=== PATIENT | female | born 1955 | race Caucasian/White ===

== ENCOUNTER → 2017-09-18 11:08 | Outpatient (CLI) | payer OTHER, SELFPAY ==
[2017-09-20 11:41] LABS: HPV Reflexed? NOT INDICATED
== END ==
PROVIDERS: Visit Provider Obstetrics & Gynecology
DX: Z12.4 Encounter for screening for malignant neoplasm of cervix (principal)
CPT/HCPCS: 88175; G0145

== ENCOUNTER → 2017-11-29 10:29 | Outpatient (CLI) | payer OTHER, SELFPAY ==
--- NOTE | 2017-11-29 10:32 | BI_ITS ---
MAMMOGRAPHY - BILATERAL SCREENING REASON FOR EXAM: Female, 62 years old. Routine annual screening examination. PERTINENT HISTORY: Mother with breast cancer. TECHNIQUE: Digital bilateral breast caleb (3D mammographic acquisition) in the CC and MLO projections. 2-D mediolateral oblique (MLO) and craniocaudad (CC) views of both breasts were obtained. CAD: Full Field Digital Mammography with Computer Added Detection was performed. COMPARISON: Comparison is made with prior study dated November 07, 2016 and November 06, 2015. FINDINGS: Breast Composition: There are scattered areas of fibroglandular density. There are no dominant masses or suspicious calcifications. No other significant abnormalities are identified. There has been no significant change since the prior study. BI/SCREENING MAMM (CAD), BILAT IMPRESSION: Stable bilateral screening mammogram. Yearly follow-up mammogram recommended. (A) ASSESSMENT CATEGORY: BIRADS Category 1: Negative. A letter regarding these results will be sent to the patient by the facility within 30 days. Approximately 10% of breast cancers are not detected by mammography. A normal mammogram should not delay biopsy of a clinically suspicious abnormality. [id number] Electronically Signed: Korey Wong MD at 14:19 EDT Tel [phone], Service support ,
== END ==
PROVIDERS: Family Provider Family Medicine; PCP Family Medicine; Visit Provider Obstetrics & Gynecology
DX: Z12.31 Encounter for screening mammogram for malignant neoplasm of breast (principal)
CPT/HCPCS: 77063; 77067

== ENCOUNTER 2017-12-19 23:17 | Emergency (ER) | payer OTHER, SELFPAY ==
[2017-12-19 23:18] VITALS: BP 147/74; PULSE 67; RESP 15; TEMP 36.4; O2SAT 98; BMI 28.9
[2017-12-19 23:23] VITALS: BP 147/74; PULSE 68; RESP 14; O2SAT 98
--- NOTE | 2017-12-20 00:02 | ED.VISSUMM ---
- ER Visit Summary Date of Service: 12/20/17 Chief Complaint: Needlestick History of Present Illness: The patient is a 62 F presenting for evaluation secondary to a needlestick. 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 She states that the patient denies hepatitis or HIV or any history of IV drug use or needle sharing. Patient did report a history of chlamydia in the past. Tetanus status is greater than 5 years. Physical Examination: Examination of the hand shows no tenderness to palpation and no obvious injury. Remainder the physical unremarkable. Test Results: Exposure panel was ordered and is pending Emergency Department Course and Treatment: Patient presented secondary to a needlestick. I believe this to be low risk for blood-borne pathogen. I do not believe that empiric treatment is necessary. Exposure panel was ordered, tetanus was updated, patient was discharged. Disposition: Discharge Impression: 1. Needlestick This note was generated with [employer] dictation software. It may contain incorrect words, spelling, and punctuation that were not noted in review of the chart prior to signing ED Disposition - Plan for ED Patient: Disposition: Home or Assisted Living Chief Complaint: Occup Expose Diagnosis: Needlestick injury accident Instructions: ED Body Fluid Exp HC Worker Referrals: [facility] [GROUP OF PHYSICIANS] - As Needed
[2017-12-20] MEDS: Diphth,Pertuss(Acell),Tet Vac 0.5 ML Vial IM (00:26)
[2017-12-20 00:53] VITALS: BP 140/74; PULSE 62; RESP 16
[2017-12-20 01:50] LABS: HIV - WCH Non-Reactive (Nonreactive)
[2017-12-21 12:51] LABS: HEPATITIS B SURFACE AG Negative (Negative); Hep B Surface Antibodies EMP Reactive (.); Hep C Antibodies <0.1 s/co ratio (0.0-0.9)
== END 2017-12-20 00:54 | disposition home or self-care (01) ==
PROVIDERS: Emergency Provider Emergency Medicine; Family Provider Family Medicine; PCP Family Medicine
DX: S61.032A Puncture wound without foreign body of left thumb without damage to nail, initial encounter (principal); Z23 Encounter for immunization; G47.30 Sleep apnea, unspecified; W46.1XXA Contact with contaminated hypodermic needle, initial encounter; Y93.89 Activity, other specified; Y92.129 Unspecified place in nursing home as the place of occurrence of the external cause; Y99.0 Civilian activity done for income or pay
CPT/HCPCS: 86703; 86803; 87340; 90715; 99282

== ENCOUNTER → 2018-02-23 12:02 | Outpatient (CLI) | payer OTHER, SELFPAY ==
[2018-02-23 14:32] LABS: Cholesterol 211 mg/dL (200); High Density Lipoprotein 63 mg/dL; Triglycerides 145 mg/dL; Very Low Density Lipoprotein 29 mg/dL (5-40)
== END ==
PROVIDERS: Family Provider Family Medicine; PCP Family Medicine; Visit Provider Family Medicine
DX: I10 Essential (primary) hypertension (principal)
CPT/HCPCS: 36415; 80061

== ENCOUNTER → 2018-09-05 09:17 | Outpatient (CLI) | payer OTHER, SELFPAY ==
--- NOTE | 2018-09-05 09:22 | BD_ITS ---
STUDY: DUAL ENERGY X-RAY ABSORPTIOMETRY / DXA REASON FOR EXAM: Female, 63 years old. The patient is postmenopausal. Loss of height. TECHNIQUE: Bone Mineral Density (BMD) measurements of lumbar spine and bilateral hips were obtained. COMPARISON: Comparison is made with prior study dated July 07, 2015. FINDINGS: Lumbar Spine (L1-L4): g/cm2 (1.255) / T-score (0.6) / Z-score (2.1) Findings are suggestive of normal bone density with a low fracture risk. Left Femur Total: g/cm2 (0.893) / T-score (-0.9) / Z-score (0.2) Left Femoral Neck: g/cm2 (0.874) / T-score (-1.2) / Z-score (0.2) Right Femur Total: g/cm2 (0.943) / T-score (-0.5) / Z-score (0.6) Right Femoral Neck: g/cm2 (0.904) / T-score (-1.0) / Z-score (0.4) The T-Scores on the most recent prior examination were: Lumbar Spine (L1-L4): There has been worsening of bone density since the previous examination. Left Femur Total: which represents a worsening of 6.1%. Right Femur Total: which represents a worsening of 3.8%. BD/Dexa Bone Density Study IMPRESSION: The patient is considered osteopenic as outlined below according to World Wolf Organization (WHO) criteria with a low fracture risk. There has been worsening of bone density since the previous examination. Reference Information: The T-score is the number of standard deviations above or below the standard which is normal for young adults at their peak bone mineral density. The World Health Organization (WHO) interprets the T-scores as follows: Above -1 Normal bone density Between -1 and -2.5 Osteopenia Equal to / or below -2.5 Osteoporosis As a practical clinical guideline, osteopenia may be graded as follows: Mild -1 through -1.5 Moderate -1.6 through -2.0 Severe -2.1 through -2.4 The Z-score is the number of standard deviations above or below age-matched controls. A Z-score of less than -1.5 would be considered abnormal. References: 1. NIH Osteoporosis and Related Bone Diseases http://www.osteo.org 2. International Society for Clinical Densitometry http://www.iscd.org 3. National Osteoporosis Foundation http://www.nof.org Electronically Signed: Korey Wong, at 13:28 EST , Service support ,
== END ==
PROVIDERS: Family Provider Family Medicine; PCP Family Medicine; Visit Provider Family Medicine
DX: Z00.00 Encounter for general adult medical examination without abnormal findings (principal)
CPT/HCPCS: 77080

== ENCOUNTER → 2018-09-21 15:08 | Outpatient (CLI) | payer OTHER, SELFPAY ==
--- NOTE | 2018-09-21 15:23 | RAD_ITS ---
STUDY: X-RAY - LUMBAR SPINE REASON FOR EXAM: Female, 63 years old. Pain radiating down legs for months. TECHNIQUE: 5 view(s) of the lumbar spine were obtained. COMPARISON: None FINDINGS: Normal lumbar lordosis. There is no substantial scoliosis. There is a normal alignment of the vertebrae. Normal vertebral bodies and endplates. Normal disc space heights. The soft tissue structures are unremarkable. RAD/L/S Spine Min 4 Views IMPRESSION: Normal x-ray examination of the lumbar spine. Electronically Signed: Eladio Broderick MD at 13:44 EDT , Service support ,
== END ==
PROVIDERS: Family Provider Family Medicine; PCP Family Medicine
DX: M54.5 Low back pain (principal)
CPT/HCPCS: 72110

== ENCOUNTER → 2018-12-14 | Outpatient (CLI) | payer OTHER, SELFPAY ==
--- NOTE | 2018-12-14 10:43 | BI_ITS ---
MAMMOGRAPHY - BILATERAL SCREENING REASON FOR EXAM: Female, 63 years old. Routine annual screening examination. PERTINENT HISTORY: Mother with breast cancer. TECHNIQUE: Digital bilateral breast cayla (3D mammographic acquisition) in the CC and MLO projections. 2-D mediolateral oblique (MLO) and craniocaudad (CC) views of both breasts were obtained. CAD: Full Field Digital Mammography with Computer Added Detection was performed. COMPARISON: Comparison is made with prior study dated November 29, 2017 and November 07, 2016. FINDINGS: Breast Composition: There are scattered areas of fibroglandular density. There are no dominant masses or suspicious calcifications. No other significant abnormalities are identified. There has been no significant change since the prior study. BI/SCREEN MAMM (CAD) W/CAYLA BILAT IMPRESSION: Stable bilateral screening mammogram. Yearly follow-up mammogram recommended. (A) ASSESSMENT CATEGORY: BIRADS Category 1: Negative. A letter regarding these results will be sent to the patient by the facility within 30 days. Approximately 10% of breast cancers are not detected by mammography. A normal mammogram should not delay biopsy of a clinically suspicious abnormality. [id number] Electronically Signed: Korey Wong, at 12:29 EDT , Service support ,
== END | disposition home or self-care (01) ==
LOC: OPBI 10:41
PROVIDERS: Family Provider Family Medicine; PCP Family Medicine; Referring Provider Obstetrics & Gynecology; Visit Provider Obstetrics & Gynecology
DX: Z12.31 Encounter for screening mammogram for malignant neoplasm of breast (principal)
CPT/HCPCS: 77063; 77067

== ENCOUNTER 2019-01-30 12:30 | Outpatient (RCR) | payer OTHER, SELFPAY ==
--- NOTE | 2018-12-10 15:28 | HP.PTEVAL ---
Patient's Visit Information SITA MITTAL is a 63 year old F referred to Physical Therapy by PAMELA HEBERT with a diagnosis of LOW BACK, RIGHT HIP AND MILTON KNEE PAIN. Date of Evaluation: 12/10/18 Physical Therapist: Urvashi Herman PT, Cert MDT - Visit Plan Frequency: 2-3x /Week Duration: 4-6 Weeks Plan: AQUATIC THERAPY FOR PAIN RELIEF, POSTURE CORRECTION/STRENGTHENING, INSTRUCTION IN APPROPRIATE BODY MECHANICS AND ACTIVITY MODIFICATIONS. DLS STARTING WITH A NEUTRAL SPINE PROGRESSING ROM TOLERATED. MILTON LE ROM, STRETCHING AND STRENGTHENING. HEP INSTRUCTION. 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 NO ROUTINE HEAVY LIFTING, PUSHING OR PULLING. Disability: NO. Present symptoms: MILTON LOW BACK PAIN, MILTON HIP PAIN, MILTON THIGH AND KNEE PAIN. MILTON FOOT NUMBNESS. OTHERWISE NO LE NUMBNESS OR TINGLING. Present since: MORE THAN 5 YEARS AGO. HIP PAIN STARTED JUN 2018 USING ELIPTICAL. Pain Scale: WORST 5/10, LEAST 0/10. Currently: 07/12 - STAYING THE SAME OR MAYBE GETTING A LITTLE BETTER. Commenced as a result of: NO APPARENT REASON. Symptoms at onset: MILTON KNEE PAIN. Worse: STANDING, SITTING, TRYING TO DO THE ELIPICAL [facility] JUL 2018 - HIP AND THIGH PAIN [place], A LOT OF WALKING, RIDING IN THE CAR. Better: QUITING LEG EX'S AT THE GYM, FOAM ROLLER, PIRIFORMIS STRETCH, LTR, STANDING FLEXION. TAKES LYRICA AND TYLONOL AND MALOXACAM FOR OTHER CONDITIONS THAT MAY BE HELPING - ON ALL THESE MEDS BEFORE THIS PAIN. Disturbed sleep: YES. Previous history/Previous treatment: CHIROPRACTOR EVERY MONTH FOR MAINTANCE FOR YEARS. TRIES TO GO THE DAY AFTER MASSAGE WHICH SHE ALSO HAS EVERY MONTH. NO BACK, HIP OR KNEE SURGERY. 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 UNDER THE CARE OF PAIN CLINIC. RECEIVED A RIGHT HIP INJECTION JUN 2018 WHICH HELPED FOR ABOUT 5 WEEKS. NO BACK INJECTIONS. NO KNEE INJECTIONS. Coughing/sneezing/straining: NEGATIVE. Gait: PATIENT REPORTS SHE HAS MILD ATAXIA THAT SHE RELATES TO LYRICA. DISTANCE LIMITED. QUICK PACE. NO LIMPING. Difficulty initiating urinatin: NO. Accidents: NO. Unexplained weight loss: NO. Imaging: RECENT LUMBAR X-RAY - NORMAL. NO RECENT HIP OR KNEE X-RAYS. 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 Recent major surgery: NO. PLOF (Prior Level of Function): UNLIMITED EXCEPT THINGS LIKE DANCING PRIOR TO JUN 2018 FLARE UP WITH HIPS IN GYM ON ELIPTICAL. - Objective Sitting/Standing Posture: POOR. Lordosis: REDUCED. Lateral shift: NO. Relevant shift: N/A. Active Correction of posture: NE. Other Observations: INDEP GAIT INTO PT WITH NO GROSS DEVIATIONS NOTED. INDEP SIT TO STAND WITHOUT UE ASSIST. Motor deficit: 5/5 MILTON LE'S EXCEPT HIPS 4/5 AND SYMMETRICAL. Sensory deficit: NO. ROM deficit: TIGHT MILTON LE HS'S AND GASTROC SOLEUS COMPLEX'S. Reflexes: 2/2 RIGHT LE AND 1/2 LLE. Dural Signs: NEGATIVE MILTON LE'S. Lumbar mvmt loss: flex - NIL. ext - MALLORY IN STANDING, MOD IN LYING. R SG - MOD. L SG - MOD. PATIENT DENIES INCREASED SX'S IN BACK OR LEGS WITH LUMBAR ROM TESTING. Core strength: POOR. Palpation: NO ACUTE THORACIC, LUMBAR OR HIP TENDERNESS. - Goals Goal 1:: DECREASE C/O LOW BACK AND MILTON LE SX'S. Goal Time Frame: 4-6 Weeks Goal 2:: IMRPOVE WALKING, SITTING, STANDING, SLEEP, SOCIAL LIFE, TRAVEL AND HOMEMAKING FUNCTION Goal Time Frame: 4-6 Weeks Goal 3:: INSTRUCT IN PROPHYLAXIS Goal Time Frame: 4-6 Weeks - Rehabilitation Potential Rehabilitation Potential: Fair - Anticipated Interventions Patient/Client Instruction: Educate patient on: Condition, Plan of Care, Risk Factors, Benefits of Fitness Program For the Purpose of:: To improve self management Therapeutic Exercise to Include: Strength training, Body mechanics, Postural training, Flexibilty training, In an aquatic setting, Dynamic Lumbar Stabilization For the Purpose of:: To decrease pain, To improve muscle performance and motor function, To increase tolerance to activity/condition/position, To improve ability of physical actions for home/community/work/leisure TENS: Yes IF ES: Yes Cryotherapy (ice pack, ice massage): Yes Thermo therapy (hot pack): Yes Ultrasound (thermal/non thermal): Yes For the Purpose of:: To decrease pain, To decrease swelling/inflammation, To improve nutrient delivery to tissue Thank you for the opportunity to evaluate your patient. For Medicare and Medicare HMO plans, please review the plan of care and approve it. It will need to be FAXED BACK to us at [phone] for Medicare purposes. For Medicare only, by signing this I certify the plan of care. Please let me know if there are questions or concerns regarding this plan of care. Physician Signature: Date:
--- NOTE | 2019-01-11 10:53 | HP.PTREVAL ---
PAMELA HEBERT, It has been my pleasure to treat SITA MITTAL over the last 10 visits for LOW BACK, RIGHT HIP AND MILTON KNEE PAIN. Please see the progress note below for an update on the physical therapy plan of care! Subjective: PATIENT REPORTS HER RIGHT HIP PAIN ISN'T FREQUENT OR SEVERE SINCE STARTING PT. FOLLOW UP SCHEDULED WITH HER DOCTOR APPROX JANUARY 30. PATIENT REPORTS SHE FEELS LIKE IF SHE CONTINUES TO DO WHAT WE TAUGHT HER SHE WILL CONTINUE TO GET BETTER. SHE REPORTS SHE IS STILL IN TOO MUCH PAIN TO DO GYM EX'S. PATIENT REPORTS SHE LIKES BEING IN THE POOL BUT NOT THE LOGISTICS OF OF GETTING IN AND OUT OF THE POOL. Objective/Function: THIS PATIENT IS A GOOD CANDIDATE TO TRY TO TRANSITION TO LAND HEP AND POSSIBLY GYM EQUIPMENT. SHE IS MAKING GOOD PROGRESS TOWARD ALL GOALS. UPON EXAM TODAY SHE DEMONSTRATES IMPROVED MILTON HIP STRENGTH WITH ONLY MILD WEAKNESS 4/5 IN RIGHT GLUT MED. LUMBAR ROM HAS ALSO IMPROVED FOLLOWS: Lumbar mvmt loss: flex - NIL. ext - MOD. R SG - MOD. L SG - MOD. PATIENT DENIES INCREASED PAIN WITH LUMBAR ROM TESTING. Plan Plan: CONT PER POC X 2 MORE VISITS ON LAND THEN RE-CHECK WITH PHYSICIAN. PATIENT AGREEABLE. Goals Goal 1:: DECREASE C/O LOW BACK AND MILTON LE SX'S. Goal Time Frame: 4-6 Weeks Goal 2:: IMRPOVE WALKING, SITTING, STANDING, SLEEP, SOCIAL LIFE, TRAVEL AND HOMEMAKING FUNCTION Goal Time Frame: 4-6 Weeks Goal 3:: INSTRUCT IN PROPHYLAXIS Goal Time Frame: 4-6 Weeks Anticipated Interventions Patient/Client Instruction: Educate patient on: Condition, Plan of Care, Risk Factors, Benefits of Fitness Program For the Purpose of:: To improve self management Therapeutic Exercise to Include: Strength training, Body mechanics, Postural training, Flexibilty training, In an aquatic setting, Dynamic Lumbar Stabilization For the Purpose of:: To decrease pain, To improve muscle performance and motor function, To increase tolerance to activity/condition/position, To improve ability of physical actions for home/community/work/leisure TENS: Yes IF ES: Yes Cryotherapy (ice pack, ice massage): Yes Thermo therapy (hot pack): Yes Ultrasound (thermal/non thermal): Yes For the Purpose of:: To decrease pain, To decrease swelling/inflammation, To improve nutrient delivery to tissue Please do not hesitate to contact me at [phone] by phone or if you have questions or concerns regarding this new plan of care! Sincerely, Urvashi Herman, PT, Cert MDT
--- NOTE | 2019-01-30 13:24 | HP.PTDCSUM ---
HP - PT D/C Summary It has been my pleasure to treat SITA MITTAL under orders from PAMELA HEBERT, for the diagnosis of LOW BACK, RIGHT HIP AND MILTON KNEE PAIN for a total of 12 visit(s). Discharge Date: 01/30/19 Please see the following information for a summary of their discharge status. - Subjective Subjective: PATIENT REPORTS SHE IS DOING GOOD WITH THE HOME EX'S NOW AND IS ALSO GLAD SHE CAN DO THE NUSTEP. GOING FORWARD AT [facility] IN POOL WELL. - Pain BACK Pain Intensity (Out of 10): 0 both knees Pain Intensity (Out of 10): 2 RLE Pain Intensity (Out of 10): 2 - Overall Improvement % Improvement: 60 - Objective Objective/Function: ALL GOALS MET. THERE ARE NO SIGNIFICANT CHANGES WITH TESTING TODAY COMPARED TO JANUARY 11 2019 BUT PATIENT IS NOW INDEP IN BOTH WATER AND HOME EX PROGRAMS. PATIENT COMMUNICATED A GOOD UNDERSTANDING OF ALL INSTRUCTIONS AFTER GIVEN TODAY. - Goals Goal 1:: DECREASE C/O LOW BACK AND MILTON LE SX'S. Goal Progress: Goal Met Goal 2:: IMRPOVE WALKING, SITTING, STANDING, SLEEP, SOCIAL LIFE, TRAVEL AND HOMEMAKING FUNCTION Goal Progress: Goal Met Goal 3:: INSTRUCT IN PROPHYLAXIS Goal Progress: Goal Met - Plan Plan: D/C TO INDEP POOL AND HEP PROGRAMS. PATIENT IS AGREEABLE. - D/C Information If there are questions or concerns regarding this patient's physical therapy, please feel free to call me at [phone]. Thank you for the referral of this patient. Sincerely, Urvashi Herman, PT, Cert MDT
== END 2019-01-30 19:00 | disposition home or self-care (01) ==
LOC: PT 12:30
PROVIDERS: Family Provider Family Medicine; PCP Family Medicine
DX: M25.551 Pain in right hip (principal); M25.561 Pain in right knee; M25.562 Pain in left knee; M54.5 Low back pain
CPT/HCPCS: 97110; 97113; 97162; 97530

== ENCOUNTER → 2019-08-22 | Outpatient (CLI) | payer OTHER, SELFPAY ==
[2019-08-22 12:41] LABS: Anion Gap 4 (5-15); BUN 24 mg/dL (7-18); BUN/Creat Ratio 21.8 RATIO (10-20); Calcium,Total 9.3 mg/dL (8.5-10.1); Chloride 109 mmol/L (98-107); Cholesterol 171 mg/dL (200); EST Glomerular Filtration Rate 53 mL/min (>60); Est Glom Filt Rate - Afr Amer 64 mL/min (>60); Glucose 75 mg/dL (74-106); High Density Lipoprotein 62 mg/dL; Potassium 4.3 mmol/L (3.5-5.1); Sodium Level 142 mmol/L (136-145); Triglycerides 118 mg/dL; Very Low Density Lipoprotein 24 mg/dL (5-40)
== END | disposition home or self-care (01) ==
LOC: MTLAB 09:48
PROVIDERS: PCP Family Medicine; Referring Provider Family Medicine; Visit Provider Family Medicine
DX: I10 Essential (primary) hypertension (principal); E78.5 Hyperlipidemia, unspecified
CPT/HCPCS: 36415; 80048; 80061

== ENCOUNTER → 2019-12-19 | Outpatient (CLI) | payer OTHER, SELFPAY ==
--- NOTE | 2019-12-19 09:41 | BI_ITS ---
MAMMOGRAPHY - BILATERAL SCREENING REASON FOR EXAM: Female, 64 years old. Routine annual screening examination. PERTINENT HISTORY: Mother with breast cancer. TECHNIQUE: Digital bilateral breast cayla (3D mammographic acquisition) in the CC and MLO projections. 2-D mediolateral oblique (MLO) and craniocaudad (CC) views of both breasts were obtained. CAD: Full Field Digital Mammography with Computer Added Detection was performed. COMPARISON: Comparison is made with prior study dated December 14, 2018. FINDINGS: Breast Composition: There are scattered areas of fibroglandular density. There are no dominant masses or suspicious calcifications. Stable small benign appearing bilateral axillary lymph nodes. No other significant abnormalities are identified. There has been no significant change since the prior study. BI/SCREEN MAMM (CAD) W/CAYLA BILAT IMPRESSION: Stable bilateral screening mammogram. Yearly follow-up mammogram recommended. (A) ASSESSMENT CATEGORY: BIRADS Category 2: Benign. A letter regarding these results will be sent to the patient by the facility within 30 days. Approximately 10% of breast cancers are not detected by mammography. A normal mammogram should not delay biopsy of a clinically suspicious abnormality. [id number] Electronically Signed: Korey Wong, at 11:18 EDT , Service support ,
== END | disposition home or self-care (01) ==
LOC: OPBD 09:39
PROVIDERS: PCP Family Medicine; Referring Provider Obstetrics & Gynecology; Visit Provider Obstetrics & Gynecology
DX: Z12.31 Encounter for screening mammogram for malignant neoplasm of breast (principal)
CPT/HCPCS: 77063; 77067

== ENCOUNTER → 2020-10-19 13:54 | Outpatient (CLI) | payer MEDICARE, SELFPAY ==
[2020-10-19 15:41] LABS: Absolute Lymphocyte Count 1.54 X10^3/uL (0.83-4.51); Absolute Neutrophil Count 1.8 X10^3/uL (2.0-7.7); Basophil# 0.02 X10^3/uL; Basophil% 0.5 % (0-1); Eosinophil# 0.04 X10^3/uL; Eosinophils% 1.1 % (0-5); Hematocrit 39.9 % (37-47); Hemoglobin 12.8 g/dL (12.0-15.0); Lymphocyte # 1.54 X10^3/ul (0.83-4.51); Lymphocyte % 40.8 % (19-41); Mean Corp Hgb Conc 32.1 g/dL (32-36); Mean Corpuscular Hgb 31.2 pg (27.0-32.0); Mean Corpuscular Volume 97.3 fL (81-99); Mean Platelet Vol. 11.3 fl (6.2-12.0); Monocyte# 0.33 X10^3/uL; Monocyte% 8.8 % (0-10); NRBC Flagged by Analyzer 0 % (0-5); Neutrophil # 1.83 X10^3/uL (2.7-7.7); Neutrophil % 48.5 % (47-70); Platelet Count 215 K/mm3 (150-450); RBC Distribution Width CV 12.9 % (11.6-14.6); RBC Distribution Width SD 45.9 fl (35.1-43.9); White Blood Count 3.8 K/mm3 (4.4-11.0)
== END ==
PROVIDERS: PCP Family Medicine; Referring Provider Internal Medicine Rheumatology; Visit Provider Internal Medicine Rheumatology
DX: D72.819 Decreased white blood cell count, unspecified (principal)
CPT/HCPCS: 36415; 85025

== ENCOUNTER → 2021-02-12 10:33 | Outpatient (CLI) | payer MEDICARE, SELFPAY ==
--- NOTE | 2021-02-12 10:56 | BI_ITS ---
MAMMOGRAPHY - BILATERAL SCREENING REASON FOR EXAM: Female, 65 years old. Routine annual screening examination. PERTINENT HISTORY: Mother with breast cancer. TECHNIQUE: Digital bilateral breast cayla (3D mammographic acquisition) in the CC and MLO projections. 2-D mediolateral oblique (MLO) and craniocaudad (CC) views of both breasts were obtained. CAD: Full Field Digital Mammography with Computer Added Detection was performed. COMPARISON: Comparison is made with prior study dated 12/19/2019 and 12/14/2018. FINDINGS: Breast Composition: There are scattered areas of fibroglandular density. There are no dominant masses or suspicious calcifications. No other significant abnormalities are identified. There has been no significant change since the prior study. BI/SCRN MAMM (CAD)W/CAYLA BILAT IMPRESSION: Stable bilateral screening mammogram. Yearly follow-up mammogram recommended. (A) ASSESSMENT CATEGORY: BIRADS Category 1: Negative. A letter regarding these results will be sent to the patient by the facility within 30 days. Approximately 10% of breast cancers are not detected by mammography. A normal mammogram should not delay biopsy of a clinically suspicious abnormality. [id number] Electronically Signed: Korey Wong MD at 11:54 EDT , Service support ,
== END ==
PROVIDERS: PCP Family Medicine; Referring Provider Obstetrics & Gynecology; Visit Provider Obstetrics & Gynecology
DX: Z12.31 Encounter for screening mammogram for malignant neoplasm of breast (principal)
CPT/HCPCS: 77063; 77067

== ENCOUNTER → 2021-05-17 | Outpatient (CLI) | payer MEDICARE, SELFPAY | END | disposition home or self-care (01) | LOC: MTLAB 14:10 → LABSPEC 14:12 | PROVIDERS: PCP Family Medicine; Referring Provider Family Medicine; Visit Provider Family Medicine | DX: R19.7 Diarrhea, unspecified (principal) | CPT/HCPCS: 87493; 87506 ==

== ENCOUNTER 2021-06-02 15:30 | Outpatient (RCR) | payer MEDICARE, SELFPAY ==
--- NOTE | 2021-05-20 15:37 | HP.PTEVAL_ITS ---
Patient's Visit Information SITA MITTAL is a 65 year old F referred to Physical Therapy by Dr. Nathen Pacheco MD with a diagnosis of L shoulder adhesive capsulitis. Date of Evaluation: 05/20/21 Physical Therapist: Darron Campos, SURESHT, OCS, CSCS - Visit Plan Frequency: 1-2x /Week Duration: 4-6 Weeks Plan: 1-2x/week for 4-6 weeks as needed for STM, ROM,mobs and PROM, strength scap and RC and progression to HEP. TENS wtih ice/Mh as needed. Start with one visit next week and measure ROM, weekly if better, 2x/week if no better. - Subjective L shoulder hurts. Saw Dr. Pacheco at [facility] due to L shoulder pain. Hurts anteriorly and posteriorly at L shoulder. Hard to move to undue bra. It has hurt for about 5-6 months. Slightly worse lately over the last weeks. Not sure what started it, possibly a trip on step and land on her arms. Sometimes it hurts at rest. 0/10 at rest today. Gets up to 5/10 with lying in bed on L side. Hard to maneuver in bed . Hurts to reach up and out. Out to the side with arc is worse. More weight in hands is worse. Hard to get dressed due to pain but can do it. Alters the way she dresses. ADLS are effected but take longer and hard to wash back. Not employed. Hobbies include playing [place] horn and can stilld o it. - Pain L shoulder Pain Intensity (Out of 10): 0 Pain Intensity Range: 0, 5 - Objective L Shouder is held slightly protected, Fw scap on that side. Posture is forward head and protracted scap B. Tender supraspinatus.L side moderately. cervical, elbow and wrist AROM full and painfree. AROM L shoulder 145 flexion and 150 abd and 55 ext rotation and L5 IR all with pain end range. PROM similar to AROM numbers. Mostly painful endfeel. strength thumb ext, wrist ext, elbow flex/ext all painfree and 4/5. Shoulder flexion L painful and 4-, abd same, ext 4 and no pain. IR 4 no pain, ext rot 4 and no pain. - sulcus. - apprehension. - drop arm and ext rotation lag test. slight positive HK and neer impingement tests. reflexes 2/3 bi and tri B. Sensation WNL to gross light touch in UE. - Balance/Special Test Scores Quick DASH Score: 31.8175 - Goals Goal 1:: 155 flexion and abd and 80 ext rotation AROM without pain. Goal Time Frame: 4-6 Weeks Goal 2:: Fasten/unfasten bra without pain Goal Time Frame: 4-6 Weeks Goal 3:: I appropiate ex to manage condition. Goal Time Frame: 4-6 Weeks Goal 4:: Pain 1/10 at worst and 90% better. Goal Time Frame: 4-6 Weeks - Rehabilitation Potential Physical Therapy Diagnosis: L shoulder capsulitis. Rehabilitation Potential: Good - Anticipated Interventions Patient/Client Instruction: Educate patient on: Condition, Plan of Care For the Purpose of:: To decrease pain, To increase ROM, To improve muscle performance and motor function, To increase tolerance to activity/condition/position, To improve ability of physical actions for home/community/work/leisure Therapeutic Exercise to Include: Strength training, Postural training, Passive ROM, Active ROM, Scapular Strength/Stabilization For the Purpose of:: To decrease pain, To increase ROM, To improve muscle performance and motor function, To increase tolerance to activity/condition/position Manual Therapy Techniques to Include: Mobilization, Passive ROM, Soft tissue mobilization For the Purpose of:: To decrease pain, To increase ROM TENS: Yes Thermo therapy (hot pack): Yes Thank you for the opportunity to evaluate your patient. For Medicare and Medicare HMO plans, please review the plan of care and approve it. It will need to be FAXED BACK to us at [phone] for Medicare purposes. For Medicare only, by signing this I certify the plan of care. Please let me know if there are questions or concerns regarding this plan of care. Physician Signature: Date:
--- NOTE | 2021-06-14 06:51 | HP.PTDCNRP_ITS ---
SITA MITTAL was seen in my office for initial evaluation on 05/20/21. The following Plan of Care was established for this patient: Initial Frequency: 1-2x /Week Initial Duration: 4-6 Weeks Patient/Client Instruction: Educate patient on: Condition, Plan of Care For the Purpose of:: To decrease pain, To increase ROM, To improve muscle performance and motor function, To increase tolerance to activity/condition/position, To improve ability of physical actions for home/community/work/leisure Therapeutic Exercise to Include: Strength training, Postural training, Passive ROM, Active ROM, Scapular Strength/Stabilization For the Purpose of:: To decrease pain, To increase ROM, To improve muscle performance and motor function, To increase tolerance to activity/condition/position Manual Therapy Techniques to Include: Mobilization, Passive ROM, Soft tissue mobilization For the Purpose of:: To decrease pain, To increase ROM TENS: Yes Thermo therapy (hot pack): Yes This patient was last seen in our office 06/02/21. Pertinent comments regarding their Physical therapy will appear below: Pt seen 3 visits POC and was much improved. She was to f/u for progression of exercises but has emailed me to state...I saw Dr. Pacheco for follow up on 06-10-21, and he was pleased with progress made on my left shoulder adhesive c apsulitis. However, he was adamant about continuing with only stretching exercises for the next 2 to 3 months. As I?m continuing the various stretches you?ve given me at home, it seems unnecessary to meet at this time. Therefore, I will discontinue her at this time at her request. At this point I will be discontinuing this patient from physical therapy. I would be happy to see this patient again in the future if found appropriate by the physician. Thank you! Darron Campos, DPT, OCS, CSCS Balance/Gait/Functional tests - Balance/Special Test Scores Quick DASH Score: [phone]
== END 2021-06-02 19:00 | disposition home or self-care (01) ==
LOC: PT 15:30
PROVIDERS: PCP Family Medicine; Referring Provider Orthopaedic Surgery; Visit Provider Orthopaedic Surgery
DX: M65.4 Radial styloid tenosynovitis [de Quervain] (principal); M75.02 Adhesive capsulitis of left shoulder
CPT/HCPCS: 97110; 97161

== ENCOUNTER → 2021-12-06 | Outpatient (CLI) | payer MEDICARE, SELFPAY ==
[2021-12-06 12:48] LABS: Vitamin D,25 Hydroxy 34.7 ng/mL
[2021-12-06 12:52] LABS: Anion Gap 6 (5-15); BUN 22 mg/dL (7-18); Chloride 108 mmol/L (98-107); Cholesterol 174 mg/dL (200); EST Glomerular Filtration Rate 59 mL/min (>60); Est Glom Filt Rate - Afr Amer 71 mL/min (>60); Glucose 85 mg/dL (74-106); High Density Lipoprotein 55 mg/dL; Potassium 4.6 mmol/L (3.5-5.1); Sodium Level 141 mmol/L (136-145); Triglycerides 179 mg/dL; Very Low Density Lipoprotein 36 mg/dL (5-40)
== END | disposition home or self-care (01) ==
LOC: MFPLAB 10:17
PROVIDERS: PCP Family Medicine; Visit Provider Family Medicine
DX: I10 Essential (primary) hypertension (principal); E55.9 Vitamin D deficiency, unspecified
CPT/HCPCS: 36415; 80048; 80061; 82306

== ENCOUNTER 2022-01-21 22:54 | Emergency (ER) | payer MEDICARE, SELFPAY ==
[2022-01-21 22:56] VITALS: BP 106/77; PULSE 86; RESP 16; TEMP 36.5; O2SAT 99; BMI 29.3
[2022-01-22] MEDS: 0.9% Normal Saline 1,000 ML 150 ML IV (00:42)
[2022-01-22] MEDS: Ondansetron 4 MG/2 ML Vial IV ×2 (00:43→06:06)
[2022-01-22] MEDS: Morphine 4 MG/ML Syringe IV (00:44)
[2022-01-22 00:45] LABS: Absolute Lymphocyte Count 1.11 X10^3/uL (0.83-4.51); Absolute Neutrophil Count 5.1 X10^3/uL (2.0-7.7); Basophil# 0.01 X10^3/uL; Basophil% 0.1 % (0-1); Hematocrit 36.4 % (37-47); Hemoglobin 11.9 g/dL (12.0-15.0); Lymphocyte # 1.11 X10^3/ul (0.83-4.51); Lymphocyte % 16.1 % (19-41); Mean Corp Hgb Conc 32.7 g/dL (32-36); Mean Corpuscular Hgb 31.4 pg (27.0-32.0); Mean Platelet Vol. 10.9 fl (6.2-12.0); Monocyte# 0.66 X10^3/uL; Monocyte% 9.6 % (0-10); NRBC Flagged by Analyzer 0 % (0-5); Neutrophil # 5.09 X10^3/uL (2.7-7.7); Neutrophil % 73.9 % (47-70); Platelet Count 181 K/mm3 (150-450); RBC Distribution Width CV 13.2 % (11.6-14.6); RBC Distribution Width SD 46.3 fl (35.1-43.9); Red Blood Count 3.79 M/mm3 (4.2-5.4); White Blood Count 6.9 K/mm3 (4.4-11.0)
[2022-01-22 01:02] LABS: Anion Gap 7 (5-15); BUN 18 mg/dL (7-18); BUN/Creat Ratio 17.1 RATIO (10-20); Calcium,Total 9.3 mg/dL (8.5-10.1); Chloride 107 mmol/L (98-107); Creatinine, Serum 1.05 mg/dL (0.55-1.02); EST Glomerular Filtration Rate 56 mL/min (>60); Est Glom Filt Rate - Afr Amer 67 mL/min (>60); Estimated Creatinine Clearance 49.34 ml/min; Glucose 165 mg/dL (74-106); Potassium 3.7 mmol/L (3.5-5.1); Sodium Level 139 mmol/L (136-145)
--- NOTE | 2022-01-22 01:10 | RAD_ITS ---
STUDY: X-RAY - RIGHT HAND REASON FOR EXAM: Female, 66 years old. injury TECHNIQUE: 3 view(s) of the right hand. COMPARISON: None. FINDINGS: Normal radiocarpal articulation. Normal distal radioulnar joint. Normal visualized carpal bones. Normal carpal articulations Normal carpometacarpal articulation of the thumb. Normal second through fifth carpometacarpal joints. Normal metacarpi. Normal metacarpophalangeal joint of the thumb. Normal interphalangeal joint of the thumb. Normal proximal and distal phalanges of the thumb. Normal metacarpophalangeal joints of the second through fifth fingers. Normal proximal and distal interphalangeal joints of the second through fifth fingers. Normal phalanges of the second through fifth fingers. Localized soft tissue swelling noted adjacent to the index DIP joint. No opaque foreign body. RAD/Hand Min 3 Views IMPRESSION: Soft tissue swelling adjacent to the index DIP joint. No acute fracture or dislocation. Electronically Signed: Wayne Tariq MD at 1:27 EDT ,
[2022-01-22 01:12] LABS: Lactic Acid 1.7 mmol/L (0.4-1.9)
[2022-01-22 01:18] VITALS: BP 160/78; PULSE 75; RESP 18; TEMP 36.8; O2SAT 99
[2022-01-22 02:00] VITALS: RESP 17
--- NOTE | 2022-01-22 02:13 | HP.PCM.HOS_ITS ---
HPI - General General Date of Admission: 01/22/22 Date of Service: 01/22/22 Chief Complaint: Cat bite HPI Narrative SITA MITTAL, is a 66 F with a significant history of undifferentiated connective tissue disease; osteoarthritis; hyperlipidemia; and hypertension who presents to the emergency department with a cat bite of the distal phalanx of her right second finger. Of note patient took her cat to the [employer]nut fry[employer] for euthanasia. While petting the cat the cat bit her. Patient then called his son who is an ED physician who prescribed for her Augmentin. Patient took Augmentin about an hour after the bite. At the time of presentation to the ED patient is taking 3 doses of the Augmentin. His symptoms has progressed. She reports pain and swelling in the right finger moving to her forearm and and with lymphadenopathy under her armpits. She did not check her temperature at home. She reports chills. She denies anorexia. [facility] Medical History (Updated 01/22/22 @ 02:[address] Rikki Hewitt, ) Cat bite HTN (hypertension) Hyperlipidemia Osteoarthritis Undifferentiated connective tissue disease Home Medications Bifidobacterium infantis 4 mg capsule (Align) 4 mg PO DAILY 01/22/22 [History Last Taken Unknown] acetaminophen 500 mg capsule 1,000 mg PO BID 01/22/22 [History Last Taken Unknown] amoxicillin 875 mg-potassium clavulanate 125 mg tablet 1 tab PO BID 01/22/22 [History Last Taken Unknown] aspirin 81 mg capsule 81 mg PO DAILY 01/22/22 [History Last Taken Unknown] bupropion HCl 300 mg 24 hr tablet, extended release 1 tab PO DAILY 01/22/22 [History Last Taken Unknown] carisoprodol 350 mg tablet 175 mg PO QHS PRN MUSCLE RELAXER 01/22/22 [History Last Taken Unknown] hydroxychloroquine 200 mg tablet (Plaquenil) 200 mg PO DAILY 01/22/22 [History Last Taken Unknown] levocetirizine 5 mg tablet (Xyzal) 5 mg PO QPM 01/22/22 [History Last Taken Unknown] naproxen sodium 220 mg capsule (Aleve) 220 mg PO QHS PRN Pain 01/22/22 [History Last Taken Unknown] pravastatin 80 mg tablet 80 mg PO QHS 01/22/22 [History Last Taken Unknown] pregabalin 100 mg capsule 100 mg PO DAILY 01/22/22 [History Last Taken Unknown] pregabalin 200 mg capsule 200 mg PO QHS 01/22/22 [History Last Taken Unknown] zolpidem 5 mg tablet 5 mg PO QHS PRN Insomnia 01/22/22 [History Last Taken Unknown] Allergy/AdvReac Type Severity Reaction Status Date / Time No Known Allergies Allergy Verified 01/21/22 22:58 Family History (Updated 01/22/22 @ 02:[address] Jack Rubi MD) Other Alzheimer's dementia CVA (cerebral vascular accident) Surgical History (Updated 01/22/22 @ 02:[address] Jack Rubi MD) Hx of cholecystectomy Social History Smoking Status: Never smoker ROS ROS Narrative Pertinent positives and pertinent negatives as noted in HPI. All other systems were reviewed and are negative. Vital Signs Vital Signs Vital Signs: 01/21/22 22:56 01/22/22 01:18 01/22/22 02:00 Temperature 97.7 F L 98.3 F Temperature Source Temporal Temporal Pulse Rate 86 75 Respiratory Rate 16 18 17 Blood Pressure 106/77 160/78 H Blood Pressure Mean 86 105 Pulse Ox 99 99 Oxygen Delivery Method Room Air Room Air Room Air Weight Weight: 82.554 kg Body Mass Index (BMI) 29.3 Physical Exam Narrative Physical exam: General: Well-nourished, well-developed. Head: Normocephalic, atraumatic, no tenderness Eyes: Vision is grossly intact. EOMI ENT, no trauma, moist mucous membranes, no rhinorrhea Neck: Nontender, full range of motion, no spinal tenderness, deformities, step- off CVS: Regular rate and rhythm. S1-S2 present. No murmur, gallop or rub. Respiratory : clear to auscultation bilaterally, chest wall nontender, no wheezing Abdomen: Soft, nontender, nondistended, normal bowel sounds, no masses : Deferred Back: Nontender, no CVA tenderness, no midline spinal tenderness, deformities, step-offs Extremities: Bullae at distal interphalangeal joints of right index finger. Erythema; swelling and tenderness of right index finger with lymphangitic streaking going up to right forearm and right arm. Inability to flex distal phalanx of right index finger. Skin: Normal color, no trauma, abrasions Neuro: Alert, oriented, cranial nerves II through XII grossly intact. Psychiatry: Normal mood. Normal affect. Not depressed. Not anxious. Results Medical Records Data Attestation: I reviewed the patient's medical records Lab / Micro Data Attestation: I reviewed the patient's lab results. Result Diagrams: 01/22/22 00:40 01/22/22 00:40 Labs: Laboratory Results - last 24 hr 01/22/22 00:40: WBC 6.9, RBC 3.79 L, Hgb 11.9 L, Hct 36.4 L, MCV 96.0, MCH 31.4, MCHC 32.7, RDW Std Deviation 46.3 H, RDW Coeff of Dae 13.2, Plt Count 181, MPV 10.9, Immature Gran % (Auto) 0.300, Neut % (Auto) 73.9 H, Lymph % (Auto) 16.1 L, Hawkins % (Auto) 9.6, Eos % (Auto) 0.0, Baso % (Auto) 0.1, Absolute Neuts (auto) 5.1, Absolute Lymphs (auto) 1.11, Nucleated RBC % 0 01/22/22 00:40: Sodium 139, Potassium 3.7, Chloride 107, Carbon Dioxide 25.0, Anion Gap 7, BUN 18, Creatinine 1.05 H, Estim Creat Clear Calc 49.34, Est GFR (MDRD) Af Amer 67, Est GFR (MDRD) Non-Af 56 L, BUN/Creatinine Ratio 17.1, Glucose 165 H, Calcium 9.3, C-React Prot Ext Range 128.00 H 01/22/22 00:40: Lactic Acid 1.7 Radiology Impression Hand X-Ray 01/22/22 01:10 IMPRESSION: Soft tissue swelling adjacent to the index DIP joint. No acute fracture or dislocation. Electronically Signed: Wayne Tariq MD at 1:27 EDT , Assessment & Plan Assessment/Plan (1) Infected cat bite: PLAN: Plan Cat bite Hand X-ray was visualized and independently interpreted. I agree with interpretation of Soft tissue swelling adjacent to the index DIP joint.? No acute fracture or dislocation. Started on Zosyn at emergency department. CBC showed white count of 6.9. Trend CBC Pain control with as needed IV morphine. Plan was to admit patient and continue Zosyn. However emergency department doctor after lancing site saw the patient may be developing phlegmon. Discussed emergency part of that to discuss the case with orthopedic surgeon. After emergency department doctor discussed the case with orthopedic surgeon Emergency department doctor reported that orthopedic surgeon will be unable to follow patient. Patient to be transferred by Emergency department doctor. Hypertension On home amlodipine. Likely pain contributing. Pain control. Trend blood pressures. Charges/Coding Visit Charges Inpatient E&M: 86561 Init Hosp L3 Multi Select Codes Visit Charges Office Visit/Consults: 11664 ED Visit; High/Urgent Severity
--- NOTE | 2022-01-22 02:38 | EDS_ITS ---
HPI History of Present Illness Chief Complaint: Bite Narrative Narrative: Patient is a 66-year-old female with past medical history of autoimmune connective tissue disorder currently on Plaquenil. She states that she was taking her cat to be euthanized on when it bit her in the right index finger. She states she knew there was risk for infection so she contacted her doctor and was started on Augmentin. She states has been taking it as directed but that over the last 24 hours has noticed increased redness swelling and pain to her finger as well as redness into her right arm. She denies any fevers or chills but with the increasing pain and changes concerning for infection she presents for evaluation [facility] Medical History (Updated 01/22/22 @ 02:[address] Rikki Hewitt, DO) Cat bite HTN (hypertension) Hyperlipidemia Osteoarthritis Undifferentiated connective tissue disease Home Medications Bifidobacterium infantis 4 mg capsule (Align) 4 mg PO DAILY 01/22/22 [History Last Taken Unknown] acetaminophen 500 mg capsule 1,000 mg PO BID 01/22/22 [History Last Taken Unknown] amoxicillin 875 mg-potassium clavulanate 125 mg tablet 1 tab PO BID 01/22/22 [History Last Taken Unknown] aspirin 81 mg capsule 81 mg PO DAILY 01/22/22 [History Last Taken Unknown] bupropion HCl 300 mg 24 hr tablet, extended release 1 tab PO DAILY 01/22/22 [His tory Last Taken Unknown] carisoprodol 350 mg tablet 175 mg PO QHS PRN MUSCLE RELAXER 01/22/22 [History Last Taken Unknown] hydroxychloroquine 200 mg tablet (Plaquenil) 200 mg PO DAILY 01/22/22 [History Last Taken Unknown] levocetirizine 5 mg tablet (Xyzal) 5 mg PO QPM 01/22/22 [History Last Taken Unknown] naproxen sodium 220 mg capsule (Aleve) 220 mg PO QHS PRN Pain 01/22/22 [History Last Taken Unknown] pravastatin 80 mg tablet 80 mg PO QHS 01/22/22 [History Last Taken Unknown] pregabalin 100 mg capsule 100 mg PO DAILY 01/22/22 [History Last Taken Unknown] pregabalin 200 mg capsule 200 mg PO QHS 01/22/22 [History Last Taken Unknown] zolpidem 5 mg tablet 5 mg PO QHS PRN Insomnia 01/22/22 [History Last Taken Unknown] Allergy/AdvReac Type Severity Reaction Status Date / Time No Known Allergies Allergy Verified 01/21/22 22:58 Family History (Updated 01/22/22 @ 02:[address] Jack Rubi MD) Other Alzheimer's dementia CVA (cerebral vascular accident) Surgical History (Updated 01/22/22 @ 02:[address] Jack Rubi MD) Hx of cholecystectomy Social History Smoking Status: Never smoker ROS ROS ED Constitutional Constitutional ED: Reports chills and subjective; Denies fever(s) ENT ENT ED: Denies sore throat Cardiovascular Cardiovascular: Denies chest pain Respiratory/Chest Respiratory/Chest: Denies cough or dyspnea Gastrointestinal Gastrointestinal: Denies abdominal pain, diarrhea, nausea or vomiting Genitourinary Genitourinary ED: Denies dysuria Musculoskeletal Musculoskeletal: Reports other Details: Positive right hand pain ; Denies myalgias Integumentary Reports other Details: Positive redness and warmth to right hand/arm ; Denies rash Neurologic Neurologic: Denies headache(s), paresthesias or weakness Hematologic/Lymphatic Hematologic/Lymphatic: Denies easy bleeding or easy bruising EXAM Physical Exam Const Vital Signs: 01/21/22 22:56 01/22/22 01:18 01/22/22 02:00 Temperature 97.7 F L 98.3 F Temperature Source Temporal Temporal Pulse Rate 86 75 Respiratory Rate 16 18 17 Blood Pressure 106/77 160/78 H Blood Pressure Mean 86 105 Pulse Ox 99 99 Oxygen Delivery Method Room Air Room Air Room Air 01/22/22 02:39 01/22/22 04:00 01/22/22 04:48 Temperature 98.3 F 98 F 98.0 F Temperature Source Temporal Temporal Pulse Rate 72 76 79 Respiratory Rate 17 18 18 Blood Pressure 152/67 H 146/73 H 144/67 H Blood Pressure Mean 95 97 92 Pulse Ox 98 96 99 Oxygen Delivery Method Room Air Room Air 01/22/22 06:00 Temperature 98.6 F Temperature Source Oral Pulse Rate 76 Respiratory Rate 18 Blood Pressure 130/60 H Blood Pressure Mean 83 Pulse Ox 96 Oxygen Delivery Method Room Air Positive well nourished and well developed General Appearance ED: well developed Eyes PERRL and EOMs intact bilaterally Neck supple Resp normal respiratory effort and clear to auscultation bilaterally Cardio regular rate and regular rhythm GI non-tender and non-distended Auscultation: normoactive bowel sounds Palpation: soft Extremity Extremity Narrative: Right upper extremity is neurovascular intact. Patient has puncture wounds to the dorsal and volar aspect of the distal phalanx of the right index finger. There is erythema and warmth starting at this site and that it tracks back down the entire finger. From this there is lymphangitic streaking along the dorsal and volar aspect from the hand extending all the way to the right axilla. There is firmness to the finger pad of the right index finger concerning for development of felon. The finger is held in flexion but there is no true sausage shaped diffuse swelling and no pain on passive extension going against infectious tenosynovitis. Neuro oriented x3 and CN's II-XII intact bilaterally Sensorium / Orientation: alert Psych mental status grossly normal Skin Skin Narrative: Soft tissue changes to the right hand as documented above MDM MDM MDM Narrative Medical decision making narrative: Patient presented to the ER afebrile but she has report of cat bite and obvious signs of infection to the right hand. With the lymphangitic streaking there is concern for systemic infection and secondary to this basic blood work with blood cultures were obtained. Lab work revealed no clinically significant findings besides an elevation of the CRP. But the white count and lactic acid value were normal and there was no left shift or neutropenia. X-ray revealed no retained foreign body. The patient was started on Zosyn secondary to the infection and her tetanus status was updated. We discussed admitting the patient to our facility secondary to her immunosuppression and infection. The case was discussed with medicine and orthopedics. Both feel however as there is a chance she may need a surgical washout or incision and drainage of her felon that this should be taken care of by hand surgery which we do not have at our facility. Secondary to this patient was transferred to [facility]. They were notified and do agree to accept the patient at this time. She has remained in hemodynamically stable condition for her entire ER stay Lab Data Attestation: I reviewed the patient's lab results. Labs: Laboratory Results - last 24 hr 01/22/22 01/22/22 01/22/22 00:40 00:40 00:40 WBC 6.9 RBC 3.79 L Hgb 11.9 L Hct 36.4 L MCV 96.0 MCH 31.4 MCHC 32.7 RDW Std Deviation 46.3 H RDW Coeff of Dae 13.2 Plt Count 181 MPV 10.9 Immature Gran % (Auto) 0.300 Neut % (Auto) 73.9 H Lymph % (Auto) 16.1 L Baker % (Auto) 9.6 Eos % (Auto) 0.0 Baso % (Auto) 0.1 Absolute Neuts (auto) 5.1 Absolute Lymphs (auto) 1.11 Nucleated RBC % 0 Sodium 139 Potassium 3.7 Chloride 107 Carbon Dioxide 25.0 Anion Gap 7 BUN 18 Creatinine 1.05 H Estim Creat Clear Calc 49.34 Est GFR (MDRD) Af Amer 67 Est GFR (MDRD) Non-Af 56 L BUN/Creatinine Ratio 17.1 Glucose 165 H Lactic Acid 1.7 Calcium 9.3 C-React Prot Ext Range 128.00 H Radiography Diagnostic Testing: Clinical Impression(s) from Imaging Studies Hand X-Ray 01/22/22 01:10 IMPRESSION: Soft tissue swelling adjacent to the index DIP joint. No acute fracture or dislocation. Electronically Signed: Wayne Tariq MD at 1:27 EDT , X-ray of the right hand as interpreted by the emergency medicine physician reveals soft tissue swelling without acute fracture dislocation or foreign body Discharge Plan Triage Chief Complaint: Bite ED Provider: Rikki Hewitt Dx/Rx/DC Orders Clinical Impression: Infected cat bite, History of immunosuppression Prescriptions: No Action carisoprodol 350 mg Tablet 175 mg PO QHS PRN (Reason: MUSCLE RELAXER) pravastatin 80 mg Tablet 80 mg PO QHS zolpidem 5 mg Tablet 5 mg PO QHS PRN (Reason: Insomnia) hydroxychloroquine [Plaquenil] 200 mg Tablet 200 mg PO DAILY amoxicillin-pot clavulanate 875-125 mg tablet 1 tab PO BID Label Comments: TAKE 1 TABLET BY MOUTH TWICE DAILY bupropion HCl 300 mg tablet extended release 24 hr 1 tab PO DAILY Label Comments: TAKE 1 TABLET BY MOUTH EVERY DAY pregabalin 100 mg Capsule 100 mg PO DAILY pregabalin 200 mg Capsule 200 mg PO QHS naproxen sodium [Aleve] 220 mg Capsule 220 mg PO QHS PRN (Reason: Pain) aspirin 81 mg Capsule 81 mg PO DAILY acetaminophen [Tylenol Extra Strength] 500 mg Capsule 1,000 mg PO BID levocetirizine [Xyzal] 5 mg Tablet 5 mg PO QPM Align 4 mg Capsule 4 mg PO DAILY Primary Care Provider: Michael Calderón Referrals: Michael Calderón MD [Primary Care Provider] - Disposition Disposition: Acute Care Hospital Discharge Location: [facility]
[2022-01-22 02:39] VITALS: BP 152/67; PULSE 72; RESP 17; TEMP 36.8; O2SAT 98
[2022-01-22] MEDS: Diphth,Pertuss(Acell),Tet Vac 0.5 ML Vial IM (03:10)
[2022-01-22 04:00] VITALS: BP 146/73; PULSE 76; RESP 18; TEMP 36.6; O2SAT 96
[2022-01-22 04:48] VITALS: BP 144/67; PULSE 79; RESP 18; TEMP 36.7; O2SAT 99
[2022-01-22 06:00] VITALS: BP 130/60; PULSE 76; RESP 18; TEMP 37; O2SAT 96
[2022-01-22] MEDS: HYDROmorphone 0.5 MG/0.5 ML SYRINGE IV (06:06)
== END 2022-01-22 08:30 | disposition short-term general hospital (02) ==
LOC: ED 01-22 02:39 → MS3 01-22 02:50 → ED 01-22 04:32
PROVIDERS: Emergency Provider Emergency Medicine; PCP Family Medicine; Visit Provider Emergency Medicine
DX: S61.250A Open bite of right index finger without damage to nail, initial encounter (principal); M35.9 Systemic involvement of connective tissue, unspecified; I10 Essential (primary) hypertension; E78.5 Hyperlipidemia, unspecified; Z79.82 Long term (current) use of aspirin; M19.90 Unspecified osteoarthritis, unspecified site; Z79.899 Other long term (current) drug therapy; W55.01XA Bitten by cat, initial encounter
CPT/HCPCS: 73130; 80048; 83605; 85025; 86140; 87040; 87428; 90715; 96361; 96365; 96375; 96376; 99285; J7030; A4216; J2405

== ENCOUNTER → 2022-02-15 | Outpatient (CLI) | payer MEDICARE, SELFPAY ==
--- NOTE | 2022-02-15 10:26 | BI_ITS ---
MAMMOGRAPHY - BILATERAL SCREENING 3-D TOMOSYNTHESIS REASON FOR EXAM: Female, 66 years old. SCREENING PERTINENT HISTORY: No significant family history. TECHNIQUE: 2-D mammograms and 3-D Tomosynthesis of the breast (s) were performed. CAD was performed. COMPARISON: 02/12/2021 FINDINGS: The breast composition is composed of scattered fibroglandular density. Scattered benign calcifications are seen. No dense spiculated masses or suspicious microcalcifications are identified. No architectural distortion is identified. There is no skin thickening or retraction. There has been no significant change since the prior study. BI/SCRN MAMM (CAD)W/CAYLA BILAT IMPRESSION: No mammographic signs of malignancy. Routine yearly mammograms recommended. ASSESSMENT CATEGORY: BIRADS Category 1: Negative. A letter regarding these results will be sent to the patient by the facility within 30 days. FOLLOW UP RECOMMENDATION: Yearly follow up mammogram recommended. (A) Approximately 10% of breast cancers are not detected by mammography. A normal mammogram should not delay biopsy of a clinically suspicious abnormality. Electronically Signed: Fuentes Sood MD at 16:44 EDT ,
--- NOTE | 2022-02-15 10:30 | BD_ITS ---
STUDY: DUAL ENERGY X-RAY ABSORPTIOMETRY / DXA REASON FOR EXAM: Female, 66 years old. M810. Patient is postmenopausal. TECHNIQUE: Bone Mineral Density (BMD) measurements of lumbar spine and bilateral hips were obtained. COMPARISON: Comparison is made with prior study dated 09/05/2018. FINDINGS: Lumbar Spine (L1-L4): g/cm2 (1.057) / T-score (0.1) / Z-score (2.0) Findings are suggestive of normal bone density with a low fracture risk. Left Femur Total: g/cm2 (0.885) / T-score (-0.5) / Z-score (0.8) Left Femoral Neck: g/cm2 (0.750) / T-score (-0.9) / Z-score (0.7) Right Femur Total: g/cm2 (0.875) / T-score (-0.6) / Z-score (0.8) Right Femoral Neck: g/cm2 (0.755) / T-score (-0.8) / Z-score (0.8) The T-Scores on the most recent prior examination were: Lumbar Spine (L1-L4): There has been worsening of bone density since the previous examination. Left Femur Total: which represents an improvement of 6.6%. Right Femur Total: which represents a worsening of 0.5. BD/Dexa Bone Density Study IMPRESSION: The patient is considered normal as outlined below according to World Wolf Organization (WHO) criteria with a low fracture risk. There has been improvement of bone density since the previous examination. Reference Information: The T-score is the number of standard deviations above or below the standard which is normal for young adults at their peak bone mineral density. The World Health Organization (WHO) interprets the T-scores as follows: Above -1 Normal bone density Between -1 and -2.5 Osteopenia Equal to / or below -2.5 Osteoporosis As a practical clinical guideline, osteopenia may be graded as follows: Mild -1 through -1.5 Moderate -1.6 through -2.0 Severe -2.1 through -2.4 The Z-score is the number of standard deviations above or below age-matched controls. A Z-score of less than -1.5 would be considered abnormal. References: 1. NIH Osteoporosis and Related Bone Diseases www osteo.org 2. International Society for Clinical Densitometry www iscd.org 3. National Osteoporosis Foundation www nof.org Electronically Signed: Korey Wong MD at 11:12 EDT ,
== END | disposition home or self-care (01) ==
LOC: OPBI 10:25
PROVIDERS: PCP Family Medicine; Referring Provider Nurse Practitioner Family; Visit Provider Nurse Practitioner Family
DX: Z12.31 Encounter for screening mammogram for malignant neoplasm of breast (principal); M85.80 Other specified disorders of bone density and structure, unspecified site; Z78.0 Asymptomatic menopausal state; M81.0 Age-related osteoporosis without current pathological fracture
CPT/HCPCS: 77063; 77067; 77080

== ENCOUNTER → 2022-08-15 | Outpatient (CLI) | payer MEDICARE, SELFPAY ==
[2022-08-15 16:20] LABS: Bacteria 0 SEEN /hpf (None Seen); Mucous, Urine 0 SEEN /hpf (<or=2+); Red Blood Cells-Urine 0 SEEN /hpf (0-5); Squamous Epithelial Cells - UA 0 SEEN /hpf (5-10); White Blood Cells 0 SEEN /hpf (0-5)
[2022-08-15 18:03] LABS: Color, Urine Yellow (Yellow); Glucose, Dipstick Normal (Normal); Ketone-Dipstick Negative (Negative); Leukocyte Esterase-Dipstick Negative /ul (Negative); Nitrite-Dipstick Negative (Negative); Occult Blood-Urine Negative /ul (Negative); Protein-Dipstick 15 mg/dl (Negative); Specific Gravity, Urine 1.025 (1.002-1.030); Urine Bilirubin Dipstick Negative (Negative); Urine Clarity Clear (Clear); Urine Urobilinogen Normal (Normal)
== END | disposition home or self-care (01) ==
LOC: MTLAB 16:16
PROVIDERS: PCP Family Medicine; Referring Provider Internal Medicine Rheumatology; Visit Provider Internal Medicine Rheumatology
DX: R82.90 Unspecified abnormal findings in urine (principal)
CPT/HCPCS: 81001

== ENCOUNTER → 2023-02-23 | Outpatient (CLI) | payer MEDICARE, SELFPAY ==
--- NOTE | 2023-02-23 10:10 | BI_ITS ---
MAMMOGRAPHY - BILATERAL SCREENING REASON FOR EXAM: Female, 67 years old. Routine annual screening examination. PERTINENT HISTORY: Mother with breast cancer. TECHNIQUE: Digital bilateral breast cayla (3D mammographic acquisition) in the CC and MLO projections. 2-D mediolateral oblique (MLO) and craniocaudad (CC) views of both breasts were obtained. CAD: Full Field Digital Mammography with Computer Added Detection was performed. COMPARISON: Screening mammogram from 02/15/2022, 02/12/2021. FINDINGS: Breast Composition: There are scattered areas of fibroglandular density. There are no dominant masses or suspicious calcifications. No other significant abnormalities are identified. There has been no significant change since the prior study. BI/SCRN MAMM (CAD)W/CAYLA BILAT IMPRESSION: Stable bilateral screening mammogram. Yearly follow-up mammogram recommended. (A) ASSESSMENT CATEGORY: BIRADS Category 1: Negative. A letter regarding these results will be sent to the patient by the facility within 30 days. Approximately 10% of breast cancers are not detected by mammography. A normal mammogram should not delay biopsy of a clinically suspicious abnormality. Electronically Signed: Kameron Sandoval DO at 14:18 EDT ,
[2023-02-23 10:49] LABS: Anion Gap 3 (5-15); BUN 22 mg/dL (7-18); BUN/Creat Ratio 19.5 RATIO (10-20); Calcium,Total 9.3 mg/dL (8.5-10.1); Chloride 108 mmol/L (98-107); Cholesterol 200 mg/dL (200); Creatinine, Serum 1.13 mg/dL (0.55-1.02); EST Glomerular Filtration Rate 51 mL/min (>60); Est Glom Filt Rate - Afr Amer 62 mL/min (>60); Glucose 90 mg/dL (74-106); High Density Lipoprotein 48 mg/dL; Potassium 4.8 mmol/L (3.5-5.1); Sodium Level 140 mmol/L (136-145); Triglycerides 304 mg/dL; Very Low Density Lipoprotein 61 mg/dL (5-40)
== END | disposition home or self-care (01) ==
LOC: OPBI 09:14
PROVIDERS: PCP Family Medicine; Referring Provider Family Medicine; Visit Provider Family Medicine
DX: Z12.31 Encounter for screening mammogram for malignant neoplasm of breast (principal); I10 Essential (primary) hypertension; E78.5 Hyperlipidemia, unspecified; Z80.3 Family history of malignant neoplasm of breast
CPT/HCPCS: 36415; 77063; 77067; 80048; 80061

== ENCOUNTER → 2023-05-24 | Outpatient (CLI) | payer MEDICARE, SELFPAY ==
--- NOTE | 2023-05-24 13:59 | RAD_ITS ---
STUDY: X-RAY - RIGHT KNEE REASON FOR EXAM: Female, 67 years old. Injury. Pain. TECHNIQUE: view(s) of the knee. COMPARISON: None. FINDINGS: Normal visualized distal femur. Normal visualized proximal tibia and fibula. Normal proximal tibiofibular articulation. Normal medial femorotibial compartment. Normal lateral femorotibial compartment. Normal patellofemoral articulation. Normal soft tissues. RAD/Knee 4 or More Views IMPRESSION: Normal x-ray examination of the knee. Electronically Signed: Chip Greenberg MD at 14:25 EST ,
== END | disposition home or self-care (01) ==
LOC: MTLAB 13:58 → MTRAD 13:59
PROVIDERS: PCP Family Medicine; Referring Provider Family Medicine; Visit Provider Family Medicine
DX: S89.90XA Unspecified injury of unspecified lower leg, initial encounter (principal); X58.XXXA Exposure to other specified factors, initial encounter
CPT/HCPCS: 73564

== ENCOUNTER → 2023-06-28 | Outpatient (CLI) | payer MEDICARE, SELFPAY ==
[2023-06-28 10:35] LABS: Cholesterol 201 mg/dL (200); High Density Lipoprotein 63 mg/dL; Triglycerides 160 mg/dL; Very Low Density Lipoprotein 32 mg/dL (5-40)
== END | disposition home or self-care (01) ==
LOC: MTLAB 08:01
PROVIDERS: PCP Family Medicine; Referring Provider Family Medicine; Visit Provider Family Medicine
DX: E78.5 Hyperlipidemia, unspecified (principal)
CPT/HCPCS: 36415; 80061

== ENCOUNTER → 2023-11-10 | Outpatient (CLI) | payer MEDICARE, SELFPAY ==
--- NOTE | 2023-11-10 09:32 | US_ITS ---
INDICATION: RT MASS IN ARMPIT EXAMINATION: Left upper extremity/axillary nonvascular ultrasound. HISTORY: RIGHT axillary mass TECHNIQUE: Routine grayscale and color imaging obtained. FINDINGS: Normal sonographic appearance of the area of clinical concern in the LEFT axilla. No masses identified. No abnormal fluid collections. No abnormal blood flow. US/Ext Non Vasc Limited/Soft Tiss IMPRESSION: 1. No sonographic evidence of abnormal fluid collections masses or abnormal blood flow in the LEFT axilla. Electronically Signed: Fuentes Estevez MD at 20:12 EDT ,
== END | disposition home or self-care (01) ==
LOC: US 09:30
PROVIDERS: PCP Family Medicine; Referring Provider Family Medicine; Visit Provider Family Medicine
DX: R22.30 Localized swelling, mass and lump, unspecified upper limb (principal)
CPT/HCPCS: 76882

== ENCOUNTER → 2024-02-26 | Outpatient (CLI) | payer MEDICARE, SELFPAY ==
--- NOTE | 2024-02-26 09:54 | BI_ITS ---
MAMMOGRAPHY - BILATERAL SCREENING REASON FOR EXAM: Female, 68 years old. Routine annual screening examination. PERTINENT HISTORY: Mother with breast cancer. TECHNIQUE: Digital bilateral breast cayla (3D mammographic acquisition) in the CC and MLO projections. 2-D mediolateral oblique (MLO) and craniocaudad (CC) views of both breasts were obtained. CAD: Full Field Digital Mammography with Computer Added Detection was performed. COMPARISON: Comparison is made with prior study dated February 23, 2023 and February 15, 2022. FINDINGS: Breast Composition: There are scattered areas of fibroglandular density. There are no dominant masses or suspicious calcifications. Stable small right axillary lymph nodes. No other significant abnormalities are identified. There has been no significant change since the prior study. BI/SCRN MAMM (CAD)W/CAYLA BILAT IMPRESSION: Stable bilateral screening mammogram. Yearly follow-up mammogram recommended. (A) ASSESSMENT CATEGORY: BIRADS Category 2: Benign. A letter regarding these results will be sent to the patient by the facility within 30 days. Approximately 10% of breast cancers are not detected by mammography. A normal mammogram should not delay biopsy of a clinically suspicious abnormality. [id number] Electronically Signed: Korey Wong MD at 10:27 EDT ,
== END | disposition home or self-care (01) ==
LOC: OPBI 09:53
PROVIDERS: PCP Family Medicine; Referring Provider Family Medicine; Visit Provider Family Medicine
DX: Z12.31 Encounter for screening mammogram for malignant neoplasm of breast (principal); Z80.3 Family history of malignant neoplasm of breast
CPT/HCPCS: 77063; 77067

== ENCOUNTER → 2024-08-07 | Outpatient (CLI) | payer MEDICARE, SELFPAY ==
[2024-08-07 13:22] LABS: ALB/GLOB Ratio 1.1 RATIO (0.9-2.4); AST(SGOT) 16 U/L (15-37); Alanine Aminotransfer ALT/SGPT 30 U/L (13-56); Albumin, Serum 4.1 g/dL (3.2-5.0); Alkaline Phosphatase 60 U/L (45-117); Anion Gap 6 (5-15); BUN 22 mg/dL (7-18); BUN/Creat Ratio 18.8 RATIO (10-20); Calcium,Total 9.4 mg/dL (8.5-10.1); Chloride 106 mmol/L (98-107); Cholesterol 195 mg/dL (200); Creatinine, Serum 1.17 mg/dL (0.55-1.02); EST Glomerular Filtration Rate 49 mL/min (>60); Est Glom Filt Rate - Afr Amer 59 mL/min (>60); Globulin 3.6 g/dL (2.2-4.2); Glucose 89 mg/dL (74-106); High Density Lipoprotein 64 mg/dL; Potassium 4.5 mmol/L (3.5-5.1); Protein, Total 7.7 g/dL (6.4-8.2); Sodium Level 139 mmol/L (136-145); Triglycerides 172 mg/dL; Very Low Density Lipoprotein 34 mg/dL (5-40)
== END | disposition home or self-care (01) ==
LOC: MTLAB 10:31
PROVIDERS: PCP Family Medicine; Referring Provider Family Medicine; Visit Provider Family Medicine
DX: E78.1 Pure hyperglyceridemia (principal)
CPT/HCPCS: 36415; 80053; 80061

== ENCOUNTER → 2024-09-04 | Outpatient (CLI) | payer MEDICARE, SELFPAY ==
--- NOTE | 2024-09-04 14:02 | BD_ITS ---
PROCEDURE: DEXA BONE DENSITY STUDY REASON FOR EXAM: F, age 69 y/o . Postmenopausal. TECHNIQUE: DEXA scan of the lumbar spine and both hips. COMPARISON: Comparison is made with prior study dated February 15, 2022. FINDINGS: Lumbar Spine (L1-L4): g/cm2 (1.048)/T-score (0.0)/Z-score (2.1) findings are suggestive of normal with a low fracture risk. Left Femur Total: g/cm2 (0.870)/T-score (-0.6)/Z-score (0.9) Left Femoral Neck: g/cm2 (0.682)/T-score (-1.5)/Z-score (0.2) Right Femur Total: g/cm2 (0.883)/T-score (-0.5)/Z-score (1.0) Right Femoral Neck: g/cm2 (0.719)/T-score (-1.2)/Z-score (0.6) The T-Scores on the most recent prior examination were: Lumbar Spine (L1-L4): There has been worsening of bone density since the previous examination. Left Femur Total: Loss of 1.6%. Right Femur Total: Gain of 1%. BD/Dexa Bone Density Study IMPRESSION: The patient is considered osteopenic as outlined below according to World Wolf Organization (WHO) criteria with a low fracture risk. There has been worsening of bone density since the previous examination. Reading Location: [facility]
== END | disposition home or self-care (01) ==
LOC: OPBD 13:56
PROVIDERS: PCP Family Medicine; Referring Provider Family Medicine; Visit Provider Family Medicine
DX: Z00.00 Encounter for general adult medical examination without abnormal findings (principal); Z78.0 Asymptomatic menopausal state
CPT/HCPCS: 77080

== ENCOUNTER → 2025-01-15 | Outpatient (CLI) | payer MEDICARE, SELFPAY ==
[2025-01-15 12:38] LABS: AST(SGOT) 25 U/L (<=31); Alanine Aminotransfer ALT/SGPT 22 U/L (<=34); Albumin, Serum 4.6 g/dL (3.4-4.8); Alkaline Phosphatase 52 U/L (35-104); Anion Gap 11 (5-15); BUN 20 mg/dL (4-19); BUN/Creat Ratio 17.3 RATIO (10-20); Calcium,Total 9.8 mg/dL (7.6-11.0); Carbon Dioxide 26.6 mmol/L (21.0-32.0); Chloride 102 mmol/L (98-108); Cholesterol 201 mg/dL (<=200); Globulin 2.7 g/dL (2.2-4.2); Glucose 93 mg/dL (70-99); Low Density Lipoprotein Calc. 104 mg/dL; Potassium 5.0 mmol/L (3.3-5.1); Triglycerides 174 mg/dL; Very Low Density Lipoprotein 35 mg/dL (5-40); cholesterol:hdl ratio screen 3.22
[2025-01-15 12:41] LABS: Creatinine, Urine (random) 34.40 mg/dL (28.00-217.00); Microalbumin,Random Urine < 12.0 mg/L (<20 mg/L)
--- OUTSIDE RECORDS SUMMARY | 2025-01-15 21:27 | XMS RPT_ITS | CCD ---
Author Organization [facility] Care Team Providers Care Mechatronics Technician Name Role Phone Edgar Vásquez Unavailable Unavailable *SELF, REFERRED Unavailable Unavailable Naheed Main Unavailable Unavailable Naheed Main Unavailable Lauren Clarke Unavailable Manny Funes Unavailable JOVI Britton Unavailable Unavailable Unavailable Unavailable Michael Calderón MD Primary Care Provider Michael Calderón MD Primary Care Provider Dr. Michael Calderón Primary Care Provider Dr. Rikki Hewitt Referring Provider Dr. Rikki Hewitt Emergency Provider Dr. Jack Rubi Admit Provider Dr. Jack Rubi Attending Provider Dr. Jack Rubi Other Provider Michael Calderón MD Primary Care Provider RIKKI HEWITT Referring Unavailable YO MONTOYA Admitting Unavailable YO MONTOYA Attending Unavailable MICHAEL CALDERÓN Primary Care Unavailable DERIC CORTEZ Consulting Unavailable DERIC CORTEZ Referring Unavailable MICHAEL CALDERÓN Primary Care Unavailable BOUCHRA MENJIVAR Referring Unavailable MICHAEL CALDERÓN Primary Care Unavailable DERIC CORTEZ Attending Unavailable MICHAEL CALDERÓN Primary Care Unavailable DERIC CORTEZ Attending Unavailable MICHAEL CALDERÓN Primary Care Unavailable DERIC CORTEZ Attending Unavailable MICHAEL CALDERÓN Primary Care Unavailable Michael Calderón Referring Unavailable Michael Calderón Primary Care Unavailable Michael Calderón Attending Unavailable Michael Calderón Referring Unavailable Michael Calderón Primary Care Unavailable Michael Calderón Attending Unavailable Michael Calderón Referring Unavailable Michael Calderón Primary Care Unavailable Michael Calderón Attending Unavailable Michael Calderón Referring Unavailable Kaitlynn, Michael Primary Care Unavailable Kaitlynn, Michael Attending Unavailable Dr. Michael Calderón MD Primary Care Provider Kaitlynn HANNON, Dr. Rodriguez Attending Provider [phone] Kaitlynn HANNON, Dr. Rodriguez Referring Provider [phone] Allergies Allergy Classification Reported Allergen(s) Allergy Type Date of Onset Reaction(s) Facility (7 sources) Pollen; Translations: [POLLEN] Allergy to substance 1 Other: See Comments [facility] Work Phone: Medications Current Medications Medication Drug Class(es) Dates Sig (Normalized) Sig (Original) acetaminophen 500 mg oral capsule (6 sources) Start: 01-22-2022 take 2 capsules by mouth twice daily Acetaminophen (Tylenol Extra Strength) 500 mg Capsule Active 1000 mg PO TWICE A DAY January 22, 2022 12:00am Start: 10-23-2012 End: 05-07-2015 take 2 tablets by mouth twice daily TYLENOL EXTRA STRENGTH, 500MG (Oral Tablet) 2 (two) Tablet bid for 0 days Quantity: 60 {Tablet} Refills: 0 Ordered: 07-May-2015 JOVI Britton LPN Start : 23-Oct-2012 End : 07-May-2015 Inactive amoxicillin 875 mg / clavulanate 125 mg oral tablet (9 sources) Penicillin-class Antibacterial Start: 01-25-2022 End: 02-01-2022 take 1 tablet by mouth every twelve hours amoxicillin-clavulanic acid (AUGMENTIN) 875-125 mg per tablet Take 1 tablet by mouth every 12 hours for 7 days. 14 tablet 0 01/25/2022 02/01/2022 Active Start: 01-22-2022 Amoxicillin-Po t Clavulanate 875-125 mg tablet Active 1 {tbl} PO TWICE A DAY January 22, 2022 12:00am Start: 01-22-2022 take 1 tablet by renate th twice daily Amoxicillin-Pot Clavulanate Active 1 TABLET PO TWICE A DAY January 21, 2022 11:00pm Start: 05-07-2015 End: 05-21-2015 take 1 tablet by mouth twice daily AUGMENTIN, 875-125MG (Oral Tablet) 1 Tablet BID for 14 days Quantity: 28 {Tablet} Refills: 0 Ordered: 07-May-2015 Naheed Main MD, MD, Dana M Start : 07-May-2015 End : 21-May-2015 Inactive Comment on above: Take 1 tablet by renate th every 12 hours for 7 days. aspirin 81 mg oral tablet (13 sources) Platelet Aggregation Inhibitor, Nonsteroidal Anti-inflammatory Drug Start: 01-22-2022 take 1 capsule by mouth once daily Aspirin 81 mg Capsule Active 81 mg PO DAILY January 22, 2022 12:00am Start: 02-26-2009 aspirin(ASPIR- LOW 81 MG TAB) Take one(1) tablet daily. 0 02/26/2009 Active End: 08-20-2007 take 1 tablet by mouth every other day ASPIRIN LOW DOSE, 81MG (Oral Tablet) 1 qod for 0 days Refills: 0 Ordered: 20-Aug-2007 JOVI Britton LPN End : 20-Aug-2007 Discontinued Comment on above: per Dr. Marin myers Take one(1) tablet d aily. bifidobacterium infantis 4 mg oral capsule (6 sources) Start: 01-23-20 take 1 capsule by mouth once daily Bifidobacterium Infantis (Align) 4 mg Capsule Active 4 mg PO DAILY January 22, 2022 12:00am take 1 capsule by mouth once iman ly ALIGN (Oral Capsule) 1 Daily Inactive 24 hr buPROPion hydrochloride 300 mg extended release oral tablet (6 sources) Aminoketone Start: 01-22-2022 take 1 tablet by mouth once daily Bupropion Hcl 300 mg tablet extended release 24 hr Active 1 {tbl} PO DAILY January 22, 2022 12:00am Start: 06-01-2015 take 1 tablet by renate th every twenty-four hours, then take 1 tablet by mouth once daily WELLBUTRIN XL, 150MG (Oral Tablet Extended Release 24 Hour) 1 (one) Tablet ER 24HR Tablet ER 24HR daily for 0 days Quantity: 30 {Tablet} Refills: 5 Ordered: 01-Jun-2015 Naheed Main MD, MD, Dana M Start : 01-Jun-2015 Active carisoprodol 350 mg oral tablet (5 sources) Muscle Relaxant Start: 01-22-2022 Carisoprodol 3 50 mg Tablet Active 175 mg PO AT BEDTIME as needed for MUSCLE RELAXER January 22, 2022 12:00am Start: 01-22-2022 take 175 mg by mouth at bedtim e Carisoprodol Active 175 MG PO AT BEDTIME January 21, 2022 11:00pm doxycycline hyclate 100 mg oral capsule (3 sources) Tetracycline-class Drug Start: 01-25-2022 End: 01-30-2022 take 1 capsule by mouth twice daily doxycycline hyclate (VIBRAMYCIN) 100 mg capsule Take 1 capsule by mouth twice daily for 5 days. 10 capsule 0 01/25/2022 01/30/2022 Active Comment on above: Take 1 capsule by [facility] twice daily for 5 days. hydroxychloroquine sulfate 200 mg oral tablet (12 sources) Antimalarial, Antirheumatic Agent Start: 01-22-2022 take 1 tablet by mouth once daily Hydroxychloroquine (Plaquenil) 200 mg Tablet Active 200 mg PO DAILY January 22, 2022 12:00am Start: 07-05-2006 PLAQUENIL 200 MG TAB Take one(1) tablet twice daily. 0 07/05/2006 Active Comment on above: Take one(1) tablet t wice daily. levocetirizine dihydrochloride 5 mg oral tablet (12 sources) Histamine-1 Receptor Antagonist Start: take 1 tablet by mouth once daily in the evening Levocetirizine (Xyzal) 5 mg Tablet Active 5 mg PO EVERY EVENING January 22, 2022 12:00am Comment on above: [facility] naproxen sodium 220 mg oral capsule (5 sources) Nonsteroidal Anti-inflammatory Drug Start: take 1 capsule by mouth at bedtime as needed for pain Naproxen Sodium (Aleve) 220 mg Capsule Active 220 mg PO AT BEDTIME as needed for Pain January 22, 2022 12:00am pravastatin sodium 80 mg oral tablet (12 sources) HMG-CoA Reductase Inhibitor Start: take 1 tablet by mouth at bedtime Pravastatin 80 mg Tablet Active 80 mg PO AT BEDTIME January 22, 2022 12:00am Comment on above: Mail order. Take one(1) tablet d sesar. pregabalin 100 mg oral capsule (20 sources) Start: take 1 capsule by mouth once daily Pregabalin 100 mg Capsule Active 100 mg PO DAILY January 22, 2022 12:00am Start: 01-22-2022 take 1 capsule by mo [facility] at bedtime Pregabalin 200 mg Capsule Active 200 mg PO AT BEDTIME January 22, 2022 12:00am Start: 05-08-2014 take 1 capsule by mo uth three times daily LYRICA, 100MG (Oral Capsule) 1 (one) Capsule tid for 0 days Quantity: 180 {Capsule} Refills: 3 Ordered: 08-May-2014 Naheed Main MD, MD, Dana M Start : 08-May-2014 Active Start: 06-19-2006 End: 11-17-2006 take 1 capsule by mouth twice daily LYRICA, 100MG (Oral Capsule) 1 (one) Capsule BID for 0 days Quantity: 30 {Capsule} Refills: 3 Ordered: 19-Jun-2006 JOVI Britton LPN Start : 19-Jun-2006 End : 17-Nov-2006 Inactive take 2 capsules by m out once daily at bedtime pregabalin (LYRICA) 100 mg capsule Take 200 mg by mouth daily at bedtime. 0 Active Comment on above: Take 100 mg by mouth every morning. Take 200 mg by mouth daily at bedtime. zolpidem tartrate 5 mg oral tablet (6 sources) gamma-Aminobutyric Acid-ergic Agonist Start: 01-22-2022 take 1 tablet by mouth at bedtime as needed Zolpidem 5 mg Tablet Active 5 mg PO AT BEDTIME as needed for Insomnia January 22, 2022 12:00am Start: 07-21-2015 take 1 tablet by renate once daily at bedtime AMBIEN, 5MG (Oral Tablet) 1 (one) Tablet QHS / HS for 0 days Quantity: 90 {Tablet} Refills: 1 Ordered: 21-Jul-2015 Naheed Main MD, MD, Dana M Start : 21-Jul-2015 Active Comments: ninety Comment on above: ninety Completed/Discontinued Medications Medication Drug Class(es) Dates Sig (Normalized) Sig (Original) 200 actuat albuterol 0.09 mg/actuat metered dose inhaler (1 source) beta2-Adrenergic Agonist Start: 08-18-2010 End: 12-28-2010 VENTOLIN HFA, 108 (90 Base)MCG/ACT (Inhalation Aerosol Solution) 2 (two) Aerosol Soln q6 hr prn for 0 days Quantity: 1 {Aerosol_Soln} Refills: 0 Ordered: 28-Dec-2010 Annita Kovacs RN Start : 18-Aug-2010 End : 28-Dec-2010 Inactive amLODIPine 2.5 mg oral tablet (1 source) Dihydropyridine Calcium Channel Kathy Start: 03-31-2015 take 1 tablet by mouth once daily NORVASC, 2.5MG (Oral Tablet) 1 Tablet daily for 0 days Quantity: 90 {Tablet} Refills: 3 Ordered: 31-Mar-2015 Etelvina HANNON, Naheed Main MD, Naheed Gray Start : 31-Mar-2015 Active Comments: Mail order. Comment on above: Mail order. amLODIPine 2.5 mg / atorvastatin 10 mg oral tablet (6 sources) Dihydropyridine Calcium Channel Kathy, HMG-CoA Reductase Inhibitor take 1 tablet by mouth once daily at bedtime amLODIPine-Atorva statin 2.5-10 mg per tablet Take 1 tablet by mouth daily at bedtime. 0 Active Comment on above: Take 1 tablet by renate th daily at bedtime. ascorbic acid 60 mg / beta carotene 5000 unt / copper sulfate 40 mg / dl-alpha tocopheryl acetate 30 unt / sodium selenite 0.04 mg / zinc oxide 40 mg oral tablet (2 sources) Vitamin C End: 10-23-2012 take 1 tablet by mouth once daily CENTRUM (Oral Tablet) 1 qd Active azithromycin 250 mg oral tablet (1 source) Macrolide Antimicrobial Start: 08-20-2007 End: 10-18-2007 ZITHROMAX Z-OSITO, 250MG (Oral Tablet) 1 for 0 days Refills: 0 Ordered: 20-Aug-2007 JOVI Britton LPN Start : 20-Aug-2007 End : 18-Oct-2007 Discontinued B COMPLEX-B12 (Oral Tablet) (1 source) End: 08-20-2007 take 1 tablet by mouth once daily B COMPLEX-B12 (Oral Tablet) 1000mcg - time released QD for 0 days Refills: 0 Ordered: 20-Aug-2007 JOVI Britton LPN End : 20-Aug-2007 Discontinued black cohosh extract 40 mg oral tablet (1 source) End: 08-20-2007 take 1 tablet by mouth twice daily BLACK COHOSH, 40MG (Oral Tablet) 1 BID for 0 days Refills: 0 Ordered: 20-Aug-2007 JOVI Britton LPN End : 20-Aug-2007 Discontinued butabarbital 15 mg / hyoscyamine hydrobromide 0.3 mg / phenazopyridine hydrochloride 150 mg oral tablet (1 source) End: 03-20-2008 PYRIDIUM PLUS, 150-15-0.3MG (Oral Tablet) WC 182 PRN for 0 days Refills: 0 Ordered: 20-Mar-2008 Annita Kovacs RN End : 20-Mar-2008 Inactive calcium, elemental, ORAL Tab (6 sources) Start: 07-07-2010 take 1 tablet by mouth once daily calcium, elemental, ORAL Tab Indications: Neutropenia (HCC) , Unspecified diffuse connective tissue disease (HCC) Take one(1) tablet daily. 0 07/07/2010 Active Comment on above: Take one(1) tablet d aily. cetirizine hydrochloride 10 mg oral tablet (1 source) Histamine-1 Receptor Antagonist Start: 03-20-2008 End: 04-07-2009 take 1 tablet by mouth once daily ZYRTEC, 10MG (Oral Tablet) 1 (one) Tablet Daily for 0 days Refills: 0 Ordered: 20-Mar-2008 JOVI Britton LPN Start : 20-Mar-2008 End : 07-Apr-2009 Inactive 12 hr cetirizine hydrochloride 5 mg / pseudoephedrine hydrochloride 120 mg extended release oral tablet (1 source) alpha-Adrenergic Agonist, Histamine-1 Receptor Antagonist Start: 05-22-2007 End: 04-07-2009 take 5-120 mg by mouth every twelve hours as needed ZYRTEC-D, 5-120MG (Oral Tablet Extended Release 12 Hour) 1 Tablet ER 12HR PRN for 0 days Quantity: 30 {Tablet_ER_12HR} Refills: 3 Ordered: 22-May-2007 JOVI Britton LPN Start : 22-May-2007 End : 07-Apr-2009 Inactive cholecalciferol 1000 unt oral capsule (1 source) Vitamin D Start: 09-11-2012 End: 10-23-2012 take 1 capsule by mouth once daily VITAMIN D, 1000UNIT (Oral Capsule) 1 Capsule daily for 0 days Quantity: 30 {Capsule} Refills: 0 Ordered: 23-Oct-2012 Mary Contreras RN Start : 11-Sep-2012 End : 23-Oct-2012 Inactive chondroitin sulfates 400 mg oral capsule (1 source) End: 10-23-2012 take 3 capsules by mouth once daily CHONDROITIN SULFATE, 400MG (Oral Capsule) 3 QD for 0 days Refills: 0 Ordered: 23-Oct-2012 Mary Contreras RN End : 23-Oct-2012 Discontinued Comments: This order discontinued per [facility]. Comment on above: This order discontin ued per [facility]. chondroitin sulfates 400 mg / glucosamine hydrochloride 500 mg oral capsule (6 sources) Start: 07-05-2006 GLUCOSAMINE CHONDROITIN MAXSTR 500 MG-400 MG CAP Take one(1) capsules three(3) times daily.. 0 07/05/2006 Active Comment on above: Take one(1) capsules three(3) times daily.. ciprofloxacin 500 mg oral tablet (1 source) Quinolone Antimicrobial Start: 07-22-2011 End: 08-23-2011 take 1 tablet by mouth twice daily CIPRO, 500MG (Oral Tablet) 1 Tablet BID for 0 days Quantity: 20 {Tablet} Refills: 0 Ordered: 22-Jul-2011 Mast Pepper SEYMOUR Start : 22-Jul-2011 End : 23-Aug-2011 Discontinued clarithromycin 500 mg oral tablet (1 source) Macrolide Antimicrobial Start: 08-20-2007 End: 10-18-2007 take 1 tablet by mouth twice daily at mealtime BIAXIN, 500MG (Oral Tablet) 1 Tablet BID with food for 0 days Quantity: 20 {Tablet} Refills: 0 Ordered: 20-Aug-2007 JOVI Britton LPN Start : 20-Aug-2007 End : 18-Oct-2007 Discontinued Comments: will call if need Comment on above: will call if need clotrimazole 10 mg oral lozenge (1 source) Azole Antifungal Start: 06-28-2011 End: 07-08-2011 MYCELEX, 10MG (Mouth/Throat Yannick) 1 Yannick 5 x daily for 10 days Quantity: 50 {Yannick} Refills: 0 Ordered: 28-Jun-2011 Lisa Dunn CNP Start : 28-Jun-2011 End : 08-Jul-2011 Inactive codeine phosphate 2 mg/ml / guaiFENesin 20 mg/ml oral solution (1 source) Opioid Agonist Start: 06-05-2006 End: 04-05-2007 GUAIATUSSIN AC, 100-10MG/5ML (Oral Syrup) 1 for 0 days Refills: 0 Ordered: 05-Jun-2006 JOVI Britton LPN Start : 05-Jun-2006 End : 05-Apr-2007 Discontinued COMPOUNDED PRESCRIPTION (6 sources) Start: 02-26-2009 COMPOUNDED PRESCRIPTION B 12 0 02/26/2009 Active Comment on above: B 12 cyclobenzaprine hydrochloride 10 mg oral tablet (1 source) Muscle Relaxant Start: 10-20-2011 take 1 tablet by mouth three times daily as needed FLEXERIL, 10MG (Oral Tablet) 1 Tablet tid prn for 0 days Quantity: 30 {Tablet} Refills: 0 Ordered: 20-Oct-2011 JOVI Britton LPN Start : 20-Oct-2011 Active Comments: thirty Comment on above: thirty estradiol 0.025 mg vaginal insert (8 sources) Estrogen Start: 07-05-2006 End: 08-18-2010 VAGIFEM 25 MCG VAGINAL TAB as necessary 0 07/05/2006 Active End: 10-18-2007 VAGIFEM, 25MCG (Vaginal Tabl et) Q 3rd day for 0 days Refills: 0 Ordered: 18-Oct-2007 JOVI Britton LPN End : 18-Oct-2007 Discontinued Comment on above: as necessary fexofenadine hydrochloride 180 mg oral tablet (8 sources) Histamine-1 Receptor Antagonist Start: 07-07-2010 fexofenadine (JASSI) 180 mg tablet Indications: Neutropenia (HCC) , Unspecified diffuse connective tissue disease (HCC) Take one(1) tablet daily in the morning 0 07/07/2010 Active Start: 11-17-2006 End: 04-05-2007 take 1 tablet by mouth twice daily JASIS, 60MG (Oral Tablet) Tablet BID for 0 days Quantity: 180 {Tablet} Refills: 3 Ordered: 17-Nov-2006 JOVI Britton LPN Start : 17-Nov-2006 End : 05-Apr-2007 Discontinued Comments: generic take 0.5 tablet by m outh once daily JASSI, 180MG (Oral Tablet) 1/2 qd for 0 days Refills: 0 Ordered: 02-Jun-2009 JOVI Britton LPN Active Comment on above: generic Take one(1) tablet d aily in the morning Fibrocare Supplement (1 source) Fibrocare Supple ment 1 qd Active Comments: contains: vitamin C, B1, B6, Mg, Manganese and Malic acid Comment on above: contains: vitamin C, B1, B6, Mg, Manganese and Malic acid FLUoxetine 20 mg oral capsule (1 source) Serotonin Reuptake Inhibitor Start: 05-22-20 07 End: 10-18-19 08 take 1 capsule by mouth once daily PROZAC, 20MG (Oral Capsule) 1 Capsule qd for 0 days Quantity: 30 {Capsule} Refills: 3 Ordered: 22-May-2007 JOVI Britton LPN Start : 22-May-2007 End : 18-Oct-2007 Discontinued fluticasone propionate 0.05 mg/actuat metered dose nasal spray (7 sources) Corticosteroid Start: 05-08-20 14 take 2 spray(s) nasal route once daily FLONASE, 50MCG/ACT (Nasal Suspension) 2 sprays each nostril Suspension qd for 0 days Quantity: 3 {Canister} Refills: 3 Ordered: 08-May-2014 Naheed Main MD, MD, Dana M Start : 08-May-2014 Active Start: 07-07-2010 take 1 puff(s) nasal route onc e fluticasone (FLONASE) 50 mcg/actuation nasal spray Indications: Neutropenia (HCC) , Unspecified diffuse connective tissue disease (HCC) One puff per nostril daily 0 07/07/2010 Active Comment on above: One puff per nostril daily gabapentin 300 mg oral capsule (3 sources) Anti-epileptic Agent Start: 05-28-2013 End: 05-29-2013 take 1 capsule by mouth three times daily GABAPENTIN, 300MG (Oral Capsule) 1 Capsule tid for 0 days Quantity: 90 {Capsule} Refills: 0 Ordered: 29-May-2013 Amna Saucedo LPN Start : 28-May-2013 End : 29-May-2013 Inactive Start: 05-24-2006 End: 11-17-2006 take 1 capsule by mouth twice daily as needed NEURONTIN, 100MG (Oral Capsule) 1 (one) Capsule BID/prn for 0 days Quantity: 60 {Capsule} Refills: 3 Ordered: 24-May-2006 Naheed Main MD, MD, Dana M Start : 24-May-2006 End : 17-Nov-2006 Discontinued Comment on above: Mail order. glucosamine 1000 mg oral tablet (1 source) End: 10-24-19 13 take 1 tablet by mouth once daily GLUCOSAMINE HCL, 1000MG (Oral Tablet) 1 1/2 QD for 0 days Refills: 0 Ordered: 23-Oct-2012 Mary Contreras RN End : 23-Oct-2012 Inactive LACTOBACILLUS RHAMNOSUS (GG), 10B CELL (Oral Capsule) (1 source) End: 08-20-19 08 take 1 capsule by mouth once daily LACTOBACILLUS RHAMNOSUS (GG), 10B CELL (Oral Capsule) 1 QD for 0 days Refills: 0 Ordered: 20-Aug-2007 JOVI Britton LPN End : 20-Aug-2007 Discontinued levoFLOXacin 500 mg oral tablet (1 source) Quinolone Antimicrobial Start: 03-20-20 08 End: 06-23-20 08 take 1 tablet by mouth once daily LEVAQUIN, 500MG (Oral Tablet) 1 Tablet Daily for 0 days Quantity: 10 {Tablet} Refills: 0 Ordered: 20-Mar-2008 JOVI Britton LPN Start : 20-Mar-2008 End : 23-Jun-2008 Inactive meloxicam 15 mg oral tablet (1 source) Nonsteroidal Anti-inflammatory Drug take 1 tablet by mouth once daily MOBIC, 15MG (Oral Tablet) 1 qd (15 MG) Active metroNIDAZOLE 7.5 mg/ml topical cream (1 source) Nitroimidazole Antimicrobial Start: 10-18-19 08 End: 08-18-19 11 METROCREAM, 0.75% (External Cream) Cream BID for 0 days Quantity: 1 {Cream} Refills: 3 Ordered: 18-Aug-2010 Annita Kovacs RN Start : 18-Oct-2007 End : 18-Aug-2010 Inactive mometasone furoate 0.05 mg/actuat metered dose nasal spray (1 source) Corticosteroid Start: 01-09-20 08 End: 12-02-19 09 NASONEX, 50MCG/ACT (Nasal Suspension) 2 (two) Suspension qd for 0 days Quantity: 1 {Suspension} Refills: 1 Ordered: 01-Dec-2008 JOVI Britton LPN Start : 09-Jan-2008 End : 01-Dec-2008 Inactive montelukast 10 mg oral tablet (1 source) Leukotriene Receptor Antagonist Start: 12-02-19 09 take 1 tablet by mouth once daily SINGULAIR, 10MG (Oral Tablet) Tablet QD for 0 days Quantity: 90 {Tablet} Refills: 3 Ordered: 03-Dec-2009 JOVI Britton LPN Start : 01-Dec-2008 Inactive Multivitamin preparation (1 source) End: 08-20-19 08 MULTIVITAMIN (Oral Liquid) for 0 days Refills: 0 Ordered: 20-Aug-2007 JOVI Britton LPN End : 20-Aug-2007 Discontinued nabumetone 500 mg oral tablet (1 source) Nonsteroidal Anti-inflammatory Drug End: 07-23-19 11 take 1 tablet by mouth twice daily RELAFEN, 500MG (Oral Tablet) 1 bid for 0 days Refills: 0 Ordered: 23-Jul-2010 Priya Reynaga DO End : 23-Jul-2010 Discontinued Comments: This order discontinued per [facility]. Comment on above: This order discontin ued per [facility]. Maskell 3 (1 source) Maskell 3 EPH/DHA 160mg/100mg qd Active Sknld-0-RAW-EPA-Fish Oil (OMEGA-3 FISH OIL) 1,000 (120-180) mg ORAL Cap (4 sources) Start: 07-07-19 11 Bsrix-9-OOY-EPA-Fish Oil (OMEGA-3 FISH OIL) 1,000 (120-180) mg ORAL Cap Indications: Neutropenia (HCC) , Unspecified diffuse connective tissue disease (HCC) Take one(1) tablet daily. 0 07/07/2010 Active Comment on above: Take one(1) tablet d aily. Wnjal-6-IFI-EPA-Fish Oil 1,000 mg (120 mg-180 mg) cap (2 sources) Start: 07-07-19 11 Gqwlg-7-MWM-EPA-Fish Oil 1,000 mg (120 mg-180 mg) cap Indications: Neutropenia (HCC) , Unspecified diffuse connective tissue disease (HCC) Take one(1) tablet daily. 0 07/07/2010 Active Comment on above: Take one(1) tablet d aily. omeprazole 20 mg delayed release oral tablet (1 source) Proton Pump Inhibitor Start: 12-04-19 10 End: 12-04-19 10 PRILOSEC OTC, 20MG (Oral Tablet Delayed Release) [address] bid for 0 days Quantity: 180 {Tablet_DR} Refills: 3 Ordered: 03-Dec-2009 Naheed Main MD, MD, Naheed Gray Start : 03-Dec-2009 End : 03-Dec-2009 Discontinued 24 hr oxybutynin chloride 5 mg extended release oral tablet (2 sources) Cholinergic Muscarinic Antagonist Start: 09-07-19 13 End: 04-22-20 13 take 1 tablet by mouth once daily DITROPAN XL, 5MG (Oral Tablet Extended Release 24 Hour) 1 Tablet ER 24HR qd for 0 days Quantity: 90 {Tablet_ER_24HR} Refills: 3 Ordered: 22-Apr-2013 JOVI Britton LPN Start : 06-Sep-2012 End : 22-Apr-2013 Inactive Comments: Mail order. Comment on above: Mail order. pantoprazole 40 mg delayed release oral tablet (7 sources) Proton Pump Inhibitor Start: 07-07-[address] (PROTONIX) 40 mg tablet Indications: Neutropenia (HCC) , Unspecified diffuse connective tissue disease (HCC) Take one(1) tablet daily. 0 07/07/2010 Active Comment on above: Mail order. Take one(1) tablet d aily. promethazine hydrochloride 25 mg oral tablet (1 source) Phenothiazine Start: 10-21-19 15 End: 12-19-19 15 take 1 tablet by mouth every eight hours as needed PROMETHAZINE HCL, 25MG (Oral Tablet) 1 (one) Tablet Tablet q8 hrs prn for 0 days Quantity: 30 {QS} Refills: 0 Ordered: 18-Dec-2014 JOVI Britton LPN Start : 20-Oct-2014 End : 18-Dec-2014 Inactive selenium sulfide 10 mg/ml medicated shampoo (7 sources) Start: 06-02-20 09 End: 08-18-19 11 SELENIUM SULFIDE, 1% (External Lotion) 2 Lotion Weekly - Shampoo for 0 days Refills: 3 Ordered: 18-Aug-2010 Annita Kovacs RN Start : 02-Jun-2009 End : 18-Aug-2010 Inactive Start: 07-05-2006 SELENIUM SULFI DE 2.5 % SHAMPOO qod face, ears, scalp as second lather: lather, wait 5-10 minutes, rinse off 4 oz 2 07/05/2006 Active Comment on above: qod face, ears, scal p as second lather: lather, wait 5-10 minutes, rinse off sulfacetamide sodium 0.1 mg/mg ophthalmic ointment (1 source) Sulfonamide Antibacterial End: 12-02-19 09 SODIUM SULFACETAMIDE, 10% (Ophthalmic Ointment) 3 weekly - forehead & neck for 0 days Refills: 0 Ordered: 01-Dec-2008 JOVI Britton LPN End : 01-Dec-2008 Inactive telithromycin 400 mg oral tablet (1 source) Ketolide Antibacterial Start: 06-05-20 06 End: 11-18-19 07 take 2 tablets by mouth once daily KETEK OSITO, 400MG (Oral Tablet) 2 (two) Tablet QD for 0 days Quantity: 10 {Tablet} Refills: 0 Ordered: 05-Jun-2006 JOVI Britton LPN Start : 05-Jun-2006 End : 17-Nov-2006 Inactive THERAPEUTIC MULTIVITAMIN TAB (6 sources) Start: 07-05-19 THERAPEUTIC MULTIVITAMIN TAB Take one(1) tablet daily. 0 07/05/2006 Active Comment on above: Take one(1) tablet d aily. 24 hr tolterodine tartrate 4 mg extended release oral capsule (1 source) Cholinergic Muscarinic Antagonist Start: 10-18-19 08 End: 06-02-20 09 take 1 capsule by mouth once daily DETROL LA, 4MG (Oral Capsule Extended Release 24 Hour) 1 Capsule ER 24HR QD for 0 days Refills: 0 Ordered: 02-Jun-2009 Etelvina HANNON, Naheed Main MD, Naheed Gray Start : 18-Oct-2007 End : 02-Jun-2009 Discontinued Triamcinolone (1 source) Corticosteroid Start: 08-30-19 07 End: 01-09-20 08 NASACORT AQ, 55MCG/ACT (Nasal Aerosol Solution) 2 (two) Aerosol Soln Each Nare Daily for 0 days Refills: 0 Ordered: 30-Aug-2006 Bernice Rabago Start : 30-Aug-2006 End : 09-Jan-2008 Discontinued valACYclovir 1000 mg oral tablet (1 source) Herpesvirus Nucleoside Analog DNA Polymerase Inhibitor, Herpes Simplex Virus Nucleoside Analog DNA Polymerase Inhibitor, Herpes Zoster Virus Nucleoside Analog DNA Polymerase Inhibitor Start: 05-15-20 06 End: 05-22-20 06 take 1 tablet by mouth three times daily VALTREX, 1GM (Oral Tablet) 1 (one) Tablet Three times a day for 7 days Quantity: 21 {Tablet} Refills: 0 Ordered: 15-May-2006 JOVI Britton LPN Start : 15-May-2006 End : 22-May-2006 Inactive vitamin b 12 2.5 mg oral lozenge (2 sources) Vitamin B12 Start: 10-24-19 13 End: 11-23-19 13 CYANOCOBALAMIN, 2500MCG (Sublingual Tablet Sublingual) 1000 mcg bid for 30 days Refills: 0 Ordered: 08-Feb-2013 Naheed Main MD, MD, Naheed Gray Start : 23-Oct-2012 End : 22-Nov-2012 Inactive take 1 tablet by mouth once faraz y VITAMIN B-12, 1000MCG (Oral Tablet) 1 qd (1000 MCG) Active dl-alpha tocopheryl acetate 200 unt oral capsule (1 source) End: 10-18-2007 take 2 capsules by mouth once daily VITAMIN E, 200UNIT (Oral Capsule) 2 QD for 0 days Refills: 0 Ordered: 18-Oct-2007 JOVI Britton LPN End : 18-Oct-2007 Discontinued Problems Active Problems Problem Classification Problem Date Documented Date Episodic/Chronic Acute and chronic tonsillitis (2 sources) Acute tonsillitis; Translations: [Acute tonsillitis] Resolved: 3 08-13-2015 Episodic Biliary tract disease (7 sources) Gallstone; Translations: [Disorder of gallbladder] Onset: 2 Resolved: 2 03-12-2012 Episodic Comment on above: signs and symptoms cholecystectomy Chronic obstructive pulmonary disease and bronchiectasis (3 sources) Chronic obstructive pulmonary disease and bronchiectasis Conduction disorders (1 source) Right bundle branch block; Translations: [Bundle branch block, right] 05-07-2015 Chronic Deficiency and other anemia (1 source) Anemia, unspecified; Translations: [Anemia, unspecified anemia type] 05-07-2015 Episodic Comment on above: not sure why little low from before will get colonscopy because due this year anyways. rheum will recheck cbc and she has order Deficiency and other anemia (2 sources) Deficiency and other anemia Diseases of white blood cells (15 sources) Leukopenia; Translations: [Leukopenia] Resolved: 4 06-12-2015 Chronic Comment on above: antoine, 07-[address] rogel. found in same level. recommend no other treatment. not alot of infections. Dr sousa is followin corry every three months Disorders of lipid metabolism (2 sources) Hypertriglyceridemia; Translations: [Pure hyperglyceridemia] Onset: 5 05-07-2015 Chronic Comment on above: reveiwed with patien t recent tests and great wtih weight loss. E Codes: Natural/environment (1 source) Bitten by cat, initial encounter; Translations: [Cat bite of finger, initial encounter] Onset: 2 Episodic Esophageal disorders (19 sources) Gastroesophageal reflux disease; Translations: [GERD (gastroesophageal reflux disease)] 05-07-2015 Chronic Comment on above: stable was worse on relafen Essential hypertension (13 sources) Benign essential hypertension; Translations: [Essential hypertension] 05-07-2015 Chronic Comment on above: chol good 4-15. need to loose weight Fluid and electrolyte disorders (3 sources) Dehydration; Translations: [Dehydration] Resolved: 5 01-15-2015 Episodic Genitourinary symptoms and ill-defined conditions (12 sources) Incontinence; Translations: [Urinary incontinence] Resolved: 3 05-26-2015 Chronic Genitourinary symptoms and ill-defined conditions (2 sources) Dysuria; Translations: [Dysuria] Resolved: 3 07-24-2012 Episodic Headache; including migraine (7 sources) Headache; Translations: [Headache] Resolved: 0 04-07-2015 Episodic Immunizations and screening for infectious disease (10 sources) Need for prophylactic vaccination and inoculation against influenza Episodic Influenza (2 sources) Influenza Mood disorders (20 sources) Depressive disorder; Translations: [Depressive disorder] 05-07-2015 Chronic Comment on above: on wellbutrin doign well. more otivated better since doign weight watchers and in more control. will take until next spring. Nausea and vomiting (5 sources) Nausea and vomiting; Translations: [Nausea] Onset: 2 Resolved: 5 01-15-2015 Episodic Noninfectious gastroenteritis (2 sources) Gastroenteritis; Translations: [Gastroenteritis] Resolved: 4 11-01-2013 Episodic Comment on above: viral. getting tejal r now. drinking alot fliuds. Open wounds of extremities (15 sources) Cat bite - wound; Translations: [Open bite of unspecified finger without damage to nail, initial encounter] Onset: 2 01-25-2022 Episodic Other bone disease and musculoskeletal deformities (9 sources) Osteopenia; Translations: [Osteopenia] 05-07-2015 Episodic Comment on above: mild in hips 2011. o n calcium and vit d. due 2013. Other connective tissue disease (2 sources) Fibromyalgia; Translations: [Primary fibromyalgia syndrome] 05-07-2015 Episodic Comment on above: saw poly did P T tried cymbalta not tolerate. doing trigger point injections from [place] and help. i again talk about diet and exercise. she is on fibrocare supplement. Other connective tissue disease (4 sources) Foot pain; Translations: [Foot pain] Onset: 2 Resolved: 2 11-01-2013 Episodic Comment on above: t pain. Other connective tissue disease (1 source) Pain in finger of right hand; Translations: [Pain in right finger(s)] Episodic Other gastrointestinal disorders (5 sources) Diarrhea; Translations: [Diarrhea] Onset: 2 Resolved: 5 01-15-2015 Episodic Other inflammatory condition of skin (20 sources) Rosacea; Translations: [Rosacea, unspecified] Onset: 7 05-07-2015 Chronic Comment on above: see Dr. vásquez Other injuries and conditions due to external causes (1 source) Accidental needle stick injury 12-21-2017 Episodic Other lower respiratory disease (3 sources) Cough; Translations: [Cough] Resolved: 3 04-22-2013 Episodic Other nutritional; endocrine; and metabolic disorders (4 sources) Hypercalcemia; Translations: [Hypercalcemia] Resolved: 4 11-01-2013 Chronic Comment on above: better with not on e xtra calcium. will go back to [facility] on calcium and D for osteopenia Other nutritional; endocrine; and metabolic disorders (10 sources) Overweight; Translations: [Overweight] Resolved: 5 01-15-2015 Chronic Comment on above: talk about carbs aga in and 21 day purification. talka bout what need to do Other nutritional; endocrine; and metabolic disorders (4 sources) Obesity; Translations: [Obesity] Resolved: 5 05-07-2015 Chronic Comment on above: wellbutrin help. not see Dr. clarke. going to weight watchers group. takign control loosign and feeling better. talkbaout exercise. Other nutritional; endocrine; and metabolic disorders (1 source) H/O: obesity; Translations: [History of obesity] 05-07-2015 Episodic Comment on above: talk about maitence once reach goal. weight daily do not let over 3 ounds. goal 165. Other skin disorders (7 sources) Disorder of connective tissue; Translations: [Systemic involvement of connective tissue, unspecified] Onset: 7 05-07-2015 Chronic Comment on above: see rheum Dr. sousa. reviewed with patient specialist's note Other upper respiratory disease (17 sources) Allergic rhinitis; Translations: [Allergic rhinitis] 05-07-2015 Chronic Other upper respiratory infections (9 sources) Acute pansinusitis; Translations: [Acute sinusitis, unspecified] Onset: 1 Resolved: 3 05-07-2015 Episodic Otitis media and related conditions (3 sources) Otitis media and related conditions Residual codes; unclassified (13 sources) Family history of breast cancer; Translations: [Family history of malignant neoplasm of breast] 05-07-2015 Episodic Residual codes; unclassified (20 sources) Insomnia; Translations: [Insomnia, unspecified] 05-07-2015 Episodic Comment on above: doing well now with ambien Residual codes; unclassified (2 sources) Needs influenza immunization; Translations: [Need for prophylactic vaccination and inoculation against influenza] Resolved: 9 05-07-2015 Episodic Residual codes; unclassified (5 sources) History of clinical finding in subject; Translations: [Personal history of immunosupression therapy] 01-30-2022 Episodic Skin and subcutaneous tissue infections (9 sources) Infection of finger; Translations: [Local infection of the skin and subcutaneous tissue, unspecified] Onset: 2 01-25-2022 Episodic Spondylosis; intervertebral disc disorders; other back problems (5 sources) Low back pain; Translations: [Low back pain] Resolved: 3 04-22-2013 Episodic Systemic lupus erythematosus and connective tissue disorders (16 sources) Unspecified diffuse connective tissue disease Chronic Unclassified (20 sources) Unclassified (10 sources) BLOCK, RIGHT BUNDLE BRANCH (426.4) Unclassified (2 sources) Current non-smoker ; Translations: [Current nonsmoker (Renamed from Current non-smoker)] 05-07-2015 Unclassified (17 sources) Hypertriglycerides (272.1) Unclassified (13 sources) Pineda 05-07-2015 Comment on above: mammo 4-14 good Unclassified (13 sources) fibromyalgia 729.1 (Renamed from Myalgia(729.1)) Unclassified (6 sources) Carotid stenosis (433.10) Unclassified (3 sources) THROAT CULTURE (Renamed from ACUTE PHARYNGITIS (462.)) Unclassified (3 sources) Abdominal Pain,Unspecified Site (789.00) Unclassified (1 source) Hyperglyceridemia Unclassified (1 source) Connective tissue disease Unclassified (1 source) Bundle branch block, right Unclassified (5 sources) Elevated Blood Pressure without diagnosis of Hypertension (796.2) Unclassified (2 sources) Abnormal ear exam (388.9) Unclassified (1 source) Acute pansinusitis, recurrence not specified Unclassified (1 source) History of obesity Unclassified (2 sources) Sensation of plugged ear (388.8) Unclassified (3 sources) Abdominal Pain,RUQ(789.01) Unclassified (2 sources) Nosebleed (784.7) Unclassified (2 sources) Nausea and/or vomiting Unclassified (1 source) Rash (782.1) Unclassified (1 source) Occupational Therapy Onset: 2 Urinary tract infections (11 sources) Chronic interstitial cystitis; Translations: [Chronic interstitial cystitis] Resolved: 3 04-22-2013 Chronic Viral infection (10 sources) Post-herpetic polyneuropathy; Translations: [Herpes zoster without mention of complication] Onset: 2 Resolved: 2 03-12-2012 Episodic Past or Other Problems Problem Classification Problem Date Documented Da te Episodic/Chronic Abdominal pain (2 sources) Acute abdominal pain; Translations: [Abdominal pain] Onset: 03-12-2012 Resolved: 07-24-2012 05-18-2015 Episodic Chronic obstructive pulmonary disease and bronchiectasis (1 source) Bronchitis; Translations: [Bronchitis] Onset: 03-12-2012 Resolved: 03-12-2012 04-07-2015 Episodic E Codes: Cut/pierceb (5 sources) Accidental needle stick injury; Translations: [Needlestick injury accident] 12-21-2017 Mycoses (1 source) Candidiasis of mouth; Translations: [Candidiasis, mouth] Resolved: 07-24-2012 05-22-2015 Episodic Neoplasms of unspecified nature or uncertain behavior (1 source) Neoplasm of uncertain behavior of skin; Translations: [Neoplasm of uncertain behavior of skin] Resolved: 07-24-2012 05-18-2015 Episodic Comment on above: concerns of squamous cell? Occlusion or stenosis of precerebral arteries (1 source) Carotid artery stenosis; Translations: [Carotid stenosis] Resolved: 08-23-2011 04-14-2015 Chronic Comment on above: 2009 normal Other circulatory disease (1 source) Elevated blood-pressure reading without diagnosis of hypertension; Translations: [Elevated blood-pressure reading without diagnosis of hypertension] Resolved: 11-01-2013 04-07-2015 Episodic Comment on above: under ,140/90 Other ear and sense organ disorders (1 source) Sensation of blocked ears; Translations: [Sensation of plugged ear (Renamed from Blocked ear)] Resolved: 04-22-2013 04-22-2013 Episodic Comment on above: rt ear, send to ENTw as treated with Augmentin no improvement Other inflammatory condition of skin (6 sources) Seborrheic dermatitis; Translations: [Other seborrheic dermatitis] Onset: 07-05-2006 07-05-2006 Episodic Other screening for suspected conditions (not mental disorders or infectious disease) (1 source) Encounter for screening mammogram for malignant neoplasm of breast; Translations: [Encounter for screening mammogram for malignant neoplasm of breast] Onset: 03-11-2024 Episodic Other skin disorders (1 source) Eruption; Translations: [Rash] Resolved: 07-24-2012 07-24-2012 Episodic Comment on above: Dr. vásquez doing bio psy inflammatory and using kenalog on right lower leg Other skin disorders (1 source) Localized swelling, mass and lump, unspecified upper limb; Translations: [Localized swelling, mass and lump, unspecified upper limb] Onset: 05-20-2024 Episodic Other upper respiratory disease (1 source) Epistaxis; Translations: [Nosebleed] Resolved: 04-22-2013 04-22-2013 Episodic Comment on above: per Darrell SANDERS flonas e and ASA Otitis media and related conditions (1 source) Unspecified otitis media; Translations: [Otitis media of right ear] Resolved: 04-22-2013 04-22-2013 Episodic Comment on above: on all allergy medic ations. finishing atb. still some hearing decrease. pain better. looks better still some fliud. in month if still dedreased hearing then call and follow up ent ? tube Unclassified (9 sources) Unspecified Diagnosis Resolved: 11-01-2013 11-01-2013 Unclassified (1 source) O/E - ear; Translations: [Abnormal ear exam] Resolved: 04-22-2013 04-22-2013 Comment on above: rt Unclassified (1 source) Cystitis,Acute (595.0) Unclassified (1 source) CANDIDIASIS, MOUTH (THRUSH) (112.0) Unclassified (1 source) Lesion-Unknown behavior (238.2) Urinary tract infections (1 source) Acute cystitis; Translations: [Cystitis, acute] Resolved: 07-24-2012 04-28-2015 Episodic Results Test Name Value Interpretation Reference Range Facility Bone density reportOrdered B y: Korey Wong on 09-04-2024 Study report Skeletal system DXA [facility] Imaging Services [address] [place], [place] [id number] Dexa Bone Density Study MR#: [id number] Acct: [id number] Name: SITA MITTAL Rep #: [id number] : 1955 F 69 From: Jc Wong MD PCP: Dr. Michale Calderón MD Status: REG C UBALDO Study:Dexa Bone Density Study Date of Exam: 09/04/24 Exam# [id number] Ordering Dr: Michael Calderón MD PROCEDURE: DEXA BONE DENSITY STUDY REASON FOR EXAM: F, age 69 y/o . Postmenopausal. TECHNIQUE: DEXA scan of the lumbar spine and both hips. COMPARISON: Comparison is made with prior study dated February 15, 2022. FINDINGS: Lumbar Spine (L1-L4): g/cm2 (1.048)/T-score (0.0)/Z-score (2.1) findings are suggestive of normal with a low fracture risk. Left Femur Total: g/cm2 (0.870)/T-score (-0.6)/Z-score (0.9) Left Femoral Neck: g/cm2 (0.682)/T-score (-1.5)/Z-score (0.2) Right Femur Total: g/cm2 (0.883)/T-score (-0.5)/Z-score (1.0) Right Femoral Neck: g/cm2 (0.719)/T-score (-1.2)/Z-score (0.6) The T-Scores on the most recent prior examination were: Lumbar Spine (L1-L4): There has been worsening of bone density since the previous examination. Left Femur Total: Loss of 1.6%. Right Femur Total: Gain of 1%. BD/Dexa Bone Density Study IMPRESSION: The patient is considered osteopenic as outlined below according to World Wolf Organization (WHO) criteria with a low fracture risk. There has been worsening of bone density since the previous examination. Reading Location: [id number] CC: Dr. Michael Calderón MD ~ Money Order Clerk: Signed [facility] Dexa Bone Density Studyon Dexa Bone Density Study [facility] Imaging Services [address] [place] [id number] Dexa Bone Density Study MR#: [id number] Acct: [id number] Name: SITA MITTAL Rep #: [id number] : 1955 F 69 From: Korey lawrence MD PCP: Dr. Michael Calderón MD Status: REG CLI Study: Dexa Bone Density Study Date of Exam: 09/04/24 Exam# [id number] Ordering Dr: Michael Calderón MD PROCEDURE: DEXA BONE DENSITY STUDY REASON FOR EXAM: F, age 69 y/o . Postmenopausal. TECHNIQUE: DEXA scan of the lumbar spine and both hips. COMPARISON: Comparison is made with prior study dated February 15, 2022. FINDINGS: Lumbar Spine (L1-L4): g/cm2 (1.048)/T-score (0.0)/Z-score (2.1) findings are suggestive of normal with a low fracture risk. Left Femur Total: g/cm2 (0.870)/T-score (-0.6)/Z-score (0.9) Left Femoral Neck: g/cm2 (0.682)/T-score (-1.5)/Z-score (0.2) Right Femur Total: g/cm2 (0.883)/T-score (-0.5)/Z-score (1.0) Right Femoral Neck: g/cm2 (0.719)/T-score (-1.2)/Z-score (0.6) The T-Scores on the most recent prior examination were: Lumbar Spine (L1-L4): There has been worsening of bone density since the previous examination. Left Femur Total: Loss of 1.6%. Right Femur Total: Gain of 1%. BD/Dexa Bone Density Study IMPRESSION: The patient is considered osteopenic as outlined below according to World Wolf Organization (WHO) criteria with a low fracture risk. There has been worsening of bone density since the previous examination. Reading Location: [facility] CC: Dr. Michael Calderón MD Money Order Clerk: Signed Normal [facility] Albumin to globulin ratioOrd ered By: Michael Calderón on 08-07-2024 Albumin/Globulin [Mass ratio] 1.1 {ratio} 0.9-2.4 [facility] Bilirubin, totalOrdered By: Michael Calderón on 08-07-2024 Bilirubin [Mass/Vol] 0.40 mg/dL 0.20-1.00 [facility] Comment on above: For patients on eltr ombopag therapy, use of [facility] TBIL is not recommended. Blood urea nitrogen (BUN)/cr eatinine ratioOrdered By: Michael Calderón on 08-07-2024 Urea nitrogen/Creatinine [Mass ratio] 18.8 mg/mg 10-20 [facility] Carbon dioxide measurementOr dered By: Michael Calderón on 08-07-2024 CO2 [Moles/Vol] 27.0 mmol/L 21.0-32.0 [facility] Chloride measurementOrdered By: Michael Calderón on 08-07-2024 Chloride [Moles/Vol] 106 mmol/L 98-107 [facility] Comprehensive Metabolic Prof ilon 08-07-2024 Albumin [Mass/Vol] 4.1 g/dL Normal 3.2-5.0 [facility] Comment on above: Performed By: #### L 500.4050, L500.4100 #### [facility] [address] [place], [address] Albumin/Globulin [Mass ratio] 1.1 {ratio} Normal 0.9-2.4 [facility] Comment on above: Performed By: #### L 500.4050, L500.4100 #### [facility] [address] [place], [address] ALK P 60 U/L Normal 45-117 [facility] Comment on above: Performed By: #### L 500.4050, L500.4100 #### [facility] [address] [place], [address] ALT [Catalytic activity/Vol] 30 U/L Normal 13-56 [facility] Comment on above: Performed By: #### L 500.4050, L500.4100 #### [facility] [address] [place], [address] AST [Catalytic activity/Vol] 16 U/L Normal 15-37 [facility] Comment on above: Performed By: #### L 500.4050, L500.4100 #### [facility] [address] [place], [address] Bilirubin [Mass/Vol] 0.40 mg/dL Normal 0.20-1.00 [facility] Comment on above: Result Comment: For patients on eltrombopag therapy, use of [facility] TBIL is not recommended. Performed By: #### L 500.4050, L500.4100 #### [facility] [address] [place], [address] BUN/CRE 18.8 RATIO Normal 10-20 [facility] Comment on above: Performed By: #### L 500.4050, L500.4100 #### [facility] [address] [place], [address] CA,Total 9.4 mg/dL Normal 8.5-10.1 [facility] Comment on above: Performed By: #### L 500.4050, L500.4100 #### [facility] [address] [place], [address] Chloride [Moles/Vol] 106 mmol/L Normal 98-107 [facility] Comment on above: Performed By: #### L 500.4050, L500.4100 #### [facility] [address] [place], [address] CO2 [Moles/Vol] 27.0 mmol/L Normal 21.0-32.0 [facility] Comment on above: Performed By: #### L 500.4050, L500.4100 #### [facility] [address] [place], [address] Creatinine [Mass/Vol] 1.17 mg/dL High 0.55-1.02 [facility] Comment on above: Result Comment: The validity of the calculated GFR GFRAA in patients over 70 years has not been determined. Clinical correlation is essential. Performed By: #### L 500.4050, L500.4100 #### [facility] [address] [place], [address] EST GFR - AA 59 mL/min Low >60 [facility] Comment on above: Result Comment: Afri can [place] GFR Calc Performed By: #### L 500.4050, L500.4100 #### [facility] [address] [place], [address] GAP 6 Normal 5-15 [facility] Comment on above: Performed By: #### L 500.4050, L500.4100 #### [facility] [address] [place], [address] GFR/1.73 sq M.predicted among non-blacks MDRD (S/P/Bld) [Vol rate/Area] 49 mL/min/{1.73_m2} Low >60 [facility] Comment on above: Result Comment: Non- GFR Calc Performed By: #### L 500.4050, L500.4100 #### [facility] [address] [place], [address] Globulin (S) [Mass/Vol] 3.6 g/dL Normal 2.2-4.2 [facility] Comment on above: Performed By: #### L 500.4050, L500.4100 #### [facility] [address] [place], [address] Glucose [Mass/Vol] 89 mg/dL Normal 74-106 [facility] Comment on above: Performed By: #### L 500.4050, L500.4100 #### [facility] [address] [place], [address] Potassium [Moles/Vol] 4.5 mmol/L Normal 3.5-5.1 [facility] Comment on above: Performed By: #### L 500.4050, L500.4100 #### [facility] [address] [place], [address] Sodium [Moles/Vol] 139 mmol/L Normal 136-145 [facility] Comment on above: Performed By: #### L 500.4050, L500.4100 #### [facility] [address] [place], [address] T PROT 7.7 g/dL Normal 6.4-8.2 [facility] Comment on above: Performed By: #### L 500.4050, L500.4100 #### [facility] [address] [place], [address] Urea nitrogen [Mass/Vol] 22 mg/dL High 7-18 [facility] Comment on above: Performed By: #### L 500.4050, L500.4100 #### [facility] [address] [place], [address] Estimated glomerular filtrat ion rate (GFR) AmericanOrdered By: Michael Calderón on 08-07-2024 Estimated GFR (MDRD) Amer 59 mL/min Low >60 [facility] Comment on above: GFR Calc Glomerular filtration rate ( GFR) estimationOrdered By: Michael Calderón on 08-07-2024 Estimated GFR (MDRD) Non-Af Amer 49 mL/min Low >60 [facility] Comment on above: Non- GFR Calc Glucose measurementOrdered B y: Michael Calderón on 08-07-2024 Glucose [Mass/Vol] 89 mg/dL 74-106 [facility] High density lipoprotein (HD L) measurementOrdered By: Michael Calderón on 08-07-2024 Cholesterol in HDL [Mass/Vol] 64 mg/dL >40 [facility] Comment on above: The drugs N-Acetylcy steine and Metamizole may falsely depress this assay. Reference Range HDL <40 mg/dL Low HDL Cholesterol HDL >or= 60 mg/dL High HDL Cholesterol Laboratory - Chemistry and C hemistry - challengeOrdered By: Michael Calderón on 08-07-2024 AST [Catalytic activity/Vol] 16 U/L 15-37 [facility] Lipid Profileon 08-07-2024 Cholesterol [Mass/Vol] 195 mg/dL Normal 200 [facility] Comment on above: Result Comment: <200 mg/dL Desirable 200-240 mg/dL Borderline >240 mg/dL High Risk Performed By: #### L 500.4050, L500.4100 #### [facility] [address] [place], [address] Cholesterol in HDL [Mass/Vol] 64 mg/dL Normal [facility] Comment on above: Result Comment: The drugs N-Acetylcysteine and Metamizole may falsely depress this assay. Reference Range HDL <40 mg/dL Low HDL Cholesterol HDL >or= 60 mg/dL High HDL Cholesterol Performed By: #### L 500.4050, L500.4100 #### [facility] [address] [place], [address] Cholesterol in LDL [Mass/Vol] 97 mg/dL Normal 0-130 [facility] Comment on above: Performed By: #### L 500.4050, L500.4100 #### [facility] [address] [place], [address] Cholesterol in VLDL [Mass/Vol] 34 mg/dL Normal 5-40 [facility] Comment on above: Performed By: #### L 500.4050, L500.4100 #### [facility] [address] [place], [address] Triglyceride [Mass/Vol] 172 mg/dL Normal [facility] Comment on above: Result Comment: The drugs N-Acetylcysteine and Metamizole may falsely depress this assay. Serum Triglycerides Reference Interval Normal <150 mg/dL Borderline high 150 - 199 mg/dL High 200 - 499 mg/dL Very High > or = 500 mg/dL Performed By: #### L 500.4050, L500.4100 #### [facility] [address] [place], [address] Low density lipoprotein (LDL ) cholesterol measurementOrdered By: Michael Calderón on 08-07-2024 Cholesterol in LDL [Mass/Vol] 97 mg/dL 0-130 [facility] Potassium measurementOrdered By: Michael Calderón on 08-07-2024 Potassium [Moles/Vol] 4.5 mmol/L 3.5-5.1 [facility] Serum anion gap measurementO rdered By: Michael Calderón on 08-07-2024 Anion gap [Moles/Vol] 6 mmol/L 5-15 [facility] Serum globulin measurementOr dered By: Michael Calderón on 08-07-2024 Globulin (S) [Mass/Vol] 3.6 g/dL 2.2-4.2 [facility] Serum or plasma alanine browne otransferase (ALT) measurementOrdered By: Michael Calderón on 08-07-2024 ALT [Catalytic activity/Vol] 30 U/L 13-56 [facility] Serum or plasma albumin herman urement (mass/volume)Ordered By: Michael Calderón on 08-07-2024 Albumin [Mass/Vol] 4.1 g/dL 3.2-5.0 [facility] Serum or plasma alkaline breanna sphatase measurementOrdered By: Michael Calderón on 08-07-2024 ALP [Catalytic activity/Vol] 60 U/L 45-117 [facility] Serum or plasma calcium herman urement (mass/volume)Ordered By: Michael Calderón on 08-07-2024 Calcium [Mass/Vol] 9.4 mg/dL 8.5-10.1 [facility] Serum or plasma cholesterol measurement (mass/volume)Ordered By: Michael Calderón on 08-07-2024 Cholesterol [Mass/Vol] 195 mg/dL <200 [facility] Comment on above: <200 mg/dL Desirable 200-240 mg/dL Borderline >240 mg/dL High Risk Serum or plasma creatinine m easurement (mass/volume)Ordered By: Michael Calderón on 08-07-2024 Creatinine [Mass/Vol] 1.17 mg/dL High 0.55-1.02 [facility] Comment on above: The validity of the calculated GFR & GFRAA in patients over 70 years has not been determined. Clinical correlation is essential. Serum or plasma urea nitroge n measurement (mass/volume)Ordered By: Michael Calderón on 08-07-2024 Urea nitrogen [Mass/Vol] 22 mg/dL High 7-18 [facility] Sodium levelOrdered By: Michael Calderón on 08-07-2024 Sodium [Moles/Vol] 139 mmol/L 136-145 [facility] Total proteinOrdered By: Palmira Calderón on 08-07-2024 Protein [Mass/Vol] 7.7 g/dL 6.4-8.2 [facility] Triglycerides measurementOrd ered By: Michael Calderón on 08-07-2024 Triglyceride [Mass/Vol] 172 mg/dL <199 [facility] Comment on above: The drugs N-Acetylcy steine and Metamizole may falsely depress this assay.Serum Triglycerides Reference Interval Normal <150 mg/dL Borderline high 150 - 199 mg/dL High 200 - 499 mg/dL Very High > or = 500 mg/dL Very low density lipoprotein (VLDL) cholesterol measurementOrdered By: Michael Calderón on 08-07-2024 VLDL Cholesterol 34 mg/dL 5-40 [facility] SCRN MAMM (CAD)W/CAYLA BILATo n 02-26-2024 SCRN MAMM (CAD)W/CAYLA BILAT [facility] Imaging Services [address] [place] [address] SCRN MAMM (CAD)W/CAYLA BILAT MR#: [id number] Acct: [id number] Name: SITA MITTAL Rep #: [id number] : 1955 F 68 From: Korey [place] MD PCP: Dr. Michael Calderón MD Status: [facility] Study: SCRN MAMM (CAD)W/CAYLA BILAT Date of Exam: 02/01 12/24 Exam# [id number] Ordering Dr: Michael Calderón MD [id number] MAMMOGRAPHY - BILATERAL SCREENING REASON FOR EXAM: Female, 68 years old. Routine annual screening examination. PERTINENT HISTORY: Mother with breast cancer. TECHNIQUE: Digital bilateral breast cayla (3D mammographic acquisition) in the CC and MLO projections. 2-D mediolateral oblique (MLO) and craniocaudad (CC) views of both breasts were obtained. CAD: Full Field Digital Mammography with Computer Added Detection was performed. COMPARISON: Comparison is made with prior study dated February 23, 2023 and February 15, 2022. FINDINGS: Breast Composition: There are scattered areas of fibroglandular density. There are no dominant masses or suspicious calcifications. Stable small right axillary lymph nodes. No other significant abnormalities are identified. There has been no significant change since the prior study. BI/SCRN MAMM (CAD)W/CAYLA BILAT IMPRESSION: Stable bilateral screening mammogram. Yearly follow-up mammogram recommended. (A) ASSESSMENT CATEGORY: BIRADS Category 2: Benign. A letter regarding these results will be sent to the patient by the facility within 30 days. Approximately 10% of breast cancers are not detected by mammography. A normal mammogram should not delay biopsy of a clinically suspicious abnormality. [id number] Electronically Signed: Korey Wong MD at 10:27 EDT Reading Location ID and State: [address] [place] [address] , Service support , CC: Dr. Michael Calderón MD Money Order Clerk: Signed Normal [facility] Ext Non Vasc Limited/Soft Ti sson 11-10-2023 Ext Non Vasc Limited/Soft Tiss [facility] Imaging Services [address] [place], [place] [address] Ext Non Vasc Limited/Soft Tiss MR#: [id number] Acct: [id number] Name: SITA MITTAL Rep #: [id number] : 1955 F 68 From: Fuentes Henley PCP: Dr. Michael Calderón MD Status: [facility] Study: Ext Non Vasc Limited/Soft Tiss Date of Exam: 0 11/10/23 Exam# [id number] Ordering Dr: Michael Calderón MD ADDENDUM by Dr. Fuentes Estevez MD on 11/20/23 at 1730 ======== ADDENDUM ======== [id number] ADDENDUM: Corrected auto degeneration of sidedness in dictation template: Imaging of the axilla of interest (RIGHT axilla) was included with comparative imaging of the LEFT axilla. 11/20/231729 Date cc: Dr. Michael Calderón MD * Signed ADDENDUM by Dr. Fuentes Estevez MD on 11/20/23 at 1730 US/Ext Non Vasc Limited/Soft Tiss IMPRESSION: 1. No sonographic evidence of abnormal normal fluid collections, masses, or abnormal blood flow in the RIGHT axilla Electronically Signed: Fuentes Estevez MD at 17:30 EDT , 11/20/231736 Date cc: Dr. Michael Calderón MD * Signed [id number] INDICATION: RT MASS IN ARMPIT EXAMINATION: Left upper extremity/axillary nonvascular ultrasound. HISTORY: RIGHT axillary mass TECHNIQUE: Routine grayscale and color imaging obtained. __ FINDINGS: Normal sonographic appearance of the area of clinical concern in the LEFT axilla. No masses identified. No abnormal fluid collections. No abnormal blood flow. US/Ext Non Vasc Limited/Soft Tiss IMPRESSION: 1. No sonographic evidence of abnormal fluid collections masses or abnormal blood flow in the LEFT axilla. Electronically Signed: Fuentes Estevez MD at 20:12 EDT , CC: Dr. Michael Calderón MD Money Order Clerk: Signed Normal [facility] Basophil percentageOrdered B y: Michael Calderón on 06-28-2023 Cholesterol [Mass/Vol] 201 mg/dL <200 [facility] Comment on above: <200 mg/dL Desirable 200-240 mg/dL Borderline >240 mg/dL High Risk Triglyceride [Mass/Vol] 160 mg/dL <199 [facility] Comment on above: The drugs N-Acetylcy steine and Metamizole may falsely depress this assay.Serum Triglycerides Reference Interval Normal <150 mg/dL Borderline high 150 - 199 mg/dL High 200 - 499 mg/dL Very High > or = 500 mg/dL Serum or plasma cholesterol in HDL measurement (mass/volume)Ordered By: Michael Calderón on 06-28-2023 Cholesterol in HDL [Mass/Vol] 63 mg/dL >40 [facility] Comment on above: The drugs N-Acetylcy steine and Metamizole may falsely depress this assay. Reference Range HDL <40 mg/dL Low HDL Cholesterol HDL >or= 60 mg/dL High HDL Cholesterol Serum or plasma cholesterol in VLDL measurement (mass/volume)Ordered By: Michael Calderón on 06-28-2023 Cholesterol in VLDL [Mass/Vol] 32 mg/dL 5-40 [facility] Serum or plasma low density lipoprotein (LDL) cholesterol measurement (mass/volume)Ordered By: Michael Calderón on 06-28-2023 Cholesterol in LDL [Mass/Vol] 106 mg/dL 0-130 [facility] Basophil percentageOrdered B y: Michael Calderón on 02-23-2023 Chloride [Moles/Vol] 108 mmol/L 98-107 [facility] Cholesterol [Mass/Vol] 200 mg/dL <200 [facility] Comment on above: <200 mg/dL Desirable 200-240 mg/dL Borderline >240 mg/dL High Risk Glucose [Mass/Vol] 90 mg/dL 74-106 [facility] Potassium [Moles/Vol] 4.8 mmol/L 3.5-5.1 [facility] Sodium [Moles/Vol] 140 mmol/L 136-145 [facility] Triglyceride [Mass/Vol] 304 mg/dL <199 [facility] Comment on above: The drugs N-Acetylcy steine and Metamizole may falsely depress this assay.Serum Triglycerides Reference Interval Normal <150 mg/dL Borderline high 150 - 199 mg/dL High 200 - 499 mg/dL Very High > or = 500 mg/dL Laboratory - Chemistry and C hemistry - challengeOrdered By: Michael Calderón on 02-23-2023 CO2 [Moles/Vol] 29.0 mmol/L 21.0-32.0 [facility] Urea nitrogen/Creatinine [Mass ratio] 19.5 mg/mg 10-20 [facility] No Panel InformationOrdered By: Michael Calderón on 02-23-2023 Estimated GFR (MDRD) Amer 62 mL/min >60 [facility] Comment on above: GFR Calc Estimated GFR (MDRD) Non-Af Amer 51 mL/min >60 [facility] Comment on above: Non- GFR Calc Serum or plasma calcium herman urement (mass/volume)Ordered By: Michael Calderón on 02-23-2023 Calcium [Mass/Vol] 9.3 mg/dL 8.5-10.1 [facility] Serum or plasma cholesterol in HDL measurement (mass/volume)Ordered By: Michael Calderón on 02-23-2023 Cholesterol in HDL [Mass/Vol] 48 mg/dL >40 [facility] Comment on above: The drugs N-Acetylcy steine and Metamizole may falsely depress this assay. Reference Range HDL <40 mg/dL Low HDL Cholesterol HDL >or= 60 mg/dL High HDL Cholesterol Serum or plasma cholesterol in VLDL measurement (mass/volume)Ordered By: Michael Calderón on 02-23-2023 Cholesterol in VLDL [Mass/Vol] 61 mg/dL 5-40 [facility] Serum or plasma creatinine m easurement (mass/volume)Ordered By: Michael Calderón on 02-23-2023 Creatinine [Mass/Vol] 1.13 mg/dL 0.55-1.02 [facility] Comment on above: The validity of the calculated GFR & GFRAA in patients over 70 years has not been determined. Clinical correlation is essential. Serum or plasma low density lipoprotein (LDL) cholesterol measurement (mass/volume)Ordered By: Michael Calderón on 02-23-2023 Cholesterol in LDL [Mass/Vol] 91 mg/dL 0-130 [facility] Serum or plasma urea nitroge n measurement (mass/volume)Ordered By: Michael Calderón on 02-23-2023 Urea nitrogen [Mass/Vol] 22 mg/dL 7-18 [facility] Thin prep Papanicolaou smear with manual screeningOrdered By: Michael Calderón on 02-23-2023 Thin prep Papanicolaou smear with manual screening 3 5-15 [facility] Basophil percentageOrdered B y: Dr. Sousa on 08-15-2022 Basophil percentage 0 SEEN /hpf 0-5 [facility] Bilirubin Test strip Ql (U)O rdered By: Dr. Sousa on 08-15-2022 Bilirubin Ql (U) Negative Negative [facility] Ketones Test strip Ql (U)Ord ered By: Dr. Sousa on 08-15-2022 Ketones Ql (U) Negative Negative [facility] Mucus LM Ql (Urine sed)Order ed By: Dr. Sousa on 08-15-2022 Mucus Ql (Urine sed) 0 SEEN /hpf [facility] Nitrite Test strip Ql (U)Ord ered By: Dr. Sousa on 08-15-2022 Nitrite Ql (U) Negative Negative [facility] Protein Test strip Ql (U)Ord ered By: Dr. Sousa on 08-15-2022 Protein Ql (U) 15 mg/dl Negative [facility] Squamous epithelial cells de tection in urine sediment by light microscopyOrdered By: Dr. Sousa on 08-15-2022 Epithelial cells.squamous LM Ql (Urine sed) 0 SEEN /hpf 5-10 [facility] Urine blood detectionOrdered By: Dr. Sousa on 08-15-2022 RBC Ql (U) Negative Negative [facility] RBC Ql (U) 0 SEEN /hpf 0-5 [facility] Urine clarityOrdered By: Dr. Sousa on 08-15-2022 Clarity (U) Clear Clear [facility] Urine color determinationOrd ered By: Dr. Sousa on 08-15-2022 Color (U) Yellow Yellow [facility] Urine glucose detectionOrder ed By: Dr. Sousa on 08-15-2022 Glucose Ql (U) Normal mg/dl Normal [facility] Urine leukocyte esterase det ection by dipstickOrdered By: Dr. Sousa on 08-15-2022 Leukocyte esterase Test strip Ql (U) Negative Negative [facility] Urine pHOrdered By: Dr. Jonathan klein on 08-15-2022 pH (U) 5.0 [pH] 5.0 - 8.0 [facility] Urine sediment bacteria coun t by microscopy (number/high power field)Ordered By: Dr. Sousa on 08-15-2022 Bacteria LM.HPF (Urine sed) [#/Area] 0 /[HPF] None Seen [facility] Urine specific gravity measu rementOrdered By: Dr. Sousa on 08-15-2022 Specific gravity (U) [Rel density] 1.025 1.002-1.030 [facility] Urobilinogen Auto test strip Ql (U)Ordered By: Dr. Sousa on 08-15-2022 Urobilinogen Ql (U) Normal mg/dl Normal [facility] CNTHERAPYon 04-04-2022 CNTHERAPY OT/PT/Speech Visit (MARKB) SITA MITTAL ([id number]) 1955 F Date Time Provider Department 04/04/22 1:00 PM RAHEL FRIAS Date Time Provider Department Center 04/04/2022 1:00 PM [id number] FRIAS [facility] Reason for Visit: Occupational Therapy [504] Primary Visit Diagnosis:Pain in finger of right hand [M79.644] Allergies As of Date: 04/04/2022 Noted Allergy Reaction POLLEN 07/07/2010 14 - Other: See Comments Comments: SINUS CONGESTION Date Reviewed: 02/28/2022 Reviewed by: Bouchra Menjivar PA-C - Fully Assessed Prescriptions as of 04/05/2022 - amLODIPine-Atorvastat in 2.5-10 mg per tablet Take 1 tablet by mouth daily at bedtime. - pregabalin (LYRICA) 100 mg capsule Take 100 mg by mouth every morning. - pregabalin (LYRICA) 100 mg capsule Take 200 mg by mouth daily at bedtime. - pravastatin (PRAVACHOL) 80 mg tablet Take one(1) tablet daily. - fluticasone (FLONASE) 50 mcg/actuation nasal spray One puff per nostril daily - pantoprazole DR (PROTONIX) 40 mg tablet Take one(1) tablet daily. - levocetirizine 5 mg tablet qhs - fexofenadine (JASSI) 180 mg tablet Take one(1) tablet daily in the morning - calcium, elemental, ORAL Tab Take one(1) tablet daily. - Qblpi-7-YZN-EPA-Fish Oil 1,000 mg (120 mg-180 mg) cap Take one(1) tablet daily. - aspirin(ASPIR-LOW 81 MG TAB) Take one(1) tablet daily. - COMPOUNDED PRESCRIPTION B 12 - PLAQUENIL 200 MG TAB Take one(1) tablet twice daily. - GLUCOSAMINE CHONDROITIN MAXSTR 500 MG-400 MG CAP Take one(1) capsules three(3) times daily.. - THERAPEUTIC MULTIVITAMIN TAB Take one(1) tablet daily. - VAGIFEM 25 MCG VAGINAL TAB as necessary - SELENIUM SULFIDE 2.5 % SHAMPOO qod face, ears, scalp as second lather: lather, wait 5-10 minutes, rinse off Normal [facility] CNTHERAPYon 03-25-2022 CNTHERAPY OT/PT/Speech Visit (AKOTB) ISTA MITTAL ([id number]) 1955 F Date Time Provider Department 03/25/22 12:30 PM GABI CABRERA Date Time Provider Department [place] 03/25/2022 12:30 PM [id number], CHRISTI*[facility] Reason for Visit: OT EVAL [748] Primary Visit Diagnosis:Pain in finger of right hand [M79.644] Allergies As of Date: 03/25/2022 Noted Allergy Reaction POLLEN 07/07/2010 14 - Other: See Comments Comments: SINUS CONGESTION Date Reviewed: 02/28/2022 Reviewed by: Bouchra Menjivar PA-C - Fully Assessed Prescriptions as of 03/31/2022 - amLODIPine-Atorvastat in 2.5-10 mg per tablet Take 1 tablet by mouth daily at bedtime. - pregabalin (LYRICA) 100 mg capsule Take 100 mg by mouth every morning. - pregabalin (LYRICA) 100 mg capsule Take 200 mg by mouth daily at bedtime. - pravastatin (PRAVACHOL) 80 mg tablet Take one(1) tablet daily. - fluticasone (FLONASE) 50 mcg/actuation nasal spray One puff per nostril daily - pantoprazole DR (PROTONIX) 40 mg tablet Take one(1) tablet daily. - levocetirizine 5 mg tablet qhs - fexofenadine (JASSI) 180 mg tablet Take one(1) tablet daily in the morning - calcium, elemental, ORAL Tab Take one(1) tablet daily. - Ksljd-5-NZQ-EPA-Fish Oil 1,000 mg (120 mg-180 mg) cap Take one(1) tablet daily. - aspirin(ASPIR-LOW 81 MG TAB) Take one(1) tablet daily. - COMPOUNDED PRESCRIPTION B 12 - PLAQUENIL 200 MG TAB Take one(1) tablet twice daily. - GLUCOSAMINE CHONDROITIN MAXSTR 500 MG-400 MG CAP Take one(1) capsules three(3) times daily.. - THERAPEUTIC MULTIVITAMIN TAB Take one(1) tablet daily. - VAGIFEM 25 MCG VAGINAL TAB as necessary - SELENIUM SULFIDE 2.5 % SHAMPOO qod face, ears, scalp as second lather: lather, wait 5-10 minutes, rinse off Normal [facility] CNOVon 02-28-2022 CNOV Office Visit (AGHWW1 ) SITA MITTAL ([id number]) 1955 F Date Time Provider Department 02/28/22 10:45 AM BOUCHRA MENJIVAR AGHWW1 During your visit today, we recorded the following information about you: Respiration Weight Height 18/minute 81.6 kg 1.676 m Bouchra Menjivar PA-C 02/28/2022 11:25 AM Signed ORTHOPAEDIC OFFICE NOTE CHIEF COMPLAINT: Pain and Swelling of the Right Index Finger and Pain (Patient states cat bite no pain very sensitive ) Patient presents with: Right Index Finger - Pain, Swelling Pain: Patient states cat bite no pain very sensitive HISTORY OF PRESENT ILLNESS: Sita Mittal presents to the office for follow up of right index finger cat bite infection. Patient is here with her . Patient has noted significant improvement in her pain and swelling since her last visit. She is still admits to having stiffness of this finger and some mild swelling. Admits when she applies Coban wrap this tends to help the swelling in her finger. Admits to having some mild hypersensitivity of her right index finger. Denies any degree of worsening symptoms at this point. Denies fever or chills. Location: right index finger Severity: 0 on a scale of 0-10 Duration of symptoms: >6 weeks Symptoms have: Improved Previous treatment: Bedside IANDD, IV antibiotics, oral antibiotics Numbness/tingling: Yes Nocturnal symptoms: No Radiating: No Injections: No Therapy: No Context worse with Activity/Motion and Gripping Smoking status: Tobacco Use: Never PAST MEDICAL HISTORY Past medical, surgical, family, and social histories have been reviewed and updated with the patient today and are located elsewhere in the medical record. Diabetes:No ALLERGIES ALLERGIES Allergen Reactions Pollen Other: See Comments SINUS CONGESTION PHYSICAL EXAMINATION Resp 18 Ht 167.6 cm (5' 6) Wt 81.6 kg (180 lb) BMI 29.05 kg/m? Body mass index is 29.05 kg/m?. General Appearance: Well appearing, alert, in no acute distress, well-hydrated, well nourished. Psyche: she is alert and oriented and cooperative to our examination. Neuro: she alert and oriented times: 3. Normal affect times: 3. Gait and station: normal. Pulmonary: she has non labored breathing. There is no evidence of cyanosis. There is no clubbing of fingernails. she has no pursed lips. Head: Normocephalic and atraumatic Neck: Supple with no JVD Lymph: There is no palpable epitrochlear Musculoskeletal- Right Hand/Wrist/Upper Extremity Exam: Skin: There is mild swelling of right index finger. Minimal erythema noted to distal phalanx of right index finger, consistent with freshly healed epidermis. Significant improvement in induration. No ecchymosis, open wounds, active bleeding, cellulitis/streaking, or purulent drainage. Cardiovascular: <3 sec capillary refill, +2 radial pulse palpated. Tenderness to palpation: none ROM: slightly decreased AROM of right index finger PIP and DIP joints due to swelling and stiffness. She actively fires her flexor and extensor tendons of right index finger. Instability: none Sensation: Normal sensation Thenar atrophy: none Atrophy: none REVIEW OF STUDIES: No new imaging obtained at today's visit ASSESSMENT AND PLAN: 1. Infection of index finger - ICD9: 686.9, ICD10: L08.9 (primary diagnosis) 2. Cat bite of finger, subsequent encounter - ICD9: V58.89, 883.0, ICD10: S61.259D, W55.01XD Patient educated on clinical and exam findings, suspected diagnosis, and treatment options. - Patient is doing very well today. I am very pleased with her healing progress. - Reviewed desensitization techniques for hypersensitivity - Recommended OT to help improve ROM and swelling, but patient declined at this time. She would like to work on this on her own and will let us know if she changes her mind. - No restrictions for right index finger or hand. Follow up as needed - Patient instructed to call office with questions or concerns. This note was generated via [employer] voice dictation and may contain errors related to that system such as spelling, grammar, punctuation, gender, words, and phrases that may be inappropriate. All reasonable efforts were made to correct dictation errors, however, they still may occur given the software used. NAJMA Vanegas PA-C [facility] Referring Provider: SELF [200] Allergies As of Date: 02/28/2022 Noted Allergy Reaction POLLEN 07/07/2010 14 - Other: See Comments Comments: SINUS CONGESTION Date Reviewed: 02/28/2022 Reviewed by: Bouchra Menjivar PA-C - Fully Assessed Reason for Visit: Pain [78] Swelling [205] Pain [78] Cmt: Patient states cat bite no pain very sensitive Primary Visit Diagnosis:Infection of index finger [L08.9] Other Visit Diagnosis:Cat bite of finger, subsequent encounter [S61.259D, W55.01XD] (more content not included)... Normal [facility] CNOVon 02-04-2022 CNOV Office Visit (AGHWW1 ) SITA MITTAL ([id number]) 1955 F Date Time Provider Department 02/04/22 11:00 AM DERIC CORTEZ AGHWW1 During your visit today, we recorded the following information about you: Respiration Weight Height 20/minute 81.6 kg 1.676 m Deric Cortez MD 02/07/2022 11:22 AM Signed Patient presents with: Right Index Finger - Follow Up, Pain, Swelling, Cat Bite HISTORY OF PRESENT ILLNESS Sita Mittal presents to the office for follow up of right index finger cat bite. The patient is here with her . She is noted a significant improvement in her pain and swelling since her last visit. She has completed the oral antibiotics as of Monday without any degree of worsening. No other new complaints on today's visit. Location: Right index finger Severity: 2 on a scale of 0-10 Duration of symptoms: Over 2 weeks Treatments tried include bedside IANDD, IV, oral antibiotics Symptoms have Improved REVIEW OF SYSTEMS Cardiovascular ROS:No history of chest pain, palpitation, orthopnea, cyanosis, pedal edema Neurologic ROS: Numbness and Tingling: No PAST MEDICAL HISTORY Past medical, surgical, family, and social histories have been reviewed and updated with the patient today and are located elsewhere in the medical record. Diabetes:No ALLERGIES ALLERGIES Allergen Reactions Pollen Other: See Comments SINUS CONGESTION PHYSICAL EXAMINATION Resp 20 Ht 167.6 cm (5' 6) Wt 81.6 kg (180 lb) BMI 29.05 kg/m? Body mass index is 29.05 kg/m?. General Appearance Well appearing, alert, in no acute distress, well-hydrated, well nourished. Alert and oriented times: 3 Normal affect times: 3 Appears stated age and well nourished Gait and station:normal Right Upper Extremity Exam: Inspection of the index finger shows a dramatic decrease in swelling Erythema and induration have improved There is only a small area of granulation remaining Tenderness to palpation: Minimally tender ROM: Intact DIP joint flexion and extension Sensation intact on the radial and ulnar aspect of the digit Brisk capillary refill REVIEW OF STUDIES No new imaging obtained ASSESSMENT AND PLAN ASSESSMENT/PLAN: 1. Infection of index finger - ICD9: 686.9, ICD10: L08.9 (primary diagnosis) 2. Cat bite of finger, subsequent encounter - ICD9: V58.89, 883.0, ICD10: S61.259D, W55.01XD The patient is making significant progress. I would expect the remaining granulation tissue to fully epithelialized within the next few weeks. We will plan on following up in 1 month for a final check. All of her questions were answered to her satisfaction. Deric Cortez Patient educated on wound care and dressing changes. Patient instructed to call the office with questions or concerns. Referring Provider: SELF [200] Allergies As of Date: 02/04/2022 Noted Allergy Reaction POLLEN 07/07/2010 14 - Other: See Comments Comments: SINUS CONGESTION Date Reviewed: 02/04/2022 Reviewed by: Darell Marroquin LPN - Fully Assessed Reason for Visit: Follow Up [171] Pain [78] Swelling [205] Cat Bite [42975] Primary Visit Diagnosis:Infection of index finger [L08.9] Other Visit Diagnosis:Cat bite of finger, subsequent encounter [S61.259D, W55.01XD] Prescriptions as of 02/07/2022 - amLODIPine-Atorvastat in 2.5-10 mg per tablet Take 1 tablet by mouth daily at bedtime. - pregabalin (LYRICA) 100 mg capsule Take 100 mg by mouth every morning. - pregabalin (LYRICA) 100 mg capsule Take 200 mg by mouth daily at bedtime. - pravastatin (PRAVACHOL) 80 mg ORAL tablet Take one(1) tablet daily. - fluticasone (FLONASE) 50 mcg/Actuation NASAL nasal spray One puff per nostril daily - pantoprazole (PROTONIX) 40 mg ORAL tablet Take one(1) tablet daily. - Levocetirizine (XYZAL) 5 mg ORAL tablet qhs - fexofenadine (JASSI) 180 mg ORAL tablet Take one(1) tablet daily in the morning - calcium, elemental, ORAL Tab Take one(1) tablet daily. - Svubr-9-VHF-EPA-Fish Oil (OMEGA-3 FISH OIL) 1,000 (120-180) mg ORAL Cap Take one(1) tablet daily. - aspirin(ASPIR-LOW 81 MG TAB) Take one(1) tablet daily. - COMPOUNDED PRESCRIPTION B 12 - PLAQUENIL 200 MG TAB Take one(1) tablet twice daily. - GLUCOSAMINE CHONDROITIN MAXSTR 500 MG-400 MG CAP Take one(1) capsules three(3) times daily.. - THERAPEUTIC MULTIVITAMIN TAB Take one(1) tablet daily. 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 Normal [facility] CNOVon 01-28-2022 CNOV Office Visit (AGHWW1 ) SITA MITTAL ([id number]) 1955 F Date Time Provider Department 01/28/22 11:00 AM DERIC CORTEZ AGHWW1 During your visit today, we recorded the following information about you: Respiration Weight Height 20/minute 82.6 kg 1.676 m Deric Cortez MD 01/28/2022 11:27 AM Signed Patient presents with: Right Hand - New, Swelling, Pain HISTORY OF PRESENT ILLNESS Sita Mittal presents to the office for follow up of right index finger cat bite. The patient has been continuing with soaks, dressing changes and antibiotics since her inpatient admission. There has been some slow improvement. She notes intolerance to the broad-spectrum antibiotics and has had nausea within the last day. Location: Right index finger Severity: 4 on a scale of 0-10 Duration of symptoms: Over 1 week Treatments tried include bedside IANDD, IV followed by transition to oral antibiotics Symptoms have Improved REVIEW OF SYSTEMS Cardiovascular ROS:No history of chest pain, palpitation, orthopnea, cyanosis, pedal edema Neurologic ROS: Numbness and Tingling: No PAST MEDICAL HISTORY Past medical, surgical, family, and social histories have been reviewed and updated with the patient today and are located elsewhere in the medical record. Diabetes:No ALLERGIES ALLERGIES Allergen Reactions - Pollen Other: See Comments SINUS CONGESTION PHYSICAL EXAMINATION Resp 20 Ht 167.6 cm (5' 6) Wt 82.6 kg (182 lb) BMI 29.38 kg/m? Body mass index is 29.38 kg/m?. General Appearance Well appearing, alert, in no acute distress, well-hydrated, well nourished. Alert and oriented times: 3 Normal affect times: 3 Appears stated age and well nourished Gait and station:normal Right Upper Extremity Exam: Inspection shows an interval decrease in swelling Healthy granulation tissue along the ulnar border at the IANDD site No evidence of retained purulence No fluctuance Tenderness to palpation: Improved from inpatient exam ROM: Intact flexion and extension at index DIP joint Full composite fist Sensation intact on the radial and ulnar aspect of the index finger Brisk capillary refill REVIEW OF STUDIES No new imaging obtained ASSESSMENT AND PLAN ASSESSMENT/PLAN: 1. Infection of index finger - ICD9: 686.9, ICD10: L08.9 (primary diagnosis) 2. Cat bite of finger, subsequent encounter - ICD9: V58.89, 883.0, ICD10: S61.259D, W55.01XD We reviewed the progress that the patient has made. We will discontinue the doxycycline and continue out the Augmentin until its completion in the middle of next week. In the interim she will continue with soaks and I like to follow-up in 1 week to ensure that she has continued progress which remained stable following antibiotic completion. All of her questions were answered to her satisfaction. Deric Cortez Patient educated on soaks and dressing changes. Patient instructed to call the office with questions or concerns. Referring Provider: SELF [200] Allergies As of Date: 01/28/2022 Noted Allergy Reaction POLLEN 07/07/2010 14 - Other: See Comments Comments: SINUS CONGESTION Date Reviewed: 01/28/2022 Reviewed by: Deric Cortez MD - Fully Assessed Reason for Visit: New [515338] Swelling [205] Pain [78] Primary Visit Diagnosis:Infection of index finger [L08.9] Other Visit Diagnosis:Cat bite of finger, subsequent encounter [S61.259D, W55.01XD] Prescriptions as of 01/28/2022 - doxycycline hyclate (VIBRAMYCIN) 100 mg capsule Take 1 capsule by mouth twice daily for 5 days. - amoxicillin-clavulani c acid (AUGMENTIN) 875-125 mg per tablet Take 1 tablet by mouth every 12 hours for 7 days. - amLODIPine-Atorvastat in 2.5-10 mg per tablet Take 1 tablet by mouth daily at bedtime. - pregabalin (LYRICA) 100 mg capsule Take 100 mg by mouth every morning. - pregabalin (LYRICA) 100 mg capsule Take 200 mg by mouth daily at bedtime. - pravastatin (PRAVACHOL) 80 mg ORAL tablet Take one(1) tablet daily. - fluticasone (FLONASE) 50 mcg/Actuation NASAL nasal spray One puff per nostril daily - pantoprazole (PROTONIX) 40 mg ORAL tablet Take one(1) tablet daily. - Levocetirizine (XYZAL) 5 mg ORAL tablet qhs - fexofenadine (JASSI) 180 mg ORAL tablet Take one(1) tablet daily in the morning - calcium, elemental, ORAL Tab Take one(1) tablet daily. - Dbrsd-7-GDA-EPA-Fish Oil (OMEGA-3 FISH OIL) 1,000 (120-180) mg ORAL Cap Take one(1) tablet daily. - aspirin(ASPIR-LOW 81 MG TAB) Take one(1) tablet daily. - COMPOUNDED PRESCRIPTION B 12 - PLAQUENIL 200 MG TAB Take one(1) tablet twice daily. - GLUCOSAMINE CHONDROITIN MAXSTR 500 MG-400 MG CAP Take one(1) capsules three(3) times daily.. - THERAPEUTIC MULTIVITAMIN TAB Take one(1) tablet daily. - VAGIFEM 25 MCG VAGINAL TAB as necessary - SELENIUM SULFIDE 2.5 % SHAMPOO qod face, ears, sc (more content not included)... Normal [facility] [place] 01-26-2022 [facility] Telephone (AGPOB1) SITA MITTAL ([id number]) 1955 F Date Time Provider Department 01/26/22 AG ORTH AGPOB1 During your visit today, we recorded the following information about you: David Mckeon [place] [facility] 01/26/2022 11:09 AM Signed ----- Message from Nilsa Byers sent at 01/26/2022 10:40 AM EDT ----- Regarding: Orthopedics/Open Hand: Animal Bite/Recent ED Visit Contact: Subject Line Format: Orthopedics / [Provider Name or Open AND Body Part] / [Issue] Patient has been identified by name and Date of (Y/N): y Patient: Sita Mittal Date of : 1955 Previous Provider Seen: n/a Body Part(s) Identified: R index finger Diagnosis/Reason For Visit: discharged from hospital 01/25/22; referred to Dr Cortez for cat bite to R index finger to be seen this Monday. Reason for the call/escalation: per sched tool If reason for call/escalation is discharge from ED/ER or Hospital, which facility was the patient seen at: [facility] Was an appointment scheduled (Y/N): n Person calling if other than patient: n/a Return call to if other than patient: n/a Best contact number: [phone] Thank you, Nilsa Byers January 26, 2022 10:41 AM David Mckeon Mesh Worker [facility] 01/26/2022 11:[address] Cortez consulted this patient in the Hospital. David Mckeon [place] [facility] January 26, 2022 11:09 AM Allergies As of Date: 01/26/2022 Noted Allergy Reaction POLLEN 07/07/2010 14 - Other: See Comments Comments: SINUS CONGESTION Date Reviewed: 01/24/2022 Reviewed by: Neyda Solorzano RN - Fully Assessed Reason for Visit: Hospital Follow Up [177] Cmt: scheduled Prescriptions as of 01/26/2022 - doxycycline hyclate (VIBRAMYCIN) 100 mg capsule Take 1 capsule by mouth twice daily for 5 days. - amoxicillin-clavulani c acid (AUGMENTIN) 875-125 mg per tablet Take 1 tablet by mouth every 12 hours for 7 days. - amLODIPine-Atorvastat in 2.5-10 mg per tablet Take 1 tablet by mouth daily at bedtime. - pregabalin (LYRICA) 100 mg capsule Take 100 mg by mouth every morning. - pregabalin (LYRICA) 100 mg capsule Take 200 mg by mouth daily at bedtime. - pravastatin (PRAVACHOL) 80 mg ORAL tablet Take one(1) tablet daily. - fluticasone (FLONASE) 50 mcg/Actuation NASAL nasal spray One puff per nostril daily - pantoprazole (PROTONIX) 40 mg ORAL tablet Take one(1) tablet daily. - Levocetirizine (XYZAL) 5 mg ORAL tablet qhs - fexofenadine (JASSI) 180 mg ORAL tablet Take one(1) tablet daily in the morning - calcium, elemental, ORAL Tab Take one(1) tablet daily. - Olhah-0-TEH-EPA-Fish Oil (OMEGA-3 FISH OIL) 1,000 (120-180) mg ORAL Cap Take one(1) tablet daily. - aspirin(ASPIR-LOW 81 MG TAB) Take one(1) tablet daily. - COMPOUNDED PRESCRIPTION B 12 - PLAQUENIL 200 MG TAB Take one(1) tablet twice daily. - GLUCOSAMINE CHONDROITIN MAXSTR 500 MG-400 MG CAP Take one(1) capsules three(3) times daily.. - THERAPEUTIC MULTIVITAMIN TAB Take one(1) tablet daily. 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 Comment on above: Order Comment: Speci men Type: BLOOD SPECIMEN Ordering Facility: [facility] Address: [address] [address] Performed By: #### 2 4321-2 #### [facility] CLIA [id number] [address] [place] Calcium [Mass/Vol] 9.5 mg/dL Normal 8.5-10.2 [facility] Comment on above: Order Comment: Speci men Type: BLOOD SPECIMEN Ordering Facility: [facility] Address: [address] [place] [address] Performed By: #### 2 4321-2 #### [facility] CLIA [id number] [address] [place] Chloride [Moles/Vol] 105 mmol/L Normal 97-105 [facility] Comment on above: Order Comment: Speci men Type: BLOOD SPECIMEN Ordering Facility: [facility] Address: [address] [place] [address] Performed By: #### 2 4321-2 #### [facility] CLIA [id number] [address] [place] CO2 [Moles/Vol] 26 mmol/L Normal 22-30 [facility] Comment on above: Order Comment: Speci men Type: BLOOD SPECIMEN Ordering Facility: [facility] Address: [address] [place] [address] Performed By: #### 2 4321-2 #### [facility] CLIA [id number] [address] [place] Creatinine [Mass/Vol] 0.91 mg/dL Normal 0.58-0.96 [facility] Comment on above: Order Comment: Speci men Type: BLOOD SPECIMEN Ordering Facility: [facility] Address: [address] [place] [address] Performed By: #### 2 4321-2 #### [facility] CLIA [id number] [address] [place] ESTIMATED GLOMERULAR FILTRATION RATE 70 mL/min/1.73m??? Normal >=60 [facility] Comment on above: Order Comment: Cornelio jackson Type: BLOOD SPECIMEN Ordering Facility: [facility] Address: [address] [place], [place] [id number] Result Comment: Betsy mated Glomerular Filtration Rate (eGFR) is calculated using the 2020 CKD-EPI creatinine equation. This equation utilizes serum creatinine, sex, and age as parameters. The creatinine assay has traceable calibration to isotope dilution-mass spectrometry. Refer to KDIGO guidelines for clinical interpretation. In patients with unstable renal function, e.g. those with acute kidney injury, the eGFR may not accurately reflect actual GFR. Performed By: #### 2 4321-2 #### [facility] CLIA [id number] [address] [place] [address] [place] Glucose [Mass/Vol] 93 mg/dL Normal 74-99 [facility] Comment on above: Order Comment: Cornelio jackson Type: BLOOD SPECIMEN Ordering Facility: [facility] Address: [address] [place], [place] [id number] Result Comment: The [place] Diabetes Association (ADA) provides guidance for cutoff values for fasting glucose and random glucose. The ADA defines fasting as no caloric intake for at least 8 hours. Fasting plasma glucose results between 100 to 125 mg/dL indicate increased risk for diabetes (prediabetes). Fasting plasma glucose results greater than or equal to 126 mg/dL meet the criteria for diagnosis of diabetes. In the absence of unequivocal hyperglycemia, results should be confirmed by repeat testing. In a patient with classic symptoms of hyperglycemia or hyperglycemic crisis, random plasma glucose results greater than or equal to 200 mg/dL meet the criteria for diagnosis of diabetes. Reference: Standards of Medical Care in Diabetes 2016, [place] Diabetes Association. Diabetes Care. 2016.39(Suppl 1). Performed By: #### 2 4321-2 #### [facility] CLIA [id number] [address] [place] [address] [place] Potassium [Moles/Vol] 4.1 mmol/L Normal 3.7-5.1 [facility] Comment on above: Order Comment: Cornelio jackson Type: BLOOD SPECIMEN Ordering Facility: [facility] Address: [address] [id number] Performed By: #### 2 4321-2 #### [facility] CLIA [id number] [address] [place] [facility] Sodium [Moles/Vol] 142 mmol/L Normal 136-144 [facility] Comment on above: Order Comment: Speci men Type: BLOOD SPECIMEN Ordering Facility: [facility] Address: [address] [place] [address] Performed By: #### 2 4321-2 #### [facility] CLIA [id number] [address] [place] [facility] Urea nitrogen [Mass/Vol] 17 mg/dL Normal 7-21 [facility] Comment on above: Order Comment: Speci men Type: BLOOD SPECIMEN Ordering Facility: [facility] Address: [address] [place] [address] Performed By: #### 2 4321-2 #### [facility] CLIA [id number] [address] CASE MANAGEMon 01-25-2022 CASE MANAGEM HNO ID: [id number] Author: Malik Sanchez RN Service: ? Author Type: Registered Nurse Type: Care Mgt Progress Note Filed: 01/25/2022 2:09 PM Note Text: CARE MANAGEMENT DISCHARGE NOTE SERVICE DATE: 01/25/2022 SERVICE TIME: 1407 LOS: 3 days Admission Date: 01/22/2022 DISCHARGE ARRANGEMENT (list agency and phone number) Discharge Arrangement: Home with Self Care Provider Name: CAREGIVER ASSESSMENT: Caregiver is ready, willing and able to meet the patient's needs as recommended by the inter-professional team:: No Caregiver needed HANDOFF COMMUNICATION: TRANSPORTATION ARRANGEMENTS: Transportation Arrangements: Car ADDITIONAL CONTACT RESOURCES: NA Transportation Arrangements: Car Pt to discharge home today with self care. will provide transportation and additional dressing supplies sent with patient. Pt states doctor provided education on wound care. No further CM needs noted at time of discharge. SIGNATURE: Malik Sanchez RN PATIENT NAME: Sita Mittal DATE: January 25, 2022 TIME: 2:07 PM PAGER/CONTACT #: [phone] Normal [facility] CASE MANAGEM HNO ID: [id number] Author: Malik Sanchez RN Service: ? Author Type: Registered Nurse Type: Care Mgt Progress Note Filed: 01/25/2022 11:22 AM Note Text: CARE MANAGEMENT PROGRESS NOTE SERVICE DATE: 01/25/2022 SERVICE TIME: 1118 LOS: 3 days IMM Follow Up Copy Given: Yes Copy given to:: Patient Method: In Person IMM letter given to patient who signed and dated. Copy to pt, chart, and sent to admitting. SIGNATURE: Malik Sanchez RN PATIENT NAME: Sita Mittal DATE: January 25, 2022 TIME: 11:21 AM PAGER/CONTACT #: [phone] [facility] CBC panel Auto (Bld)on 01-25 Erythrocyte distribution width (RBC) [Ratio] 13.0 % Normal 11.5-15.0 [facility] Comment on above: Order Comment: Cornelio jackson Type: BLOOD SPECIMEN Ordering Facility: [facility] Address: [address] [place] [address] Performed By: #### 5 8410-2 #### [facility] CLIA [id number] [address] [place] Hematocrit (Bld) [Volume fraction] 36.8 % Normal 36.0-46.0 [facility] Comment on above: Order Comment: Cornelio jackson Type: BLOOD SPECIMEN Ordering Facility: [facility] Address: [address] [place] [address] Performed By: #### 5 8410-2 #### [facility] CLIA [id number] [address] [place] [address] [place] Hemoglobin (Bld) [Mass/Vol] 12.4 g/dL Normal 11.5-15.5 [facility] Comment on above: Order Comment: Cornelio jackson Type: BLOOD SPECIMEN Ordering Facility: [facility] Address: [address] [place] [address] Performed By: #### 5 8410-2 #### [facility] CLIA [id number] [address] MCH (RBC) [Entitic mass] 31.6 pg Normal 26.0-34.0 [facility] Comment on above: Order Comment: Speci men Type: BLOOD SPECIMEN Ordering Facility: [facility] Address: [address] [place] [address] Performed By: #### 5 8410-2 #### [facility] CLIA [id number] [address] MCHC (RBC) [Mass/Vol] 33.7 g/dL Normal 30.5-36.0 [facility] Comment on above: Order Comment: Speci men Type: BLOOD SPECIMEN Ordering Facility: [facility] Address: [address] [place] [address] Performed By: #### 5 8410-2 #### [facility] CLIA [id number] [address] MCV (RBC) [Entitic vol] 93.6 fL Normal 80.0-100.0 [facility] Comment on above: Order Comment: Speci men Type: BLOOD SPECIMEN Ordering Facility: [facility] Address: [address] [place] [address] Performed By: #### 5 8410-2 #### [facility] CLIA [id number] [address] Nucleated RBC (Bld) [#/Vol] 10*3/uL Normal <0.01 [facility] Comment on above: Order Comment: Speci men Type: BLOOD SPECIMEN Ordering Facility: [facility] Address: [address] [place] [address] Performed By: #### 5 8410-2 #### [facility] CLIA [id number] [address] Platelet mean volume (Bld) [Entitic vol] 10.6 fL Normal 9.0-12.7 [facility] Comment on above: Order Comment: Speci men Type: BLOOD SPECIMEN Ordering Facility: [facility] Address: [address] [place] [address] Performed By: #### 5 8410-2 #### [facility] CLIA [id number] [address] Platelets (Bld) [#/Vol] 225 10*3/uL Normal 150-400 [facility] Comment on above: Order Comment: Speci men Type: BLOOD SPECIMEN Ordering Facility: [facility] Address: [address] [place] [address] Performed By: #### 5 8410-2 #### [facility] CLIA [id number] [address] OF [facility] RBC (Bld) [#/Vol] 3.93 10*6/uL Normal 3.90-5.20 [facility] Comment on above: Order Comment: Speci men Type: BLOOD SPECIMEN Ordering Facility: [facility] Address: [address] [place] [address] Performed By: #### 5 8410-2 #### [facility] CLIA [id number] [address] WBC (Bld) [#/Vol] 3.81 10*3/uL Normal 3.70-11.00 [facility] Comment on above: Order Comment: Speci men Type: BLOOD SPECIMEN Ordering Facility: [facility] Address: [address] [place] [address] Performed By: #### 5 8410-2 #### [facility] CLIA [id number] [address] CNDSon 01-25-2022 CNDS HNO ID: [id number] Author: Yo Montoya MD Service: Hospital Medicine Author Type: Physician Type: Discharge Summary Filed: 01/25/2022 1:25 PM Note Text: DISCHARGE SUMMARY ADMISSION DATE: 01/22/2022 DISCHARGE DATE: January 25, 2022 Attending Physician: Yo Montoya MD Reason for Hospitalization: Right index finger infection Hospital Course: This is a 66 year old female who was admitted for right index finger infection from cat bite, started on Zosyn IV evaluated by orthopedic service and had incision and drainage done on 01/23, vancomycin was added, culture continue to be negative to date. Plan was to transition to oral antibiotic Augmentin and doxycycline at the time of discharge. Other medical problems continue to be stable. Today patient was seen and examined, denied any fever, chills, chest pain, dyspnea, nausea and vomiting. Physical Examination: General appearance: Patient is sitting in bed in no acute respiratory distress. Awake, alert, oriented *3. Skin: Normal temperature, no ecchymosis. Lungs: Lungs clear to auscultation. No wheezing, rhonchi, rales, no use of accessory respiratory muscles. Heart: RRR, normal s1s2, no murmurs Abdomen: Positive for bowel sounds, soft abdomen, non-tender. Extremities: No edema. Total time spent in discharge process was 32 minutes The patient was discharged in stable condition with recommended follow-up appointments with PCP and follow up with Dr. Cortez on 01/28/2022 Active Hospital Problems Diagnosis - Cat bite of finger - Insomnia, unspecified - Primary hypertension - Unspecified diffuse connective tissue disease (HCC) Code Status: Code Status: Full Code Consultants: Ortho Dr. Cortez Operations During Hospitalization: IANDD of right index finger infection on 01/23 Procedures and Imaging During Hospitalization: None. Discharge Instructions: Discharge Instructions Provided. Soaks in 50% Hibiclens, 50% sterile saline TID Patient Condition @ Discharge: Stable Discharge Disposition: Home Discharge Medications: Current Discharge Medication List START taking these medications doxycycline hyclate (VIBRAMYCIN) 100 mg Take 100 mg by mouth twice daily. Qty: 10 capsule Refills: 0 amoxicillin-clavulani c acid (AUGMENTIN) 875 mg Take 875 mg by mouth every 12 hours. Qty: 14 tablet Refills: 0 CONTINUE these medications which have NOT CHANGED amLODIPine-Atorvastat in 1 tablet Take 1 tablet by mouth daily at bedtime. !! pregabalin (LYRICA) 100 mg Take 100 mg by mouth every morning. !! pregabalin (LYRICA) 200 mg Take 200 mg by mouth daily at bedtime. pravastatin (PRAVACHOL) 80 mg ORAL tablet Take one(1) tablet daily. Refills: 0 Associated Diagnoses:Neutropenia (HCC); Unspecified diffuse connective tissue disease (HCC) fluticasone (FLONASE) 50 mcg/Actuation NASAL nasal spray One puff per nostril daily Refills: 0 Associated Diagnoses:Neutropenia (HCC); Unspecified diffuse connective tissue disease (HCC) pantoprazole (PROTONIX) 40 mg ORAL tablet Take one(1) tablet daily. Refills: 0 Associated Diagnoses:Neutropenia (HCC); Unspecified diffuse connective tissue disease (HCC) Levocetirizine (XYZAL) 5 mg ORAL tablet qhs Refills: 0 Associated Diagnoses:Neutropenia (HCC); Unspecified diffuse connective tissue disease (HCC) fexofenadine (JASSI) 180 mg ORAL tablet Take one(1) tablet daily in the morning Refills: 0 Associated Diagnoses:Neutropenia (HCC); Unspecified diffuse connective tissue disease (HCC) calcium, elemental, ORAL Tab Take one(1) tablet daily. Refills: 0 Associated Diagnoses:Neutropenia (HCC); Unspecified diffuse connective tissue disease (HCC) Bngky-3-JMX-EPA-Fish Oil (OMEGA-3 FISH OIL) 1,000 (120-180) mg ORAL Cap Take one(1) tablet daily. Refills: 0 Associated Diagnoses:Neutropenia (HCC); Unspecified diffuse connective tissue disease (HCC) aspirin(ASPIR-LOW 81 MG TAB) Take one(1) tablet daily. Refills: 0 COMPOUNDED PRESCRIPTION B 12 Refills: 0 PLAQUENIL 200 MG TAB Take one(1) tablet twice daily. Refills: 0 GLUCOSAMINE CHONDROITIN MAXSTR 500 MG-400 MG CAP Take one(1) capsules three(3) times daily.. Refills: 0 THERAPEUTIC MULTIVITAMIN TAB Take one(1) tablet daily. Refills: 0 VAGIFEM 25 MCG VAGINAL TAB as necessary Refills: 0 SELENIUM SULFIDE 2.5 % SHAMPOO qod face, ears, scalp as second lather: lather, wait 5-10 minutes, rinse off Qty: 4 oz Refills: 2 !! - Potential duplicate medications found. Please discuss with provider. STOP taking these medications oxybutynin XL 15 mg ORAL 24 hr tablet Comments: Reason for Stopping: nabumetone 500 mg ORAL tablet Comments: Reason for Stopping: AMBIEN 10 MG TAB Comments: Reason for Stopping: Plan of care discussion: Plan of care discussed with: Provider, RN, Patient. Future Appointments: Please follow-up as recommended by your provider. SIGNATURE: Yo Montoya MD PATIENT (more content not included)... [facility] CONSULT PROGon 01-25-2022 CONSULT PROG HNO ID: [id number] Author: Garrick Maurice RPh Service: Pharmacy Author Type: Pharmacist Type: Consult Progress Note Filed: 01/25/2022 11:04 AM Note Text: PHARMACY VANCOMYCIN DOSING NOTE Patient Name: Sita Mittal Admission Date: 01/22/2022 Date of Consult: 01/25/2022 Time of Consult: 11:03 AM Vancomycin therapy has been discontinued. Vancomycin level(s) have been discontinued: Yes. Pharmacy vancomycin dosing service will sign off. Thank you for allowing us to participate in this patient's care. Please contact pharmacy if there are questions. Garrick Maurice RPh [phone] [facility] CONSULT PROG HNO ID: [id number] Author: Garrick Maurice RPh Service: Pharmacy Author Type: Pharmacist Type: Consult Progress Note Filed: 01/25/2022 8:42 AM Note Text: PHARMACY VANCOMYCIN DOSING NOTE Patient Name: Sita Mittal Admission Date: 01/22/2022 Date of Consult: 01/25/2022 Time of Consult: 8:39 AM Indication: Bone AND joint infection Goal Range: 10-20 mcg/mL RECOMMENDATIONS/PLAN: Pharmacy consulted for vancomycin dosing for Sita Mittal, a 66 year old, female who is being treated with vancomycin for bone and joint infection 1. Patient is currently ordered Vancomycin 1.25 g IV q12h. Today is day 4 of therapy. 2. No vancomycin level has been drawn for this dosing regimen. 3. The present dose of vancomycin is the recommended dosage for this patient at this time. Continue therapy as prescribed. 4. The next vancomycin level has been ordered for 01/26 @1630 (Completed) We will follow patient renal function, vancomycin levels and doses with you during the course of therapy. Additional recommendations will appear in follow up notes. If you have any questions[place] [phone]. Age: [age] year old Allergies: ALLERGIES Allergen Reactions - Pollen Other: See Comments SINUS CONGESTION Last 3 Encounter Wt Readings: Date: Wt: 01/22/2022 82.6 kg (182 lb) 07/07/2010 79.4 kg (175 lb) 02/26/2009 83.9 kg (185 lb) Last 1 Encounter Ht Readings: Date: Ht: 01/22/2022 167.6 cm (5' 6) CrCl: 65.9 mL/min Temp (24hrs), Av.7 ?C (98 ?F), Min:36.4 ?C (97.5 ?F), Max:36.8 ?C (98.2 ?F) - Current Temp: 36.7 ?C (98.1 ?F) Labs BUN (mg/dL) Date Value 01/25/2022 17 01/23/2022 15 01/22/2022 16 Creatinine (mg/dL) Date Value 01/25/2022 0.91 01/23/2022 0.93 01/22/2022 0.90 WBC (k/uL) Date Value 01/25/2022 3.81 01/23/2022 3.87 07/07/2010 2.79 (L) Vancomycin Levels: No results found for: AUDREY Maurice [facility] ALLIED HEALTHon 01-24-2022 ALLIED HEALTH HNO ID: [id number] Author: Chaplain Wilbert Student Service: Spiritual Care Author Type: Student Type: Allied Health Filed: 01/24/2022 4:28 PM Note Text: SPIRITUAL CARE PROGRESS NOTE SERVICE DATE: 01/24/2022 SERVICE TIME: 3:40pm Mattress Filler visited on rounds. Patient was sleeping. To contact the Spiritual Care Department: Please call [phone]. SIGNATURE: Chaplain Wilbert Student PATIENT NAME: Sita Mittal DATE: January 24, 2022 TIME: 4:27 PM PAGER/CONTACT #: [phone] [facility] CASE MGT INIT ASSES 2021 CASE MGT INIT [facility] HNO ID: [id number] Author: Malik Sanchez RN Service: ? Author Type: Registered Nurse Type: Care Mgt Initial Assessment Filed: 01/24/2022 10:48 AM Note Text: CARE MANAGEMENT: ASSESSMENT AND DISCHARGE PLAN SERVICE DATE: January 24, 2022 SERVICE TIME: 1040 PRIMARY CARE PHYSICIAN: Michael Calderón MD, MD Primary Contact: Extended Emergency Contact Information Primary Emergency Contact: Neri Parry Address: [address] [place] [address] Mobile Relation: Spouse ADMISSION STATUS: Inpatient Insurance Provider: N/A NEEDS PRIOR TO DISCHARGE Needs Prior to Discharge: To Be Determined POTENTIAL TRANSITION PLANS Home Based on clinical judgement, Care Management will address the following needs: Medical Patient's perception of need for this admission: cat bite ADVANCE DIRECTIVES Current Advance Directive: Health Care Power of Meat Pickler In Chart: No MS/BEHAVIOR Baseline Mental Status Prior to this Illness what was the patient's Baseline Mental Status?: Alert AND Oriented Prior to this illness, has anyone described the patient having any of the following behaviors?: Not Applicable Relationship of the informant to the patient:: Self READMISSION Last Discharge Date: N/A Is this Within the Past 30 days? From what level of care did patient present?: Home Last discharge within 30 days: No PATIENT SCREEN Patient/Representativ e Stated Goals: To have reduction in pain;To have reduction in symptoms;To return home to life as it was Under the care of a PCP?: Yes, External Provider Provider Name: Does the patient have transportation upon discharge?: Yes Situation: spouse will transport Does the patient have a stable and supportive living arrangement and home setting?: Yes Are there any potential risks or gaps identified by risk/functional/fall, etc. scores in the EMR?: No Any potential risks related to substance abuse and/or behavioral health?: No Based on clinical judgement, Care Management will address the following needs: Medical CAREGIVER ASSESSMENT Caregiver is ready, willing and able to meet the patient's needs as recommended by the inter-professional team:: No Caregiver needed MEDICAL Medical Needs: None Health Issues Impacting Discharge Plan: Newly diagnosed Newly Diagnosed: cat bite Medication Adherance I am convinced of the importance of my prescription medication: 0 - Agree Mostly I worry that my prescription medication will do more harm than good to me : 0 - Disagree Mostly I feel financially burdened by my [id number]-kmmcqj expenses for my prescription medication:: 0 - Disagree Mostly Risk Score: 0 Patient is categorized as: Low risk < 2 SOCIAL Food Insecurity: Not on file Financial Resource Strain: Not on file Transportation Needs: Not on file Housing Stability: Not on file BEHAVIORAL/COGNITIVE FUNCTIONAL No social discharge barriers identified at this time. No behavioral/cognitive discharge barriers identified at this time. No functional discharge barriers identified at this time. FREEDOM OF CHOICE EXPLAINED: Are you interested in bedside delivery of your medications? No ASSESSMENT AND PLAN: Met with patient at bedside. 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 Pt admitted for cat bite. Wound cultures in process. +PCP, -DME, +rx. Pt has [employer] insurance and copy of card sent to registration. Anticipate discharge to home with no skilled needs. Spouse to transport at discharge. Will continue to follow. SIGNATURE: Malik Sanchez RN PATIENT NAME: Sita Mittal DATE: January 24, 2022 TIME: 10:45 AM CONTACT #: [phone] [facility] NURSING PROGon 01-24-2022 NURSING PROG HNO ID: [id number] Author: Neyda Solorzano RN Service: ? Author Type: Registered Nurse Type: Nursing Progress Note Filed: 01/24/2022 6:00 PM Note Text: With nursing supervision and education this morning, patient completed hibiclens soak and following dressing change. Patient completed second soak and dressing change independently in the evening Normal [facility] Bacteria Spec Anaerobe Culto n 01-23-2022 Bacteria identified Anaer cx Nom (Unsp spec) Negative Normal [facility] Comment on above: Performed By: #### 5 0545-3, 71702-2 ####[facility] LAB[facility] [id number] [place] [address] [place]#### 635-3, 6462-6 ####[facility]ORYCLIA [id number] [place] [address] [place] Bacteria Wnd Culton 01-24-20 22 Bacteria identified Cx Nom (Wound) ORGANISM ID: 1 Rare Pasteurella multocida ORGANISM ID: 2 Rare Gram negative bacilli, oxidase positive No further workup. ORGANISM ID: 3 Rare skin marge No further workup GRAM STAIN: No organisms seen Rare Polymorphonuclear leukocytes Many Red Blood Cells Abnormal [facility] Comment on above: Performed By: #### 5 0545-3, 30679-7 ####[facility] LABCLIA [id number] [address] [place]#### 635-3, 6462-6 ####[facility]ORY[facility]IA [id number] [address] Bacterial susceptibility lazo el JENNY (Isol)on 01-23-2022 CULTURE, ORGANISM JENNY RESULT [id number] Abnormal [facility] Comment on above: Order Comment: Speci men Type: MICROBIAL ISOLATEOrdering Facility: [facility] Address: [address] [place] [address] Result Comment: Gram negative bacilli, oxidase positive No susceptibility testing done. Call lab within 72 hours to initiate work-up if clinically indicated. Performed By: #### 5 0545-3, 50302-4 ####[facility] LAB[facility]IA [id number] [address]#### 635-3, 6462-6 ####[facility]ORYCLIA [id number] [address] Basic metabolic 2000 panelon 01-23-2022 Anion gap [Moles/Vol] 8 mmol/L Low 9-18 [facility] Comment on above: Order Comment: Speci men Type: BLOOD SPECIMEN Ordering Facility: [facility] Address: [address] [address] Performed By: #### 2 4321-2 #### [facility] CLIA [id number] [address] Calcium [Mass/Vol] 8.3 mg/dL Low 8.5-10.2 [facility] Comment on above: Order Comment: Speci men Type: BLOOD SPECIMEN Ordering Facility: [facility] Address: [address] [address] Performed By: #### 2 4321-2 #### [facility] CLIA [id number] [address] Chloride [Moles/Vol] 108 mmol/L High 97-105 [facility] Comment on above: Order Comment: Speci men Type: BLOOD SPECIMEN Ordering Facility: [facility] Address: [address] [place] [address] Performed By: #### 2 4321-2 #### [facility] CLIA [id number] [address] [place] CO2 [Moles/Vol] 22 mmol/L Normal 22-30 [facility] Comment on above: Order Comment: Speci men Type: BLOOD SPECIMEN Ordering Facility: [facility] Address: [address] [place] [address] Performed By: #### 2 4321-2 #### [facility] CLIA [id number] [address] [place] [address] Creatinine [Mass/Vol] 0.93 mg/dL Normal 0.58-0.96 [facility] Comment on above: Order Comment: Speci men Type: BLOOD SPECIMEN Ordering Facility: [facility] Address: [address] [place] [address] Performed By: #### 2 4321-2 #### [facility] CLIA [id number] [address] [place] [address] ESTIMATED GLOMERULAR FILTRATION RATE 68 mL/min/1.73m??? Normal >=60 [facility] Comment on above: Order Comment: Speci men Type: BLOOD SPECIMEN Ordering Facility: [facility] Address: [address] [place] [address] Result Comment: Betsy mated Glomerular Filtration Rate (eGFR) is calculated using the 2020 CKD-EPI creatinine equation. This equation utilizes serum creatinine, sex, and age as parameters. The creatinine assay has traceable calibration to isotope dilution-mass spectrometry. Refer to KDIGO guidelines for clinical interpretation. In patients with unstable renal function, e.g. those with acute kidney injury, the eGFR may not accurately reflect actual GFR. Performed By: #### 2 4321-2 #### [facility] CLIA [id number] [address] [place] [address] [place] Glucose [Mass/Vol] 102 mg/dL High 74-99 [facility] Comment on above: Order Comment: Cornelio jackson Type: BLOOD SPECIMEN Order[facility] Facility: [facility] Address: [address] [place] [address] Result Comment: The [place] Diabetes Association (ADA) provides guidance for cutoff values for fasting glucose and random glucose. The ADA defines fasting as no caloric intake for at least 8 hours. Fasting plasma glucose results between 100 to 125 mg/dL indicate increased risk for diabetes (prediabetes). Fasting plasma glucose results greater than or equal to 126 mg/dL meet the criteria for diagnosis of diabetes. In the absence of unequivocal hyperglycemia, results should be confirmed by repeat testing. In a patient with classic symptoms of hyperglycemia or hyperglycemic crisis, random plasma glucose results greater than or equal to 200 mg/dL meet the criteria for diagnosis of diabetes. Reference: Standards of Medical Care in Diabetes 2016, [place] [employer] Association. Diabetes Care. 2016.39(Suppl 1). Performed By: #### 2 4321-2 #### [facility] CLIA [id number] [address] [place] [address] [place] Potassium [Moles/Vol] 4.3 mmol/L Normal 3.7-5.1 [facility] Comment on above: Order Comment: Cornelio jackson Type: BLOOD SPECIMEN [facility]: [facility] Address: [address] [place] [address] Performed By: #### 2 4321-2 #### [facility] CLIA [id number] [address] [place] [address] [place] Sodium [Moles/Vol] 138 mmol/L Normal 136-144 [facility] Comment on above: Order Comment: Cornelio jackson Type: BLOOD SPECIMEN Order[facility] Facility: [facility] Address: [address] [place] [address] Performed By: #### 2 4321-2 #### [facility] CLIA [id number] [address] [place] [address] [place] Urea nitrogen [Mass/Vol] 15 mg/dL Normal 7-21 [facility] Comment on above: Order Comment: Speci men Type: BLOOD SPECIMEN Order[facility] Facility: [facility] Address: [address] [place] [address] Performed By: #### 2 4321-2 #### [facility] CLIA [id number] [address] CBC panel Auto (Bld)on 01-23 Erythrocyte distribution width (RBC) [Ratio] 13.2 % Normal 11.5-15.0 [facility] Comment on above: Order Comment: Speci men Type: BLOOD SPECIMEN Ordering Facility: [facility] Address: [address] [place] [address] Performed By: #### 5 8410-2 #### [facility] CLIA [id number] [address] Hematocrit (Bld) [Volume fraction] 33.1 % Low 36.0-46.0 [facility] Comment on above: Order Comment: Speci men Type: BLOOD SPECIMEN Order[facility] Facility: [facility] Address: [address] [place] [address] Performed By: #### 5 8410-2 #### [facility] CLIA [id number] [address] Hemoglobin (Bld) [Mass/Vol] 10.7 g/dL Low 11.5-15.5 [facility] Comment on above: Order Comment: Speci men Type: BLOOD SPECIMEN Order[facility] Facility: [facility] Address: [address] [place] [address] Performed By: #### 5 8410-2 #### [facility] CLIA [id number] [address] MCH (RBC) [Entitic mass] 31.6 pg Normal 26.0-34.0 [facility] Comment on above: Order Comment: Speci men Type: BLOOD SPECIMEN Order[facility] Facility: [facility] Address: [address] [place] [address] Performed By: #### 5 8410-2 #### [facility] CLIA [id number] [address] MCHC (RBC) [Mass/Vol] 32.3 g/dL Normal 30.5-36.0 [facility] Comment on above: Order Comment: Speci men Type: BLOOD SPECIMEN Order[facility]: [facility] Address: [address] [place] [address] Performed By: #### 5 8410-2 #### [facility] CLIA [id number] [address] MCV (RBC) [Entitic vol] 97.6 fL Normal 80.0-100.0 [facility] Comment on above: Order Comment: Speci men Type: BLOOD SPECIMEN Order[facility]: [facility] Address: [address] [place] [address] Performed By: #### 5 8410-2 #### [facility] CLIA [id number] [address] Nucleated RBC (Bld) [#/Vol] 10*3/uL Normal <0.01 [facility] Comment on above: Order Comment: Speci men Type: BLOOD SPECIMEN [facility] Address: [address] [place] [address] Performed By: #### 5 8410-2 #### [facility] CLIA [id number] [address] Platelet mean volume (Bld) [Entitic vol] 11.4 fL Normal 9.0-12.7 [facility] Comment on above: Order Comment: Speci men Type: BLOOD SPECIMEN [facility]: [facility] Address: [address] [place] [address] Performed By: #### 5 8410-2 #### [facility] CLIA [id number] [address] [place] Platelets (Bld) [#/Vol] 154 10*3/uL Normal 150-400 [facility] Comment on above: Order Comment: Speci men Type: BLOOD SPECIMEN Order[facility]: [facility] Address: [address] [place] [address] Performed By: #### 5 8410-2 #### [facility] CLIA [id number] [address] RBC (Bld) [#/Vol] 3.39 10*6/uL Low 3.90-5.20 [facility] Comment on above: Order Comment: Speci men Type: BLOOD SPECIMEN [facility]: [facility] Address: [address] [place] [address] Performed By: #### 5 8410-2 #### [facility] CLIA [id number] [address] WBC (Bld) [#/Vol] 3.87 10*3/uL Normal 3.70-11.00 [facility] Comment on above: Order Comment: Speci men Type: BLOOD SPECIMEN [facility] Address: [address] [place] [address] Performed By: #### 5 8410-2 #### [facility] CLIA [id number] [address] Microorganism Spec Culton Microorganism identified Cx Nom (Unsp spec) ORGANISM ID: 1 Gram negative bacilli, oxidase positive Unable to further identify Normal [facility] Comment on above: Performed By: #### 5 0545-3, 51093-1 ####[facility] LAB[facility]IA [id number] [address] [place]#### 635-3, 6462-6 ####[facility]ORY[facility]IA [id number] [address] [place] Absolute lymphocyte counton 01-22-2022 Lymphocytes Auto (Unsp spec) [#/Vol] 1.11 10*3/uL 0.83-4.51 [facility] Work Phone: Basic metabolic 2000 panelon 01-22-2022 Anion gap [Moles/Vol] 11 mmol/L Normal 9-18 [facility] Comment on above: Order Comment: Speci men Type: BLOOD SPECIMEN Order[facility]: [facility] Address: [facility] [address] Performed By: #### 2 4321-2 #### [facility] CLIA [id number] [address] [place] Calcium [Mass/Vol] 8.1 mg/dL Low 8.5-10.2 [facility] Comment on above: Order Comment: Speci men Type: BLOOD SPECIMEN [facility] Facility: [facility] Address: [address] [place] [address] Performed By: #### 2 4321-2 #### [facility] CLIA [id number] [address] [place] [address] [place] Chloride [Moles/Vol] 109 mmol/L High 97-105 [facility] Comment on above: Order Comment: Speci men Type: BLOOD SPECIMEN [facility]: [facility] Address: [address] [place] [address] Performed By: #### 2 4321-2 #### [facility] CLIA [id number] 1 [place] [address] [place] CO2 [Moles/Vol] 22 mmol/L Normal 22-30 [facility] Comment on above: Order Comment: Speci men Type: BLOOD SPECIMEN [facility] Facility: [facility] Address: [address] [place] [address] Performed By: #### 2 4321-2 #### [facility] CLIA [id number] [address] [place] [address] [place] Creatinine [Mass/Vol] 0.90 mg/dL Normal 0.58-0.96 [facility] Comment on above: Order Comment: Speci men Type: BLOOD SPECIMEN [facility] Facility: [facility] Address: [address] [place] [address] Performed By: #### 2 4321-2 #### [facility] CLIA [id number] [address] [place] [address] [place] ESTIMATED GLOMERULAR FILTRATION RATE 71 mL/min/1.73m??? Normal >=60 [facility] Comment on above: Order Comment: Cornelio jackson Type: BLOOD SPECIMEN Order[facility] Facility: [facility] Address: [address] [place] [address] Result Comment: Betsy mated Glomerular Filtration Rate (eGFR) is calculated using the 2020 CKD-EPI creatinine equation. This equation utilizes serum creatinine, sex, and age as parameters. The creatinine assay has traceable calibration to isotope dilution-mass spectrometry. Refer to KDIGO guidelines for clinical interpretation. In patients with unstable renal function, e.g. those with acute kidney injury, the eGFR may not accurately reflect actual GFR. Performed By: #### 2 4321-2 #### [facility] CLIA [id number] 1 [place] [address] [place] Glucose [Mass/Vol] 92 mg/dL Normal 74-99 [facility] Comment on above: Order Comment: Cornelio jackson Type: BLOOD SPECIMEN [facility]: [facility] Address: [address] [place] [address] Result Comment: The [place] Diabetes [employer] (ADA) provides guidance for cutoff values for fasting glucose and random glucose. The ADA defines fasting as no caloric intake for at least 8 hours. Fasting plasma glucose results between 100 to 125 mg/dL indicate increased risk for diabetes (prediabetes). Fasting plasma glucose results greater than or equal to 126 mg/dL meet the criteria for diagnosis of diabetes. In the absence of unequivocal hyperglycemia, results should be confirmed by repeat testing. In a patient with classic symptoms of hyperglycemia or hyperglycemic crisis, random plasma glucose results greater than or equal to 200 mg/dL meet the criteria for diagnosis of diabetes. Reference: Standards of Medical Care in Diabetes 2016, [place] [employer]. Diabetes Care. 2016.39(Suppl 1). Performed By: #### 2 4321-2 #### [facility] CLIA [id number] [address] [place] [address] [place] Potassium [Moles/Vol] 4.4 mmol/L Normal 3.7-5.1 [facility] Comment on above: Order Comment: Cornelio jackson Type: BLOOD SPECIMEN Ordering Facility: [facility] Address: [address] [address] Performed By: #### 2 4321-2 #### [facility] CLIA [id number] [address] STATES OF [facility] Sodium [Moles/Vol] 142 mmol/L Normal 136-144 [facility] Comment on above: Order Comment: Speci men Type: BLOOD SPECIMEN Ordering Facility: [facility] Address: [address] [place] [address] Performed By: #### 2 4321-2 #### [facility] CLIA [id number] [address] [place] Urea nitrogen [Mass/Vol] 16 mg/dL Normal 7-21 [facility] Comment on above: Order Comment: Speci men Type: BLOOD SPECIMEN Ordering Facility: [facility] Address: [address] [place] [address] Performed By: #### 2 4321-2 #### [facility] CLIA [id number] 1 [place] [address] [place] Basophil percentageon 2021 Basophils/100 WBC (Bld) 0.1 % 0-1 [facility] Work Phone: Chloride [Moles/Vol] 107 mmol/L 98-107 [facility] Work Phone: Eosinophils/100 WBC (Bld) 0.0 % 0-5 [facility] Work Phone: Glucose [Mass/Vol] 165 mg/dL 74-106 [facility] Work Phone: Comment on above: Fasting Glucose resu lt greater than or equal to 126 mg/dL suggests DIABETES MELLITUS per A.D.A. criteria. Lactate [Moles/Vol] 1.7 mmol/L 0.4-2.0 [facility] Work Phone: Neutrophils (Bld) [#/Vol] 5.1 10*3/uL 2.0-7.7 [facility] Work Phone: Neutrophils/100 WBC (Bld) 73.9 % 47-70 [facility] Work Phone: Potassium [Moles/Vol] 3.7 mmol/L 3.5-5.1 [facility] Work Phone: Sodium [Moles/Vol] 139 mmol/L 136-145 [facility] Work Phone: WBC (Bld) [#/Vol] 6.9 10*3/uL 4.4-11.0 [facility] Work Phone: Blood erythrocytes count (nu mber/volume)on 01-22-2022 RBC (Bld) [#/Vol] 3.79 10*6/uL 4.2-5.4 [facility] Work Phone: Blood hemoglobin measurement (mass/volume)on 01-22-2022 Hemoglobin (Bld) [Mass/Vol] 11.9 g/dL 12.0-15.0 [facility] Work Phone: Blood lymphocytes/100 leukoc yteson 01-22-2022 Lymphocytes/100 WBC (Bld) 16.1 % 19-41 [facility] Work Phone: Blood monocytes/100 leukocyt eson 01-22-2022 Monocytes/100 WBC (Bld) 9.6 % 0-10 [facility] Work Phone: Blood platelet mean volumeon 01-22-2022 Platelet mean volume (Bld) [Entitic vol] 10.9 fL 6.2-12.0 [facility] Work Phone: CONSULTon 01-22-2022 CONSULT HNO ID: [id number] Author: Alejandro Rivero MD Service: Orthopaedic Surgery Author Type: Resident Type: Consults Filed: 01/22/2022 11:29 PM Note Text: Attestation signed by Deric Cortez MD at 01/23/2022 8:32 AM I agree with the above resident examination and assessment. The plan of care was discussed and directed with Dr. Rivero, and I personally examined Ms. Mittal alongside Dr. Rivero 01/23/2022. I discussed the diagnosis with her and discussed and directed the plan of care. She has not seen any significant subjective improvement since admission, and her exam shows consolidation of an abscess and paronychia along the bite wound the ulnar side of the digit. I recommend digital block, bedside incision and drainage. Will send cultures. Continue with soaks, broad spectrum antibiotic therapy. Risks, benefits, alternatives of the procedure were reviewed with the patient and she elects to proceed. Please see procedure note. Pre Procedure Diagnosis: Right index finger paronychia Post Procedure Diagnosis: Right index finger paronychia Procedure: Bedside Incision and Drainage of the Right index finger paronychia Procedure date and time: January 23, 2022 8:29 AM Procedure Details: The risks, benefits, limitations, and alternatives were discussed with the patient. The patient agreed to proceed with an incision and drainage procedure of the Right index finger paronychia. The patient was identified with 2 separate patient identifiers. Time out performed according to [facility] protocol. The appropriate site for the procedure was identified, marked and sterilely prepped. Using a 27 gauge needle, 10 cc's of 1% lidocaine without epinephrine was injected about the base of the index finger in the fashion of a digital block. Under aseptic technique, a 1 cm linear incision was made over the abscess site with an 11 blade scalpel into the subcutaneous layer. Blunt dissection through loculations in the subcutaneous layer was then performed with a hemostat. Cultures were obtained and sent to the lab for aerobic and anaerobic culture. The wound was then copiously irrigated with sterile saline. The incision site was then covered with xeroform, sterile gauze. The patient tolerated the procedure well with no complications and was in stable condition at the conclusion of the encounter. Deric Cortez MD Orthopaedic Surgery 01/23/2022 8:29 AM ORTHOPAEDIC SURGERY CONSULT Pt: SITA MITTAL Date of consultation: 01/22/2022 Consulting Physician: Dr. Cortez Reason for consultation: R index finger infection HPI: 66 year old female presenting today with a right index finger infection after a cat bite 48 hours ago. Pt reports she noticed her finger swelling/pain/redness increasing yesterday evening and presented to [place] ED. There she was given a dose of Abx and a bedside IANDD was performed. She was then transferred to [facility] ED for ortho follow-up and IV abx. Pt reports since the start of her antibiotics here her finger has not improved. She reports some drainage from the wound site. Denies any radiation of her pain up her arm. Denies any volar sided pain. Denies any fevers/chils. Denies further complaints. PAST MEDICAL HISTORY Diagnosis Date - Chronic cholecystitis - Chronic interstitial cystitis - Esophageal reflux - Family history of malignant neoplasm of breast MOTHER - Headache - Insomnia, unspecified - Leukopenia - Other urinary incontinence - RBBB (right bundle branch block) - Rosacea - Unspecified diffuse connective tissue disease PAST SURGICAL HISTORY Procedure Laterality Date - L'SCOPE SANDHYA W/CHOLANGIOGRAPHY 03/06/09 Allergies: Pollen Current Facility-Administered Medications Medication Dose Route Frequency - aspirin, enteric coated 81 mg tab(s) 81 mg ORAL DAILY - pravastatin 80 mg tab(s) (PRAVACHOL) 80 mg ORAL AT BEDTIME - pantoprazole DR 40 mg tab(s) (PROTONIX) 40 mg ORAL DAILY (6 AM) - NaCl 0.9% iv flush bag 20 mL INTRAVENOUS PRN - sodium chloride 0.9 % (flush) 3-5 mL (BD POSIFLUSH) 3-5 mL INTRAVENOUS q 12 H - polyethylene glycol 3350 17 g packet (MIRALAX, GLYCOLAX) 17 g ORAL DAILY - aluminum-magnesium hydroxide-simethicone 200-200-20 mg/5 mL 30 mL (MAALOX,MYLANTA,MAG-A L PLUS) 30 mL ORAL DAILY PRN - acetaminophen 650 mg tab(s) (TYLENOL) 650 mg ORAL q 6 H PRN - oxyCODONE-acetaminoph en 5-325 mg 1 tablet (PERCOCET) 1 tablet ORAL q 6 H PRN - piperacillin-tazobact am iv piggyback 3.375 g in dextrose (iso-osmotic) 50 mL (ZOSYN) 3.375 g INTRAVENOUS q 8 H - trospium 20 mg tab(s) (SANCTURA) 20 mg ORAL BID AC - [START ON 01/23/2022] hydrOXYchloroQUINE 200 mg tab(s) (PLAQUENIL) 200 mg ORAL DAILY - pregabalin 100 mg cap(s) (LYRICA) 100 mg ORAL DAILY - pregabalin 200 mg cap(s) (LYRICA) 200 mg (more content not included)... Normal [facility] CONSULT PROGon 01-22-2022 CONSULT PROG HNO ID: [id number] Author: Rikki Joshi RPh Service: Pharmacy Author Type: Pharmacist Type: Consult Progress Note Filed: 01/22/2022 9:04 PM Note Text: PHARMACY VANCOMYCIN DOSING NOTE Patient Name: Sita Mittal Admission Date: 01/22/2022 Date of Consult: 01/22/2022 Time of Consult: 4:59 PM Indication: Bone AND joint infection Goal Range: 10-20 mcg/mL RECOMMENDATIONS/PLAN: Pharmacy consulted for vancomycin dosing for Sita Mittal, a 66 year old, female who is being treated with vancomycin for bone and joint infection 1. Patient is currently ordered Vancomycin 1.25 g IV q12h. Today is day 1 of therapy. 2. No vancomycin level has been drawn for this dosing regimen. 3. The present dose of vancomycin is the recommended dosage for this patient at this time. Continue therapy as prescribed. 4. The next vancomycin level will be ordered for 01/26 unless clinically indicated sooner. (Pharmacy will order) We will follow patient renal function, vancomycin levels and doses with you during the course of therapy. Additional recommendations will appear in follow up notes. If you have any questions[place] [phone]. Age: [age] year old Allergies: ALLERGIES Allergen Reactions - Pollen Other: See Comments SINUS CONGESTION Last 3 Encounter Wt Readings: Date: Wt: 01/22/2022 82.6 kg (182 lb) 07/07/2010 79.4 kg (175 lb) 02/26/2009 83.9 kg (185 lb) Last 1 Encounter Ht Readings: Date: Ht: 01/22/2022 167.6 cm (5' 6) CrCl: 66.6 mL/min Temp (24hrs), Av.8 ?C (98.2 ?F), Min:36.8 ?C (98.2 ?F), Max:36.8 ?C (98.2 ?F) - Current Temp: 36.8 ?C (98.2 ?F) Labs No results found for: BUN, CREAT WBC (k/uL) Date Value 07/07/2010 2.79 (L) Vancomycin Levels: No results found for: AUDREY Joshi [facility] Normal [facility] Determination of erythrocyte mean corpuscular volume (MCV)on 01-22-2022 MCV (RBC) [Entitic vol] 96.0 fL 81-99 [facility] Work Phone: HISTORY PHYSICALon 2 HISTORY PHYSICAL HNO ID: [id number] Author: Yo Montoya MD Service: Hospital Medicine Author Type: Physician Type: HANDP Filed: 01/22/2022 12:37 PM Note Text: Hospital Medicine HPI Patient Name: Sita Mittal Admission Date: 01/22/2022 Reason For Admission: Right 2nd finger cat bite with infection IMPRESSION AND PLAN: Principal Problem: Cat bite of finger Active Problems: Unspecified diffuse connective tissue disease (HCC) Insomnia, unspecified Primary hypertension Resolved Problems: * No resolved hospital problems. * Active Hospital Problems Diagnosis - Cat bite of finger - Insomnia, unspecified - Primary hypertension - Unspecified diffuse connective tissue disease (HCC) 1. Right second finger cellulitis related to cat bite we will continue with Willy patient was tried on Augmentin as an outpatient but did not respond well to treatment. Consult also will be placed with orthopedic for evaluation recommendation. 2. Unspecified connective tissue disease for which patient is on Plaquenil and that was resumed. 3. Hypertension resume was on amlodipine. 4. Hyperlipidemia resume on her statin. DVT prophylaxis per protocol CODE STATUS full code. ==== HPI: This is a 66-year-old female with known fibromyalgia, hypertension, hyperlipidemia and an unspecified connective tissue disease, patient has a cat at home and had a cat bite couple of days ago and was started on Augmentin as an outpatient but unfortunately her symptoms did not improve as she had swelling and pain in the right second finger due to worsening symptoms she presented to [place] emergency room where she was given a dose of Zosyn and received morphine and Dilaudid for pain and decision was made to transfer to [facility] for further evaluation. When patient seen and examined denied any fever, chills right now but complain of some chills at home, denies any chest pain no shortness of breath no nausea no vomiting, still having pain and discomfort and the right second finger with erythema and warmness. ==== PERTINENT ROS: No fever, chills , night sweats, no chest pain, off oxygen, no ankle edema, no abd pain, no dysuria All other systems were reviewed and negative except for HPI ==== No data recorded No data recorded No data recorded Cuff No data recorded ==== PAST MEDICAL HISTORY Diagnosis Date - Chronic cholecystitis - Chronic interstitial cystitis - Esophageal reflux - Family history of malignant neoplasm of breast MOTHER - Headache - Insomnia, unspecified - Leukopenia - Other urinary incontinence - RBBB (right bundle branch block) - Rosacea - Unspecified diffuse connective tissue disease PAST SURGICAL HISTORY Procedure Laterality Date - L'SCOPE SANDHYA W/CHOLANGIOGRAPHY 03/06/09 FAMILY HISTORY Problem Relation Age of Onset - Alzheimer's Disease Mother - Stroke Father - Breast Cancer Mother - other (LYMPHOMA [Other]) Sister Social History Tobacco Use - Smoking status: Never Smoker - Smokeless tobacco: Not on file Substance Use Topics - Alcohol use: No - Drug use: No ALLERGIES Allergen Reactions - Pollen Other: See Comments SINUS CONGESTION ==== MEDICATIONS: pravastatin (PRAVACHOL) 80 mg ORAL tablet Take one(1) tablet daily. fluticasone (FLONASE) 50 mcg/Actuation NASAL nasal spray One puff per nostril daily pregabalin 75 mg ORAL capsule Take one(1) tablet two(2) times daily. oxybutynin XL 15 mg ORAL 24 hr tablet Take one(1) tablet every other day. pantoprazole (PROTONIX) 40 mg ORAL tablet Take one(1) tablet daily. nabumetone 500 mg ORAL tablet Take one(1) tablet two(2) times daily. Levocetirizine (XYZAL) 5 mg ORAL tablet qhs fexofenadine (JASSI) 180 mg ORAL tablet Take one(1) tablet daily in the morning calcium, elemental, ORAL Tab Take one(1) tablet daily. Rlwiu-3-CCF-EPA-Fish Oil (OMEGA-3 FISH OIL) 1,000 (120-180) mg ORAL Cap Take one(1) tablet daily. aspirin(ASPIR-LOW 81 MG TAB) Take one(1) tablet daily. COMPOUNDED PRESCRIPTION B 12 PLAQUENIL 200 MG TAB Take one(1) tablet twice daily. GLUCOSAMINE CHONDROITIN MAXSTR 500 MG-400 MG CAP Take one(1) capsules three(3) times daily.. THERAPEUTIC MULTIVITAMIN TAB Take one(1) tablet daily. AMBIEN 10 MG TAB Take one(1) tablet at bedtime as needed for insomnia. VAGIFEM 25 MCG VAGINAL TAB as necessary SELENIUM SULFIDE 2.5 % SHAMPOO qod face, ears, scalp as second lather: lather, wait 5-10 minutes, rinse off No current facility-administered medications for this encounter. ==== PHYSICAL EXAM: There were n (more content not included)... Normal [facility] Hematocrit Auto (Bld) [Volum e fraction]on 01-22-2022 Hematocrit (Bld) [Volume fraction] 36.4 % 37-47 [facility] Work Phone: Laboratory - Chemistry and C hemistry - challengeon 01-22-2022 CO2 [Moles/Vol] 25.0 mmol/L 21.0-32.0 [facility] Work Phone: Urea nitrogen/Creatinine [Mass ratio] 17.1 mg/mg 10-20 [facility] Work Phone: Laboratory - Hematology and Cell countson 01-22-2022 Erythrocyte distribution width (RBC) [Entitic vol] 46.3 fL 35.1-43.9 [facility] Work Phone: Erythrocyte distribution width (RBC) [Ratio] 13.2 % 11.6-14.6 [facility] Work Phone: Immature granulocytes/100 WBC (Bld) 0.300 % 0.0-0.9 [facility] Work Phone: Comment on above: IG% - Immature Granu locytes (promyelocytes, myelocytes and metamyelocytes) > 1% indicates that a LEFT SHIFT is Present. MCH (RBC) [Entitic mass] 31.4 pg 27.0-32.0 [facility] Work Phone: Nucleated RBC/100 WBC (Bld) [Ratio] 0 % 0-5 [facility] Work Phone: MCHC Auto (RBC) [Mass/Vol]on 01-22-2022 MCHC (RBC) [Mass/Vol] 32.7 g/dL 32-36 [facility] Work Phone: No Panel Informationon 01-22 Estimated Creatinine Clearance Calc 49.34 ml/min [facility] Work Phone: Estimated GFR (MDRD) Amer 67 mL/min >60 [facility] Work Phone: Comment on above: GFR Calc Estimated GFR (MDRD) Non-Af Amer 56 mL/min >60 [facility] Work Phone: Comment on above: Non- GFR Calc Platelets bldon 01-22-2022 Platelets (Bld) [#/Vol] 181 10*3/uL 150-450 [facility] Work Phone: Serum or plasma C reactive p rotein measurement (mass/volume)on 01-22-2022 CRP [Mass/Vol] 128.00 mg/L 0.0-3.0 [facility] Work Phone: Comment on above: C-Reactive Protein ( CRP) provides useful information for thediagnosis, therapy and monitoring of inflammatory processesand associated diseases. For the evaluation of Relative Riskfor Cardiovascular Disease, a High Sensitivity CRP (HSCRP)should be ordered. Serum or plasma calcium herman urement (mass/volume)on 01-22-2022 Calcium [Mass/Vol] 9.3 mg/dL 8.5-10.1 [facility] Work Phone: Serum or plasma creatinine m easurement (mass/volume)on 01-22-2022 Creatinine [Mass/Vol] 1.05 mg/dL 0.55-1.02 [facility] Work Phone: Comment on above: The validity of the calculated GFR & GFRAA in patients over 70 years has not been determined. Clinical correlation is essential. Serum or plasma urea nitroge n measurement (mass/volume)on 01-22-2022 Urea nitrogen [Mass/Vol] 18 mg/dL 7-18 [facility] Work Phone: Thin prep Papanicolaou smear with manual screeningon 01-22-2022 Thin prep Papanicolaou smear with manual screening 7 5-15 [facility] Work Phone: XR HAND 3V PA/LAT/OBL RTon 0 01-22-2022 XR HAND 3V PA/LAT/OBL RT * * *Final Report* * * DATE OF EXAM: Jan 22 2022 5:19PM [id number] - XR HAND 3V PA/LAT/OBL RT / PROCEDURE REASON: Osteomyelitis, hand * * * * Physician Interpretation * * * * EXAM: XR HAND 3V PA/LAT/OBL RT HISTORY: Osteomyelitis, hand COMPARISON: None available FINDINGS: Second digit soft tissue swelling is present. No radiopaque foreign body. No subcutaneous gas. No fracture or dislocation. IMPRESSION: Right second digit soft tissue swelling without underlying acute osseous normality. Money Order Clerk: NED Transcribe Date/Time: Jan 22 2022 6:03P Dictated by : LILI BUSTOS MD This examination was interpreted and the report reviewed and electronically signed by: LILI BUSTOS MD on Jan 22 2022 6:04PM EST [id number] Normal [facility] Basophil percentageon 2021 Chloride [Moles/Vol] 108 mmol/L 98-107 [facility] Work Phone: Cholesterol [Mass/Vol] 174 mg/dL <200 [facility] Work Phone: Comment on above: <200 mg/dL Desirable 200-240 mg/dL Borderline >240 mg/dL High Risk Glucose [Mass/Vol] 85 mg/dL 74-106 [facility] Work Phone: Potassium [Moles/Vol] 4.6 mmol/L 3.5-5.1 [facility] Work Phone: Sodium [Moles/Vol] 141 mmol/L 136-145 [facility] Work Phone: Triglyceride [Mass/Vol] 179 mg/dL <199 [facility] Work Phone: Comment on above: The drugs N-Acetylcy steine and Metamizole may falsely depress this assay.Serum Triglycerides Reference Interval Normal <150 mg/dL Borderline high 150 - 199 mg/dL High 200 - 499 mg/dL Very High > or = 500 mg/dL Laboratory - Chemistry and C hemistry - challengeon 12-06-2021 CO2 [Moles/Vol] 27.0 mmol/L 21.0-32.0 [facility] Work Phone: Urea nitrogen/Creatinine [Mass ratio] 22.0 mg/mg 10-20 [facility] Work Phone: No Panel Informationon 12-06 Estimated GFR (MDRD) Amer 71 mL/min >60 [facility] Work Phone: Comment on above: GFR Calc Estimated GFR (MDRD) Non-Af Amer 59 mL/min >60 [facility] Work Phone: Comment on above: Non- GFR Calc Vitamin D 25-Hydroxy 34.7 ng/mL [facility] Work Phone: Comment on above: Vitamin D 25(OH) Sta tus Range Deficiency <20 ng/mL (50nmol/L) Insufficiency 20 - 30 ng/mL (50 - 75 nmol/L) Sufficiency 30 - 100 ng/mL (75 - 250 nmol/L) Toxicity >100 ng/mL (>250 nmol/L) Serum or plasma calcium herman urement (mass/volume)on 12-06-2021 Calcium [Mass/Vol] 9.0 mg/dL 8.5-10.1 [facility] Work Phone: Serum or plasma cholesterol in HDL measurement (mass/volume)on 12-06-2021 Cholesterol in HDL [Mass/Vol] 55 mg/dL >40 [facility] Work Phone: Comment on above: The drugs N-Acetylcy steine and Metamizole may falsely depress this assay. Reference Range HDL <40 mg/dL Low HDL Cholesterol HDL >or= 60 mg/dL High HDL Cholesterol Serum or plasma cholesterol in VLDL measurement (mass/volume)on 12-06-2021 Cholesterol in VLDL [Mass/Vol] 36 mg/dL 5-40 [facility] Work Phone: Serum or plasma creatinine m easurement (mass/volume)on 12-06-2021 Creatinine [Mass/Vol] 1.00 mg/dL 0.55-1.02 [facility] Work Phone: Comment on above: The validity of the calculated GFR & GFRAA in patients over 70 years has not been determined. Clinical correlation is essential. Serum or plasma low density lipoprotein (LDL) cholesterol measurement (mass/volume)on 12-06-2021 Cholesterol in LDL [Mass/Vol] 83 mg/dL 0-130 [facility] Work Phone: Serum or plasma urea nitroge n measurement (mass/volume)on 12-06-2021 Urea nitrogen [Mass/Vol] 22 mg/dL 7-18 [facility] Work Phone: Thin prep Papanicolaou smear with manual screeningon 12-06-2021 Thin prep Papanicolaou smear with manual screening 6 5-15 [facility] Work Phone: CBCMDOrdered By: Tia jorgensen on 03-08-2012 Eosinophils/100 WBC (Bld) 2 % Normal 0-5 [facility]; [facility] Work Phone: Erythrocyte distribution width (RBC) [Ratio] 13.6 % Normal 11.6-14.6 [facility]; [facility] Work Phone: Hematocrit (Bld) [Volume fraction] 37.4 % Normal 37-47 [facility]; [facility] Work Phone: Hemoglobin (Bld) [Mass/Vol] 12.8 g.dL Normal 12.0-15.0 [facility]; [facility] Work Phone: Lymphocytes/100 WBC (Bld) 53 % Abnormal 19-41 [facility]; [facility] Work Phone: MCH (RBC) [Entitic mass] 32.0 pg Normal 27.0-32.0 [facility]; [facility] Work Phone: MCHC (RBC) [Mass/Vol] 34.2 g/dL Normal 32-36 [facility] prehensive [facility]; [facility] Work Phone: MCV (RBC) [Entitic vol] 93.4 fL Normal 81-99 [facility]; [facility] Work Phone: Neutrophils (Bld) [#/Vol] 1.1 3/uL Abnormal 2.0-7.7 [facility]; [facility] Work Phone: Platelets (Bld) [#/Vol] 170 10*3/uL Normal 150-450 [facility]; [facility] Work Phone: RBC (Bld) [#/Vol] NORM C+C Normal [facility]; [facility] Work Phone: RBC (Bld) [#/Vol] 4.01 {M/mm3} Abnormal 4.2-5.4 [facility]; [facility] Work Phone: WBC (Bld) [#/Vol] 2.5 10*3/uL Abnormal 4.4-11.0 Compre [facility]; [facility] Work Phone: CBCMD 2 % Normal 0-10 [facility]; [facility] Work Phone: CBCMD 100 1 Normal [facility]; [facility] Work Phone: CBCMD 43 % Abnormal 47-70 [facility]; [facility] Work Phone: CBCMD ADEQUATE Normal [facility]; [facility] Work Phone: CMPOrdered By: System Manage r on 03-08-2012 Albumin [Mass/Vol] 3.7 g/dL Normal 3.4-5.0 [facility]; [facility] Work Phone: Albumin/Globulin [Mass ratio] 0.9 {RATIO} Normal 0.9-2.4 [facility] Medicine; [facility] Work Phone: ALP [Catalytic activity/Vol] 51 U/L Normal 50-136 [facility]; [facility] Work Phone: ALT [Catalytic activity/Vol] 45 U/L Normal 12-78 [facility]; [facility] Work Phone: Anion gap [Moles/Vol] 8 mmol/L Normal 5-15 [facility] prehensive Internal Medicine; [facility] Work Phone: AST [Catalytic activity/Vol] 25 U/L Normal 15-37 [facility] Internal Medicine; [facility] Work Phone: Bilirubin [Mass/Vol] 0.40 mg/dL Normal 0.00-1.00 [facility] rehensive Internal Medicine; [facility] Work Phone: Calcium [Mass/Vol] 9.4 mg/dL Normal 8.5-10.1 [facility] Internal Medicine; [facility] Work Phone: Chloride [Moles/Vol] 104 mmol/L Normal 98-107 [facility]; [facility] Internal Medicine Work Phone: CO2 [Moles/Vol] 27.0 mmol/L Normal 21.0-32.0 [facility] Internal Medicine; [facility] Internal Medicine Work Phone: Creatinine [Mass/Vol] 1.1 mg/dL Abnormal 0.6-1.0 [facility] Internal Medicine; [facility] Internal Medicine Work Phone: GFR/1.73 sq M predicted among blacks MDRD (S/P/Bld) [Vol rate/Area] 67 mL/min/{1.73_m2} Normal Comprehensiv e Internal Medicine; [facility] Internal Medicine Work Phone: GFR/1.73 sq M.predicted MDRD (S/P/Bld) [Vol rate/Area] 55 mL/min/{1.73_m2} Abnormal Com[facility] e Internal Medicine; [facility] Internal Medicine Work Phone: Globulin (S) [Mass/Vol] 4.3 g/dL Abnormal 2.7-4.2 [facility] Internal Medicine; [facility] Internal Medicine Work Phone: Glucose [Mass/Vol] 79 mg/dL Normal 70-110 [facility] Internal Medicine; [facility] Internal Medicine Work Phone: Potassium [Moles/Vol] 4.0 mmol/L Normal 3.5-5.1 [facility] prehensive Internal Medicine; [facility] Work Phone: Protein [Mass/Vol] 8.0 g/dL Normal 6.4-8.2 [facility] Internal Medicine; [facility] Work Phone: Sodium [Moles/Vol] 139 mmol/L Normal 136-145 [facility] Internal Medicine; [facility] Work Phone: Urea nitrogen [Mass/Vol] 23 mg/dL Abnormal 7-18 [facility]; [facility] Work Phone: Urea nitrogen/Creatinine [Mass ratio] 20.9 {RATIO} Abnormal 10-20 [facility]; [facility] Work Phone: LIPIDOrdered By: Tia jorgensen on 03-08-2012 Cholesterol [Mass/Vol] 193 mg/dL Normal [facility]; [facility] Work Phone: Comment on above: <200 mg/dL Desirable 200-240 mg/dL Borderline >240 mg/dL High Risk Cholesterol in HDL [Mass/Vol] 45 mg/dL Normal [facility] Internal Medicine; [facility] Work Phone: Comment on above: Reference Range HDL <40 mg/dL Low HDL Cholesterol HDL >or= 60 mg/dL High HDL Cholesterol Cholesterol in LDL [Mass/Vol] 105 mg/dL Normal 0-130 [facility]; [facility] Work Phone: Cholesterol in VLDL [Mass/Vol] 43 mg/dL Abnormal 5-40 [facility]; [facility] Work Phone: Triglyceride [Mass/Vol] 215 mg/dL Abnormal [facility]; [facility] Work Phone: Comment on above: Serum Triglycerides Reference Interval Normal <150 mg/dL Borderline high 150 - 199 mg/dL High 200 - 499 mg/dL Very High > or = 500 mg/dL COMP METABOLICOrdered By: Vinny stem on 08-19-2011 Albumin [Mass/Vol] 4.3 g/dL Normal 3.4-5.0 [facility] Internal Medicine; [facility] Work Phone: Comment on above: has f/u on 08/23/11 Albumin/Globulin [Mass ratio] 1.1 {RATIO} Normal 0.9-2.4 [facility]; [facility] Work Phone: Comment on above: has f/u on 08/23/11 ALP [Catalytic activity/Vol] 54 U/L Normal 50-136 [facility]; [facility] Work Phone: Comment on above: has f/u on 08/23/11 ALT [Catalytic activity/Vol] 40 U/L Normal 12-78 [facility]; [facility] Work Phone: Comment on above: has f/u on 08/23/11 Anion gap [Moles/Vol] 9 mmol/L Normal 5-15 [facility] prehensive Internal Medicine; [facility] Work Phone: Comment on above: has f/u on 08/23/11 AST [Catalytic activity/Vol] 27 U/L Normal 15-37 [facility]; [facility] Work Phone: Comment on above: has f/u on 08/23/11 Bilirubin [Mass/Vol] 0.50 mg/dL Normal 0.00-1.00 [facility] rehensive Internal Medicine; [facility] Work Phone: Comment on above: has f/u on 08/23/11 Calcium [Mass/Vol] 9.4 mg/dL Normal 8.5-10.1 [facility]; [facility] Work Phone: Comment on above: has f/u on 08/23/11 Chloride [Moles/Vol] 103 mmol/L Normal 98-107 [facility] rehensive Internal Medicine; [facility] Work Phone: Comment on above: has f/u on 08/23/11 CO2 [Moles/Vol] 29.0 mmol/L Normal 21.0-32.0 [facility]; [facility] Work Phone: Comment on above: has f/u on 08/23/11 Creatinine [Mass/Vol] 1.2 mg/dL Abnormal 0.6-1.0 [facility] prehensive Internal Medicine; [facility] Work Phone: Comment on above: has f/u on 08/23/11 GFR/1.73 sq M predicted among blacks MDRD (S/P/Bld) [Vol rate/Area] 59 mL/min/{1.73_m2} Abnormal [facility] e [facility]; [facility] Work Phone: Comment on above: has f/u on 08/23/11 GFR/1.73 sq M.predicted MDRD (S/P/Bld) [Vol rate/Area] 49 mL/min/{1.73_m2} Abnormal Com[facility] e [facility]; [facility] Work Phone: Comment on above: has f/u on 08/23/11 Globulin (S) [Mass/Vol] 4.0 g/dL Normal 2.7-4.2 C o[facility]rehensive [facility]; [facility] Work Phone: Comment on above: has f/u on 08/23/11 Glucose [Mass/Vol] 90 mg/dL Normal 70-110 [facility]; [facility] Work Phone: Comment on above: has f/u on 08/23/11 Potassium [Moles/Vol] 4.8 mmol/L Normal 3.5-5.1 [facility] prehensive Internal Medicine; [facility] Work Phone: Comment on above: has f/u on 08/23/11 Protein [Mass/Vol] 8.3 g/dL Abnormal 6.4-8.2 [facility]; [facility] Work Phone: Comment on above: has f/u on 08/23/11 Sodium [Moles/Vol] 141 mmol/L Normal 136-145 [facility]; [facility] Work Phone: Comment on above: has f/u on 08/23/11 Urea nitrogen [Mass/Vol] 19 mg/dL Abnormal 7-18 [facility]; [facility] Work Phone: Comment on above: has f/u on 08/23/11 Urea nitrogen/Creatinine [Mass ratio] 15.8 {RATIO} Normal 10-20 [facility]; [facility] Work Phone: Comment on above: has f/u on 08/23/11 LIPIDOrdered By: Tia jorgensen on 08-19-2011 Cholesterol [Mass/Vol] 182 mg/dL Normal Co mprehensive [facility]; [facility] Work Phone: Comment on above: <200 mg/dL Desirable 200-240 mg/dL Borderline >240 mg/dL High Risk Cholesterol in HDL [Mass/Vol] 40 mg/dL Normal [facility]; [facility] Work Phone: Comment on above: Reference Range HDL <40 mg/dL Low HDL Cholesterol HDL >or= 60 mg/dL High HDL Cholesterol Cholesterol in LDL [Mass/Vol] 88 mg/dL Normal 0-130 [facility]; [facility] Work Phone: Cholesterol in VLDL [Mass/Vol] 54 mg/dL Abnormal 5-40 [facility]; [facility] Work Phone: Triglyceride [Mass/Vol] 268 mg/dL Abnormal C omprehensive Internal Medicine; [facility] Work Phone: Comment on above: Serum Triglycerides Reference Interval Normal <150 mg/dL Borderline high 150 - 199 mg/dL High 200 - 499 mg/dL Very High > or = 500 mg/dL CULTURE, URINEOrdered By: Vinny stem Tree Doctor on 07-22-2011 Bacteria identified Cx Nom (U) See Note Normal [facility]; [facility] Work Phone: Comment on above: COLONY COUNT >100,00 0 ORGANISM 1: ESCHERICHIA COLI ESCHERICHIA COLI: REACTION AMIKACIN s <=2 S AMPICILLIN GN $$ >=32 R AMPICILLIN/SULBACTAM $$ 16 I CEFAZOLIN $ <=4 S CEFEPIME $$ <=1 S CEFOXITIN $ <=4 S CEFTAZIDIME (NF) $ <=1 S CEFTRIAXONE $ <=1 S CIPROFLOXACIN GN (IV/NF) $$ <=0.25 S EXTEND.SPECTRUM BETA LACTAMASE Neg - ERTAPENIM $$ <=0.5 S GENTAMICIN GN $ <=1 S IMIPENEM $$$ <=1 S LEVOFLOXACIN $ 0.5 S MEROPENEM $ <=0.25 S NITROFURANTOIN $ <=16 S TRIMETHOPRIM/SULFAMETHOXAZO $ >=320 R Urinalysis, Office ([id number])Or dered By: Annita Kovacs on 07-22-2011 Bilirubin Ql (U) Negative Normal Comprehe nsive Internal Medicine; [facility] Work Phone: Glucose Test strip (U) [Mass/Vol] Negative Normal [facility]; [facility] Work Phone: Hemoglobin Ql (U) Hemolyzed Small Normal Co m[facility]; [facility] Work Phone: Ketones Ql (U) Negative Normal Comprehens [facility]; [facility] Work Phone: Leukocyte esterase Test strip Ql (U) Large Normal [facility]; [facility] Work Phone: Nitrite Ql (U) Negative Normal [facility]; [facility] Work Phone: pH (U) 6.0 [pH] Normal [facility]; [facility] Work Phone: Protein Ql (U) Negative Normal Com[facility]; [facility] Work Phone: Specific gravity (U) [Rel density] 1.005 1 Normal [facility]; [facility] Work Phone: Urobilinogen (24H U) [Mass/Time] Normal Normal [facility]; [facility] Work Phone: Rapid Strep Test, Office ([phone])Ordered By: Mary Contreras on 06-28-2011 S. pyogenes Ag IA Ql (Unsp spec) Negative Normal [facility]; [facility] Work Phone: Rapid Strep Test, Office ([phone])Ordered By: Leanne Moon on 08-18-2010 S. pyogenes Ag IA Ql (Unsp spec) Negative Normal [facility]; [facility] Work Phone: Rapid Strep Test, Office ([phone])Ordered By: Annita Kovacs on 03-20-2008 S. pyogenes Ag IA Ql (Unsp spec) Negative Normal [facility]; [facility] Work Phone: Comment on above: done km Rapid Strep Test, Office ([phone])Ordered By: Bernice Rabago on 01-09-2008 S. pyogenes Ag IA Ql (Unsp spec) Negative Normal [facility]; [facility] Work Phone: Laboratory - Microbiology an d Antimicrobial susceptibility Bacteria identified Cx Nom (Bld) No growth in 5 days. [facility] Work Phone: No Panel Information SARS-CoV-2 & FLU Antigen (Rapid) [facility] Work Phone: Vital Signs Date Time Vital Sign Value Performing Clinician Facility 02-15-2022 10:27-0400 Body height 167.[address] Michael Calderón Work Phone: [facility] Work Phone: 02-04-2022 11:00-0400 Body height 167.6 cm Deric Cortez MD Work Phone: [facility] 02-04-2022 11:00-0400 Body weight 81.65 kg Deric Cortez MD Work Phone: [facility] 02-04-2022 11:00-0400 Respiratory rate 20 /min Deric Cortez MD Work Phone: [facility] 01-28-2022 10:49-0400 Body height 167.6 cm Deric Cortez MD Work Phone: [facility] 01-28-2022 10:49-0400 Body weight 82.56 kg Deric Cortez MD Work Phone: [facility] 01-28-2022 10:49-0400 Respiratory rate 20 /min Deric Cortez MD Work Phone: [facility] 01-22-2022 06:00-0400 Body temperature 98.6 [degF] Dr. Michael Calderón Work Phone: [facility] Work Phone: 01-22-2022 06:00-0400 Diastolic blood pressure 60 mm[Hg] Dr. Michael Calderón Work Phone: [facility] Work Phone: 01-22-2022 06:00-0400 Heart rate 76 /min Dr. Michael Calderón Work Phone: [facility] Work Phone: 01-22-2022 06:00-0400 Respiratory rate 18 /min Dr. Michael Calderón Work Phone: [facility] Work Phone: 01-22-2022 06:00-0400 SaO2% (BldA) [Mass fraction] 96 % Dr. Michael Calderón Work Phone: [facility] Work Phone: 01-22-2022 06:00-0400 Systolic blood pressure 130 mm[Hg] Dr. Michael Calderón Work Phone: [facility] Work Phone: 01-21-2022 22:56-0400 Body mass index (BMI) [Ratio] 29.3 kg/m2 Dr. Michael Calderón Work Phone: [facility] Work Phone: 01-21-2022 22:56-0400 Body weight 82.[address] Michael Calderón Work Phone: [facility] Work Phone: 05-07-2015 10:58-0500 BMI (Body Mass Index) 27.41 kg/m2 [facility]; [facility] Work Phone: 05-07-2015 10:58-0500 Body Temperature 97.6 [degF] Naheed Main [facility]; [facility] Work Phone: Comment on above: Method: Temporal 05-07-2015 10:58-0500 Body weight 79.38 kg Naheed Main [facility]; [facility] Work Phone: 05-07-2015 10:58-0500 BP Diastolic 80 mm[Hg] Naheed Main [facility]; [facility] Work Phone: Comment on above: Patient Position: Sitting; Cuff Location : Left Arm; Cuff Size: Standard 05-07-2015 10:58-0500 BP Systolic 120 mm[Hg] [facility]; [facility] Work Phone: Comment on above: Patient Position: Sitting; Cuff Location : Left Arm; Cuff Size: Standard 05-07-2015 10:58-0500 BSA (Body Surface Area) 1.91 m2 [facility]; [facility] Work Phone: 05-07-2015 10:58-0500 Height 170.18 cm Naheed Munroe [facility]; [facility] Work Phone: 05-07-2015 10:58-0500 Pulse (Heart Rate) 62 /min [facility]; [facility] Work Phone: Comment on above: Pattern: Regular 05-07-2015 10:58-0500 Pulse Oximetry 99 % Naheed Alejandrokhalidaale [facility] Internal Medicine; [facility] Work Phone: Comment on above: Room air 05-07-2015 10:58-0500 Respiratory Rate 18 /min Naheed Munroe [facility]; [facility] Work Phone: Comment on above: Pattern: Unlabored 01-15-2015 13:10-0400 BMI (Body Mass Index) 29.76 kg/m2 Naheed Munroeale [facility]; [facility] Work Phone: 01-15-2015 13:10-0400 Body Temperature 97.7 [degF] [facility]; [facility] Work Phone: Comment on above: Method: Temporal 01-15-2015 13:10-0400 Body weight 86.18 kg [facility]; [facility] Work Phone: 01-15-2015 13:10-0400 BP Diastolic 78 mm[Hg] [facility]; [facility] Work Phone: Comment on above: Patient Position: Sitting; Cuff Location : Left Arm; Cuff Size: Large 01-15-2015 13:10-0400 BP Systolic 124 mm[Hg] Naheed Munroeale [facility] Internal Medicine; [facility] Work Phone: Comment on above: Patient Position: Sitting; Cuff Location : Left Arm; Cuff Size: Large 01-15-2015 13:10-0400 BSA (Body Surface Area) 1.98 m2 [facility]; [facility] Work Phone: 01-15-2015 13:10-0400 Height 170.18 cm Naheed Munroe [facility]; [facility] Work Phone: 01-15-2015 13:10-0400 Pulse (Heart Rate) 68 /min [facility]; [facility] Work Phone: Comment on above: Pattern: Regular 01-15-2015 13:10-0400 Pulse Oximetry 97 % Naheed Etelvina [facility] Internal Medicine; [facility] Work Phone: Comment on above: Room air 01-15-2015 13:10-0400 Respiratory Rate 18 /min [facility]; [facility] Work Phone: Comment on above: Pattern: Unlabored 12-18-2014 10:33-0400 BMI (Body Mass Index) 30.54 kg/m2 Naheed Munroeale [facility] Internal Medicine; [facility] Work Phone: 12-18-2014 10:33-0400 Body Temperature 97.9 [degF] Naheed Main [facility] Medicine; [facility] Work Phone: Comment on above: Method: Temporal 12-18-2014 10:33-0400 Body weight 88.45 kg [facility]; [facility] Work Phone: 12-18-2014 10:33-0400 BP Diastolic 84 mm[Hg] [facility]; [facility] Work Phone: Comment on above: Patient Position: Sitting; Cuff Location : Left Arm; Cuff Size: Large 12-18-2014 10:33-0400 BP Systolic 140 mm[Hg] Naheed Munroei [facility]; [facility] Work Phone: Comment on above: Patient Position: Sitting; Cuff Location : Left Arm; Cuff Size: Large 12-18-2014 10:33-0400 BSA (Body Surface Area) 2 m2 Naheed Main [facility] Internal Medicine; [facility] Work Phone: 12-18-2014 10:33-0400 Height 170.18 cm Naheedernie Munroeale [facility] Medicine; [facility] Work Phone: 12-18-2014 10:33-0400 Pulse (Heart Rate) 70 /min Naheed Main [facility]; [facility] Work Phone: Comment on above: Pattern: Regular 12-18-2014 10:33-0400 Pulse Oximetry 99 % Naheed Main [facility] Medicine; [facility] Work Phone: Comment on above: Room air 12-18-2014 10:33-0400 Respiratory Rate 18 /min Naheed Main [facility]; [facility] Work Phone: Comment on above: Pattern: Unlabored 11-04-2014 13:26-0400 BMI (Body Mass Index) 30.38 kg/m2 Naheed Main [facility] Medicine; [facility] Work Phone: 11-04-2014 13:26-040 Body Temperature 98.3 [degF] Naheed Main [facility]; [facility] Work Phone: Comment on above: Method: Oral 11-04-2014 13:0400 Body weight 88 kg Naheed Munroeale [facility]; [facility] Work Phone: 11-04-2014 13:26-0400 BP Diastolic 82 mm[Hg] Naheed Main [facility]; [facility] Work Phone: Comment on above: Patient Position: Supine 11-04-2014 13:26-0400 BP Systolic 152 mm[Hg] Naheed Allenkhalidaale [facility]; [facility] Work Phone: Comment on above: Patient Position: Supine 11-04-2014 13:26-0400 BSA (Body Surface Area) 2 m2 [facility]; [facility] Work Phone: 11-04-2014 13:040 Height 170.18 cm [facility]; [facility] Work Phone: 11-04-2014 13:040 Pulse (Heart Rate) 83 /min [facility]; [facility] Work Phone: Comment on above: Pattern: Regular 11-04-2014 13:0400 Pulse Oximetry 98 % [facility]; [facility] Work Phone: Comment on above: Room air 11-04-2014 13:040 Respiratory Rate 17 /min [facility]; [facility] Work Phone: 10-20-2014 11:14-0400 BMI (Body Mass Index) 29.84 kg/m2 Naheed Main [facility] Medicine; [facility] Work Phone: 10-20-2014 11:14-0400 Body Temperature 97.9 [degF] [facility]; [facility] Work Phone: 10-20-2014 11:14-0400 Body weight 86.41 kg [facility]; [facility] Work Phone: 10-20-2014 11:14-0400 BP Diastolic 78 mm[Hg] [facility]; [facility] Work Phone: Comment on above: Patient Position: Sitting; Cuff Location : Left Arm; Cuff Size: Standard 10-20-2014 11:14-0400 BP Systolic 118 mm[Hg] [facility]; [facility] Work Phone: Comment on above: Patient Position: Sitting; Cuff Location : Left Arm; Cuff Size: Standard 10-20-2014 11:14-0400 BSA (Body Surface Area) 1.98 m2 [facility]; [facility] Work Phone: 10-20-2014 11:14-0400 Height 170.18 cm [facility]; [facility] Work Phone: 10-20-2014 11:14-0400 Pulse (Heart Rate) 81 /min Naheed Munroeale [facility]; [facility] Work Phone: Comment on above: Pattern: Regular 10-20-2014 11:14-0400 Pulse Oximetry 98 % Naheed Alejandrokhalidaale [facility]; [facility] Work Phone: Comment on above: Room air 10-20-2014 11:14-0400 Respiratory Rate 16 /min Naheed Alejandrokhalidaale [facility]; [facility] Work Phone: Comment on above: Pattern: Unlabored 05-08-2014 10:49-0500 BMI (Body Mass Index) 29.13 kg/m2 Naheedernie Main [facility] Internal Medicine; [facility] Work Phone: 05-08-2014 10:49-0500 Body Temperature 97.6 [degF] [facility]; [facility] Work Phone: Comment on above: Method: Temporal 05-08-2014 10:49-0500 Body weight 84.37 kg [facility]; [facility] Work Phone: 05-08-2014 10:49-0500 BP Diastolic 78 mm[Hg] [facility]; [facility] Work Phone: Comment on above: Patient Position: Sitting; Cuff Location : Left Arm; Cuff Size: Standard 05-08-2014 10:49-0500 BP Systolic 122 mm[Hg] [facility]; [facility] Work Phone: Comment on above: Patient Position: Sitting; Cuff Location : Left Arm; Cuff Size: Standard 05-08-2014 10:49-0500 BSA (Body Surface Area) 1.96 m2 Naheed MunroePresbyterian [facility]; [facility] Work Phone: 05-08-2014 10:49-0500 Height 170.18 cm [facility]; [facility] Work Phone: 05-08-2014 10:49-0500 Pulse (Heart Rate) 74 /min [facility]; [facility] Work Phone: Comment on above: Pattern: Regular 05-08-2014 10:49-0500 Respiratory Rate 20 /min [facility]; [facility] Work Phone: Comment on above: Pattern: Unlabored 11-01-2013 11:40-0400 BMI (Body Mass Index) 28.5 kg/m2 [facility]Re[facility]; [facility] Work Phone: 11-01-2013 11:40-0400 Body Temperature 97.6 [degF] [facility]Pres[facility]; [facility] Work Phone: Comment on above: Method: Oral 11-01-2013 11:40-0400 Body weight 82.56 kg [facility]; [facility] Work Phone: 11-01-2013 11:40-0400 BP Diastolic 80 mm[Hg] [facility]; [facility] Work Phone: Comment on above: Patient Position: Sitting; Cuff Location : Left Arm; Cuff Size: Large 11-01-2013 11:40-0400 BP Systolic 120 mm[Hg] [facility]; [facility] Work Phone: Comment on above: Patient Position: Sitting; Cuff Location : Left Arm; Cuff Size: Large 11-01-2013 11:40-0400 BSA (Body Surface Area) 1.94 m2 [facility]; [facility] Work Phone: 11-01-2013 11:40-0400 Height 170.18 cm [facility]; [facility] Work Phone: 11-01-2013 11:40-0400 Pulse (Heart Rate) 74 /min [facility]; [facility] Work Phone: Comment on above: Pattern: Regular 11-01-2013 11:40-0400 Respiratory Rate 18 /min Naheed Main [facility]; [facility] Work Phone: Comment on above: Pattern: Unlabored 04-22-2013 10:25-0400 BMI (Body Mass Index) 28.82 kg/m2 Naheed Main [facility] Internal Medicine; [facility] Work Phone: 04-22-2013 10:25-0400 Body Temperature 98.9 [degF] Naheed Main [facility]; [facility] Work Phone: Comment on above: Method: Oral 04-22-2013 10:25-0400 Body weight 83.46 kg Naheed Main [facility]; [facility] Work Phone: 04-22-2013 10:25-0400 BP Diastolic 80 mm[Hg] Naheed Munroe [facility]; [facility] Work Phone: Comment on above: Patient Position: Sitting; Cuff Location : Left Arm; Cuff Size: Standard 04-22-2013 10:25-0400 BP Systolic 128 mm[Hg] [facility]; [facility] Work Phone: Comment on above: Patient Position: Sitting; Cuff Location : Left Arm; Cuff Size: Standard 04-22-2013 10:25-0400 BSA (Body Surface Area) 1.95 m2 Naheed Munroe [facility]; [facility] Work Phone: 04-22-2013 10:25-0400 Height 170.18 cm Naheed Munroe [facility]; [facility] Work Phone: 04-22-2013 10:25-0400 Pulse (Heart Rate) 74 /min Naheed Munroe [facility]; [facility] Work Phone: Comment on above: Pattern: Regular 04-22-2013 10:25-0400 Respiratory Rate 18 /min Naheed Munroe [facility]; [facility] Work Phone: Comment on above: Pattern: Unlabored 10-23-2012 10:05-0400 BMI (Body Mass Index) 28.44 kg/m2 Naheed Main [facility] Internal Medicine; [facility] Work Phone: 10-23-2012 10:05-0400 Body Temperature 98.7 [degF] Naheed Main [facility] Internal Medicine; [facility] Work Phone: Comment on above: Method: Temporal 10-23-2012 10:05-0400 Body weight 82.37 kg Naheed Main [facility]; [facility] Work Phone: 10-23-2012 10:05-0400 BP Diastolic 78 mm[Hg] Naheed Main [facility] Internal Medicine; [facility] Work Phone: Comment on above: Patient Position: Sitting; Cuff Location : Left Arm; Cuff Size: Standard 10-23-2012 10:05-0400 BP Systolic 136 mm[Hg] Naheed Main [facility] Internal Medicine; [facility] Work Phone: Comment on above: Patient Position: Sitting; Cuff Location : Left Arm; Cuff Size: Standard 10-23-2012 10:05-0400 BSA (Body Surface Area) 1.94 m2 Naheed Main [facility] Internal Medicine; [facility] Work Phone: 10-23-2012 10:05-0400 Height 170.18 cm Naheed Main [facility] Medicine; [facility] Work Phone: 10-23-2012 10:05-0400 Pulse (Heart Rate) 72 /min Naheed Main [facility] Medicine; [facility] Work Phone: Comment on above: Pattern: Regular 10-23-2012 10:05-0400 Pulse Oximetry 97 % Naheed Main [facility] Internal Medicine; [facility] Work Phone: Comment on above: Room air 10-23-2012 10:05-0400 Respiratory Rate 16 /min Naheed Main [facility] Medicine; [facility] Work Phone: Comment on above: Pattern: Unlabored 10-12-2012 09:50-0400 BMI (Body Mass Index) 28.66 kg/m2 Naheed Main [facility]; [facility] Work Phone: 10-12-2012 09:50-0400 Body Temperature 98.8 [degF] Naheed Main [facility]; [facility] Work Phone: Comment on above: Method: Oral 10-12-2012 09:50-0400 Body weight 83.01 kg Naheed Munroeale [facility]; [facility] Work Phone: 10-12-2012 09:50-0400 BP Diastolic 82 mm[Hg] Naheed Munroeale [facility]; [facility] Work Phone: Comment on above: Patient Position: Sitting; Cuff Location : Left Arm; Cuff Size: Standard 10-12-2012 09:50-0400 BP Systolic 138 mm[Hg] Naheed Munroeale [facility]; [facility] Work Phone: Comment on above: Patient Position: Sitting; Cuff Location : Left Arm; Cuff Size: Standard 10-12-2012 09:50-0400 BSA (Body Surface Area) 1.95 m2 Naheed Main [facility]; [facility] Work Phone: 10-12-2012 09:50-0400 Height 170.18 cm Naheed Munroe [facility]; [facility] Work Phone: 10-12-2012 09:50-0400 Pulse (Heart Rate) 85 /min Naheed Munroeale [facility]; [facility] Work Phone: Comment on above: Pattern: Regular 10-12-2012 09:50-0400 Pulse Oximetry 99 % Naheed Munroeale [facility]; [facility] Work Phone: Comment on above: Room air 09-11-2012 10:49-0400 BMI (Body Mass Index) 28.66 kg/m2 [facility]heed [facility]; [facility] Work Phone: 09-11-2012 10:49-0400 Body Temperature 97.2 [degF] Naheedernie Munroeale [facility]; [facility] Work Phone: Comment on above: Method: Oral 09-11-2012 10:49-0400 Body weight 83.01 kg Naheed Main [facility]; [facility] Work Phone: 09-11-2012 10:49-0400 BP Diastolic 82 mm[Hg] Naheed Main [facility]; [facility] Work Phone: Comment on above: Patient Position: Sitting; Cuff Location : Left Arm; Cuff Size: Standard 09-11-2012 10:49-0400 BP Systolic 142 mm[Hg] Naheed Main [facility]; [facility] Work Phone: Comment on above: Patient Position: Sitting; Cuff Location : Left Arm; Cuff Size: Standard 09-11-2012 10:49-0400 BSA (Body Surface Area) 1.95 m2 Naheed Main [facility] Internal Medicine; [facility] Work Phone: 09-11-2012 10:49-0400 Height 170.18 cm Naheed Munroeale [facility]; [facility] Work Phone: 09-11-2012 10:49-0400 Pulse (Heart Rate) 74 /min Naheed Munroeale [facility]; [facility] Work Phone: Comment on above: Pattern: Regular 09-11-2012 10:49-0400 Respiratory Rate 17 /min Naheed Munroeale [facility]; [facility] Work Phone: 08-21-2012 14:55-0500 BMI (Body Mass Index) 28.66 kg/m2 Naheed Main [facility] Internal Medicine; [facility] Work Phone: 08-21-2012 14:55-0500 Body Temperature 98.2 [degF] Naheedernie Main [facility]; [facility] Work Phone: Comment on above: Method: Oral 08-21-2012 14:55-0500 Body weight 83.01 kg Naheed Munroeale [facility]; [facility] Work Phone: 08-21-2012 14:55-0500 BP Diastolic 86 mm[Hg] [facility]; [facility] Work Phone: Comment on above: Patient Position: Sitting; Cuff Location : Left Arm; Cuff Size: Standard 08-21-2012 14:55-0500 BP Systolic 148 mm[Hg] [facility]; [facility] Work Phone: Comment on above: Patient Position: Sitting; Cuff Location : Left Arm; Cuff Size: Standard 08-21-2012 14:55-0500 BSA (Body Surface Area) 1.95 m2 [facility]; [facility] Work Phone: 08-21-2012 14:55-0500 Height 170.18 cm [facility]; [facility] Work Phone: 08-21-2012 14:55-0500 Pulse (Heart Rate) 72 /min [facility]; [facility] Work Phone: Comment on above: Pattern: Regular 08-21-2012 14:55-0500 Respiratory Rate 16 /min Naheed Main [facility] Internal Medicine; [facility] Work Phone: Comment on above: Pattern: Unlabored 07-24-2012 10:46-0500 BMI (Body Mass Index) 28.66 kg/m2 Naheed Main [facility] Medicine; [facility] Work Phone: 07-24-2012 10:46-0500 Body Temperature 97.8 [degF] [facility]heedernie [facility]; [facility] Work Phone: Comment on above: Method: Oral 07-24-2012 10:46-0500 Body weight 83.01 kg [facility]heed [facility]Pres[facility]; [facility] Work Phone: 07-24-2012 10:46-0500 BP Diastolic 84 mm[Hg] [facility]; [facility] Work Phone: Comment on above: Patient Position: Sitting; Cuff Location : Left Arm; Cuff Size: Standard 07-24-2012 10:46-0500 BP Systolic 160 mm[Hg] [facility]; [facility] Work Phone: Comment on above: Patient Position: Sitting; Cuff Location : Left Arm; Cuff Size: Standard 07-24-2012 10:46-0500 BSA (Body Surface Area) 1.95 m2 [facility]; [facility] Work Phone: 07-24-2012 10:46-0500 Height 170.18 cm [facility]; [facility] Work Phone: 07-24-2012 10:46-0500 Pulse (Heart Rate) 76 /min [facility]; [facility] Work Phone: Comment on above: Pattern: Regular 07-24-2012 10:46-0500 Respiratory Rate 18 /min [facility]; [facility] Work Phone: Comment on above: Pattern: Unlabored 07-16-2012 13:27-0500 BMI (Body Mass Index) 29.14 kg/m2 Naheed Main [facility] Internal Medicine; [facility] Work Phone: 07-16-2012 13:27-0500 Body Temperature 98.6 [degF] [facility]; [facility] Work Phone: Comment on above: Method: Oral 07-16-2012 13:27-0500 Body weight 84.4 kg [facility]; [facility] Work Phone: 07-16-2012 13:27-0500 BP Diastolic 82 mm[Hg] [facility]; [facility] Work Phone: Comment on above: Patient Position: Sitting; Cuff Location : Left Arm; Cuff Size: Standard 07-16-2012 13:27-0500 BP Systolic 138 mm[Hg] [facility]; [facility] Work Phone: Comment on above: Patient Position: Sitting; Cuff Location : Left Arm; Cuff Size: Standard 07-16-2012 13:27-0500 BSA (Body Surface Area) 1.96 m2 Naheed Main [facility] Internal Medicine; [facility] Work Phone: 07-16-2012 13:27-0500 Height 170.18 cm Naheed Main [facility] Internal Medicine; [facility] Work Phone: 07-16-2012 13:27-0500 Pulse (Heart Rate) 88 /min [facility]; [facility] Work Phone: Comment on above: Pattern: Regular 07-16-2012 13:27-0500 Pulse Oximetry 97 % Naheed Main [facility] Internal Medicine; [facility] Work Phone: Comment on above: Room air 07-16-2012 13:27-0500 Respiratory Rate 17 /min Naheed Main [facility] Medicine; [facility] Work Phone: 04-23-2012 11:11-0400 BMI (Body Mass Index) 29.14 kg/m2 Naheed Main [facility] Internal Medicine; [facility] Work Phone: 04-23-2012 11:11-0400 Body Temperature 98.2 [degF] [facility]; [facility] Work Phone: Comment on above: Method: Oral 04-23-2012 11:11-0400 Body weight 84.4 kg Naheed Main [facility] Internal Medicine; [facility] Work Phone: 04-23-2012 11:11-0400 BP Diastolic 78 mm[Hg] [facility]; [facility] Work Phone: Comment on above: Patient Position: Sitting; Cuff Location : Left Arm; Cuff Size: Standard 04-23-2012 11:11-0400 BP Systolic 120 mm[Hg] [facility]; [facility] Work Phone: Comment on above: Patient Position: Sitting; Cuff Location : Left Arm; Cuff Size: Standard 04-23-2012 11:11-0400 BSA (Body Surface Area) 1.96 m2 Naheedernie [facility]roePres[facility]; [facility] Work Phone: 04-23-2012 [id number] Height 170.18 cm Naheed Munroeale [facility] Medicine; [facility] Work Phone: 04-23-2012 [id number] Pulse (Heart Rate) 68 /min Naheedernie Munroeale [facility] Internal Medicine; [facility] Work Phone: Comment on above: Pattern: Regular 04-23-2012 11:11-0400 Respiratory Rate 17 /min Naheed Etelvina [facility] Internal Medicine; [facility] Work Phone: Comment on above: Pattern: Unlabored 03-12-2012 10:11-0400 BMI (Body Mass Index) 29.69 kg/m2 Naheed Main [facility]; [facility] Work Phone: 03-12-2012 10:11-0400 Body Temperature 98 [degF] Naheed Main [facility] Internal Medicine; [facility] Work Phone: Comment on above: Method: Oral 03-12-2012 [id number]:110400 Body weight 86.64 kg Naheed Munroeale [facility] Internal Medicine; [facility] Work Phone: 03-12-2012 10:11-0400 BP Diastolic 80 mm[Hg] Naheed Main [facility] Internal Medicine; [facility] Work Phone: Comment on above: Patient Position: Sitting; Cuff Location : Left Arm; Cuff Size: Standard 03-12-2012 10:11-0400 BP Systolic 124 mm[Hg] Naheed Main [facility] Internal Medicine; [facility] Work Phone: Comment on above: Patient Position: Sitting; Cuff Location : Left Arm; Cuff Size: Standard 03-12-2012 10:11-0400 BSA (Body Surface Area) 1.99 m2 Naheed Main [facility]; [facility] Work Phone: 03-12-2012 10:11-0400 Height 170.81 cm Naheed Main [facility] Internal Medicine; [facility] Work Phone: 03-12-2012 10:11-0400 Pulse (Heart Rate) 62 /min Naheed Main [facility] Medicine; [facility] Work Phone: Comment on above: Pattern: Regular 03-12-2012 10:11-0400 Respiratory Rate 20 /min Naheed Main [facility] Internal Medicine; [facility] Work Phone: Comment on above: Pattern: Unlabored 08-23-2011 09:33-0500 BMI (Body Mass Index) 29.38 kg/m2 Naheed Main [facility]; [facility] Work Phone: 08-23-2011 09:33-0500 Body Temperature 98.5 [degF] Naheed Main [facility] Internal Medicine; [facility] Work Phone: Comment on above: Method: Oral 08-23-2011 09:33-0500 Body weight 85.73 kg Naheed Main [facility] Medicine; [facility] Work Phone: 08-23-2011 09:33-0500 BP Diastolic 80 mm[Hg] [facility]; [facility] Work Phone: Comment on above: Patient Position: Sitting; Cuff Location : Left Arm; Cuff Size: Standard 08-23-2011 09:33-0500 BP Systolic 134 mm[Hg] Naheed Main [facility] Internal Medicine; [facility] Work Phone: Comment on above: Patient Position: Sitting; Cuff Location : Left Arm; Cuff Size: Standard 08-23-2011 09:33-0500 BSA (Body Surface Area) 1.98 m2 Naheed Main [facility] Internal Medicine; [facility] Work Phone: 08-23-2011 09:33-0500 Height 170.81 cm [facility]; [facility] Work Phone: 08-23-2011 09:33-0500 Pulse (Heart Rate) 68 /min [facility]; [facility] Work Phone: Comment on above: Pattern: Regular 08-23-2011 09:33-0500 Respiratory Rate 16 /min Naheed Munroeale [facility] Medicine; [facility] Work Phone: Comment on above: Pattern: Unlabored 07-22-2011 09:23-0500 BMI (Body Mass Index) 29.54 kg/m2 [facility]heed [facility]; [facility] Work Phone: 07-22-2011 09:23-0500 Body Temperature 95.8 [degF] Naheed Main [facility]; [facility] Work Phone: 07-22-2011 09:23-0500 Body weight 86.18 kg Naheed Main [facility]; [facility] Work Phone: 07-22-2011 09:23-0500 BP Diastolic 82 mm[Hg] Naheed Main [facility]; [facility] Work Phone: Comment on above: Patient Position: Sitting; Cuff Location : Left Arm; Cuff Size: Standard 07-22-2011 09:23-0500 BP Systolic 124 mm[Hg] Naheed Munroeale [facility]; [facility] Work Phone: Comment on above: Patient Position: Sitting; Cuff Location : Left Arm; Cuff Size: Standard 07-22-2011 09:23-0500 BSA (Body Surface Area) 1.98 m2 Naheed Munroe [facility]; [facility] Work Phone: 07-22-2011 09:23-0500 Height 170.81 cm Naheed Munroe [facility]; [facility] Work Phone: 07-22-2011 09:23-0500 Pulse (Heart Rate) 68 /min Naheed Munroe [facility]; [facility] Work Phone: Comment on above: Pattern: Regular 07-22-2011 09:23-0500 Respiratory Rate 16 /min Naheed Munroe [facility]; [facility] Work Phone: Comment on above: Pattern: Unlabored 06-28-2011 11:45-0500 BMI (Body Mass Index) 29.23 kg/m2 Naheed Main [facility]; [facility] Work Phone: 06-28-2011 11:45-0500 Body Temperature 99 [degF] Naheed Main [facility]; [facility] Work Phone: Comment on above: Method: Oral 06-28-2011 11:45-0500 Body weight 85.28 kg Naheed Munroeale [facility]; [facility] Work Phone: 06-28-2011 11:45-0500 BP Diastolic 80 mm[Hg] Naheed Main [facility]; [facility] Work Phone: Comment on above: Patient Position: Sitting; Cuff Location : Left Arm; Cuff Size: Standard 06-28-2011 11:45-0500 BP Systolic 132 mm[Hg] Naheedernie Main [facility]; [facility] Work Phone: Comment on above: Patient Position: Sitting; Cuff Location : Left Arm; Cuff Size: Standard 06-28-2011 11:45-0500 BSA (Body Surface Area) 1.98 m2 Naheedernie Main [facility]; [facility] Work Phone: 06-28-2011 11:45-0500 Height 170.81 cm Naheed Munroeale [facility]; [facility] Work Phone: 06-28-2011 11:45-0500 Pulse (Heart Rate) 72 /min Naheedernie Munroeale [facility]; [facility] Work Phone: Comment on above: Pattern: Regular 06-28-2011 11:45-0500 Pulse Oximetry 97 % Naheed Alejandrokhalidaale [facility]; [facility] Work Phone: Comment on above: Room air 06-28-2011 11:45-0500 Respiratory Rate 16 /min Naheed Munroeale [facility]; [facility] Work Phone: Comment on above: Pattern: Unlabored 02-17-2011 08:17-0400 BMI (Body Mass Index) 29.23 kg/m2 Naheed Alejandrokhalidaale [facility]; [facility] Work Phone: 02-17-2011 08:17-0400 Body Temperature 97.9 [degF] Naheed Etelvina [facility]; [facility] Work Phone: Comment on above: Method: Oral 02-17-2011 08:17-0400 Body weight 85.28 kg Naheed [facility]halidaPres[facility]; [facility] Work Phone: 02-17-2011 08:17-0400 BP Diastolic 80 mm[Hg] Naheed Main [facility]; [facility] Work Phone: Comment on above: Patient Position: Sitting; Cuff Location : Left Arm; Cuff Size: Standard 02-17-2011 08:17-0400 BP Systolic 120 mm[Hg] [facility]; [facility] Work Phone: Comment on above: Patient Position: Sitting; Cuff Location : Left Arm; Cuff Size: Standard 02-17-2011 08:17-0400 BSA (Body Surface Area) 1.98 m2 [facility]; [facility] Work Phone: 02-17-2011 08:17-0400 Height 170.81 cm [facility]; [facility] Work Phone: 02-17-2011 08:17-0400 Pulse (Heart Rate) 68 /min [facility]; [facility] Work Phone: Comment on above: Pattern: Regular 02-17-2011 08:17-0400 Respiratory Rate 18 /min Naheed [facility] Work Phone: Comment on above: Pattern: Unlabored 12-28-2010 10:01-0400 BMI (Body Mass Index) 29.25 kg/m2 Naheed Main [facility] Internal Medicine; [facility] Work Phone: 12-28-2010 10:01-0400 Body weight 85.33 kg [facility]; [facility] Work Phone: 12-28-2010 10:01-0400 BP Diastolic 80 mm[Hg] Naheed Munroe [facility]; [facility] Work Phone: Comment on above: Patient Position: Sitting; Cuff Location : Left Arm; Cuff Size: Large 12-28-2010 10:01-0400 BP Systolic 122 mm[Hg] [facility]; [facility] Work Phone: Comment on above: Patient Position: Sitting; Cuff Location : Left Arm; Cuff Size: Large 12-28-2010 10:01-0400 BSA (Body Surface Area) 1.98 m2 [facility]; [facility] Work Phone: 12-28-2010 10:010400 Height 170.81 cm [facility]; [facility] Work Phone: 12-28-2010 10:010400 Pulse (Heart Rate) 80 /min [facility]; [facility] Work Phone: Comment on above: Pattern: Regular 12-28-2010 10:01-0400 Respiratory Rate 20 /min [facility]; [facility] Work Phone: Comment on above: Pattern: Unlabored 08-18-2010 10:30-0500 BMI (Body Mass Index) 27.05 kg/m2 Naheed Main [facility] Internal Medicine; [facility] Work Phone: 08-18-2010 10:30-0500 Body Temperature 98.2 [degF] [facility]; [facility] Work Phone: Comment on above: Method: Oral 08-18-2010 10:30-0500 Body weight 78.93 kg [facility]; [facility] Work Phone: 08-18-2010 10:30-0500 BP Diastolic 78 mm[Hg] [facility]; [facility] Work Phone: Comment on above: Patient Position: Sitting; Cuff Location : Left Arm; Cuff Size: Large 08-18-2010 10:30-0500 BP Systolic 122 mm[Hg] [facility]; [facility] Work Phone: Comment on above: Patient Position: Sitting; Cuff Location : Left Arm; Cuff Size: Large 08-18-2010 10:30-0500 BSA (Body Surface Area) 1.91 m2 Naheed [facility] Internal Medicine; [facility] Work Phone: 08-18-2010 10:30-0500 Height 170.81 cm Naheed Munroe [facility]; [facility] Work Phone: 08-18-2010 10:30-0500 Pulse (Heart Rate) 74 /min [facility]; [facility] Work Phone: Comment on above: Pattern: Regular 08-18-2010 10:30-0500 Respiratory Rate 20 /min [facility]; [facility] Work Phone: Comment on above: Pattern: Unlabored 07-23-2010 10:28-0500 BMI (Body Mass Index) 27.05 kg/m2 Naheed Main [facility] Internal Medicine; [facility] Work Phone: 07-23-2010 10:28-0500 Body weight 78.93 kg [facility]; [facility] Work Phone: 07-23-2010 10:28-0500 BP Diastolic 82 mm[Hg] [facility]; [facility] Work Phone: Comment on above: Patient Position: Sitting; Cuff Location : Left Arm; Cuff Size: Standard 07-23-2010 10:28-0500 BP Systolic 124 mm[Hg] [facility]; [facility] Work Phone: Comment on above: Patient Position: Sitting; Cuff Location : Left Arm; Cuff Size: Standard 07-23-2010 10:28-0500 BSA (Body Surface Area) 1.91 m2 [facility]; [facility] Work Phone: 07-23-2010 10:28-0500 Height 170.81 cm [facility]; [facility] Work Phone: 07-23-2010 10:28-0500 Pulse (Heart Rate) 68 /min Naheed Allenzzi [facility]; [facility] Work Phone: Comment on above: Pattern: Regular 07-23-2010 10:28-0500 Respiratory Rate 20 /min Naheed Main [facility] Internal Medicine; [facility] Work Phone: Comment on above: Pattern: Unlabored 06-10-2010 09:58-0500 BMI (Body Mass Index) 27.05 kg/m2 [facility]heed [facility]; [facility] Work Phone: 06-10-2010 09:58-0500 Body Temperature 97.5 [degF] Naheed Main [facility] Internal Medicine; [facility] Work Phone: Comment on above: Method: Oral 06-10-2010 09:58-0500 Body weight 78.93 kg Naheed Main [facility] Internal Medicine; [facility] Work Phone: 06-10-2010 09:58-0500 BP Diastolic 80 mm[Hg] Naheed [facility]; [facility] Work Phone: Comment on above: Patient Position: Sitting; Cuff Location : Left Arm; Cuff Size: Standard 06-10-2010 09:58-0500 BP Systolic 120 mm[Hg] Naheed Main [facility] Internal Medicine; [facility] Work Phone: Comment on above: Patient Position: Sitting; Cuff Location : Left Arm; Cuff Size: Standard 06-10-2010 09:58-0500 BSA (Body Surface Area) 1.91 m2 Naheed Munroeale [facility] Medicine; [facility] Work Phone: 06-10-2010 09:58-0500 Height 170.81 cm Naheed [facility]roe[facility]; [facility] Work Phone: 06-10-2010 09:58-0500 Pulse (Heart Rate) 70 /min Naheed Munroeale [facility] Medicine; [facility] Work Phone: Comment on above: Pattern: Regular 06-10-2010 09:58-0500 Respiratory Rate 18 /min Naheed [facility] Medicine; [facility] Work Phone: Comment on above: Pattern: Unlabored 12-03-2009 09:59-0400 Body weight 79.38 kg [facility]; [facility] Work Phone: 12-03-2009 09:59-0400 BP Diastolic 78 mm[Hg] Naheed Bonei [facility]; [facility] Work Phone: Comment on above: Patient Position: Sitting; Cuff Location : Left Arm; Cuff Size: Standard 12-03-2009 09:59-0400 BP Systolic 118 mm[Hg] [facility]; [facility] Work Phone: Comment on above: Patient Position: Sitting; Cuff Location : Left Arm; Cuff Size: Standard 12-03-2009 09:59-0400 Pulse (Heart Rate) 68 /min Naheed [facility] Medicine; [facility] Work Phone: Comment on above: Pattern: Regular 12-03-2009 09:59-0400 Respiratory Rate 18 /min Naheed [facility] Medicine; [facility] Work Phone: Comment on above: Pattern: Unlabored 06-02-2009 10:27-0500 Body weight 83.46 kg Naheed [facility]; [facility] Work Phone: 06-02-2009 10:27-0500 BP Diastolic 80 mm[Hg] Naheed Bonei [facility]; [facility] Work Phone: Comment on above: Patient Position: Sitting; Cuff Location : Left Arm; Cuff Size: Standard 06-02-2009 10:27-0500 BP Systolic 122 mm[Hg] [facility]; [facility] Work Phone: Comment on above: Patient Position: Sitting; Cuff Location : Left Arm; Cuff Size: Standard 06-02-2009 10:27-0500 Head Circumference 0 cm [facility]; [facility] Work Phone: 06-02-2009 10:27-0500 Height 0 cm [facility] Internal Medicine; [facility] Work Phone: 06-02-2009 10:27-0500 Pulse (Heart Rate) 70 /min Naheed Bonekhalidai [facility]; [facility] Work Phone: Comment on above: Pattern: Regular 06-02-2009 10:27-0500 Respiratory Rate 16 /min Naheed Bonekhalidai [facility]; [facility] Work Phone: Comment on above: Pattern: Unlabored 04-07-2009 09:40-0400 Body weight 0 kg Naheed Bonekhalidai [facility]; [facility] Work Phone: 04-07-2009 09:40-0400 BP Diastolic 80 mm[Hg] Naheed Bonei [facility]; [facility] Work Phone: Comment on above: Patient Position: Sitting; Cuff Location : Left Arm; Cuff Size: Standard 04-07-2009 09:40-0400 BP Systolic 120 mm[Hg] Naheed Bonekhalidai [facility]; [facility] Work Phone: Comment on above: Patient Position: Sitting; Cuff Location : Left Arm; Cuff Size: Standard 04-07-2009 09:40-0400 Head Circumference 0 cm [facility]; [facility] Work Phone: 04-07-2009 09:40-0400 Height 0 cm Naheed Bonekhalidai [facility]; [facility] Work Phone: 04-07-2009 09:40-0400 Pulse (Heart Rate) 74 /min Naheed Bonekhalidai [facility]; [facility] Work Phone: Comment on above: Pattern: Regular 04-07-2009 09:40-0400 Respiratory Rate 16 /min Naheed Bonekhalidai [facility]; [facility] Work Phone: Comment on above: Pattern: Unlabored 02-19-2009 10:17-0400 Body weight 83.46 kg Naheed Bonekhalidai [facility]; [facility] Work Phone: 02-19-2009 10:17-0400 BP Diastolic 78 mm[Hg] Naheed Bonei [facility]; [facility] Work Phone: Comment on above: Patient Position: Sitting; Cuff Location : Left Arm; Cuff Size: Standard 02-19-2009 10:17-0400 BP Systolic 120 mm[Hg] [facility]; [facility] Work Phone: Comment on above: Patient Position: Sitting; Cuff Location : Left Arm; Cuff Size: Standard 02-19-2009 10:17-0400 Head Circumference 0 cm [facility] Internal Medicine; [facility] Work Phone: 02-19-2009 10:17-0400 Height 0 cm [facility]; [facility] Work Phone: 02-19-2009 10:17-0400 Pulse (Heart Rate) 74 /min [facility] Internal Medicine; [facility] Work Phone: Comment on above: Pattern: Regular 02-19-2009 10:17-0400 Respiratory Rate 16 /min [facility] Internal Medicine; [facility] Work Phone: Comment on above: Pattern: Unlabored 12-01-2008 09:57-0400 Body weight 83.46 kg [facility] Internal Medicine; [facility] Work Phone: 12-01-2008 09:57-0400 BP Diastolic 78 mm[Hg] [facility] Internal Medicine; [facility] Work Phone: Comment on above: Patient Position: Sitting; Cuff Location : Left Arm; Cuff Size: Large 12-01-2008 09:57-0400 BP Systolic 118 mm[Hg] [facility] Internal Medicine; [facility] Work Phone: Comment on above: Patient Position: Sitting; Cuff Location : Left Arm; Cuff Size: Large 12-01-2008 09:57-0400 Head Circumference 0 cm [facility] Internal Medicine; [facility] Work Phone: 12-01-2008 09:57-0400 Height 0 cm [facility] Internal Medicine; [facility] Work Phone: 12-01-2008 09:57-0400 Pulse (Heart Rate) 70 /min Naheed Munroei [facility]; [facility] Work Phone: Comment on above: Pattern: Regular 12-01-2008 09:57-0400 Respiratory Rate 16 /min Naheed Ludwigi [facility]; [facility] Work Phone: Comment on above: Pattern: Unlabored 06-30-2008 14:59-0500 Body Temperature 98.8 [degF] Naheed Munroei [facility]; [facility] Work Phone: Comment on above: Method: Oral 06-30-2008 14:59-0500 Body weight 0 kg Naheed Munroei [facility]; [facility] Work Phone: 06-30-2008 14:59-0500 BP Diastolic 78 mm[Hg] Naheed Bonekhalidai [facility]; [facility] Work Phone: Comment on above: Patient Position: Sitting; Cuff Location : Left Arm; Cuff Size: Large 06-30-2008 14:59-0500 BP Systolic 122 mm[Hg] Naheed Munroei [facility]; [facility] Work Phone: Comment on above: Patient Position: Sitting; Cuff Location : Left Arm; Cuff Size: Large 06-30-2008 14:59-0500 Head Circumference 0 cm Naheed Munroei [facility]; [facility] Work Phone: 06-30-2008 14:59-0500 Height 0 cm Naheed Munroe [facility]; [facility] Work Phone: 06-30-2008 14:59-0500 Pulse (Heart Rate) 68 /min Naheed Munroei [facility]; [facility] Work Phone: Comment on above: Pattern: Regular 06-30-2008 14:59-0500 Respiratory Rate 16 /min Naheed Bonekhalidai [facility]; [facility] Work Phone: Comment on above: Pattern: Unlabored 06-23-2008 10:16-0500 Body weight 84.82 kg Naheed Munroei [facility]; [facility] Work Phone: 06-23-2008 10:16-0500 BP Diastolic 80 mm[Hg] Naheed [facility] Medicine; [facility] Work Phone: Comment on above: Patient Position: Sitting; Cuff Location : Left Arm; Cuff Size: Large 06-23-2008 10:16-0500 BP Systolic 124 mm[Hg] [facility]; [facility] Work Phone: Comment on above: Patient Position: Sitting; Cuff Location : Left Arm; Cuff Size: Large 06-23-2008 10:16-0500 Head Circumference 0 cm [facility]; [facility] Work Phone: 06-23-2008 10:16-0500 Height 0 cm [facility]; [facility] Work Phone: 06-23-2008 10:16-0500 Pulse (Heart Rate) 70 /min Naheed Munroe [facility]; [facility] Work Phone: Comment on above: Pattern: Regular 06-23-2008 10:16-0500 Respiratory Rate 16 /min [facility]; [facility] Work Phone: Comment on above: Pattern: Unlabored 03-20-2008 14:14-0400 BMI (Body Mass Index) 29.7 kg/m2 Naheed Main [facility]; [facility] Work Phone: 03-20-2008 14:14-0400 Body Temperature 98.5 [degF] [facility]; [facility] Work Phone: Comment on above: Method: Oral 03-20-2008 14:14-0400 Body weight 86.66 kg Naheed Main [facility] Internal Medicine; [facility] Work Phone: 03-20-2008 14:14-0400 BP Diastolic 76 mm[Hg] [facility]; [facility] Work Phone: Comment on above: Patient Position: Sitting; Cuff Location : Left Arm; Cuff Size: Standard 03-20-2008 14:14-0400 BP Systolic 120 mm[Hg] [facility] Internal Medicine; [facility] Work Phone: Comment on above: Patient Position: Sitting; Cuff Location : Left Arm; Cuff Size: Standard 03-20-2008 14:14-0400 BSA (Body Surface Area) 1.99 m2 [facility] Internal Medicine; [facility] Work Phone: 03-20-2008 14:14-0400 Head Circumference 0 cm [facility] Internal Medicine; [facility] Work Phone: 03-20-2008 14:14-0400 Height 170.81 cm [facility] Internal Medicine; [facility] Work Phone: 03-20-2008 14:14-0400 Pulse (Heart Rate) 88 /min [facility] Internal Medicine; [facility] Work Phone: Comment on above: Pattern: Regular 03-20-2008 14:14-0400 Respiratory Rate 20 /min [facility] Internal Medicine; [facility] Work Phone: Comment on above: Pattern: Unlabored 01-09-2008 16:17-0400 Body Temperature 98.3 [degF] [facility] Internal Medicine; [facility] Work Phone: Comment on above: Method: Undefined 01-09-2008 16:17-0400 Body weight 0 kg [facility] Internal Medicine; [facility] Work Phone: 01-09-2008 16:17-0400 BP Diastolic 82 mm[Hg] [facility] Internal Medicine; [facility] Work Phone: Comment on above: Patient Position: Sitting; Cuff Location : Left Arm; Cuff Size: Standard 01-09-2008 16:17-0400 BP Systolic 130 mm[Hg] [facility] Internal Medicine; [facility] Work Phone: Comment on above: Patient Position: Sitting; Cuff Location : Left Arm; Cuff Size: Standard 01-09-2008 16:17-0400 Head Circumference 0 cm [facility] Internal Medicine; [facility] Work Phone: 01-09-2008 16:17-0400 Height 0 cm [facility]; [facility] Work Phone: 01-09-2008 16:17-0400 Pulse (Heart Rate) 88 /min [facility]; [facility] Work Phone: Comment on above: Pattern: Regular 01-09-2008 16:17-0400 Respiratory Rate 16 /min [facility]heed [facility]; [facility] Work Phone: Comment on above: Pattern: Undefined 10-18-2007 08:34-0400 BMI (Body Mass Index) 29.7 kg/m2 Naheed Allenkhalidaale [facility] Internal Medicine; [facility] Work Phone: 10-18-2007 08:34-0400 Body Temperature 98.2 [degF] [facility]; [facility] Work Phone: Comment on above: Method: Oral 10-18-2007 08:34-0400 Body weight 86.66 kg [facility]heed [facility]; [facility] Work Phone: 10-18-2007 08:34-0400 BP Diastolic 78 mm[Hg] [facility]; [facility] Work Phone: Comment on above: Patient Position: Sitting; Cuff Location : Left Arm; Cuff Size: Standard 10-18-2007 08:34-0400 BP Systolic 120 mm[Hg] [facility]; [facility] Work Phone: Comment on above: Patient Position: Sitting; Cuff Location : Left Arm; Cuff Size: Standard 10-18-2007 08:34-0400 BSA (Body Surface Area) 1.99 m2 [facility]; [facility] Work Phone: 10-18-2007 08:34-0400 Head Circumference 0 cm [facility]; [facility] Work Phone: 10-18-2007 08:34-0400 Height 170.81 cm Naheed Munroe [facility]; [facility] Work Phone: 10-18-2007 08:34-0400 Pulse (Heart Rate) 70 /min Naheed [facility] Medicine; [facility] Work Phone: Comment on above: Pattern: Regular 10-18-2007 08:34-0400 Respiratory Rate 18 /min [facility]; [facility] Work Phone: Comment on above: Pattern: Unlabored 08-20-2007 15:09-0500 Body Temperature 98.1 [degF] [facility] Work Phone: Comment on above: Method: Oral 08-20-2007 15:09-0500 Body weight 0 kg [facility]; [facility] Work Phone: 08-20-2007 15:09-0500 BP Diastolic 80 mm[Hg] [facility]; [facility] Work Phone: Comment on above: Patient Position: Sitting; Cuff Location : Left Arm; Cuff Size: Standard 08-20-2007 15:09-0500 BP Systolic 124 mm[Hg] [facility]; [facility] Work Phone: Comment on above: Patient Position: Sitting; Cuff Location : Left Arm; Cuff Size: Standard 08-20-2007 15:09-0500 Head Circumference 0 cm [facility]; [facility] Work Phone: 08-20-2007 15:09-0500 Height 0 cm [facility]; [facility] Work Phone: 08-20-2007 15:09-0500 Pulse (Heart Rate) 64 /min [facility]; [facility] Work Phone: Comment on above: Pattern: Regular 08-20-2007 15:09-0500 Respiratory Rate 18 /min [facility]; [facility] Work Phone: Comment on above: Pattern: Unlabored 11-17-2006 10:24-0400 Body Temperature 97.6 [degF] [facility]; [facility] Work Phone: Comment on above: Method: Oral 11-17-2006 10:24-0400 Body weight 85.73 kg Naheed Munroe [facility]; [facility] Work Phone: 11-17-2006 10:24-0400 BP Diastolic 80 mm[Hg] [facility]; [facility] Work Phone: Comment on above: Patient Position: Sitting; Cuff Location : Left Arm; Cuff Size: Standard 11-17-2006 10:24-0400 BP Systolic 124 mm[Hg] [facility]; [facility] Work Phone: Comment on above: Patient Position: Sitting; Cuff Location : Left Arm; Cuff Size: Standard 11-17-2006 10:24-0400 Head Circumference 0 cm [facility]; [facility] Work Phone: 11-17-2006 10:24-0400 Height 0 cm Naheed [facility] Medicine; [facility] Work Phone: 11-17-2006 10:24-0400 Pulse (Heart Rate) 74 /min [facility]; [facility] Work Phone: Comment on above: Pattern: Regular 11-17-2006 10:24-0400 Respiratory Rate 20 /min [facility]; [facility] Work Phone: Comment on above: Pattern: Unlabored 08-30-2006 11:30-0500 Body Temperature 97.2 [degF] [facility]; [facility] Work Phone: Comment on above: Method: Oral 08-30-2006 11:30-0500 Body weight 87.09 kg Naheed Ludwig [facility]; [facility] Work Phone: 08-30-2006 11:30-0500 BP Diastolic 76 mm[Hg] Naheed Bonezzi [facility]; [facility] Work Phone: Comment on above: Patient Position: Sitting; Cuff Location : Left Arm; Cuff Size: Standard 08-30-2006 11:30-0500 BP Systolic 122 mm[Hg] [facility] [place] [facility] Work Phone: Comment on above: Patient Position: Sitting; Cuff Location : Left Arm; Cuff Size: Standard 08-30-2006 11:30-0500 Head Circumference 0 [facility] Work Phone: 08-30-2006 11:30-0500 [facility] [place] [facility] Work Phone: 08-30-2006 11:30-0500 Pulse (Heart Rate) 72 /min [facility] [place] [facility] Work Phone: Comment on above: Pattern: Regular 08-30-2006 11:30-0500 Respiratory Rate 20 /min [facility] [place] [facility] Work Phone: Comment on above: Pattern: Unlabored 06-05-2006 12:07-0500 Body Temperature 98.2 [degF] [facility] [place] [facility] Work Phone: Comment on above: Method: Oral 06-05-2006 12:07-0500 Body weight 87.1 kg [facility] [place] [facility] Work Phone: 06-05-2006 12:07-0500 BP Diastolic 78 mm[Hg] [facility] [place] [facility] Work Phone: Comment on above: Patient Position: Sitting; Cuff Location : Left Arm; Cuff Size: Standard 06-05-2006 12:07-0500 BP Systolic 124 mm[Hg] [facility] [place] [facility] Work Phone: Comment on above: Patient Position: Sitting; Cuff Location : Left Arm; Cuff Size: Standard 06-05-2006 12:07-0500 Head Circumference 0 cm Naheed Bonezzi [facility]; [facility] Work Phone: 06-05-2006 12:07-0500 Height 0 cm Naheedernie Munroe [facility]; [facility] Work Phone: 06-05-2006 12:07-0500 Pulse (Heart Rate) 74 /min Naheed Munroe [facility]; [facility] Work Phone: Comment on above: Pattern: Regular 06-05-2006 12:07-0500 Respiratory Rate 20 /min Naheedernie Munroe [facility]; [facility] Work Phone: Comment on above: Pattern: Unlabored 05-24-2006 10:14-0500 Body Temperature 99.1 [degF] [facility]; [facility] Work Phone: Comment on above: Method: Oral 05-24-2006 10:14-0500 Body weight 86.27 kg Naheed Main [facility]; [facility] Work Phone: 05-24-2006 10:14-0500 BP Diastolic 70 mm[Hg] Naheedernie Munroe [facility]; [facility] Work Phone: Comment on above: Patient Position: Sitting; Cuff Location : Left Arm; Cuff Size: Large 05-24-2006 10:14-0500 BP Systolic 112 mm[Hg] Naheed Ludwig [facility]; [facility] Work Phone: Comment on above: Patient Position: Sitting; Cuff Location : Left Arm; Cuff Size: Large 05-24-2006 10:14-0500 Head Circumference 0 cm [facility]; [facility] Work Phone: 05-24-2006 10:14-0500 Height 0 cm [facility]; [facility] Work Phone: 05-24-2006 10:14-0500 Pulse (Heart Rate) 84 /min Naheed Ludwig [facility]; [facility] Work Phone: Comment on above: Pattern: Regular 05-24-2006 10:14-0500 Respiratory Rate 16 /min Naheed Bonezzi [facility]; [facility] Work Phone: Comment on above: Pattern: Unlabored 05-15-2006 14:24-0500 Body Temperature 99 [degF] Naheed Munroe [facility]; [facility] Work Phone: Comment on above: Method: Undefined 05-15-2006 14:24-0500 Body weight 87.54 kg Naheed Munroe [facility]; [facility] Work Phone: 05-15-2006 14:24-0500 BP Diastolic 90 mm[Hg] Naheed Munroe [facility]; [facility] Work Phone: Comment on above: Patient Position: Sitting; Cuff Location : Left Arm; Cuff Size: Standard 05-15-2006 14:24-0500 BP Systolic 150 mm[Hg] Naheed Munroe [facility]; [facility] Work Phone: Comment on above: Patient Position: Sitting; Cuff Location : Left Arm; Cuff Size: Standard 05-15-2006 14:24-0500 Head Circumference 0 cm Naheed Munroe [facility]; [facility] Work Phone: 05-15-2006 14:24-0500 Height 0 cm [facility]; [facility] Work Phone: 05-15-2006 14:24-0500 Pulse (Heart Rate) 96 /min Naheed Munroe [facility]; [facility] Work Phone: Comment on above: Pattern: Regular Encounters Encounter Date Encounter Type Care Provider Facility Start: 09-16-2024 Encounter for genera l adult medical examination without abnormal findings Michael Calderón [facility] Start: 09-04-2024 End: 09-04-[address] Michael Calderón MD Work Phone: [facility] Work Phone: Start: 09-04-2024 End: 09-04-[address] Michael Calderón MD -Outpatient Bone Densitometry Work Phone: Start: 09-04-2024 End: 09-04-2024 ambulatory Michael Aguirre:[facility] Start: 08-07-2024 End: 08-07-[address] [facility] Work [facility]: Start: 08-07-2024 End: 08-07-2024 ambulatory Michael Calderón Facility:[facility] Start: 02-26-2024 End: 02-26-2024 ambulatory Michael Calderón Facility:[facility] Start: 11-10-2023 End: 11-10-2023 ambulatory Michael Calderón Facility:[facility] Start: 06-28-2023 End: 06-28-2023 ambulatory [facility] Work Phone: Start: 06-28-2023 End: 06-28-2023 Patient encounter procedure [facility] Work Phone: Start: 05-24-2023 End: 05-24-2023 ambulatory [facility] Work Phone: Start: 05-24-2023 End: 05-24-2023 Patient encounter [facility] Work Phone: Start: 02-23-2023 End: 02-23-2023 Patient encounter procedure [facility]-Outpatient Breast Imaging Work Phone: Start: 08-15-2022 End: 08-15-2022 ambulatory [facility] Work Phone: Start: 08-15-2022 End: 08-15-2022 Patient encounter [facility] Start: 04-04-2022 End: 04-04-2022 ambulatory DERIC CORTEZ [facility] Start: 03-25-2022 End: 03-25-2022 ambulatory BOUCHRA MENJIVAR [facility] Start: 03-25-2022 End: 03-25-2022 ambulatory Gabi Cabrera OT/L Work Phone: [facility] Comment on above: Pain in finger of ri ght hand (Primary Dx) Start: 03-21-2022 ambulatory Bouchra Menjivar PA-C Work Phone: [facility] Comment on above: Finger PT Start: 02-28-2022 End: 02-28-2022 ambulatory DERIC CORTEZ [facility] Start: 02-15-2022 End: 02-15-[address] Michael Calderón Work Phone: [facility]-Outpatient Breast Imaging Start: 02-04-2022 End: 02-04-2022 ambulatory DERIC CORTEZ [facility] Start: 02-04-2022 End: 02-04-2022 Patient encounter procedure Deric Cortez MD Work Phone: [facility] Comment on above: Infection of index f frederic (Primary Dx); Cat bite of finger, subsequent encounter Start: 01-28-2022 End: 01-28-2022 ambulatory DERIC CORTEZ [facility] Start: 01-28-2022 End: 01-28-2022 Patient encounter procedure Deric Cortez MD Work Phone: [facility] Comment on above: Infection of index f frederic (Primary Dx); Cat bite of finger, subsequent encounter Start: 01-26-2022 Telephone encounter [facility] Work Phone: [facility] Comment on above: Hospital Follow Up ( scheduled ) PostOp Follow-up Start: 01-22-2022 End: 01-25-2022 Evaluation and management of inpatient RIKKI GREENDANIELLE Facility:[facility] Start: 01-22-2022 Non-patient / Non-visit Dr. Robert Calderón Work Phone: [facility] [facility] Start: 01-21-2022 End: 01-22-2022 Emergency department patient visit Dr. Michael Calderón Work Phone: [facility]-Emergency Department Start: 12-06-2021 End: 12-06-2021 Patient encounter procedure [facility] Start: 06-13-2017 Patient encounter Edgar Vásquez Fa cility:[id number] Start: 05-07-2015 End: 05-07-2015 Office outpatient visit 40 minutes Naheed Main [facility] Start: 04-07-2015 End: 04-07-2015 Phone Encounter Naheed Main [facility] Start: 01-15-2015 End: 01-16-2015 Office outpatient visit 15 minutes Naheed Main [facility] Start: 12-18-2014 End: 12-18-2014 Office outpatient new 10 minutes Naheed Main [facility] Start: 11-04-2014 End: 11-04-2014 Office outpatient visit 15 minutes Naheed Main [facility] Start: 10-20-2014 End: 10-20-2014 Office outpatient visit 15 minutes Naheed Main [facility] Start: 05-08-2014 End: 05-08-2014 Office outpatient visit 40 minutes Naheed Main [facility] Start: 11-01-2013 End: 11-01-2013 Patient encounter procedure Naheed Main [facility] Start: 05-28-2013 End: 05-28-2013 Phone Encounter Naheed Main [facility] Start: 05-21-2013 End: 05-21-2013 Patient encounter procedure Naheed Main [facility] Start: 04-22-2013 End: 04-23-2013 Patient encounter procedure Naheed Main [facility] Start: 04-22-2013 End: 04-22-2013 Patient encounter procedure Naheed Main [facility] Start: 10-23-2012 End: 10-23-2012 Patient encounter procedure Naheed Main [facility] Start: 10-12-2012 End: 10-12-2012 Office outpatient visit 15 minutes Naheed Main [facility] Start: 09-11-2012 End: 09-11-2012 Office outpatient visit 25 minutes Naheed Main [facility] Start: 08-21-2012 End: 08-21-2012 Office outpatient visit 25 minutes Naheed Main [facility] Start: 07-24-2012 End: 07-24-2012 Patient encounter procedure Naheed Main [facility] Start: 07-16-2012 End: 07-16-2012 Annotation/Addendum Naheed Main [facility] Start: 07-16-2012 End: 07-16-2012 Office outpatient visit 15 minutes Naheed Main [facility] Start: 04-23-2012 End: 04-23-2012 Office outpatient visit 15 minutes aNheed Main [facility] Start: 03-12-2012 End: 03-12-2012 Patient encounter procedure Naheed Main [facility] Start: 03-06-2012 End: 03-06-2012 Phone Encounter Naheed Main [facility] Start: 08-23-2011 End: 08-23-2011 Patient encounter procedure Naheed Boneprince [facility] Start: 07-22-2011 End: 07-22-2011 Patient encounter procedure Naheed Main [facility] Start: 06-28-2011 End: 06-28-2011 Office outpatient visit 25 minutes Naheed Main [facility] Start: 03-24-2011 End: 03-25-2011 Patient encounter procedure Naheed Main [facility] Start: 02-17-2011 End: 02-17-2011 Patient encounter procedure Naheed Main [facility] Start: 12-28-2010 End: 12-28-2010 Patient encounter procedure Naheed Main [facility] Start: 08-18-2010 End: 08-18-2010 Patient encounter procedure Naheed Main [facility] Start: 07-23-2010 End: 07-23-2010 Patient encounter procedure Naheed Main [facility] Start: 06-22-2010 End: 06-22-2010 Annotation/Addendum Naheed Main [facility] Start: 06-10-2010 End: 06-10-2010 Patient encounter procedure Naheed Main [facility] Start: 12-03-2009 End: 12-03-2009 Patient encounter procedure Naheed Main [facility] Start: 06-02-2009 End: 06-02-2009 Patient encounter procedure Naheed Main [facility] Start: 04-07-2009 End: 04-08-2009 Office outpatient visit 15 minutes Naheed Main [facility] Start: 02-19-2009 End: 02-19-2009 Office outpatient visit 15 minutes Naheed Main [facility] Start: 12-01-2008 End: 12-01-2008 Patient encounter procedure Naheed Boneprince [facility] Start: 06-30-2008 End: 06-30-2008 Patient encounter procedure Naheed Boneprince [facility] Start: 06-23-2008 End: 06-23-2008 Office outpatient new 10 minutes Naheed Main [facility] Start: 06-23-2008 End: 06-23-2008 Patient encounter procedure Naheed Main [facility] Start: 03-20-2008 End: 03-20-2008 Patient encounter procedure Naheed Main [facility] Start: 01-09-2008 End: 01-10-2008 Patient encounter procedure Naheed Main [facility] Start: 10-18-2007 End: 10-18-2007 Patient encounter procedure Naheed Ludwigale [facility] Start: 10-03-2007 End: 10-03-2007 Error Encounter Naheedernie Main [facility] Start: 08-20-2007 End: 08-20-2007 Patient encounter procedure Naheed Alejandroprince [facility] Start: 05-10-2007 End: 05-10-2007 Nursing evaluation of patient and report Naheed Main [facility] Start: 04-05-2007 End: 04-12-2007 Patient encounter procedure Naheed Main [facility] Start: 11-17-2006 End: 11-17-2006 Patient encounter procedure Naheed Main [facility] Start: 08-30-2006 End: 08-30-2006 Patient encounter procedure Naheedernie Munroeale [facility] Start: 06-22-2006 End: 06-22-2006 Historical Summary Naheed Main [facility] Start: 06-19-2006 End: 06-19-2006 Office outpatient visit 5 minutes Naheed Main [facility] Start: 06-05-2006 End: 06-05-2006 Patient encounter procedure Naheed Alejandroprince [facility] Start: 05-29-2006 End: 05-29-2006 Phone Encounter Naheed Main [facility] Start: 05-24-2006 End: 05-24-2006 Office outpatient visit 15 minutes Naheed Main [facility] Start: 05-23-2006 End: 05-23-2006 Historical Summary Naheed Main [facility] Start: 05-15-2006 End: 05-15-2006 Office outpatient visit 25 minutes Naheed Main [facility] Start: 05-09-2006 End: 05-09-2006 Nursing evaluation of patient and report Naheed Main [facility] Start: 03-27-2006 End: 03-27-2006 Historical Summary Naheed Main [facility] Procedures Date Procedure Procedure Detail Performing Clinician Start: 09-04-2024 Dual energy X-ray absorptiometry Dr. Michael Calderón MD Work Phone: Start: 05-24-2023 Radiologic examination of knee Start: 02-23-2023 Screening mammography Start: 02-15-2022 Dual energy X-ray absorptiometry Dr. Michael Calderón Work Phone: Start: 02-15-[address] Michael Calderón Work Phone: Start: 01-22-2022 Plain x-ray of hand Dr. Michael Calderón Work Phone: Start: 07-07-2015 End: 07-07-2015 Dexa Bone Density Study (HP) Comments: See Note; NOTES: [facility] Imaging Services [address] [place] [id number] [address] 4d Dexa Bone Density Study (HP) MR#: [id number] Acct: [id number] Name: SITA MITTAL Rep #: [id number] : 1955 F 60 From: Korey Wong MD PCP: Naheed Main MD Status: REG CLI Study: Dexa Bone Density Study (HP) Date of Exam: 07/07/15 Exam# [id number] Ordering Dr: Naheed Main MD STUDY: DUAL ENERGY X-RAY ABSORPTIOMETRY / DXA REASON FOR EXAM: Female, 60 years old. The patient is postmenopausal. Loss of height. TECHNIQUE: Bone Mineral Density (BMD) measurements of lumbar spine and bilateral hips were obtained. COMPARISON: Comparison is made with prior study dated October 20, 2011. FINDINGS: Lumbar Spine (L1-L4): g/cm2 (1.311) / T-score (1.1) / Z-score (2.3) Findings are suggestive of normal bone density with a low fracture risk. Left Femur Total: g/cm2 (0.951) / T-score (-0.5) / Z-score (0.5) Left Femoral Neck: g/cm2 (0.912) / T-score (-0.9) / Z-score (0.3) Right Femur Total: g/cm2 (0.980) / T-score (-0.2) / Z-score (0.7) Right Femoral Neck: g/cm2 (0.927) / T-score (-0.8) / Z-score (0.4) The T-Scores on the most recent prior examination were: Lumbar Spine (L1-L4): There has been worsening of bone density since the previous examination. Left Femur Total: which represents a worsening of 0.8%. Right Femur Total: which represents no significant change. . IMPRESSION: The patient is considered normal as outlined below according to World Wolf Organization (WHO) criteria with a low fracture risk. There has been worsening of bone density since the previous examination. Reference Information: The T-score is the number of standard deviations above or below the standard which is normal for young adults at their peak bone mineral density. The World Health Organization (WHO) interprets the T-scores as follows: Above -1 Normal bone density Between -1 and -2.5 Osteopenia Equal to / or below -2.5 Osteoporosis As a practical clinical guideline, osteopenia may be graded as follows: Mild -1 through -1.5 Moderate -1.6 through -2.0 Severe -2.1 through -2.4 The Z-score is the number of standard deviations above or below age-matched controls. A Z-score of less than -1.5 would be considered abnormal. References: 1. NIH Osteoporosis and Related Bone Diseases http://www.osteo.org 2. International Society for Clinical Densitometry http://www.iscd.org 3. National Osteoporosis Foundation http://www.nof.org Electronically Signed: Korey Wong MD at 11:33 EST Tel [phone], Service support [phone], CC: Naheed Main MD Money Order Clerk: Signed Naheed Main Work Phone: Start: 12-02-2014 End: 12-02-2014 Hip min 2 Views Comments: See Note; NOTES: [facility] Imaging Services [address] [place] [address] Radiology Report MR#: [id number] Acct: [id number] Name: SITA MITTAL Rep #: [id number] : 1955 F 59 From: Franklin Nunez MD PCP: Naheed Main MD Status: REG CLI Study: Hip min 2 Views Date of Exam: 12/02/14 Exam# [id number] Ordering Dr: PAMELA HEBERT STUDY: X-RAY - RIGHT HIP REASON FOR EXAM: Female, 59 years old. Hip pain. TECHNIQUE: 2 view(s) of the hip. COMPARISON: None. FINDINGS: Normal femoral head, neck, intertrochanteric region and visualized proximal femur. Normal acetabulum. Normal hip joint. Normal visualized superior and inferior pubic rami and ischial tuberosities. There is no demonstrated osseous destructive process or fracture. IMPRESSION: Normal x-ray examination of the hip. Electronically Signed: Pradip Nunez MD at 16:53 EDT , Service support [phone], RAD/Hip min 2 Views IMPRESSION: Normal x-ray examination of the hip. Electronically Signed: Pradip Nunez MD at 16:53 EDT , Service support [phone], CC: PAMELA HEBERT; Naheed Main MD Money Order Clerk: Signed Naheed Main Work Phone: Start: 10-30-2014 End: 10-30-2014 Bilat Scrn Digital AND CAD Comments: See Note; NOTES: [facility] Imaging Services [address] [place] [address] Breast Imaging Report MR#: [id number] Acct: [id number] Name: SITA MITTAL Rep #: [id number] : 1955 F 59 From: Korey Wong MD PCP: Naheed Main MD Status: REG CLI Study: Bilat Scrn Digital AND CAD Date of Exam: 10/30/14 Exam# [id number] Ordering Dr: Elizabeth Strong MD MAMMOGRAPHY - BILATERAL SCREENING REASON FOR EXAM: Female, 59 years old. Routine annual screening examination. PERTINENT HISTORY: Mother with breast cancer. TECHNIQUE: Digital examination. Mediolateral oblique (MLO) and craniocaudad (CC) views of both breasts were obtained. CAD: CAD was performed on this study. COMPARISON: Comparison is made with prior study dated October 29, 2013 and October 26, 2012. FINDINGS: Breast Composition: There are scattered areas of fibroglandular density. There are no dominant masses or suspicious calcifications. No other significant abnormalities are identified. There has been no significant change since the prior study. IMPRESSION: Stable bilateral screening mammogram. Yearly follow-up recommended. (A) ASSESSMENT CATEGORY: BIRADS Category 2: Benign. A letter regarding these results will be sent to the patient by the facility within 30 days. Approximately 10% of breast cancers are not detected by mammography. A normal mammogram should not delay biopsy of a clinically suspicious abnormality. Electronically Signed: Korey Wong MD at 12:25 EDT Tel [phone], Service support [phone], CC: Naheed Main MD; Elizabeth Strong MD Money Order Clerk: Signed Naheed Main Start: 10-29-2013 End: 10-29-2013 Kitty Fontanez Digital & CAD Comments: See Note; NOTES: [facility] Imaging Services [address] [place] [address] Breast Imaging Report MR#: [id number] Acct: [id number] Name: SITA MITTAL Rep #: [id number] : 1955 F 58 From: Korey Wong MD PCP: Naheed Main MD Status: REG CLI Exam# [id number] Ordering Dr: Elizabeth Strong MD MAMMOGRAPHY - BILATERAL SCREENING REASON FOR EXAM: Female, 58 years old. Routine annual screening examination. PERTINENT HISTORY: Mother with breast cancer. TECHNIQUE: Digital examination. Mediolateral oblique (MLO) and craniocaudad (CC) views of both breasts were obtained. CAD: CAD was performed on this study. COMPARISON: Comparison is made with prior study dated October 26, 2012 and October 20, 2011. FINDINGS: The breast composition is composed of scattered fibroglandular tissues ranging from 25% to 50% of the breast. There are no dominant masses or suspicious calcifications. Once again, there is asymmetry of breast tissue with more breast tissue is seen in the right breast as compared to the left side. This is unchanged. No other significant abnormalities are identified. There has been no significant change since the prior study. IMPRESSION: Stable bilateral screening mammogram. Yearly follow-up recommended. (A) ASSESSMENT CATEGORY: BIRADS Category 2: Benign finding(s). A letter regarding these results will be sent to the patient by the facility within 30 days. Approximately 10% of breast cancers are not detected by mammography. A normal mammogram should not delay biopsy of a clinically suspicious abnormality. Electronically Signed: Korey Wong MD at 13:06 EDT Tel [phone], Service support [phone], CC: Naheed Main MD; Elizabeth Strong MD Money Order Clerk: Signed Naheed Main Work Phone: Bacteria identified in Blood by Culture Dr. Michael Calderón Work Phone: Cholecystectomy JOVI Emma bautista Comment on above: March 2009 SARS-CoV-2 & FLU Ant igen (Rapid) Dr. Michael Calderón Work Phone: Screening colonoscopy JOVI Britton Comment on above: 03-24-15 Dr. Funes repeat 10 years Plan of Treatment Date Care Activity Detail Author Start: 01-25-2025 DIABETES SCREEN DIABETES SCREEN [facility] Start: 03-03-2022 Influenza vaccination INFLUENZA (#1) [facility] Start: 02-03-2022 COVID-19 VACCINE (5 - Booster for Pfizer series) COVID-19 VACCINE (5 - Booster for Pfizer series) [facility] Start: 07-03-2021 ADVANCE DIRECTIVE DISCUSSION ADVANCE DIRECTIVE DISCUSSION [facility] Start: 2020 BONE DENSITY BONE DENSITY [facility] Start: 05-07-2015 Lipid panel LIPID PANEL (26645) [facility] Work Phone: Start: 01-15-2015 Patient Education Obesity *: l osing weight [facility] Work Phone: Start: 11-04-2014 Procedure Education Eprescribe d prescriptions (G8553) [facility] Work Phone: Start: 11-04-2014 Lipid panel Lipid Panel (89511) [facility] Work Phone: Start: 10-20-2014 Provider Instruction s for Treatment [facility] Work Phone: Start: 10-20-2014 Ova&parasites direct smears concentration & id OVA & PARASITE DIR SMEAR (07001) [facility]; [facility] Work Phone: Start: 10-20-2014 Blood occult peroxid ase actv qual feces 1 deter OCCULT BLOOD FECES SCREEN (70367) [facility]; [facility] Work Phone: Start: 10-20-2014 Leukocyte assmt feca l qual/semiquantitative LEUKOCYTE COUNT, FECAL (67782) [facility]; [facility] Work Phone: Start: 10-20-2014 Culture bacterial an y source anaerobic iso&id C-DIFFICILE, STOOL (07870) [facility]; [facility] Work Phone: Start: 10-20-2014 Cul bact stool aerob ic isol salmonella&shigell ROSEANNE CULTURE-STOOL (15017) [facility]; [facility] Work Phone: Start: 05-08-2014 Patient Education Flu (Influenza) *: flu [facility]; [facility] Work Phone: Start: 05-08-2014 Procedure Education Eprescribe d prescriptions (G8501) [facility]; [facility] Work Phone: Start: 05-08-2014 Urnls dip stick/tabl et reagent auto microscopy URINALYSIS, W/ MICRO (70071) [facility]; [facility] Work Phone: Start: 05-08-2014 Comprehensive metabo lic panel METABOLIC PANEL, COMPREHENSIVE (37843) [facility]; [facility] Work Phone: Start: 05-08-2014 Lipid panel LIPID PANEL (95221) [facility]; [facility] Work Phone: Start: 05-08-2014 Blood count complete auto&auto difrntl wbc CBC W/AUTO DIFF WBC (26885) [facility]; [facility] Work Phone: Start: 11-01-2013 Comprehensive metabo lic panel METABOLIC PANEL, COMPREHENSIVE (22451) [facility]; [facility] Work Phone: Start: 11-01-2013 Lipid panel LIPID PANEL (90046) [facility]; [facility] Work Phone: Start: 11-01-2013 Blood count manual c ell count each CBC WITH MANUAL DIFF (69295) [facility]; [facility] Work Phone: Start: 04-22-2013 Lipid panel LIPID PANEL (45676) [facility]; [facility] Work Phone: Start: 04-22-2013 Hepatic function panel HEPATIC FUNCTION PANEL (89890) [facility]; [facility] Work Phone: Start: 10-23-2012 Lipid panel LIPID PANEL (90540) [facility]; [facility] Work Phone: Start: 10-23-2012 25 hydroxy includes fractions if performed CALCIFEDIOL (00962) [facility]; [facility] Work Phone: Start: 10-23-2012 Calcium [Mass/Vol] CALCIUM SERUM (82 310) [facility]; [facility] Work Phone: Start: 10-12-2012 Provider Instruction s for Treatment Follow up if no improvement or if symptoms worsen [facility]; [facility] Work Phone: Start: 09-11-2012 Provider Instruction s for Treatment [facility]; [facility] Work Phone: Start: 08-21-2012 Blood count complete auto&auto difrntl wbc CBC, Platelets & Auto Diff (58958) [facility]; [facility] Work Phone: Start: 08-21-2012 Comprehensive metabo lic panel Metabolic Panel, Comprehensive (62472) [facility]; [facility] Work Phone: Start: 08-21-2012 TSH Qn TSH (26856) [facility] Work Phone: Start: 08-21-2012 Provider Instruction s for Treatment Follow up in 3 weeks [facility]; [facility] Work Phone: Start: 07-24-2012 Patient Education Insomnia *: sleep disorder [facility]; [facility] Work Phone: Start: 07-24-2012 Comprehensive metabo lic panel METABOLIC PANEL, COMPREHENSIVE (15506) [facility]; [facility] Work Phone: Start: 07-24-2012 Blood count manual c ell count each CBC WITH MANUAL DIFF (95931) [facility]; [facility] Work Phone: Start: 07-24-2012 Lipid panel LIPID PANEL (42380) [facility] Work Phone: Start: 04-23-2012 Provider Instruction s for Treatment Follow up in 3 months [facility]; [facility] Work Phone: Start: 03-12-2012 Patient Education Allergic Rhi nitis *: allergies [facility]; [facility] Work Phone: Start: 03-12-2012 Provider Instruction s for Treatment [facility]; [facility] Work Phone: Start: 03-12-2012 25 hydroxy includes fractions if performed CALCIFIDIOL (10499) VIT D 25 [facility]; [facility] Work Phone: Start: 03-12-2012 Lipid panel LIPID PANEL (66425) [facility]; [facility] Work Phone: Start: 03-06-2012 Comprehensive metabo lic panel METABOLIC PANEL, COMPREHENSIVE (93412) [facility]; [facility] Work Phone: Start: 03-06-2012 Blood count manual c ell count each CBC WITH MANUAL DIFF (70797) [facility]; [facility] Work Phone: Start: 07-22-2011 Patient Education Water in t, brief version [facility]; [facility] Work Phone: Start: 07-22-2011 Provider Instruction s for Treatment [facility]; [facility] Work Phone: Start: 07-22-2011 Culture bct isol&prsmptv id isolate ea urine URINE ROSEANNE CULTURE-IDENTIFICATN (73404) [facility]; [facility] Work Phone: Start: 02-17-2011 Blood count manual c ell count each CBC WITH MANUAL DIFF (50974) [facility]; [facility] Work Phone: Start: 02-17-2011 Comprehensive metabo lic panel METABOLIC PANEL, COMPREHENSIVE (50298) [facility]; [facility] Work Phone: Start: 02-17-2011 Lipid panel LIPID PANEL (39461) [facility]; [facility] Work Phone: Start: 08-18-2010 Patient Education Sore throat: diagnosis and treatment [facility]; [facility] Work Phone: Start: 08-18-2010 Provider Instruction s for Treatment [facility]; [facility] Work Phone: Start: 08-18-2010 Cul bact xcpt urine blood/stool aerobic isol ROSEANNE CULTURE-OTHER (55200) [facility]; [facility] Work Phone: Start: 07-23-2010 Provider Instruction s for Treatment Continue Current Prescription(s) relafen bid-tid with food [facility]; [facility] Work Phone: Start: 12-03-2009 Comprehensive metabo lic panel METABOLIC PANEL, COMPREHENSIVE (60648) [facility]; [facility] Work Phone: Start: 12-03-2009 Lipid panel LIPID PANEL (11540) [facility]; [facility] Work Phone: Start: 12-03-2009 Blood count manual c ell count each CBC WITH MANUAL DIFF (05066) [facility]; [facility] Work Phone: Start: 06-02-2009 Blood count complete automated CBC (Auto) (08588) [facility]; [facility] Work Phone: Start: 06-02-2009 Comprehensive metabo lic panel Metabolic Panel, Comprehensive (09172) [facility]; [facility] Work Phone: Start: 06-02-2009 Lipid panel Lipid Panel (42267) [facility]; [facility] Work Phone: Start: 02-19-2009 Provider Instruction s for Treatment Cholesterol - Medication Side Effects [facility]; [facility] Work Phone: Start: 12-01-2008 Provider Instruction s for Treatment FOLLOW UP IN 6 MONTHS [facility]; [facility] Work Phone: Start: 12-01-2008 Comprehensive metabo lic panel Metabolic Panel, Comprehensive (94803) [facility]; [facility] Work Phone: Start: 12-01-2008 Lipid panel Lipid Panel (83379) [facility] Work Phone: Comment on above: in six months (appro ximately) Start: 03-20-2008 Cul bact xcpt urine blood/stool aerobic isol ROSEANNE CULTURE-OTHER (04608) [facility]; [facility] Work Phone: Comment on above: done km Start: 03-20-2008 Patient Education Sore throat: diagnosis and treatment [facility]; [facility] Work Phone: Start: 01-09-2008 Patient Education Sore throat: diagnosis and treatment [facility]; [facility] Work Phone: Start: 01-09-2008 Provider Instruction s for Treatment [facility]; [facility] Work Phone: Start: 10-18-2007 Lipid panel Lipid Panel (64190) [facility] Work Phone: Start: 08-20-2007 Provider Instruction s for Treatment [facility]; [facility] Work Phone: Start: 08-30-2006 Provider Instruction s for Treatment [facility]; [facility] Work Phone: Start: 06-05-2006 Provider Instruction s for Treatment [facility]; [facility] Work Phone: Start: 05-15-2006 Provider Instruction s for Treatment Education [facility]; [facility] Work Phone: Start: 2000 COLOGUARD (FIT-DNA) COLOGUARD (FIT-D NA) [facility] Start: 2000 Colonoscopy COLONOSCOPY [facility] Start: 2000 COLORECTAL CANCER SCREENING COLORECTAL CANCER SCREENING [facility] Start: [address] COLONOGRAPHY [facility] Start: 2000 FECAL OCCULT BLOOD FECAL OCCULT BLOO D [facility] Start: 2000 LIPID SCREEN LIPID SCREEN [facility] Start: 2000 SIGMOIDOSCOPY SIGMOIDOSCOPY [facility] Start: 1995 Mammography MAMMOGRAM [facility] Start: 1974 SHINGRIX VACCINE (1 of 2) SHINGRIX VACCINE (1 of 2) [facility] Start: 1974 Urine microalbumin profile DTAP,TDAP,TD (1 - Tdap) [facility] Start: 1973 ANNUAL PCP TEAM HAIR ASSISTANT FLAVIO DISEASE VISIT ANNUAL PCP TEAM CHRONIC DISEASE VISIT [facility] Start: 1973 BP CONTROLLED (<130/80) BP CONTROLLE D (<130/80) [facility] Start: 1973 HEPATITIS C SCREENING HEPATITIS C SC REENING [facility] Start: 1967 Adult depression screening assessment DEPRESSION SCREENING [facility] Start: 1961 PNEUMOCOCCAL: 65+ (1 - PCV) PNEUMOCOCCAL: 65+ (1 - PCV) [facility] Start: 1960 COVID-19 VACCINE (#1) COVID-19 VACCI NE (#1) [facility] OT PLAN OF CARE CERTIFICATION OT PLAN OF CARE CERTIFICATION Procedures Routine Pain in finger of right hand Ordered: 03/25/2022 [facility] Work Phone: Comment on above: Ordered: 03/25/2022 Patient referral [facility] Work Phone: [facility] Work Phone: [facility] Work Phone: [facility] Work Phone: [facility] Work Phone: [facility] Work Phone: [facility] Work Phone: [facility] Work Phone: [facility] Work Phone: [facility] Work Phone: [facility] Work Phone: [facility] Work Phone: [facility] Work Phone: [facility] Work Phone: [facility] Work Phone: [facility] Work Phone: [facility] Work Phone: [facility] Work Phone: [facility] Immunizations Immunization Date Immunization Notes Care Provider [facility] 01-22-2022 tetanus toxoid, reduced diphtheria toxoid, and acellular pertussis vaccine, adsorbed Dr. Michael Calderón Work Phone: [facility] 12-20-2017 tetanus toxoid, reduced diphtheria toxoid, and acellular pertussis vaccine, adsorbed [facility] 04-07-2009 influenza, seasonal, injectable Naheed Bonezzi [facility] Work Phone: 06-23-2008 influenza, seasonal, injectable Naheed Bonezzi [facility]; [facility] Work Phone: Comment on above: Lot #[id number] 9Site-left deltoidDose0.5mlgiven by Dat Valerio LPN 05-10-2007 influenza, seasonal, injectable Naheed Bonezzi [facility]; [facility] Work Phone: 05-09-2006 influenza, seasonal, injectable Naheed Bonezzi [facility] Work Phone: Payers Date Payer Category Payer Self-pay [id number] 2023 Medicare [id number] 2021 Medicare [id number] 2021 Medicare [employer] [place] [id number] 2021-Present [phone] [address] [place] [address] HMO [id number] 2021 Medicare [employer] [place] [id number] 2021-Present [phone] [address] [place] [address] HMO [id number] 2006 Private Health Insurance [id number] Unknown Unknown [id number] Unknown [id number] Unknown [id number] Unknown 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[employer] Tobacco use: Tobacco use: [facility] Work Phone: Start: 12-19-2017 End: 01-22-2022 Tobacco smoking status NHIS Unknown if ever smoked [facility] Start: 1955 Sex Assigned At Female C [facility] Start: 01-22-2022 End: 01-28-2022 Tobacco smoking status NHIS Never smoked tobacco [facility] Start: 07-07-2010 End: 02-28-2022 Alcohol intake Current non-drinker of alcohol (finding) [facility] Start: 1955 Sex Assigned At Not on file [facility] Start: 01-12-2022 End: 02-28-2022 Exposure to SARS-CoV-2 (event) Not sure [facility] Start: 01-28-2022 Tobacco use and exposure Smokeless tobacco non-user [facility] Start: 09-16-2024 Sex Female (finding) [facility] Clinical Notes 01-23-2022 to 04-04-2022 Gabi Cabrera, OT/L - 03/25/2022 3:23 PM Steve Cortez MD - 02/07/2022 11:08 AM Steve Cortez MD - 01/28/2022 10:55 AM EDTTelephone Encounter - Gyant - 01/26/2022 8:29 PM EDT Note Date & Type Note Facility 04-04-2022 Note HNO ID: [id number] Author: Rahel Frias OTR/Mago Service: ? Author Type: Occupational Therapist Type: Progress Notes Filed: 04/05/2022 8:26 AM Note Text: Episode Visit Count: 2 Therapist That Will Accept/Oversee The Plan Of Care: Gabi Cabrera Start of Care Date: 03/25/22 Onset Date: 01/20/22 Plan of Care Certification Date: 03/25/22 Next Certification Due Date: 06/23/22 Patient Identified by Name and Date of : Yes REHABILITATION AND SPORTS THERAPY OCCUPATIONAL THERAPY DISCONTINUANCE OF CARE PLAN OF CARE UPDATE: Assessment: Sita Mittal is discontinued from Occupational Therapy services due to goal achievement and maximal benefit.. Patient was seen for 2 visits from Start of Care Date: 03/25/22 to 04/05/2022 and treatment included: Therapeutic exercise, Self-mcc management, and Patient/Family/Caregiver Education. Patient will report a good understanding of diagnosis and OT recommendations for progression of program. 04/04/22 Patient will demonstrate independence with ongoing home recommendations/exercise program throughout therapy plan of care. 04/04/22 Patient will improve function in Right finger in order to be able to perform prior functional tasks. 04/04/22 PLAN FOR NEXT VISIT: ROM exercises and desensitization techniques SUBJECTIVE: R index finger stiffness Reports no functional limitations. Sensitivity has improved significantly. No concerns at this time Functional Limitations: twisting Pain: Pain Pain Location: Finger - Right (tip of index finger at times with bending) Post Treatment Pain Post Treatment Pain Level: No Change PROMIS Scales T-scores: mean of general population = 50. 5 points is clinically meaningfully difference Percentiles provide an indication of how the patient's score ranks in relation to the general population. Higher percentile rankings indicate better function/quality of life. 50th percentile is the average of the general population and indicates half of respondents had a worse score. T-scores: mean of general population = 50. 5 points is clinically meaningfully difference Percentiles provide an indication of how the patient's score ranks in relation to the general population. Higher percentile rankings indicate better function/quality of life. 50th percentile is the average of the general population and indicates half of respondents had a worse score. OBJECTIVE MEASURES WITH LEVEL OF FUNCTION: Hand Edema Location: R index finger Edema Description: Mild Edema Measurements: Digits Edema - Digits: Index Finger R Index Finger PIP Joint (cm): 6.5 cm R Index Finger DIP Joint (cm): 5.3 cm L Index Finger PIP Joint (cm): 6 cm L Index Finger DIP Joint (cm): 4.9 cm Right Hand AROM: Index Finger Strength: Rehabilitation Attendant Position 2 Sensation: (reports increased sensativtiy with R finger) Hand Strength R Rehabilitation Attendant Position 2 (lbs): 51 lbs L Rehabilitation Attendant Position 2 (lbs): 55 lbs UE AROM Right Hand AROM: Index Finger Hand AROM R Index Finger MP Extension: 0 Degrees R Index Finger MP Flexion: 80 Degrees R Index Finger PIP Extension : 0 Degrees R Index Finger PIP Flexion: 104 Degrees R Index Finger DIP Extension : 0 Degrees R Index Finger DIP Flexion: 54 Degrees Right Index Finger Total Active Movement: 238 TREATMENT: Therapeutic Exercise: 1: Finger ROM exercises /desensitization in fluidotherapy x 12', verbal/ visual cues 2: Scar mobilization 3: A/PROM R index 4: Theraputty senior staff specialized employment (soft) x 30 (*) 5: Theraputty pinch (soft) x 30 (*) 6: Objective measurements taken and reviewed with patient 7: Reviewed scar and edema management. Skilled Intervention: Patient was educated in proper exercise technique and purpose for exercises. Reviewed and educated patient on additions/changes for home exercise program as above (*). Skilled judgment was provided in selection of appropriate interventions. Correct performance of therapeutic exercises was facilitated with verbal and visual cuing. Billing Therapeutic Exercise Treatment Minutes: 34 Total Treatment Time Minutes (timed/untimed): 34 Rahel Frias OTR/Mago , T [facility] 03-25-2022 Note HNO ID: [id number] Author: JULI Campuzano Service: ? Author Type: Occupational Therapist Type: Progress Notes Filed: 03/31/2022 4:36 PM Note Text: Episode Visit Count: 1 Therapist That Will Accept/Oversee The Plan Of Care: Gabi Cabrera Start of Care Date: 03/25/22 Onset Date: 01/20/22 Plan of Care Certification Date: 03/25/22 Next Certification Due Date: 06/23/22 Patient Identified by Name and Date of : Yes [facility] REHABILITATION AND SPORTS THERAPY OCCUPATIONAL THERAPY EVALUATION PLAN OF CARE: Assessment: Sita Mittal presents with chief complaint of R finger stiffness after catbite on 01/20/2022 that interferes with gripping;pinching . She presents with impairments in strength . PROMIS? (Patient-Reported Outcomes Measurement Information System) scores were reviewed and all domains identified as within normal limits. Prognosis for therapy is Excellent due to: current objective clinical presentation . She will benefit from skilled therapy services to meet the goals established for this plan of care as noted below. Goals for Episode of Care created on 03/25/22 through 06/23/22 Patient will report a good understanding of diagnosis and OT recommendations for progression of program. Patient will demonstrate independence with ongoing home recommendations/exercise program throughout therapy plan of care. Patient will improve function in Right finger in order to be able to perform prior functional tasks. Patient Goals: regain full ROM Planned Interventions, Frequency, and Duration: Current Frequency: 1x/week Duration: 4 weeks Total Number of Visits Planned: 4 Planned Treatment Interventions: Therapeutic exercise (00113);Self-mcc management (01539) PLAN FOR NEXT VISIT: ROM exercises and desensitization techniques Patient demonstrates good understanding of plan of care and treatment. The above goals and plan of care were discussed and agreed upon by patient/family. 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 5 points is clinically meaningfully difference Percentiles provide an indication of how the patient's score ranks in relation to the general population. Higher percentile rankings indicate better function/quality of life. 50th percentile is the average of the general population and indicates half of respondents had a worse score. T-scores: mean of general population = 50. 5 points is clinically meaningfully difference Percentiles provide an indication of how the patient's score ranks in relation to the general population. Higher percentile rankings indicate better function/quality of life. 50th percentile is the average of the general population and indicates half of respondents had a worse score. OBJECTIVE MEASURES WITH LEVEL OF FUNCTION: Hand Edema Location: R index finger Right Hand AROM: Index Finger Left Hand AROM: Index Finger Strength: Rehabilitation Attendant Position 2 Sensation: (reports increased sensativtiy with R finger) Hand Strength R Rehabilitation Attendant Position 2 (lbs): 50 lbs L Rehabilitation Attendant Position 2 (lbs): 50 lbs UE AROM Right Hand AROM: Index Finger Left Hand AROM: Index Finger Hand AROM R Index Finger MP Extension: 0 Degrees R Index Finger MP Flexion: 90 Degrees R Index Finger PIP Extension : 0 Degrees R Index Finger PIP Flexion: 75 Degrees R Index Finger DIP Extension : 0 Degrees R Index Finger DIP Flexion: 40 Degrees Right Index Finger Total Active Movement: 205 L Index Finger MP Extension: 0 Degrees L Index Finger MP Flexion: 90 Degrees L Index Finger PIP Extension : 0 Degrees L Index Finger PIP Flexion : 75 Degrees L Index Finger DIP Extension : 0 Degrees L Index Finger DIP Flexion: 60 Degrees Left Index Finger Total Active Movement: 225 Education: Education Learning Preferences: Demonstration;Explanation;Perform ance Barriers: None Learning/educational needs: Procedure / Surgery;Home exercise program Education Provided: Yes, see treatment interventions for education provided Education Provided To: Patient;Caregiver Education Mode/Type: Demonstration;Literature/Printed Materials;Explanation/Discussion; Performance;Teach Back Response to Education/Teach Back: States/Identifies;Return Demonstration TREATMENT: OT Treatment Interventions : Therapeutic Exercise;Self-[facility] Management Evaluation Evaluation Therapeutic Exercise: 1: completed intrinisic and composit stretch to R index finger (more content not included)... [facility] 03-25-2022 History of Present illness Narrative Episode Visit Count: 1 Therapist That Will Accept/Oversee The Plan Of Care: Gabi Cabrera Start of Care Date: 03/25/22 Onset Date: 01/20/22 Patient Identified by Name and Date of : Yes [facility] OCCUPATIONAL THERAPY EVALUATION PLAN OF CARE: Assessment: Sita Mittal presents with chief complaint of R finger stiffness after catbite on 01/20/2022 that interferes with . She presents with impairments in strength . PROMIS (Patient-Reported Outcomes Measurement Information System) scores were reviewed and all domains identified as within normal limits. Prognosis for therapy is Excellent due to: current objective clinical presentation . She will benefit from skilled therapy services to meet the goals established for this plan of care as noted below. Goals for Episode of Care created on 03/25/22 through Patient will report a good understanding of diagnosis and OT recommendations for progression of program. Patient will demonstrate independence with ongoing home recommendations/exercise program throughout therapy plan of care. Patient will improve function in Right finger in order to be able to perform prior functional tasks. Patient Goals: regain full ROM Planned Interventions, Frequency, and Duration: Current Frequency: 1x/week Planned Treatment Interventions: Patient demonstrates good understanding of plan of care and treatment. The above goals and plan of care were discussed and agreed upon by patient/family. SUBJECTIVE: Sita Mittal is a 66 year old female seen today for finger stiffness Patient Goals: regain full ROM Pain: PROMIS Scales T-scores: mean of general population = 50. 5 points is clinically meaningfully difference Percentiles provide an indication of how the patient's score ranks in relation to the general population. Higher percentile rankings indicate better function/quality of life. 50th percentile is the average of the general population and indicates half of respondents had a worse score. T-scores: mean of general population = 50. 5 points is clinically meaningfully difference Percentiles provide an indication of how the patient's score ranks in relation to the general population. Higher percentile rankings indicate better function/quality of life. 50th percentile is the average of the general population and indicates half of respondents had a worse score. OBJECTIVE MEASURES WITH LEVEL OF FUNCTION: Hand Edema Location: R index finger Right Hand AROM: Index Finger Left Hand AROM: Index Finger Strength: Rehabilitation Attendant Position 2 Sensation: (reports increased sensativtiy with R finger) Hand Strength R Rehabilitation Attendant Position 2 (lbs): 50 lbs L Rehabilitation Attendant Position 2 (lbs): 50 lbs UE AROM Right Hand AROM: Index Finger Left Hand AROM: Index Finger Hand AROM R Index Finger MP Extension: 0 Degrees R Index Finger MP Flexion: 90 Degrees R Index Finger PIP Extension : 0 Degrees R Index Finger PIP Flexion: 75 Degrees R Index Finger DIP Extension : 0 Degrees R Index Finger DIP Flexion: 40 Degrees Right Index Finger Total Active Movement: 205 L Index Finger MP Extension: 0 Degrees L Index Finger MP Flexion: 90 Degrees L Index Finger PIP Extension : 0 Degrees L Index Finger PIP Flexion : 75 Degrees L Index Finger DIP Extension : 0 Degrees L Index Finger DIP Flexion: 60 Degrees Left Index Finger Total Active Movement: 225 Education: Education Learning Preferences: Demonstration;Explanation;Perform ance Barriers: None Learning/educational needs: Procedure / Surgery;Home exercise program Education Provided: Yes, see treatment interventions for education provided Education Provided To: Patient;Caregiver Education Mode/Type: Demonstration;Literature/Printed Materials;Explanation/Discussion; Performance;Teach Back Response to Education/Teach Back: States/Identifies;Return Demonstration TREATMENT: Evaluation Evaluation Therapeutic Exercise: 1: completed intrinisic and composit stretch to R index finger to improve ROM 2: completed blocking exercises to R index finger for improving ROM; provided with HEP 3: pt demonstrated repeating back exercises with good understanding Skilled Intervention: Patient was educated in proper exercise technique and purpose for exercises. Reviewed and educated patient on additions/changes for home exercise program as above (*). Skilled judgment was provided in selection of appropriate interventions. [facility] Management: 1: reviewed edema managment techniques; recommending coban and retrograde massage to help with edema 2: completed retrograde massage to help decrease swelling 3: reviewed desensitization techniques to help decrease sensativity in finger Skilled Intervention: Skilled judgment in the selection of proper modification for activity of daily living/home management based on clinical presentation, deficits, and needs. Physical assistance was provided during education for modifications and patient safety. Educated the patient regarding recommendations and provided written instruction to facilitate compliance. JULI Campuzano documented in this encounter [facility] 02-28-2022 Note HNO ID: [id number] Author: Bouchra Menjivar PA-C Service: ? Author Type: Physician Shear Operator Type: Progress Notes Filed: 02/28/2022 11:25 AM Note Text: ORTHOPAEDIC OFFICE NOTE CHIEF COMPLAINT: Pain and Swelling of the Right Index Finger and Pain (Patient states cat bite no pain very sensitive ) Patient presents with: Right Index Finger - Pain, Swelling Pain: Patient states cat bite no pain very sensitive HISTORY OF PRESENT ILLNESS: Sita Mittal presents to the office for follow up of right index finger cat bite infection. Patient is here with her . Patient has noted significant improvement in her pain and swelling since her last visit. She is still admits to having stiffness of this finger and some mild swelling. Admits when she applies Coban wrap this tends to help the swelling in her finger. Admits to having some mild hypersensitivity of her right index finger. Denies any degree of worsening symptoms at this point. Denies fever or chills. Location: right index finger Severity: 0 on a scale of 0-10 Duration of symptoms: >6 weeks Symptoms have: Improved Previous treatment: Bedside IANDD, IV antibiotics, oral antibiotics Numbness/tingling: Yes Nocturnal symptoms: No Radiating: No Injections: No Therapy: No Context worse with Activity/Motion and Gripping Smoking status: Tobacco Use: Never PAST MEDICAL HISTORY Past medical, surgical, family, and social histories have been reviewed and updated with the patient today and are located elsewhere in the medical record. Diabetes:No ALLERGIES ALLERGIES Allergen Reactions Pollen Other: See Comments SINUS CONGESTION PHYSICAL EXAMINATION Resp 18 Ht 167.6 cm (5' 6) Wt 81.6 kg (180 lb) BMI 29.05 kg/m? Body mass index is 29.05 kg/m?. General Appearance: Well appearing, alert, in no acute distress, well-hydrated, well nourished. Psyche: she is alert and oriented and cooperative to our examination. Neuro: she alert and oriented times: 3. Normal affect times: 3. Gait and station: normal. Pulmonary: she has non labored breathing. There is no evidence of cyanosis. There is no clubbing of fingernails. she has no pursed lips. Head: Normocephalic and atraumatic Neck: Supple with no JVD Lymph: There is no palpable epitrochlear Musculoskeletal- Right Hand/Wrist/Upper Extremity Exam: Skin: There is mild swelling of right index finger. Minimal erythema noted to distal phalanx of right index finger, consistent with freshly healed epidermis. Significant improvement in induration. No ecchymosis, open wounds, active bleeding, cellulitis/streaking, or purulent drainage. Cardiovascular: <3 sec capillary refill, +2 radial pulse palpated. Tenderness to palpation: none ROM: slightly decreased AROM of right index finger PIP and DIP joints due to swelling and stiffness. She actively fires her flexor and extensor tendons of right index finger. Instability: none Sensation: Normal sensation Thenar atrophy: none Atrophy: none REVIEW OF STUDIES: No new imaging obtained at today's visit ASSESSMENT AND PLAN: 1. Infection of index finger - ICD9: 686.9, ICD10: L08.9 (primary diagnosis) 2. Cat bite of finger, subsequent encounter - ICD9: V58.89, 883.0, ICD10: S61.259D, W55.01XD Patient educated on clinical and exam findings, suspected diagnosis, and treatment options. - Patient is doing very well today. I am very pleased with her healing progress. - Reviewed desensitization techniques for hypersensitivity - Recommended OT to help improve ROM and swelling, but patient declined at this time. She would like to work on this on her own and will let us know if she changes her mind. - No restrictions for right index finger or hand. Follow up as needed - Patient instructed to call office with questions or concerns. This note was generated via [employer] voice dictation and may contain errors related to that system such as spelling, grammar, punctuation, gender, words, and phrases that may be inappropriate. All reasonable efforts were made to correct dictation errors, however, they still may occur given the software used. NAJMA Vanegas, PAGeeC [facility] 02-07-2022 Note HNO ID: [id number] Author: Deric Cortez MD Service: ? Author Type: Physician Type: Progress Notes Filed: 02/07/2022 11:22 AM Note Text: Patient presents with: Right Index Finger - Follow Up, Pain, Swelling, Cat Bite HISTORY OF PRESENT ILLNESS Sita Mittal presents to the office for follow up of right index finger cat bite. The patient is here with her . She is noted a significant improvement in her pain and swelling since her last visit. She has completed the oral antibiotics as of Monday without any degree of worsening. No other new complaints on today's visit. Location: Right index finger Severity: 2 on a scale of 0-10 Duration of symptoms: Over 2 weeks Treatments tried include bedside IANDD, IV, oral antibiotics Symptoms have Improved REVIEW OF SYSTEMS Cardiovascular ROS:No history of chest pain, palpitation, orthopnea, cyanosis, pedal edema Neurologic ROS: Numbness and Tingling: No PAST MEDICAL HISTORY Past medical, surgical, family, and social histories have been reviewed and updated with the patient today and are located elsewhere in the medical record. Diabetes:No ALLERGIES ALLERGIES Allergen Reactions Pollen Other: See Comments SINUS CONGESTION PHYSICAL EXAMINATION Resp 20 Ht 167.6 cm (5' 6) Wt 81.6 kg (180 lb) BMI 29.05 kg/m? Body mass index is 29.05 kg/m?. General Appearance Well appearing, alert, in no acute distress, well-hydrated, well nourished. Alert and oriented times: 3 Normal affect times: 3 Appears stated age and well nourished Gait and station:normal Right Upper Extremity Exam: Inspection of the index finger shows a dramatic decrease in swelling Erythema and induration have improved There is only a small area of granulation remaining Tenderness to palpation: Minimally tender ROM: Intact DIP joint flexion and extension Sensation intact on the radial and ulnar aspect of the digit Brisk capillary refill REVIEW OF STUDIES No new imaging obtained ASSESSMENT AND PLAN ASSESSMENT/PLAN: 1. Infection of index finger - ICD9: 686.9, ICD10: L08.9 (primary diagnosis) 2. Cat bite of finger, subsequent encounter - ICD9: V58.89, 883.0, ICD10: S61.259D, W55.01XD The patient is making significant progress. I would expect the remaining granulation tissue to fully epithelialized within the next few weeks. We will plan on following up in 1 month for a final check. All of her questions were answered to her satisfaction. Deric Cortez Patient educated on wound care and dressing changes. Patient instructed to call the office with questions or concerns. [facility] 02-07-2022 History of Present illness Narrative Patient presents with: Right Index Finger - Follow Up, Pain, Swelling, Cat Bite HISTORY OF PRESENT ILLNESS Sita Mittal presents to the office for follow up of right index finger cat bite. The patient is here with her . She is noted a significant improvement in her pain and swelling since her last visit. She has completed the oral antibiotics as of Monday without any degree of worsening. No other new complaints on today's visit. Location: Right index finger Severity: 2 on a scale of 0-10 Duration of symptoms: Over 2 weeks Treatments tried include bedside I&D, IV, oral antibiotics Symptoms have Improved REVIEW OF SYSTEMS Cardiovascular ROS:No history of chest pain, palpitation, orthopnea, cyanosis, pedal edema Neurologic ROS: Numbness and Tingling: No PAST MEDICAL HISTORY Past medical, surgical, family, and social histories have been reviewed and updated with the patient today and are located elsewhere in the medical record. Diabetes:No ALLERGIES ALLERGIES Allergen Reactions Pollen Other: See Comments SINUS CONGESTION PHYSICAL EXAMINATION Resp 20 Ht 167.6 cm (5' 6) Wt 81.6 kg (180 lb) BMI 29.05 kg/m Body mass index is 29.05 kg/m . General Appearance Well appearing, alert, in no acute distress, well-hydrated, well nourished. Alert and oriented times: 3 Normal affect times: 3 Appears stated age and well nourished Gait and station:normal Right Upper Extremity Exam: Inspection of the index finger shows a dramatic decrease in swelling Erythema and induration have improved There is only a small area of granulation remaining Tenderness to palpation: Minimally tender ROM: Intact DIP joint flexion and extension Sensation intact on the radial and ulnar aspect of the digit Brisk capillary refill REVIEW OF STUDIES No new imaging obtained ASSESSMENT AND PLAN ASSESSMENT/PLAN: 1. Infection of index finger - ICD9: 686.9, ICD10: L08.9 (primary diagnosis) 2. Cat bite of finger, subsequent encounter - ICD9: V58.89, 883.0, ICD10: S61.259D, W55.01XD The patient is making significant progress. I would expect the remaining granulation tissue to fully epithelialized within the next few weeks. We will plan on following up in 1 month for a final check. All of her questions were answered to her satisfaction. Deric Cortez Patient educated on wound care and dressing changes. Patient instructed to call the office with questions or concerns. documented in this encounter [facility] 01-28-2022 Note HNO ID: [id number] Author: Deric Cortez MD Service: ? Author Type: Physician Type: Progress Notes Filed: 01/28/2022 11:27 AM Note Text: Patient presents with: Right Hand - New, Swelling, Pain HISTORY OF PRESENT ILLNESS Sita Mittal presents to the office for follow up of right index finger cat bite. The patient has been continuing with soaks, dressing changes and antibiotics since her inpatient admission. There has been some slow improvement. She notes intolerance to the broad-spectrum antibiotics and has had nausea within the last day. Location: Right index finger Severity: 4 on a scale of 0-10 Duration of symptoms: Over 1 week Treatments tried include bedside IANDD, IV followed by transition to oral antibiotics Symptoms have Improved REVIEW OF SYSTEMS Cardiovascular ROS:No history of chest pain, palpitation, orthopnea, cyanosis, pedal edema Neurologic ROS: Numbness and Tingling: No PAST MEDICAL HISTORY Past medical, surgical, family, and social histories have been reviewed and updated with the patient today and are located elsewhere in the medical record. Diabetes:No ALLERGIES ALLERGIES Allergen Reactions - Pollen Other: See Comments SINUS CONGESTION PHYSICAL EXAMINATION Resp 20 Ht 167.6 cm (5' 6) Wt 82.6 kg (182 lb) BMI 29.38 kg/m? Body mass index is 29.38 kg/m?. General Appearance Well appearing, alert, in no acute distress, well-hydrated, well nourished. Alert and oriented times: 3 Normal affect times: 3 Appears stated age and well nourished Gait and station:normal Right Upper Extremity Exam: Inspection shows an interval decrease in swelling Healthy granulation tissue along the ulnar border at the IANDD site No evidence of retained purulence No fluctuance Tenderness to palpation: Improved from inpatient exam ROM: Intact flexion and extension at index DIP joint Full composite fist Sensation intact on the radial and ulnar aspect of the index finger Brisk capillary refill REVIEW OF STUDIES No new imaging obtained ASSESSMENT AND PLAN ASSESSMENT/PLAN: 1. Infection of index finger - ICD9: 686.9, ICD10: L08.9 (primary diagnosis) 2. Cat bite of finger, subsequent encounter - ICD9: V58.89, 883.0, ICD10: S61.259D, W55.01XD We reviewed the progress that the patient has made. We will discontinue the doxycycline and continue out the Augmentin until its completion in the middle of next week. In the interim she will continue with soaks and I like to follow-up in 1 week to ensure that she has continued progress which remained stable following antibiotic completion. All of her questions were answered to her satisfaction. Deric Cortez Patient educated on soaks and dressing changes. Patient instructed to call the office with questions or concerns. [facility] 01-28-2022 History of Present illness Narrative Patient presents with: Right Hand - New, Swelling, Pain HISTORY OF PRESENT ILLNESS Sita Mittal presents to the office for follow up of right index finger cat bite. The patient has been continuing with soaks, dressing changes and antibiotics since her inpatient admission. There has been some slow improvement. She notes intolerance to the broad-spectrum antibiotics and has had nausea within the last day. Location: Right index finger Severity: 4 on a scale of 0-10 Duration of symptoms: Over 1 week Treatments tried include bedside I&D, IV followed by transition to oral antibiotics Symptoms have Improved REVIEW OF SYSTEMS Cardiovascular ROS:No history of chest pain, palpitation, orthopnea, cyanosis, pedal edema Neurologic ROS: Numbness and Tingling: No PAST MEDICAL HISTORY Past medical, surgical, family, and social histories have been reviewed and updated with the patient today and are located elsewhere in the medical record. Diabetes:No ALLERGIES ALLERGIES Allergen Reactions Pollen Other: See Comments SINUS CONGESTION PHYSICAL EXAMINATION Resp 20 Ht 167.6 cm (5' 6) Wt 82.6 kg (182 lb) BMI 29.38 kg/m Body mass index is 29.38 kg/m . General Appearance Well appearing, alert, in no acute distress, well-hydrated, well nourished. Alert and oriented times: 3 Normal affect times: 3 Appears stated age and well nourished Gait and station:normal Right Upper Extremity Exam: Inspection shows an interval decrease in swelling Healthy granulation tissue along the ulnar border at the I&D site No evidence of retained purulence No fluctuance Tenderness to palpation: Improved from inpatient exam ROM: Intact flexion and extension at index DIP joint Full composite fist Sensation intact on the radial and ulnar aspect of the index finger Brisk capillary refill REVIEW OF STUDIES No new imaging obtained ASSESSMENT AND PLAN ASSESSMENT/PLAN: 1. Infection of index finger - ICD9: 686.9, ICD10: L08.9 (primary diagnosis) 2. Cat bite of finger, subsequent encounter - ICD9: V58.89, 883.0, ICD10: S61.259D, W55.01XD We reviewed the progress that the patient has made. We will discontinue the doxycycline and continue out the Augmentin until its completion in the middle of next week. In the interim she will continue with soaks and I like to follow-up in 1 week to ensure that she has continued progress which remained stable following antibiotic completion. All of her questions were answered to her satisfaction. Deric Cortez Patient educated on soaks and dressing changes. Patient instructed to call the office with questions or concerns. documented in this encounter [facility] 01-26-2022 Miscellaneous Notes Record ID: [id number] Patient name: Sita Mittal Date: January 26, 2022 - 03:29 Administered by: DAKOTA Protocol: Did you receive your discharge instructions? -> yes Do you have any questions about your discharge instructions? Or do you need clarification on anything? -> no Good! Let's move on. -> undefined Do you have a follow-up appointment scheduled already? -> yes Do you think you'll be able to attend your follow-up appointment? -> yes Do you have any questions about getting or taking your medications? -> no Do you have any new or worsening symptoms? -> no How likely is it that you would recommend [facility] to a friend or family member? -> likely Please tell me what you liked best about your hospital experience: -> Friendly and competent staff who were available when needed documented in this encounter [facility] 01-26-[address] Cortez consulted this patient in the Hospital. David Mckeon [facility] January 26, 2022 11:09 AM ----- Message from Nilsa Byers sent at 01/26/2022 10:40 AM EDT ----- Regarding: Orthopedics/Open Hand: Animal Bite/Recent ED Visit Contact: Subject Line Format: Orthopedics / [Provider Name or Open & Body Part] / [Issue] Patient has been identified by name and Date of (Y/N): y Patient: Sita Mittal Date of : 1955 Previous Provider Seen: n/a Body Part(s) Identified: R index finger Diagnosis/Reason For Visit: discharged from hospital 01/25/22; referred to Dr Cortez for cat bite to R index finger to be seen this Monday. Reason for the call/escalation: per sched tool If reason for call/escalation is discharge from ED/ER or Hospital, which facility was the patient seen at: [facility] Was an appointment scheduled (Y/N): n Person calling if other than patient: n/a Return call to if other than patient: n/a Best contact number: [phone] Thank you, Nilsa Byers January 26, 2022 10:41 AM documented in this encounter [facility] 01-25-2022 Note HNO ID: [id number] Author: Yo Montoya MD Service: Hospital Medicine Author Type: Physician Type: Discharge Summary Filed: 01/25/2022 1:25 PM Note Text: DISCHARGE SUMMARY ADMISSION DATE: 01/22/2022 DISCHARGE DATE: January 25, 2022 Attending Physician: Yo Montoya MD Reason for Hospitalization: Right index finger infection Hospital Course: This is a 66 year old female who was admitted for right index finger infection from cat bite, started on Zosyn IV evaluated by orthopedic service and had incision and drainage done on 01/23, vancomycin was added, culture continue to be negative to date. Plan was to transition to oral antibiotic Augmentin and doxycycline at the time of discharge. Other medical problems continue to be stable. Today patient was seen and examined, denied any fever, chills, chest pain, dyspnea, nausea and vomiting. Physical Examination: General appearance: Patient is sitting in bed in no acute respiratory distress. Awake, alert, oriented *3. Skin: Normal temperature, no ecchymosis. Lungs: Lungs clear to auscultation. No wheezing, rhonchi, rales, no use of accessory respiratory muscles. Heart: RRR, normal s1s2, no murmurs Abdomen: Positive for bowel sounds, soft abdomen, non-tender. Extremities: No edema. Total time spent in discharge process was 32 minutes The patient was discharged in stable condition with recommended follow-up appointments with PCP and follow up with Dr. Cortez on 01/28/2022 Active Hospital Problems Diagnosis - Cat bite of finger - Insomnia, unspecified - Primary hypertension - Unspecified diffuse connective tissue disease (HCC) Code Status: Code Status: Full Code Consultants: Silvia Cortez Operations During Hospitalization: IANDD of right index finger infection on 01/23 Procedures and Imaging During Hospitalization: None. Discharge Instructions: Discharge Instructions Provided. Soaks in 50% Hibiclens, 50% sterile saline TID Patient Condition @ Discharge: Stable Discharge Disposition: Home Discharge Medications: Current Discharge Medication List START taking these medications doxycycline hyclate (VIBRAMYCIN) 100 mg Take 100 mg by mouth twice daily. Qty: 10 capsule Refills: 0 amoxicillin-clavulanic acid (AUGMENTIN) 875 mg Take 875 mg by mouth every 12 hours. Qty: 14 tablet Refills: 0 CONTINUE these medications which have NOT CHANGED amLODIPine-Atorvastatin 1 tablet Take 1 tablet by mouth daily at bedtime. !! pregabalin (LYRICA) 100 mg Take 100 mg by mouth every morning. !! pregabalin (LYRICA) 200 mg Take 200 mg by mouth daily at bedtime. pravastatin (PRAVACHOL) 80 mg ORAL tablet Take one(1) tablet daily. Refills: 0 Associated Diagnoses:Neutropenia (HCC); Unspecified diffuse connective tissue disease (HCC) fluticasone (FLONASE) 50 mcg/Actuation NASAL nasal spray One puff per nostril daily Refills: 0 Associated Diagnoses:Neutropenia (HCC); Unspecified diffuse connective tissue disease (HCC) pantoprazole (PROTONIX) 40 mg ORAL tablet Take one(1) tablet daily. Refills: 0 Associated Diagnoses:Neutropenia (HCC); Unspecified diffuse connective tissue disease (HCC) Levocetirizine (XYZAL) 5 mg ORAL tablet qhs Refills: 0 Associated Diagnoses:Neutropenia (HCC); Unspecified diffuse connective tissue disease (HCC) fexofenadine (JASSI) 180 mg ORAL tablet Take one(1) tablet daily in the morning Refills: 0 Associated Diagnoses:Neutropenia (HCC); Unspecified diffuse connective tissue disease (HCC) calcium, elemental, ORAL Tab Take one(1) tablet daily. Refills: 0 Associated Diagnoses:Neutropenia (HCC); Unspecified diffuse connective tissue disease (HCC) Rebuy-0-DJE-EPA-Fish Oil (OMEGA-3 FISH OIL) 1,000 (120-180) mg ORAL Cap Take one(1) tablet daily. Refills: 0 Associated Diagnoses:Neutropenia (HCC); Unspecified diffuse connective tissue disease (HCC) aspirin(ASPIR-LOW 81 MG TAB) Take one(1) tablet daily. Refills: 0 COMPOUNDED PRESCRIPTION B 12 Refills: 0 PLAQUENIL 200 MG TAB Take one(1) tablet twice daily. Refills: 0 GLUCOSAMINE CHONDROITIN MAXSTR 500 MG-400 MG CAP Take one(1) capsules three(3) times daily.. Refills: 0 THERAPEUTIC MULTIVITAMIN TAB Take one(1) tablet daily. Refills: 0 VAGIFEM 25 MCG VAGINAL TAB as necessary Refills: 0 SELENIUM SULFIDE 2.5 % SHAMPOO qod face, ears, scalp as second lather: lather, wait 5-10 minutes, rinse off Qty: 4 oz Refills: 2 !! - Potential duplicate medications found. Please discuss with provider. STOP taking these medications oxybutynin XL 15 mg ORAL 24 hr tablet Comments: Reason for Stopping: nabumetone 500 mg ORAL tablet Comments: Reason for Stopping: AMBIEN 10 MG TAB Comments: Reason for Stopping: Plan of care discussion: Plan of care discussed with: Provider, RN, Patient. Future Appointments: Please follow-up as recommended by your provider. SIGNATURE: Yo Montoya MD PATIENT (more content not included)... [facility] 01-25-2022 Note HNO ID: [id number] Author: Nikos Meztger MD Service: Orthopaedic Surgery Author Type: Resident Type: Progress Notes Filed: 01/25/2022 6:21 AM Note Text: Orthopaedic Surgery Inpatient Progress Note Assessment 66 year old female with cat bite to right index finger s/p bedside IANDD on 01/23. Plan - Admitted to?medicine - Bedside IANDD performed 01/23 - Cultures pending - Soaks in 50% Hibiclens, 50% sterile saline TID - Diet:?Okay for diet from orthopaedic standpoint - Pain control - Ice/Elevate?RUE - Abx:?Currently vanc and zosyn Subjective No acute events overnight. Pain stable. Physical Examination Vitals BP 146/76 Pulse 63 Temp 36.4 ?C (97.5 ?F) (Oral) Resp 18 Ht 167.6 cm (5' 6) Wt 82.6 kg (182 lb) SpO2 100% BMI 29.38 kg/m? General Alert and oriented. No acute distress. Cooperative with interview. Right Upper Extremity Erythema about index finger from DIP joint distal with small amount of erythema tracking proximal in finger. No erythema in hand. Incision site to ulnar border of distal index finger without drainage. Area of drainage near ulnar border of proximal nail fold. TTP about distal index finger. No tenderness in palm or hand. Labs Recent Labs 01/25/22 0442 01/23/22 0040 NA 142 138 K 4.1 4.3 CHLOR 105 108* CO2 26 22 BUN 17 15 CREAT 0.91 0.93 GLUC 93 102* ANION 11 8* CA 9.5 8.3* WBC 3.81 3.87 HB 12.4 10.7* HCT 36.8 33.1* PLT 225 154 Imaging No new orthopaedic imaging. Nikos Metzger MD Orthopaedic Surgery 01/25/2022 6:21 AM [facility] 01-24-2022 Note HNO ID: [id number] Author: Yo Montoya MD Service: Hospital Medicine Author Type: Physician Type: Progress Notes Filed: 01/24/2022 11:54 AM Note Text: Hospital Medicine Progress Note Patient Name: Sita Mittal Admission Date: 01/22/2022 Reason for Visit: Cat bite, right second finger infection IMPRESSION AND PLAN: Active Hospital Problems Diagnosis - Cat bite of finger - Insomnia, unspecified - Primary hypertension - Unspecified diffuse connective tissue disease (HCC) 1. ?Right second finger cellulitis related to cat bite continue with Zosyn, vancomycin was added by orthopedic surgery and patient had incision and drainage at bedside, will adjust antibiotic hopefully to oral in the next 24 hours according to cultures. If cultures continue to be negative may continue Augmentin and doxycycline for to finish a total of 1 week of antibiotic. 2. ?Unspecified connective tissue disease for which patient is on Plaquenil and that was resumed. 3. ?Hypertension resume was on amlodipine. 4. ?Hyperlipidemia resume on her statin. Patient Checklist Prophylaxis: VTE - Yes Code Status: Code Status: Full Code Disposition: Home Yo Montoya MD = Interval History: Patient was seen and examined for cat bite with right second finger infection which is doing better today denies any fever, chills, chest pain, finger swelling is coming down but still having some erythema there. Pain has subsided also. PERTINENT ROS: Temp Av.8 ?C (98.2 ?F) Min: 36.7 ?C (98.1 ?F) Max: 36.9 ?C (98.4 ?F) Pulse Av Min: 62 Max: 67 No data recorded Cuff BP Min: 128/68 Max: 157/86 Pain Level: 5 PHYSICAL EXAM: BP 137/67 Pulse 65 Temp 36.8 ?C (98.2 ?F) (Oral) Resp 14 Ht 167.6 cm (5' 6) Wt 82.6 kg (182 lb) SpO2 98% BMI 29.38 kg/m? PHYSICAL EXAMINATION: General appearance: Patient is sitting in bed in no acute respiratory distress. Awake, alert, oriented *3. Skin: Normal temperature, no ecchymosis. Lungs: Good air entry. No wheezing, rhonchi, rales, no use of accessory respiratory muscles. Heart: RRR, normal s1s2. Abdomen: Positive for bowel sounds, soft abdomen, non-tender. Extremities: No pitting edema bilateral legs. MEDICATIONS: amLODIPine-Atorvastatin 2.5-10 mg per tablet Take 1 tablet by mouth daily at bedtime. pregabalin (LYRICA) 100 mg capsule Take 100 mg by mouth every morning. pregabalin (LYRICA) 100 mg capsule Take 200 mg by mouth daily at bedtime. pravastatin (PRAVACHOL) 80 mg ORAL tablet Take one(1) tablet daily. fluticasone (FLONASE) 50 mcg/Actuation NASAL nasal spray One puff per nostril daily oxybutynin XL 15 mg ORAL 24 hr tablet Take one(1) tablet every other day. pantoprazole (PROTONIX) 40 mg ORAL tablet Take one(1) tablet daily. nabumetone 500 mg ORAL tablet Take one(1) tablet two(2) times daily. Levocetirizine (XYZAL) 5 mg ORAL tablet qhs fexofenadine (JASSI) 180 mg ORAL tablet Take one(1) tablet daily in the morning calcium, elemental, ORAL Tab Take one(1) tablet daily. Zvieb-3-RSW-EPA-Fish Oil (OMEGA-3 FISH OIL) 1,000 (120-180) mg ORAL Cap Take one(1) tablet daily. aspirin(ASPIR-LOW 81 MG TAB) Take one(1) tablet daily. COMPOUNDED PRESCRIPTION B 12 PLAQUENIL 200 MG TAB Take one(1) tablet twice daily. GLUCOSAMINE CHONDROITIN MAXSTR 500 MG-400 MG CAP Take one(1) capsules three(3) times daily.. THERAPEUTIC MULTIVITAMIN TAB Take one(1) tablet daily. AMBIEN 10 MG TAB Take one(1) tablet at bedtime as needed for insomnia. VAGIFEM 25 MCG VAGINAL TAB as necessary SELENIUM SULFIDE 2.5 % SHAMPOO qod face, ears, scalp as second lather: lather, wait 5-10 minutes, rinse off Current Facility-Administered Medications Medication Dose Route Frequency - aspirin, enteric coated 81 mg tab(s) 81 mg ORAL DAILY - pravastatin 80 mg tab(s) (PRAVACHOL) 80 mg ORAL AT BEDTIME - pantoprazole DR 40 mg tab(s) (PROTONIX) 40 mg ORAL DAILY (6 AM) - NaCl 0.9% iv flush bag 20 mL INTRAVENOUS PRN - sodium chloride 0.9 % (flush) 3-5 mL (BD POSIFLUSH) 3-5 mL INTRAVENOUS q 12 H - polyethylene glycol 3350 17 g packet (MIRALAX, GLYCOLAX) 17 g ORAL DAILY - aluminum-magnesium hydroxide-simethicone 200-200-20 mg/5 mL 30 mL (MAALOX,MYLANTA,MAG-AL PLUS) 30 mL ORAL DAILY PRN - acetaminophen 650 mg tab(s) (TYLENOL) 650 mg ORAL q 6 H PRN - oxyCODONE-acetaminophen 5-325 mg 1 tablet (PERCOCET) 1 tablet ORAL q 6 H PRN - piperacillin-tazobactam iv piggyback 3.375 g in dextrose (iso-osmotic) 50 mL (ZOSYN) 3.375 g INTRAVENOUS q 8 H - trospium 20 mg tab(s) (SANCTURA) 20 mg ORAL BID AC - hydrOXYchloroQUINE 200 mg tab(s) (PLAQUENIL) 200 mg ORAL DAILY - pregabalin 100 mg cap(s) (LYRICA) 100 mg ORAL DAILY - pregabalin 200 mg cap(s) (LYRICA) 200 mg ORAL AT BEDTIME - amLODIPine 2.5 mg tab(s) (NORVASC) 2.5 mg ORAL DAILY - vancomycin dosing and monitoring per pharmacy OTHER As Dire (more content not included)... [facility] 01-24-2022 Note HNO ID: [id number] Author: Nikos Metzger MD Service: Orthopaedic Surgery Author Type: Resident Type: Progress Notes Filed: 01/24/2022 6:14 AM Note Text: Orthopaedic Surgery Inpatient Progress Note Assessment 66 year old female with cat bite to right index finger s/p bedside IANDD on 01/23. Plan - Admitted to medicine - Bedside IANDD performed 01/23 - Cultures pending - Soaks in 50% Hibiclens, 50% sterile saline TID - Diet: Okay for diet from orthopaedic standpoint - Pain control - Ice/Elevate RUE - Abx: Vanc and zosyn until cultures return Subjective No acute events overnight. Pain improved. Has been doing soaks. Believes appearance of index finger has improved since yesterday. Physical Examination Vitals BP 157/86 Pulse 66 Temp 36.7 ?C (98.1 ?F) (Oral) Resp 16 Ht 167.6 cm (5' 6) Wt 82.6 kg (182 lb) SpO2 98% BMI 29.38 kg/m? General Alert and oriented. No acute distress. Cooperative with interview. Right Upper Extremity Erythema about index finger from DIP joint distal with small amount of erythema tracking proximal in finger. No erythema in hand. Incision site to ulnar border of distal index finger without drainage. TTP about distal index finger. No tenderness in palm or hand. Labs Recent Labs 01/23/22 0040 01/22/22 1728 NA 138 142 K 4.3 4.4 CHLOR 108* 109* CO2 22 22 BUN 15 16 CREAT 0.93 0.90 GLUC 102* 92 ANION 8* 11 CA 8.3* 8.1* WBC 3.87 -- HB 10.7* -- HCT 33.1* -- PLT 154 -- Imaging No new orthopaedic imaging. Nikos Metzger MD Orthopaedic Surgery 01/24/2022 5:57 AM [facility] 01-23-2022 Note HNO ID: [id number] Author: Yo Montoya MD Service: Hospital Medicine Author Type: Physician Type: Progress Notes Filed: 01/23/2022 12:37 PM Note Text: Hospital Medicine Progress Note Patient Name: Sita Mittal Admission Date: 01/22/2022 Reason for Visit: Cat bite IMPRESSION AND PLAN: Active Hospital Problems Diagnosis - Cat bite of finger - Insomnia, unspecified - Primary hypertension - Unspecified diffuse connective tissue disease (HCC) 1. Right second finger cellulitis related to cat bite continue with Zosyn, vancomycin was added by orthopedic surgery and patient had incision and drainage at bedside, will adjust antibiotic hopefully to oral in the next 24 to 48 hours according to cultures. 2. Unspecified connective tissue disease for which patient is on Plaquenil and that was resumed. 3. Hypertension resume was on amlodipine. 4. Hyperlipidemia resume on her statin. Patient Checklist Prophylaxis: VTE - Yes Code Status: Code Status: Full Code Disposition: Home Yo Montoya MD = Interval History: Patient was seen and examined for right index finger infection secondary to cat bite, patient is doing okay denies any fever, chills, chest pain, having some pain in the finger after incision and drainage today. But noticed decreased erythema and swelling in that area. PERTINENT ROS: Temp Av.8 ?C (98.3 ?F) Min: 36.8 ?C (98.2 ?F) Max: 37 ?C (98.6 ?F) Pulse Av Min: 60 Max: 70 No data recorded Cuff BP Min: 128/62 Max: 146/83 Pain Level: 8 PHYSICAL EXAM: BP 137/76 Pulse 68 Temp 36.8 ?C (98.2 ?F) (Oral) Resp 16 Ht 167.6 cm (5' 6) Wt 82.6 kg (182 lb) SpO2 97% BMI 29.38 kg/m? PHYSICAL EXAMINATION: General appearance: Patient is sitting in bed in no acute respiratory distress. Awake, alert, oriented *3. Skin: Normal temperature, no ecchymosis. Lungs: Good air entry. No wheezing, rhonchi, rales, no use of accessory respiratory muscles. Heart: RRR, normal s1s2. Abdomen: Positive for bowel sounds, soft abdomen, non-tender. Extremities: No pitting edema bilateral legs. MEDICATIONS: amLODIPine-Atorvastatin 2.5-10 mg per tablet Take 1 tablet by mouth daily at bedtime. pregabalin (LYRICA) 100 mg capsule Take 100 mg by mouth every morning. pregabalin (LYRICA) 100 mg capsule Take 200 mg by mouth daily at bedtime. pravastatin (PRAVACHOL) 80 mg ORAL tablet Take one(1) tablet daily. fluticasone (FLONASE) 50 mcg/Actuation NASAL nasal spray One puff per nostril daily oxybutynin XL 15 mg ORAL 24 hr tablet Take one(1) tablet every other day. pantoprazole (PROTONIX) 40 mg ORAL tablet Take one(1) tablet daily. nabumetone 500 mg ORAL tablet Take one(1) tablet two(2) times daily. Levocetirizine (XYZAL) 5 mg ORAL tablet qhs fexofenadine (JASSI) 180 mg ORAL tablet Take one(1) tablet daily in the morning calcium, elemental, ORAL Tab Take one(1) tablet daily. Iupwj-7-BCO-EPA-Fish Oil (OMEGA-3 FISH OIL) 1,000 (120-180) mg ORAL Cap Take one(1) tablet daily. aspirin(ASPIR-LOW 81 MG TAB) Take one(1) tablet daily. COMPOUNDED PRESCRIPTION B 12 PLAQUENIL 200 MG TAB Take one(1) tablet twice daily. GLUCOSAMINE CHONDROITIN MAXSTR 500 MG-400 MG CAP Take one(1) capsules three(3) times daily.. THERAPEUTIC MULTIVITAMIN TAB Take one(1) tablet daily. AMBIEN 10 MG TAB Take one(1) tablet at bedtime as needed for insomnia. VAGIFEM 25 MCG VAGINAL TAB as necessary SELENIUM SULFIDE 2.5 % SHAMPOO qod face, ears, scalp as second lather: lather, wait 5-10 minutes, rinse off Current Facility-Administered Medications Medication Dose Route Frequency - aspirin, enteric coated 81 mg tab(s) 81 mg ORAL DAILY - pravastatin 80 mg tab(s) (PRAVACHOL) 80 mg ORAL AT BEDTIME - pantoprazole DR 40 mg tab(s) (PROTONIX) 40 mg ORAL DAILY (6 AM) - NaCl 0.9% iv flush bag 20 mL INTRAVENOUS PRN - sodium chloride 0.9 % (flush) 3-5 mL (BD POSIFLUSH) 3-5 mL INTRAVENOUS q 12 H - polyethylene glycol 3350 17 g packet (MIRALAX, GLYCOLAX) 17 g ORAL DAILY - aluminum-magnesium hydroxide-simethicone 200-200-20 mg/5 mL 30 mL (MAALOX,MYLANTA,MAG-AL PLUS) 30 mL ORAL DAILY PRN - acetaminophen 650 mg tab(s) (TYLENOL) 650 mg ORAL q 6 H PRN - oxyCODONE-acetaminophen 5-325 mg 1 tablet (PERCOCET) 1 tablet ORAL q 6 H PRN - piperacillin-tazobactam iv piggyback 3.375 g in dextrose (iso-osmotic) 50 mL (ZOSYN) 3.375 g INTRAVENOUS q 8 H - trospium 20 mg tab(s) (SANCTURA) 20 mg ORAL BID AC - hydrOXYchloroQUINE 200 mg tab(s) (PLAQUENIL) 200 mg ORAL DAILY - pregabalin 100 mg cap(s) (LYRICA) 100 mg ORAL DAILY - pregabalin 200 mg cap(s) (LYRICA) 200 mg ORAL AT BEDTIME - amLODIPine 2.5 mg tab(s) (NORVASC) 2.5 mg ORAL DAILY - vancomycin dosing and monitoring per pharmacy OTHER As Directed - vancomycin 1.25 g in D5W 250 mL (VANCOCIN) 1.25 g INTRAVENOUS q 12 HR Lab data: CBC: Recent Labs 01/23/22 0 (more content not included)... [facility] Evaluation note No assessment inform ation available [facility] Work Phone: Evaluation note Diagnosis Infection of index finger- Primary Unspecified local infection of skin and subcutaneous tissue Cat bite of finger, subsequent [facility] Diagnosis Infection of index finger- Primary Unspecified local infection of skin and subcutaneous tissue Cat bite of finger, subsequent encounter [facility] Diagnosis Cat bite of finger, subsequent encounter- Primary Infection of index finger Unspecified local infection of skin and subcutaneous tissue [facility] Diagnosis Pain in finger of right hand- Primary Pain in limb [facility]No reason for referral [facility]: Summary Purpose Family History Unknown Family Member Name Dates Details Father Comments:Stroke, Ulcer - h-p ylori Status:Active Mother Comments:Breast CA, depressi on, HBP Status:Active Sister 1 Comments:lymphoma, aplastic anemia Status:Active Relationship Condition Age at Onset Recorded Date/T mackenzie Not Specified Alzheimer's dementia Unknown Cerebrovascular accident (CVA) Unknown Advance Directives Advance Directive Response Recorded Date/ Time Living Will Yes December 19, 2017 11:23pm Power of Meat Pickler Yes December 19 11:23pm Documents on File Type Date Recorded 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 Advance Directive(s) 01/22/2022 10:07 PM Latest Code Status on File Code Status Date Activated Date Inactivated Comments Full Code 01/22/2022 9:34 AM 01/25/2022 7:38 PM Full Code Order Discussed With: Patient Advance Directive Response Recorded Date/ Time Name of Medical Power of Meat Pickler , January 22, 2022 12:45am Living Will Yes January 22, 2022 12:45am Power of Meat Pickler Yes January 22 12:45am Advance Directive Response Recorded Date/ Time Living Will Yes January 21, 2022 11:45pm Power of Meat Pickler Yes January 21 11:45pm Instructions Name Dates Details How to access health informa tion online Indication:Benign Essential Hypertension (Renamed from Benign essential HTN) Start:07-May-2015 Instruction Type:Patient Education How to access health informa tion online - Detail Indication:Benign Essential Hypertension (Renamed from Benign essential HTN) Start:07-May-2015 Instruction Type:Patient Education Patient Instructions Indication:Benign Essential Hypertension (Renamed from Benign essential HTN) Start:07-May-2015 Instruction Type:Provider Instructions for Treatment How to access health informa tion online - Detail Indication:Obesity Start:15-Jan-2015 Instruction Type:Patient Education Patient Instructions Indication:Obesity Start:15-Jan-2015 Instruction Type:Provider Instructions for Treatment How to access health informa tion online Indication:Benign Essential Hypertension (Renamed from Benign essential HTN) Start:04-Nov-2014 Instruction Type:Patient Education How to access health informa tion online - Detail Indication:Benign Essential Hypertension (Renamed from Benign essential HTN) Start:04-Nov-2014 Instruction Type:Patient Education Patient Instructions Indication:Benign Essential Hypertension (Renamed from Benign essential HTN) Start:04-Nov-2014 Instruction Type:Provider Instructions for Treatment How to access health informa tion online Indication:Overweight Start:08-May-2014 Instruction Type:Patient Education How to access health informa tion online - Detail Indication:Overweight Start:08-May-2014 Instruction Type:Patient Education Patient Instructions Indication:Need for prophylactic vaccination and inoculation against influenza Start:08-May-2014 Instruction Type:Provider Instructions for Treatment Patient Instructions Indication:Insomnia Start:24-Jul-2012 Instruction Type:Provider Instructions for Treatment Patient Instructions Indication:Allergic rhinitis Start:12-Mar-2012 Instruction Type:Provider Instructions for Treatment Chief Complaint and Reason for Visit Chief Complaint BITE CAT BITE SCREENING Chief Complaint SCREENING RIGHT KNEE XRAY Chief Complaint RIGHT KNEE XRAY HYPERLIPIDEMIA Chief Complaint Admit Date NEED ORDER August 07, 2024 1 0:29am POST NEREIDA September 04, 2024 1:55 pm Additional Source Comments INFORMATION SOURCE (unrecogn ized section and content) DATE CREATED AUTHOR 01/21/2018 [facility] DATE CREATED AUTHOR AUTHOR'S ORGANIZ ATION 04/06/2022 [facility] DATE CREATED AUTHOR AUTHOR'S ORGANIZ ATION 09/19/2024 [facility] Goals (unrecognized section and content) Goals may be documented in a n alternate sectionGoals may be documented in an alternate sectionGoals may be documented in an alternate sectionGoals may be documented in an alternate sectionGoals may be documented in an alternate sectionGoals may be documented in an alternate section Source Comments (unrecognize d section and content) In the event this informatio n is protected by the Federal Confidentiality of Alcohol and Drug Abuse Patient Records regulations: The Federal rules restrict any use of the information to criminally investigate or prosecute any alcohol or drug abuse patient.[facility] the event this information is protected by the Federal Confidentiality of Alcohol and Drug Abuse Patient Records regulations: The Federal rules restrict any use of the information to criminally investigate or prosecute any alcohol or drug abuse patient.[facility] the event this information is protected by the Federal Confidentiality of Alcohol and Drug Abuse Patient Records regulations: The Federal rules restrict any use of the information to criminally investigate or prosecute any alcohol or drug abuse patient.[facility] the event this information is protected by the Federal Confidentiality of Alcohol and Drug Abuse Patient Records regulations: The Federal rules restrict any use of the information to criminally investigate or prosecute any alcohol or drug abuse patient.[facility] the event this information is protected by the Federal Confidentiality of Alcohol and Drug Abuse Patient Records regulations: The Federal rules restrict any use of the information to criminally investigate or prosecute any alcohol or drug abuse patient.[facility] the event this information is protected by the Federal Confidentiality of Alcohol and Drug Abuse Patient Records regulations: The Federal rules restrict any use of the information to criminally investigate or prosecute any alcohol or drug abuse patient.[facility] Reason for Visit (unrecogniz ed section and content) Reason Comments Hospital Follow Up scheduled Reason Comments New Swelling Pain Reason Comments Follow Up Pain Swelling Cat Bite Reason Comments OT EVAL Specialty Diagnoses / Procedures Referred By Contac t Referred To Contact Occupational Therapy / OCCUPATIONAL THERAPY Diagnoses Infection of index finger [L08.9] Cat bite of finger, subsequent encounter [S61.259D, W55.01XD] Procedures NEW RS OT HAND Bouchra Menjivar PA-C [address] [place] [address] Gabi Cabrera, OT/L [address] [place] [address] Referral ID Status Reason Start Date Expiration Date V isits Requested Visits Authorized [id number] Pending Review 03/25/2022 06/23/2022 1 1 Care Teams (unrecognized sec tion and content) Mechatronics Technician Relationship Specialty Start Date End Date Michael Calderón MD [address] [place] [address] PCP - General Family Practice 01/22/22 Mechatronics Technician Relationship Specialty Start Date End Date Michael Calderón MD [address] [place] [address] PCP - General Family Practice 01/22/22 Mechatronics Technician Relationship Specialty Start Date End Date Michael Calderón MD [address] [place] [address] PCP - General Family Practice 01/22/22 Mechatronics Technician Relationship Specialty Start Date End Date Michael Calderón MD [address] [place] [address] PCP - General Family Practice 01/22/22 Mechatronics Technician Relationship Specialty Start Date End Date Michael Calderón MD [address] [place] [address] PCP - General Family Medicine 01/22/22 Mechatronics Technician Relationship Specialty Start Date End Date Michael Calderón MD [address] [place] [address] PCP - General Family Medicine 01/22/22 Team Status: Active Member Role Status Dates Dr. Michael Calderón MD Family Provider Active Dr. Michael Calderón MD Primary Care Provider Active Team Status: Inactive Member Role Status Dates Dr. Michael Calderón MD Primary Care Provider Active Dr. Marshal Sousa MD Attending Provider, Referring Pro vider Active Team Status: Inactive Member Role Status Dates Dr. Michael Calderón MD Primary Care Provi sandro, Attending Provider, Referring Provider Active Team Status: Active Member Role Status Dates Dr. Michael Calderón MD Primary Care Provider Active Team Status: Inactive Member Role Status Dates Dr. Michael Calderón MD Primary Care Provider Active Start: August 07, 2024 End: August 07, 2024 Dr. Michael Calderón MD Attending Provider Active Start: August 07, 2024 End: August 07, 2024 Dr. Michael Calderón MD Referring Provider Active Start: August 07, 2024 End: August 07, 2024 Team Status: Inactive Member Role Status Dates Dr. Michael Calderón MD Primary Care Provider Active Start: September 04, 2024 End: September 04, 2024 Dr. Michael Calderón MD Attending Provider Active Start: September 04, 2024 End: September 04, 2024 Dr. Michael Calderón MD Referring Provider Active Start: September 04, 2024 End: September 04, 2024 FOR RECORDS PERTAINING TO PATIENTS WHO ARE OR HAVE BEEN ENROLLED IN A CHEMICAL DEPENDENCY/SUBSTANCEABUSE PROGRAM, SOME INFORMATION MAY BE OMITTED. This clinical summary was aggregated from multiple sources. Caution should be exercised in using it in the provision of clinical care. This summary normalizes information from multiple sources, and as a consequence, information in this document may materially change the coding, format and clinical context of patient data. In addition, data may be omitted in some cases. CLINICAL DECISIONS SHOULD BE BASED ON THE PRIMARY CLINICAL RECORDS. [facility] [employer] [facility]. provides no warranty or guarantee of the accuracy or completeness of information in this document.
--- OUTSIDE RECORDS SUMMARY | 2025-01-15 21:27 | XMS RPT_ITS | CCD ---
Author Organization [facility] CliniSymt Care Team Providers Care Accounts Receivable Assistant Name Role Phone Edgar Vásquez Unavailable Unavailable *SELF, REFERRED Unavailable Unavailable Naheed Main Unavailable Unavailable Naheed Main Unavailable Lauren Clarke Unavailable Manny Funes Unavailable JOVI Britton Unavailable Unavailable Unavailable Unavailable Michael Calderón MD Primary Care Provider [phone] Michael Calderón MD Primary Care Provider [phone] Dr. Michael Calderón Primary Care Provider Dr. Rikki Hewitt Referring Provider Dr. Rikki Hewitt Emergency Provider Dr. Jack Rubi Admit Provider Dr. Jack Rubi Attending Provider Dr. Jack Rubi Other Provider [phone] Michael Calderón MD Primary Care Provider RIKKI [...] Provider Kaitlynn HANNON, Dr. Rodriguez Attending Provider Kaitlynn HANNON, Dr. Rodriguez Referring Provider [phone] Allergies Allergy Classification Reported Allergen(s) Allergy Type Date of Onset Reaction(s) Facility (7 sources) Pollen; Translations: [POLLEN] Allergy to substance 1 Other: See Comments [facility] Work Phone: Medications Current Medications Medication [...] on above: Take 1 capsule by [facility] twice daily for 5 days. hydroxychloroquine sulfate [...] January 22, 2022 12:00am Comment on above: [facility] naproxen sodium 220 mg oral capsule (5 [...] Start: 01-22-2022 take 1 capsule by mo [facility] at bedtime Pregabalin 200 mg Capsule Active [...] take 1 tablet by mouth twice daily JASSI, 60MG (Oral Tablet) Tablet BID for 0 [...] above: This order discontin ued per [facility]. Sabine 3 (1 source) Sabine 3 EPH/DHA 160mg/100mg qd Active Thuia-7-HJZ-EPA-Fish Oil (OMEGA-3 FISH OIL) 1,000 (120-180) mg ORAL Cap (4 sources) Start: 07-07-19 11 Aidta-0-TYJ-EPA-Fish Oil (OMEGA-3 FISH OIL) 1,000 (120-180) mg ORAL Cap Indications: Neutropenia (HCC) , Unspecified diffuse connective tissue disease (HCC) Take one(1) tablet daily. 0 07/07/2010 Active Comment on above: Take one(1) tablet d aily. Ciijp-1-GAH-EPA-Fish Oil 1,000 mg (120 mg-180 mg) cap (2 sources) Start: 07-07-19 11 Agaeo-7-QDP-EPA-Fish Oil 1,000 mg (120 mg-180 mg) cap [...] on 09-04-2024 Study report Skeletal system DXA [facility] Imaging Services [address] [place], [place] [address] Dexa Bone Density Study MR#: [id number] Acct: [id number] Name: SITA MITTAL Rep #: [id number] : 1955 F 69 From: Jc Wong MD PCP: Dr. Michael Calderón MD Status: REG C UBALDO Study:Dexa Bone Density Study Date of Exam: 09/04/24 Exam# [id number] Ordering Dr: Michael Calderón MD PROCEDURE: DEXA [...] density since the previous examination. Reading Location: [id number] CC: Dr. Michael Calderón MD ~ Barrel Raiser: Signed [facility] Dexa Bone Density Studyon Dexa Bone Density Study [facility] Imaging Services [address] [place] [id number] Dexa Bone Density Study MR#: [id number] Acct: [id number] Name: SITA MITTAL Rep #: [id number] : 1955 F 69 From: Korey lawrence MD PCP: Dr. Michael Calderón MD Status: REG CLI Study: Dexa Bone Density Study Date of Exam: 09/04/24 Exam# [id number] Ordering Dr: Michael Calderón MD PROCEDURE: DEXA [...] density since the previous examination. Reading Location: [facility] CC: Dr. Michael Calderón MD Barrel Raiser: Signed Normal [facility] Albumin to globulin ratioOrd ered By: Michael Calderón on 08-07-2024 Albumin/Globulin [Mass ratio] 1.1 {ratio} 0.9-2.4 [facility] Bilirubin, totalOrdered By: Michael Calderón on 08-07-2024 Bilirubin [Mass/Vol] 0.40 mg/dL 0.20-1.00 [facility] Comment on above: For patients on eltr ombopag therapy, use of Dimension Sage TBIL is not recommended. Blood urea nitrogen (BUN)/cr eatinine ratioOrdered By: Michael Calderón on 08-07-2024 Urea nitrogen/Creatinine [Mass ratio] 18.8 mg/mg 10-20 [facility] Carbon dioxide measurementOr dered By: Michael Calderón on 08-07-2024 CO2 [Moles/Vol] 27.0 mmol/L 21.0-32.0 [facility] Chloride measurementOrdered By: Michael Calderón on 08-07-2024 Chloride [Moles/Vol] 106 mmol/L 98-107 [facility] Comprehensive Metabolic Prof ilon 08-07-2024 Albumin [Mass/Vol] 4.1 g/dL Normal 3.2-5.0 [facility] Comment on above: Performed By: #### L 500.4050, L500.4100 #### [facility] [address] [place], [address] Albumin/Globulin [Mass ratio] 1.1 {ratio} Normal 0.9-2.4 [facility] Comment on above: Performed By: #### L 500.4050, L500.4100 #### [facility] [address] [place], [address] ALK P 60 U/L Normal 45-117 [facility] Comment on above: Performed By: #### L 500.4050, L500.4100 #### [facility] [address] [place], [address] ALT [Catalytic activity/Vol] 30 U/L Normal 13-56 [facility] Comment on above: Performed By: #### L 500.4050, L500.4100 #### [facility] [address] [place], [address] AST [Catalytic activity/Vol] 16 U/L Normal 15-37 [facility] Comment on above: Performed By: #### L 500.4050, L500.4100 #### [facility] [address] [place], [address] Bilirubin [Mass/Vol] 0.40 mg/dL Normal 0.20-1.00 [facility] Comment on above: Result Comment: For patients on eltrombopag therapy, use of Dimension Sage TBIL is not recommended. Performed By: #### L 500.4050, L500.4100 #### [facility] [address] [place], [address] BUN/CRE 18.8 RATIO Normal 10-20 [facility] Comment on above: Performed By: #### L 500.4050, L500.4100 #### [facility] [address] [place], [address] CA,Total 9.4 mg/dL Normal 8.5-10.1 [facility] Comment on above: Performed By: #### L 500.4050, L500.4100 #### [facility] [address] [place], [address] Chloride [Moles/Vol] 106 mmol/L Normal 98-107 [facility] Comment on above: Performed By: #### L 500.4050, L500.4100 #### [facility] [address] [place], [address] CO2 [Moles/Vol] 27.0 mmol/L Normal 21.0-32.0 [facility] Comment on above: Performed By: #### L 500.4050, L500.4100 #### [facility] [address] [place], [address] Creatinine [Mass/Vol] 1.17 mg/dL High 0.55-1.02 [facility] Comment on above: Result Comment: The validity of the calculated GFR GFRAA in patients over 70 years has not been determined. Clinical correlation is essential. Performed By: #### L 500.4050, L500.4100 #### [facility] [address] [place], [address] EST GFR - AA 59 mL/min Low >60 [facility] Comment on above: Result Comment: Afri can Ugandan GFR Calc Performed By: #### L 500.4050, L500.4100 #### [facility] [address] [place], [address] GAP 6 Normal 5-15 [facility] Comment on above: Performed By: #### L 500.4050, L500.4100 #### [facility] [address] [place], [address] GFR/1.73 sq M.predicted among non-blacks MDRD (S/P/Bld) [Vol rate/Area] 49 mL/min/{1.73_m2} Low >60 [facility] Comment on above: Result Comment: Non- GFR Calc Performed By: #### L 500.4050, L500.4100 #### [facility] [address] [place], [address] Globulin (S) [Mass/Vol] 3.6 g/dL Normal 2.2-4.2 [facility] Comment on above: Performed By: #### L 500.4050, L500.4100 #### [facility] [address] [place], [address] Glucose [Mass/Vol] 89 mg/dL Normal 74-106 [facility] Comment on above: Performed By: #### L 500.4050, L500.4100 #### [facility] [address] [place], [address] Potassium [Moles/Vol] 4.5 mmol/L Normal 3.5-5.1 [facility] Comment on above: Performed By: #### L 500.4050, L500.4100 #### [facility] [address] [place], [address] Sodium [Moles/Vol] 139 mmol/L Normal 136-145 [facility] Comment on above: Performed By: #### L 500.4050, L500.4100 #### [facility] [address] [place], [address] T PROT 7.7 g/dL Normal 6.4-8.2 [facility] Comment on above: Performed By: #### L 500.4050, L500.4100 #### [facility] [address] [place], [address] Urea nitrogen [Mass/Vol] 22 mg/dL High 7-18 [facility] Comment on above: Performed By: #### L 500.4050, L500.4100 #### [facility] [address] [place], [address] Estimated glomerular filtrat ion rate (GFR) AmericanOrdered By: Michael Calderón on 08-07-2024 Estimated GFR (MDRD) Amer 59 mL/min Low >60 [facility] Comment on above: GFR Calc Glomerular filtration rate ( GFR) estimationOrdered By: Michael Calderón on 08-07-2024 Estimated GFR (MDRD) Non-Af Amer 49 mL/min Low >60 [facility] Comment on above: Non- GFR Calc Glucose measurementOrdered B y: Michael Calderón on 08-07-2024 Glucose [Mass/Vol] 89 mg/dL 74-106 [facility] High density lipoprotein (HD L) measurementOrdered By: Michael Calderón on 08-07-2024 Cholesterol in HDL [Mass/Vol] 64 mg/dL >40 [facility] Comment on above: The drugs N-Acetylcy steine and Metamizole may falsely depress this assay. Reference Range HDL <40 mg/dL Low HDL Cholesterol HDL >or= 60 mg/dL High HDL Cholesterol Laboratory - Chemistry and C hemistry - challengeOrdered By: Michael Calderón on 08-07-2024 AST [Catalytic activity/Vol] 16 U/L 15-37 [facility] Lipid Profileon 08-07-2024 Cholesterol [Mass/Vol] 195 mg/dL Normal 200 [facility] Comment on above: Result Comment: <200 mg/dL Desirable 200-240 mg/dL Borderline >240 mg/dL High Risk Performed By: #### L 500.4050, L500.4100 #### [facility] [address] [place], [address] Cholesterol in HDL [Mass/Vol] 64 mg/dL Normal [facility] Comment on above: Result Comment: The drugs N-Acetylcysteine and Metamizole may falsely depress this assay. Reference Range HDL <40 mg/dL Low HDL Cholesterol HDL >or= 60 mg/dL High HDL Cholesterol Performed By: #### L 500.4050, L500.4100 #### [facility] [address] [place], [address] Cholesterol in LDL [Mass/Vol] 97 mg/dL Normal 0-130 [facility] Comment on above: Performed By: #### L 500.4050, L500.4100 #### [facility] [address] [place], [address] Cholesterol in VLDL [Mass/Vol] 34 mg/dL Normal 5-40 [facility] Comment on above: Performed By: #### L 500.4050, L500.4100 #### [facility] [address] [place], [address] Triglyceride [Mass/Vol] 172 mg/dL Normal [facility] Comment on above: Result Comment: The drugs N-Acetylcysteine and Metamizole may falsely depress this assay. Serum Triglycerides Reference Interval Normal <150 mg/dL Borderline high 150 - 199 mg/dL High 200 - 499 mg/dL Very High > or = 500 mg/dL Performed By: #### L 500.4050, L500.4100 #### [facility] [address] [place], [address] Low density lipoprotein (LDL ) cholesterol measurementOrdered By: Michael Calderón on 08-07-2024 Cholesterol in LDL [Mass/Vol] 97 mg/dL 0-130 [facility] Potassium measurementOrdered By: Michael Calderón on 08-07-2024 Potassium [Moles/Vol] 4.5 mmol/L 3.5-5.1 [facility] Serum anion gap measurementO rdered By: Michael Calderón on 08-07-2024 Anion gap [Moles/Vol] 6 mmol/L 5-15 [facility] Serum globulin measurementOr dered By: Michael Calderón on 08-07-2024 Globulin (S) [Mass/Vol] 3.6 g/dL 2.2-4.2 [facility] Serum or plasma alanine browne otransferase (ALT) measurementOrdered By: Michael Calderón on 08-07-2024 ALT [Catalytic activity/Vol] 30 U/L 13-56 [facility] Serum or plasma albumin herman urement (mass/volume)Ordered By: Michael Calderón on 08-07-2024 Albumin [Mass/Vol] 4.1 g/dL 3.2-5.0 [facility] Serum or plasma alkaline breanna sphatase measurementOrdered By: Michael Caldeórn on 08-07-2024 ALP [Catalytic activity/Vol] 60 U/L 45-117 [facility] Serum or plasma calcium herman urement (mass/volume)Ordered By: Michael Calderón on 08-07-2024 Calcium [Mass/Vol] 9.4 mg/dL 8.5-10.1 [facility] Serum or plasma cholesterol measurement (mass/volume)Ordered By: Michael Calderón on 08-07-2024 Cholesterol [Mass/Vol] 195 mg/dL <200 [facility] Comment on above: <200 mg/dL Desirable 200-240 mg/dL Borderline >240 mg/dL High Risk Serum or plasma creatinine m easurement (mass/volume)Ordered By: Michael Calderón on 08-07-2024 Creatinine [Mass/Vol] 1.17 mg/dL High 0.55-1.02 [facility] Comment on above: The validity of the calculated GFR & GFRAA in patients over 70 years has not been determined. Clinical correlation is essential. Serum or plasma urea nitroge n measurement (mass/volume)Ordered By: Michael Calderón on 08-07-2024 Urea nitrogen [Mass/Vol] 22 mg/dL High 7-18 [facility] Sodium levelOrdered By: Michael Calderón on 08-07-2024 Sodium [Moles/Vol] 139 mmol/L 136-145 [facility] Total proteinOrdered By: Palmira Calderón on 08-07-2024 Protein [Mass/Vol] 7.7 g/dL 6.4-8.2 [facility] Triglycerides measurementOrd ered By: Michael Calderón on 08-07-2024 Triglyceride [Mass/Vol] 172 mg/dL <199 [facility] Comment on above: The drugs N-Acetylcy steine and Metamizole may falsely depress this assay.Serum Triglycerides Reference Interval Normal <150 mg/dL Borderline high 150 - 199 mg/dL High 200 - 499 mg/dL Very High > or = 500 mg/dL Very low density lipoprotein (VLDL) cholesterol measurementOrdered By: Michael Calderón on 08-07-2024 VLDL Cholesterol 34 mg/dL 5-40 [facility] SCRN MAMM (CAD)W/CAYLA BILATo n 02-26-2024 SCRN MAMM (CAD)W/CAYLA BILAT [facility] Imaging Services [address] [facility] [address] SCRN MAMM (CAD)W/CAYLA BILAT MR#: [id number] Acct: [id number] Name: SITA MITTAL Rep #: [id number] : 1955 F 68 From: Korey lawrence MD PCP: Dr. Michael Calderón MD Status: [facility] Study: SCRN MAMM (CAD)W/CAYLA BILAT Date of Exam: 02/01 12/24 Exam# [id number] Ordering Dr: Michael Calderón MD [id number] MAMMOGRAPHY - BILATERAL SCREENING REASON FOR EXAM: [...] delay biopsy of a clinically suspicious abnormality. [id number] Electronically Signed: Korey Wong MD at 10:27 EDT Reading Location ID and State: [address] [place] [address] , Service support , CC: Dr. Michael Calderón MD Barrel Raiser: Signed Normal [facility] Ext Non Vasc Limited/Soft Ti sson 11-10-2023 Ext Non Vasc Limited/Soft Tiss [facility] Imaging Services [address] [place], [place] [address] Ext Non Vasc Limited/Soft Tiss MR#: [id number] Acct: [id number] Name: SITA MITTAL Rep #: [id number] : 1955 F 68 From: Fuentes Henley PCP: Dr. Michael Calderón MD Status: [facility] Study: Ext Non Vasc Limited/Soft Tiss Date of Exam: 0 11/10/23 Exam# [id number] Ordering Dr: Michael Calderón MD ADDENDUM by Dr. Fuentes Estevez MD on 11/20/23 at 1730 ======== ADDENDUM ======== [id number] ADDENDUM: Corrected auto degeneration of sidedness in [...] cc: Dr. Michael Calderón MD * Signed [id number] INDICATION: RT MASS IN ARMPIT EXAMINATION: Left [...] EDT , CC: Dr. Michael Calderón MD Barrel Raiser: Signed Normal [facility] Basophil percentageOrdered B y: Michael Calderón on 06-28-2023 Cholesterol [Mass/Vol] 201 mg/dL <200 [facility] Comment on above: <200 mg/dL Desirable 200-240 mg/dL Borderline >240 mg/dL High Risk Triglyceride [Mass/Vol] 160 mg/dL <199 [facility] Comment on above: The drugs N-Acetylcy steine and Metamizole may falsely depress this assay.Serum Triglycerides Reference Interval Normal <150 mg/dL Borderline high 150 - 199 mg/dL High 200 - 499 mg/dL Very High > or = 500 mg/dL Serum or plasma cholesterol in HDL measurement (mass/volume)Ordered By: Michael Calderón on 06-28-2023 Cholesterol in HDL [Mass/Vol] 63 mg/dL >40 [facility] Comment on above: The drugs N-Acetylcy steine and Metamizole may falsely depress this assay. Reference Range HDL <40 mg/dL Low HDL Cholesterol HDL >or= 60 mg/dL High HDL Cholesterol Serum or plasma cholesterol in VLDL measurement (mass/volume)Ordered By: Michael Calderón on 06-28-2023 Cholesterol in VLDL [Mass/Vol] 32 mg/dL 5-40 [facility] Serum or plasma low density lipoprotein (LDL) cholesterol measurement (mass/volume)Ordered By: Michael Calderón on 06-28-2023 Cholesterol in LDL [Mass/Vol] 106 mg/dL 0-130 [facility] Basophil percentageOrdered B y: Michael Calderón on 02-23-2023 Chloride [Moles/Vol] 108 mmol/L 98-107 [facility] Cholesterol [Mass/Vol] 200 mg/dL <200 [facility] Comment on above: <200 mg/dL Desirable 200-240 mg/dL Borderline >240 mg/dL High Risk Glucose [Mass/Vol] 90 mg/dL 74-106 [facility] Potassium [Moles/Vol] 4.8 mmol/L 3.5-5.1 [facility] Sodium [Moles/Vol] 140 mmol/L 136-145 [facility] Triglyceride [Mass/Vol] 304 mg/dL <199 [facility] Comment on above: The drugs N-Acetylcy steine and Metamizole may falsely depress this assay.Serum Triglycerides Reference Interval Normal <150 mg/dL Borderline high 150 - 199 mg/dL High 200 - 499 mg/dL Very High > or = 500 mg/dL Laboratory - Chemistry and C hemistry - challengeOrdered By: Michael Calderón on 02-23-2023 CO2 [Moles/Vol] 29.0 mmol/L 21.0-32.0 [facility] Urea nitrogen/Creatinine [Mass ratio] 19.5 mg/mg 10-20 [facility] No Panel InformationOrdered By: Michael Calderón on 02-23-2023 Estimated GFR (MDRD) Amer 62 mL/min >60 [facility] Comment on above: GFR Calc Estimated GFR (MDRD) Non-Af Amer 51 mL/min >60 [facility] Comment on above: Non- GFR Calc Serum or plasma calcium herman urement (mass/volume)Ordered By: Michael Calderón on 02-23-2023 Calcium [Mass/Vol] 9.3 mg/dL 8.5-10.1 [facility] Serum or plasma cholesterol in HDL measurement (mass/volume)Ordered By: Michael Calderón on 02-23-2023 Cholesterol in HDL [Mass/Vol] 48 mg/dL >40 [facility] Comment on above: The drugs N-Acetylcy steine and Metamizole may falsely depress this assay. Reference Range HDL <40 mg/dL Low HDL Cholesterol HDL >or= 60 mg/dL High HDL Cholesterol Serum or plasma cholesterol in VLDL measurement (mass/volume)Ordered By: Michael Calderón on 02-23-2023 Cholesterol in VLDL [Mass/Vol] 61 mg/dL 5-40 [facility] Serum or plasma creatinine m easurement (mass/volume)Ordered By: Michael Calderón on 02-23-2023 Creatinine [Mass/Vol] 1.13 mg/dL 0.55-1.02 [facility] Comment on above: The validity of the calculated GFR & GFRAA in patients over 70 years has not been determined. Clinical correlation is essential. Serum or plasma low density lipoprotein (LDL) cholesterol measurement (mass/volume)Ordered By: Michael Calderón on 02-23-2023 Cholesterol in LDL [Mass/Vol] 91 mg/dL 0-130 [facility] Serum or plasma urea nitroge n measurement (mass/volume)Ordered By: Michael Calderón on 02-23-2023 Urea nitrogen [Mass/Vol] 22 mg/dL 7-18 [facility] Thin prep Papanicolaou smear with manual screeningOrdered By: Michael Calderón on 02-23-2023 Thin prep Papanicolaou smear with manual screening 3 5-15 [facility] Basophil percentageOrdered B y: Dr. Sousa on 08-15-2022 Basophil percentage 0 SEEN /hpf 0-5 [facility] Bilirubin Test strip Ql (U)O rdered By: Dr. Sousa on 08-15-2022 Bilirubin Ql (U) Negative Negative [facility] Ketones Test strip Ql (U)Ord ered By: Dr. Sousa on 08-15-2022 Ketones Ql (U) Negative Negative [facility] Mucus LM Ql (Urine sed)Order ed By: Dr. Sousa on 08-15-2022 Mucus Ql (Urine sed) 0 SEEN /hpf [facility] Nitrite Test strip Ql (U)Ord ered By: Dr. Sousa on 08-15-2022 Nitrite Ql (U) Negative Negative [facility] Protein Test strip Ql (U)Ord ered By: Dr. Sousa on 08-15-2022 Protein Ql (U) 15 mg/dl Negative [facility] Squamous epithelial cells de tection in urine sediment by light microscopyOrdered By: Dr. Sousa on 08-15-2022 Epithelial cells.squamous LM Ql (Urine sed) 0 SEEN /hpf 5-10 [facility] Urine blood detectionOrdered By: Dr. Sousa on 08-15-2022 RBC Ql (U) Negative Negative [facility] RBC Ql (U) 0 SEEN /hpf 0-5 [facility] Urine clarityOrdered By: Dr. Sousa on 08-15-2022 Clarity (U) Clear Clear [facility] Urine color determinationOrd ered By: Dr. Sousa on 08-15-2022 Color (U) Yellow Yellow [facility] Urine glucose detectionOrder ed By: Dr. Sousa on 08-15-2022 Glucose Ql (U) Normal mg/dl Normal [facility] Urine leukocyte esterase det ection by dipstickOrdered By: Dr. Sousa on 08-15-2022 Leukocyte esterase Test strip Ql (U) Negative Negative [facility] Urine pHOrdered By: Dr. Jonathan klein on 08-15-2022 pH (U) 5.0 [pH] 5.0 - 8.0 [facility] Urine sediment bacteria coun t by microscopy (number/high power field)Ordered By: Dr. Sousa on 08-15-2022 Bacteria LM.HPF (Urine sed) [#/Area] 0 /[HPF] None Seen [facility] Urine specific gravity measu rementOrdered By: Dr. Sousa on 08-15-2022 Specific gravity (U) [Rel density] 1.025 1.002-1.030 [facility] Urobilinogen Auto test strip Ql (U)Ordered By: Dr. Sousa on 08-15-2022 Urobilinogen Ql (U) Normal mg/dl Normal [facility] CNTHERAPYon 04-04-2022 CNTHERAPY OT/PT/Speech Visit (MARKB) SITA MITTAL ([id number]) 1955 F Date Time Provider Department 04/04/22 1:00 PM RAHEL FRIAS Date Time Provider Department Center 04/04/2022 1:00 PM [id number] FRIAS [facility] Reason for Visit: Occupational Therapy [504] Primary [...] ORAL Tab Take one(1) tablet daily. - Huhoh-8-DNZ-EPA-Fish Oil 1,000 mg (120 mg-180 mg) cap [...] lather, wait 5-10 minutes, rinse off Normal [facility] CNTHERAPYon 03-25-2022 CNTHERAPY OT/PT/Speech Visit (AKOTB) SITA MITTAL ([id number]) 1955 F Date Time Provider Department 03/25/22 12:30 PM GABI CABRERA Date Time Provider Department [place] 03/25/2022 12:30 PM [id number], CHRISTI*[facility] Reason for Visit: OT EVAL [748] [...] ORAL Tab Take one(1) tablet daily. - Fgvui-8-PVU-EPA-Fish Oil 1,000 mg (120 mg-180 mg) cap [...] lather, wait 5-10 minutes, rinse off Normal [facility] CNOVon 02-28-2022 CNOV Office Visit (AGHWW1 ) SITA MITTAL ([id number]) 1955 F Date Time Provider Department 02/28/22 [...] or concerns. This note was generated via [employer] voice dictation and may contain errors related to that system such as spelling, grammar, punctuation, gender, words, and phrases that may be inappropriate. All reasonable efforts were made to correct dictation errors, however, they still may occur given the software used. NAJMA Vanegas PA-C [facility] Orthopaedics Referring Provider: SELF [200] Allergies [...] [S61.259D, W55.01XD] (more content not included)... Normal [facility] CNOVon 02-04-2022 CNOV Office Visit (AGHWW1 ) SITA MITTAL ([id number]) 1955 F Date Time Provider Department 02/04/22 [...] [171] Pain [78] Swelling [205] Cat Bite [54060] Primary Visit Diagnosis:Infection of index finger [L08.9] [...] ORAL Tab Take one(1) tablet daily. - Vkenl-5-KBB-EPA-Fish Oil (OMEGA-3 FISH OIL) 1,000 (120-180) mg [...] index finge (more content not included)... Normal [facility] CNOVon 01-28-2022 CNOV Office Visit (AGHWW1 ) SITA MITTAL ([id number]) 1955 F Date Time Provider Department 01/28/22 [...] - Fully Assessed Reason for Visit: New [312267] Swelling [205] Pain [78] Primary Visit Diagnosis:Infection [...] ORAL Tab Take one(1) tablet daily. - Lfrcg-4-NCH-EPA-Fish Oil (OMEGA-3 FISH OIL) 1,000 (120-180) mg [...] ears, sc (more content not included)... Normal [facility] Nolvia 01-26-2022 [facility] Telephone (AGPOB1) SITA MITTAL ([id number]) 1955 F Date Time Provider Department 01/26/22 AG ORTH AGPOB1 During your visit today, we recorded the following information about you: David Mckeon Floyd [employer] 01/26/2022 11:09 AM Signed ----- Message [...] other than patient: n/a Best contact number: [phone] Thank you, Nilsa Byers January 26, 2022 10:41 AM David Mckeon Surety Bond Agent [facility] 01/26/2022 11:[address] Cortez consulted this patient in the Hospital. David Mckeon Floyd [facility] January 26, 2022 11:09 AM Allergies As [...] ORAL Tab Take one(1) tablet daily. - Vrffh-3-VRI-EPA-Fish Oil (OMEGA-3 FISH OIL) 1,000 (120-180) mg [...] finger [L08.9] 01/25/2022 Encounter Status:Closed by [facility] [employer]IST DAVID SANCHES on 01/26/22 Normal [facility] Basic metabolic 2000 panelon 01-25-2022 Anion gap [Moles/Vol] 11 mmol/L Normal 9-18 [facility] Comment on above: Order Comment: Speci men Type: BLOOD SPECIMEN Ordering Facility: [facility] Address: [address] [address] Performed By: #### 2 4321-2 #### [facility] CLIA [id number] [address] [place] Calcium [Mass/Vol] 9.5 mg/dL Normal 8.5-10.2 [facility] Comment on above: Order Comment: Speci men Type: BLOOD SPECIMEN Ordering Facility: [facility] Address: [address] [place] [address] Performed By: #### 2 4321-2 #### [facility] CLIA [id number] [address] [place] Chloride [Moles/Vol] 105 mmol/L Normal 97-105 [facility] Comment on above: Order Comment: Speci men Type: BLOOD SPECIMEN Ordering Facility: [facility] Address: [address] [place] [address] Performed By: #### 2 4321-2 #### [facility] CLIA [id number] [address] [place] CO2 [Moles/Vol] 26 mmol/L Normal 22-30 [facility] Comment on above: Order Comment: Speci men Type: BLOOD SPECIMEN Ordering Facility: [facility] Address: [address] [place] [address] Performed By: #### 2 4321-2 #### [facility] CLIA [id number] [address] [place] Creatinine [Mass/Vol] 0.91 mg/dL Normal 0.58-0.96 [facility] Comment on above: Order Comment: Speci men Type: BLOOD SPECIMEN Ordering Facility: [facility] Address: [address] [place] [address] Performed By: #### 2 4321-2 #### [facility] CLIA [id number] [address] [place] ESTIMATED GLOMERULAR FILTRATION RATE 70 mL/min/1.73m??? Normal >=60 [facility] Comment on above: Order Comment: Cornelio jackson Type: BLOOD SPECIMEN Ordering Facility: [facility] Address: [address] [place], [place] [id number] Result Comment: Betsy mated Glomerular Filtration Rate [...] GFR. Performed By: #### 2 4321-2 #### [facility] CLIA [id number] [address] [place] [address] [place] Glucose [Mass/Vol] 93 mg/dL Normal 74-99 [facility] Comment on above: Order Comment: Cornelio jackson Type: BLOOD SPECIMEN Ordering Facility: [facility] Address: [address] [place], [place] [id number] Result Comment: The [place] Diabetes Association (ADA) provides guidance for cutoff [...] Standards of Medical Care in Diabetes 2016, [place] [employer]. Diabetes Care. 2016.39(Suppl 1). Performed By: #### 2 4321-2 #### [facility] CLIA [id number] [address] [place] [address] [place] Potassium [Moles/Vol] 4.1 mmol/L Normal 3.7-5.1 [facility] Comment on above: Order Comment: Cornelio jackson Type: BLOOD SPECIMEN Ordering Facility: [facility] Address: [address] [id number] Performed By: #### 2 4321-2 #### [facility] CLIA [id number] [address] STATES [facility] Sodium [Moles/Vol] 142 mmol/L Normal 136-144 [facility] Comment on above: Order Comment: Speci men Type: BLOOD SPECIMEN Ordering Facility: [facility] Address: [address] [place] [address] Performed By: #### 2 4321-2 #### [facility] CLIA [id number] [address] STATES OF [facility] Urea nitrogen [Mass/Vol] 17 mg/dL Normal 7-21 [facility] Comment on above: Order Comment: Speci men Type: BLOOD SPECIMEN Ordering Facility: [facility] Address: [address] [place] [address] Performed By: #### 2 4321-2 #### [facility] CLIA [id number] [address] CASE MANAGEMon 01-25-2022 CASE MANAGEM HNO ID: [id number] Author: Malik Sanchez RN Service: ? Author [...] 25, 2022 TIME: 2:07 PM PAGER/CONTACT #: [phone] Normal [facility] CASE MANAGEM HNO ID: [id number] Author: Malik Sanchez RN Service: ? Author [...] 25, 2022 TIME: 11:21 AM PAGER/CONTACT #: [phone] [facility] CBC panel Auto (Bld)on 01-25 Erythrocyte distribution width (RBC) [Ratio] 13.0 % Normal 11.5-15.0 [facility] Comment on above: Order Comment: Cornelio jackson Type: BLOOD SPECIMEN Ordering Facility: [facility] Address: [address] [place] [address] Performed By: #### 5 8410-2 #### [facility] CLIA [id number] [address] [place] Hematocrit (Bld) [Volume fraction] 36.8 % Normal 36.0-46.0 [facility] Comment on above: Order Comment: Cornelio jackson Type: BLOOD SPECIMEN Ordering Facility: [facility] Address: [address] [place] [address] Performed By: #### 5 8410-2 #### [facility] CLIA [id number] [address] [place] [address] [place] Hemoglobin (Bld) [Mass/Vol] 12.4 g/dL Normal 11.5-15.5 [facility] Comment on above: Order Comment: Cornelio jackson Type: BLOOD SPECIMEN Ordering Facility: [facility] Address: [address] [place] [address] Performed By: #### 5 8410-2 #### [facility] CLIA [id number] [address] MCH (RBC) [Entitic mass] 31.6 pg Normal 26.0-34.0 [facility] Comment on above: Order Comment: Speci men Type: BLOOD SPECIMEN Ordering Facility: [facility] Address: [address] [place] [address] Performed By: #### 5 8410-2 #### [facility] CLIA [id number] [address] MCHC (RBC) [Mass/Vol] 33.7 g/dL Normal 30.5-36.0 [facility] Comment on above: Order Comment: Speci men Type: BLOOD SPECIMEN Ordering Facility: [facility] Address: [address] [place] [address] Performed By: #### 5 8410-2 #### [facility] CLIA [id number] [address] MCV (RBC) [Entitic vol] 93.6 fL Normal 80.0-100.0 [facility] Comment on above: Order Comment: Speci men Type: BLOOD SPECIMEN Ordering Facility: [facility] Address: [address] [place] [address] Performed By: #### 5 8410-2 #### [facility] CLIA [id number] [address] Nucleated RBC (Bld) [#/Vol] 10*3/uL Normal <0.01 [facility] Comment on above: Order Comment: Speci men Type: BLOOD SPECIMEN Ordering Facility: [facility] Address: [address] [place] [address] Performed By: #### 5 8410-2 #### [facility] CLIA [id number] [address] Platelet mean volume (Bld) [Entitic vol] 10.6 fL Normal 9.0-12.7 [facility] Comment on above: Order Comment: Speci men Type: BLOOD SPECIMEN Ordering Facility: [facility] Address: [address] [place] [address] Performed By: #### 5 8410-2 #### [facility] CLIA [id number] [address] Platelets (Bld) [#/Vol] 225 10*3/uL Normal 150-400 [facility] Comment on above: Order Comment: Speci men Type: BLOOD SPECIMEN Ordering Facility: [facility] Address: [address] [place] [address] Performed By: #### 5 8410-2 #### [facility] CLIA [id number] [address] OF [facility] RBC (Bld) [#/Vol] 3.93 10*6/uL Normal 3.90-5.20 [facility] Comment on above: Order Comment: Speci men Type: BLOOD SPECIMEN Ordering Facility: [facility] Address: [address] [place] [address] Performed By: #### 5 8410-2 #### [facility] CLIA [id number] [address] WBC (Bld) [#/Vol] 3.81 10*3/uL Normal 3.70-11.00 [facility] Comment on above: Order Comment: Speci men Type: BLOOD SPECIMEN Ordering Facility: [facility] Address: [address] [place] [address] Performed By: #### 5 8410-2 #### [facility] CLIA [id number] [address] CNDSon 01-25-2022 CNDS HNO ID: [id number] Author: Yo Montoya MD Service: Hospital Medicine [...] (HCC); Unspecified diffuse connective tissue disease (HCC) Huayu-1-RUC-EPA-Fish Oil (OMEGA-3 FISH OIL) 1,000 (120-180) mg [...] Montoya MD PATIENT (more content not included)... [facility] CONSULT PROGon 01-25-2022 CONSULT PROG HNO ID: [id number] Author: Garrick Maurice RPh Service: Pharmacy Author [...] if there are questions. Garrick Maurice RPh [phone] [facility] CONSULT PROG HNO ID: [id number] Author: Garrick Maurice RPh Service: Pharmacy Author [...] have any questions, [place] [phone]. Age: [age] year old Allergies: ALLERGIES Allergen [...] Levels: No results found for: AUDREY Maurice [facility] ALLIED HEALTHon 01-24-2022 ALLIED HEALTH HNO ID: [id number] Author: Chaplain Wilbert Student Service: Spiritual Care Author Type: Student Type: Allied Health Filed: 01/24/2022 4:28 PM Note Text: SPIRITUAL CARE PROGRESS NOTE SERVICE DATE: 01/24/2022 SERVICE TIME: 3:40pm Tobacco Warehouse Manager visited on rounds. Patient was sleeping. To contact the Spiritual Care Department: Please call [phone]. SIGNATURE: Chaplain Wilbert Student PATIENT NAME: Sita Mittal DATE: January 24, 2022 TIME: 4:27 PM PAGER/CONTACT #: [phone] [facility] CASE MGT INIT ASSES 2021 CASE MGT INIT [facility] HNO ID: [id number] Author: Malik Sanchez RN Service: ? Author Type: Registered Nurse Type: Care Mgt Initial Assessment Filed: 01/24/2022 10:48 AM Note Text: CARE MANAGEMENT: ASSESSMENT AND DISCHARGE PLAN SERVICE DATE: January 24, 2022 SERVICE TIME: 1040 PRIMARY CARE PHYSICIAN: Michael Calderón MD, MD Primary Contact: Extended Emergency Contact Information Primary Emergency Contact: Neri Parry Address: [address] [place] [address] Mobile Relation: Spouse ADMISSION STATUS: Inpatient Insurance Provider: N/A NEEDS PRIOR TO DISCHARGE Needs Prior to Discharge: To Be Determined POTENTIAL TRANSITION PLANS Home Based on clinical judgement, Care Management will address the following needs: Medical Patient's perception of need for this admission: cat bite ADVANCE DIRECTIVES Current Advance Directive: Health Care Power of Urinalysis Technician In Chart: No MS/BEHAVIOR Baseline Mental Status [...] Mostly I feel financially burdened by my zhj-tz-ygikyk expenses for my prescription medication:: 0 - [...] AND PLAN: Met with patient at bedside. [place] pt lives with spouse and is independent at baseline. Pt admitted for cat bite. Wound cultures in process. +PCP, -DME, +rx. Pt has [employer] insurance and copy of card sent to registration. Anticipate discharge to home with no skilled needs. Spouse to transport at discharge. Will continue to follow. SIGNATURE: Malik Sanchez RN PATIENT NAME: Sita Mittal DATE: January 24, 2022 TIME: 10:45 AM CONTACT #: [phone] [facility] NURSING PROGon 01-24-2022 NURSING PROG HNO ID: [id number] Author: Neyda Solorzano RN Service: ? Author Type: Registered Nurse Type: Nursing Progress Note Filed: 01/24/2022 6:00 PM Note Text: With nursing supervision and education this morning, patient completed hibiclens soak and following dressing change. Patient completed second soak and dressing change independently in the evening Normal [facility] Bacteria Spec Anaerobe Culto n 01-23-2022 Bacteria identified Anaer cx Nom (Unsp spec) Negative Normal [facility] Comment on above: Performed By: #### 5 0545-3, 54859-7 ####[facility] [id number] [place] [address] [place]#### 635-3, 6462-6 ####[facility] [id number] [place] [address] [place] Bacteria Wnd Culton 01-24-20 22 Bacteria identified Cx Nom (Wound) ORGANISM ID: 1 Rare Pasteurella multocida ORGANISM ID: 2 Rare Gram negative bacilli, oxidase positive No further workup. ORGANISM ID: 3 Rare skin marge No further workup GRAM STAIN: No organisms seen Rare Polymorphonuclear leukocytes Many Red Blood Cells Abnormal [facility] Comment on above: Performed By: #### 5 0545-3, 97153-3 ####[facility] [id number] [address] [place]#### 635-3, 6462-6 ####[facility]IA [id number] [address] Bacterial susceptibility lazo el JENNY (Isol)on 01-23-2022 CULTURE, ORGANISM JENNY RESULT [id number] Abnormal [facility] Comment on above: Order Comment: Speci men Type: MICROBIAL ISOLATEOrdering Facility: [facility] Address: [address] [place] [address] Result Comment: Gram negative bacilli, oxidase positive No susceptibility testing done. Call lab within 72 hours to initiate work-up if clinically indicated. Performed By: #### 5 0545-3, 48485-8 ####[facility] [id number] [address]#### 635-3, 6462-6 ####[facility]IA [id number] [address] Basic metabolic 2000 panelon 01-23-2022 Anion gap [Moles/Vol] 8 mmol/L Low 9-18 [facility] Comment on above: Order Comment: Speci men Type: BLOOD SPECIMEN Ordering Facility: [facility] Address: [address] [address] Performed By: #### 2 4321-2 #### [facility] CLIA [id number] [address] Calcium [Mass/Vol] 8.3 mg/dL Low 8.5-10.2 [facility] Comment on above: Order Comment: Speci men Type: BLOOD SPECIMEN Ordering Facility: [facility] Address: [address] [address] Performed By: #### 2 4321-2 #### [facility] CLIA [id number] [address] Chloride [Moles/Vol] 108 mmol/L High 97-105 [facility] Comment on above: Order Comment: Speci men Type: BLOOD SPECIMEN Ordering Facility: [facility] Address: [address] [place] [address] Performed By: #### 2 4321-2 #### [facility] CLIA [id number] [address] [place] CO2 [Moles/Vol] 22 mmol/L Normal 22-30 [facility] Comment on above: Order Comment: Speci men Type: BLOOD SPECIMEN Ordering Facility: [facility] Address: [address] [place] [address] Performed By: #### 2 4321-2 #### [facility] CLIA [id number] [address] [place] [address] Creatinine [Mass/Vol] 0.93 mg/dL Normal 0.58-0.96 [facility] Comment on above: Order Comment: Speci men Type: BLOOD SPECIMEN Ordering Facility: [facility] Address: [address] [place] [address] Performed By: #### 2 4321-2 #### [facility] CLIA [id number] [address] [place] [address] ESTIMATED GLOMERULAR FILTRATION RATE 68 mL/min/1.73m??? Normal >=60 [facility] Comment on above: Order Comment: Speci men Type: BLOOD SPECIMEN Ordering Facility: [facility] Address: [address] [place] [address] Result Comment: Betsy mated Glomerular Filtration Rate [...] GFR. Performed By: #### 2 4321-2 #### [facility] CLIA [id number] [address] [place] [address] [place] Glucose [Mass/Vol] 102 mg/dL High 74-99 [facility] Comment on above: Order Comment: Cornelio jackson Type: BLOOD SPECIMEN Ordering Facility: [facility] Address: [address] [place] [address] Result Comment: The [place] Diabetes Association (ADA) provides guidance for cutoff [...] Standards of Medical Care in Diabetes 2016, [place] [employer]. Diabetes Care. 2016.39(Suppl 1). Performed By: #### 2 4321-2 #### [facility] CLIA [id number] [address] [place] [address] [place] Potassium [Moles/Vol] 4.3 mmol/L Normal 3.7-5.1 [facility] Comment on above: Order Comment: Cornelio jackson Type: BLOOD SPECIMEN Ordering Facility: [facility] Address: [address] [place] [address] Performed By: #### 2 4321-2 #### [facility] CLIA [id number] [address] [place] [address] [place] Sodium [Moles/Vol] 138 mmol/L Normal 136-144 [facility] Comment on above: Order Comment: Cornelio jackson Type: BLOOD SPECIMEN Ordering Facility: [facility] Address: [address] [place] [address] Performed By: #### 2 4321-2 #### [facility] CLIA [id number] [address] [place] [address] [place] Urea nitrogen [Mass/Vol] 15 mg/dL Normal 7-21 [facility] Comment on above: Order Comment: Speci men Type: BLOOD SPECIMEN Ordering Facility: [facility] Address: [address] [place] [address] Performed By: #### 2 4321-2 #### [facility] CLIA [id number] [address] CBC panel Auto (Bld)on 01-23 Erythrocyte distribution width (RBC) [Ratio] 13.2 % Normal 11.5-15.0 [facility] Comment on above: Order Comment: Speci men Type: BLOOD SPECIMEN Ordering Facility: [facility] Address: [address] [place] [address] Performed By: #### 5 8410-2 #### [facility] CLIA [id number] [address] Hematocrit (Bld) [Volume fraction] 33.1 % Low 36.0-46.0 [facility] Comment on above: Order Comment: Speci men Type: BLOOD SPECIMEN Ordering Facility: [facility] Address: [address] [place] [address] Performed By: #### 5 8410-2 #### [facility] CLIA [id number] [address] Hemoglobin (Bld) [Mass/Vol] 10.7 g/dL Low 11.5-15.5 [facility] Comment on above: Order Comment: Speci men Type: BLOOD SPECIMEN Ordering Facility: [facility] Address: [address] [place] [address] Performed By: #### 5 8410-2 #### [facility] CLIA [id number] [address] MCH (RBC) [Entitic mass] 31.6 pg Normal 26.0-34.0 [facility] Comment on above: Order Comment: Speci men Type: BLOOD SPECIMEN Ordering Facility: [facility] Address: [address] [place] [address] Performed By: #### 5 8410-2 #### [facility] CLIA [id number] [address] MCHC (RBC) [Mass/Vol] 32.3 g/dL Normal 30.5-36.0 [facility] Comment on above: Order Comment: Speci men Type: BLOOD SPECIMEN Ordering Facility: [facility] Address: [address] [place] [address] Performed By: #### 5 8410-2 #### [facility] CLIA [id number] [address] MCV (RBC) [Entitic vol] 97.6 fL Normal 80.0-100.0 [facility] Comment on above: Order Comment: Speci men Type: BLOOD SPECIMEN Ordering Facility: [facility] Address: [address] [place] [address] Performed By: #### 5 8410-2 #### [facility] CLIA [id number] [address] Nucleated RBC (Bld) [#/Vol] 10*3/uL Normal <0.01 [facility] Comment on above: Order Comment: Speci men Type: BLOOD SPECIMEN Ordering Facility: [facility] Address: [address] [place] [address] Performed By: #### 5 8410-2 #### [facility] CLIA [id number] [address] Platelet mean volume (Bld) [Entitic vol] 11.4 fL Normal 9.0-12.7 [facility] Comment on above: Order Comment: Speci men Type: BLOOD SPECIMEN Ordering Facility: [facility] Address: [address] [place] [address] Performed By: #### 5 8410-2 #### [facility] CLIA [id number] [address] [place] Platelets (Bld) [#/Vol] 154 10*3/uL Normal 150-400 [facility] Comment on above: Order Comment: Speci men Type: BLOOD SPECIMEN Ordering Facility: [facility] Address: [address] [place] [address] Performed By: #### 5 8410-2 #### [facility] CLIA [id number] [address] RBC (Bld) [#/Vol] 3.39 10*6/uL Low 3.90-5.20 [facility] Comment on above: Order Comment: Speci men Type: BLOOD SPECIMEN Ordering Facility: [facility] Address: [address] [place] [address] Performed By: #### 5 8410-2 #### [facility] CLIA [id number] [address] WBC (Bld) [#/Vol] 3.87 10*3/uL Normal 3.70-11.00 [facility] Comment on above: Order Comment: Speci men Type: BLOOD SPECIMEN Ordering Facility: [facility] Address: [address] [place] [address] Performed By: #### 5 8410-2 #### [facility] CLIA [id number] [address] Microorganism Spec Culton Microorganism identified Cx Nom (Unsp spec) ORGANISM ID: 1 Gram negative bacilli, oxidase positive Unable to further identify Normal [facility] Comment on above: Performed By: #### 5 0545-3, 08778-8 ####[facility] [id number] [address] [place]#### 635-3, 6462-6 ####[facility]ORY[facility]IA [id number] [address] [place] Absolute lymphocyte counton 01-22-2022 Lymphocytes Auto (Unsp spec) [#/Vol] 1.11 10*3/uL 0.83-4.51 [facility] Work Phone: Basic metabolic 2000 panelon 01-22-2022 Anion gap [Moles/Vol] 11 mmol/L Normal 9-18 [facility] Comment on above: Order Comment: Speci men Type: BLOOD SPECIMEN Ordering Facility: [facility] Address: [facility] [place] [address] Performed By: #### 2 4321-2 #### [facility] CLIA [id number] [address] [place] Calcium [Mass/Vol] 8.1 mg/dL Low 8.5-10.2 [facility] Comment on above: Order Comment: Speci men Type: BLOOD SPECIMEN Ordering Facility: [facility] Address: [address] [place] [address] Performed By: #### 2 4321-2 #### [facility] CLIA [id number] [address] [place] [address] [place] Chloride [Moles/Vol] 109 mmol/L High 97-105 [facility] Comment on above: Order Comment: Speci men Type: BLOOD SPECIMEN Ordering Facility: [facility] Address: [address] [place] [address] Performed By: #### 2 4321-2 #### [facility] CLIA [id number] [address] [place] [address] [place] CO2 [Moles/Vol] 22 mmol/L Normal 22-30 [facility] Comment on above: Order Comment: Speci men Type: BLOOD SPECIMEN Ordering Facility: [facility] Address: [address] [place] [address] Performed By: #### 2 4321-2 #### [facility] CLIA [id number] [address] [place] [address] [place] Creatinine [Mass/Vol] 0.90 mg/dL Normal 0.58-0.96 [facility] Comment on above: Order Comment: Speci men Type: BLOOD SPECIMEN Ordering Facility: [facility] Address: [address] [place] [address] Performed By: #### 2 4321-2 #### [facility] CLIA [id number] [address] [place] [address] [place] ESTIMATED GLOMERULAR FILTRATION RATE 71 mL/min/1.73m??? Normal >=60 [facility] Comment on above: Order Comment: Cornelio jackson Type: BLOOD SPECIMEN Ordering Facility: [facility] Address: [address] [place] [address] Result Comment: Betsy mated Glomerular Filtration Rate [...] GFR. Performed By: #### 2 4321-2 #### [facility] CLIA [id number] [address] [place] [address] [place] Glucose [Mass/Vol] 92 mg/dL Normal 74-99 [facility] Comment on above: Order Comment: Cornelio jackson Type: BLOOD SPECIMEN Ordering Facility: [facility] Address: [address] [place] [address] Result Comment: The [place] [employer] Association (ADA) provides guidance for cutoff [...] Standards of Medical Care in Diabetes 2016, [place] [employer]. Diabetes Care. 2016.39(Suppl 1). Performed By: #### 2 4321-2 #### [facility] CLIA [id number] [address] [place] [address] [place] Potassium [Moles/Vol] 4.4 mmol/L Normal 3.7-5.1 [facility] Comment on above: Order Comment: Cornelio jackson Type: BLOOD SPECIMEN Ordering Facility: [facility] Address: [address] [place] [address] Performed By: #### 2 4321-2 #### [facility] CLIA [id number] [address] STATES OF [facility] Sodium [Moles/Vol] 142 mmol/L Normal 136-144 [facility] Comment on above: Order Comment: Speci men Type: BLOOD SPECIMEN Ordering Facility: [facility] Address: [address] [place] [address] Performed By: #### 2 4321-2 #### [facility] CLIA [id number] [address] [place] Urea nitrogen [Mass/Vol] 16 mg/dL Normal 7-21 [facility] Comment on above: Order Comment: Speci men Type: BLOOD SPECIMEN Ordering Facility: [facility] Address: [address] [place] [address] Performed By: #### 2 4321-2 #### [facility] CLIA [id number] [address] [place] [address] [place] Basophil percentageon 2021 Basophils/100 WBC (Bld) 0.1 % 0-1 [facility] Work Phone: Chloride [Moles/Vol] 107 mmol/L 98-107 [facility] Work Phone: Eosinophils/100 WBC (Bld) 0.0 % 0-5 [facility] Work Phone: Glucose [Mass/Vol] 165 mg/dL 74-106 [facility] Work Phone: Comment on above: Fasting Glucose resu lt greater than or equal to 126 mg/dL suggests DIABETES MELLITUS per A.D.A. criteria. Lactate [Moles/Vol] 1.7 mmol/L 0.4-2.0 [facility] Work Phone: Neutrophils (Bld) [#/Vol] 5.1 10*3/uL 2.0-7.7 [facility] Work Phone: Neutrophils/100 WBC (Bld) 73.9 % 47-70 [facility] Work Phone: Potassium [Moles/Vol] 3.7 mmol/L 3.5-5.1 [facility] Work Phone: Sodium [Moles/Vol] 139 mmol/L 136-145 [facility] Work Phone: WBC (Bld) [#/Vol] 6.9 10*3/uL 4.4-11.0 [facility] Work Phone: Blood erythrocytes count (nu mber/volume)on 01-22-2022 RBC (Bld) [#/Vol] 3.79 10*6/uL 4.2-5.4 [facility] Work Phone: Blood hemoglobin measurement (mass/volume)on 01-22-2022 Hemoglobin (Bld) [Mass/Vol] 11.9 g/dL 12.0-15.0 [facility] Work Phone: Blood lymphocytes/100 leukoc yteson 01-22-2022 Lymphocytes/100 WBC (Bld) 16.1 % 19-41 [facility] Work Phone: Blood monocytes/100 leukocyt eson 01-22-2022 Monocytes/100 WBC (Bld) 9.6 % 0-10 [facility] Work Phone: Blood platelet mean volumeon 01-22-2022 Platelet mean volume (Bld) [Entitic vol] 10.9 fL 6.2-12.0 [facility] Work Phone: CONSULTon 01-22-2022 CONSULT HNO ID: [id number] Author: Alejandro Rivero MD Service: Orthopaedic Surgery [...] patient identifiers. Time out performed according to [facility] protocol. The appropriate site for the [...] swelling/pain/redness increasing yesterday evening and presented to [place] ED. There she was given a dose of Abx and a bedside IANDD was performed. She was then transferred to [facility] ED for ortho follow-up and IV [...] 200 mg (more content not included)... Normal [facility] CONSULT PROGon 01-22-2022 CONSULT PROG HNO ID: [id number] Author: Rikki Joshi RPh Service: Pharmacy Author [...] have any questions, [place] [phone]. Age: [age] year old Allergies: ALLERGIES Allergen [...] Levels: No results found for: AUDREY Joshi [facility] Normal [facility] Determination of erythrocyte mean corpuscular volume (MCV)on 01-22-2022 MCV (RBC) [Entitic vol] 96.0 fL 81-99 [facility] Work Phone: HISTORY PHYSICALon 2 HISTORY PHYSICAL HNO ID: [id number] Author: Yo Montoya MD Service: Hospital Medicine [...] due to worsening symptoms she presented to [place] emergency room where she was given a dose of Zosyn and received morphine and Dilaudid for pain and decision was made to transfer to [facility] for further evaluation. When patient seen and [...] elemental, ORAL Tab Take one(1) tablet daily. Niguh-8-OCA-EPA-Fish Oil (OMEGA-3 FISH OIL) 1,000 (120-180) mg [...] were n (more content not included)... Normal [facility] Hematocrit Auto (Bld) [Volum e fraction]on 01-22-2022 Hematocrit (Bld) [Volume fraction] 36.4 % 37-47 [facility] Work Phone: Laboratory - Chemistry and C hemistry - challengeon 01-22-2022 CO2 [Moles/Vol] 25.0 mmol/L 21.0-32.0 [facility] Work Phone: Urea nitrogen/Creatinine [Mass ratio] 17.1 mg/mg 10-20 [facility] Work Phone: Laboratory - Hematology and Cell countson 01-22-2022 Erythrocyte distribution width (RBC) [Entitic vol] 46.3 fL 35.1-43.9 [facility] Work Phone: Erythrocyte distribution width (RBC) [Ratio] 13.2 % 11.6-14.6 [facility] Work Phone: Immature granulocytes/100 WBC (Bld) 0.300 % 0.0-0.9 [facility] Work Phone: Comment on above: IG% - Immature Granu locytes (promyelocytes, myelocytes and metamyelocytes) > 1% indicates that a LEFT SHIFT is Present. MCH (RBC) [Entitic mass] 31.4 pg 27.0-32.0 [facility] Work Phone: Nucleated RBC/100 WBC (Bld) [Ratio] 0 % 0-5 [facility] Work Phone: MCHC Auto (RBC) [Mass/Vol]on 01-22-2022 MCHC (RBC) [Mass/Vol] 32.7 g/dL 32-36 [facility] Work Phone: No Panel Informationon 01-22 Estimated Creatinine Clearance Calc 49.34 ml/min [facility] Work Phone: Estimated GFR (MDRD) Amer 67 mL/min >60 [facility] Work Phone: Comment on above: GFR Calc Estimated GFR (MDRD) Non-Af Amer 56 mL/min >60 [facility] Work Phone: Comment on above: Non- GFR Calc Platelets bldon 01-22-2022 Platelets (Bld) [#/Vol] 181 10*3/uL 150-450 [facility] Work Phone: Serum or plasma C reactive p rotein measurement (mass/volume)on 01-22-2022 CRP [Mass/Vol] 128.00 mg/L 0.0-3.0 [facility] Work Phone: Comment on above: C-Reactive Protein ( CRP) provides useful information for thediagnosis, therapy and monitoring of inflammatory processesand associated diseases. For the evaluation of Relative Riskfor Cardiovascular Disease, a High Sensitivity CRP (HSCRP)should be ordered. Serum or plasma calcium herman urement (mass/volume)on 01-22-2022 Calcium [Mass/Vol] 9.3 mg/dL 8.5-10.1 [facility] Work Phone: Serum or plasma creatinine m easurement (mass/volume)on 01-22-2022 Creatinine [Mass/Vol] 1.05 mg/dL 0.55-1.02 [facility] Work Phone: Comment on above: The validity of the calculated GFR & GFRAA in patients over 70 years has not been determined. Clinical correlation is essential. Serum or plasma urea nitroge n measurement (mass/volume)on 01-22-2022 Urea nitrogen [Mass/Vol] 18 mg/dL 7-18 [facility] Work Phone: Thin prep Papanicolaou smear with manual screeningon 01-22-2022 Thin prep Papanicolaou smear with manual screening 7 5-15 [facility] Work Phone: XR HAND 3V PA/LAT/OBL RTon [...] tissue swelling without underlying acute osseous normality. Barrel Raiser: NED Transcribe Date/Time: Jan 22 2022 6:03P Dictated by : LILI BUSTOS MD This examination was interpreted and the report reviewed and electronically signed by: LILI BUSTOS MD on Jan 22 2022 6:04PM EST [id number] Normal [facility] Basophil percentageon 2021 Chloride [Moles/Vol] 108 mmol/L 98-107 [facility] Work Phone: Cholesterol [Mass/Vol] 174 mg/dL <200 [facility] Work Phone: Comment on above: <200 mg/dL Desirable 200-240 mg/dL Borderline >240 mg/dL High Risk Glucose [Mass/Vol] 85 mg/dL 74-106 [facility] Work Phone: Potassium [Moles/Vol] 4.6 mmol/L 3.5-5.1 [facility] Work Phone: Sodium [Moles/Vol] 141 mmol/L 136-145 [facility] Work Phone: Triglyceride [Mass/Vol] 179 mg/dL <199 [facility] Work Phone: Comment on above: The drugs N-Acetylcy steine and Metamizole may falsely depress this assay.Serum Triglycerides Reference Interval Normal <150 mg/dL Borderline high 150 - 199 mg/dL High 200 - 499 mg/dL Very High > or = 500 mg/dL Laboratory - Chemistry and C hemistry - challengeon 12-06-2021 CO2 [Moles/Vol] 27.0 mmol/L 21.0-32.0 [facility] Work Phone: Urea nitrogen/Creatinine [Mass ratio] 22.0 mg/mg 10-20 [facility] Work Phone: No Panel Informationon 12-06 Estimated GFR (MDRD) Amer 71 mL/min >60 [facility] Work Phone: Comment on above: GFR Calc Estimated GFR (MDRD) Non-Af Amer 59 mL/min >60 [facility] Work Phone: Comment on above: Non- GFR Calc Vitamin D 25-Hydroxy 34.7 ng/mL [facility] Work Phone: Comment on above: Vitamin D 25(OH) Sta tus Range Deficiency <20 ng/mL (50nmol/L) Insufficiency 20 - 30 ng/mL (50 - 75 nmol/L) Sufficiency 30 - 100 ng/mL (75 - 250 nmol/L) Toxicity >100 ng/mL (>250 nmol/L) Serum or plasma calcium herman urement (mass/volume)on 12-06-2021 Calcium [Mass/Vol] 9.0 mg/dL 8.5-10.1 [facility] Work Phone: Serum or plasma cholesterol in HDL measurement (mass/volume)on 12-06-2021 Cholesterol in HDL [Mass/Vol] 55 mg/dL >40 [facility] Work Phone: Comment on above: The drugs N-Acetylcy steine and Metamizole may falsely depress this assay. Reference Range HDL <40 mg/dL Low HDL Cholesterol HDL >or= 60 mg/dL High HDL Cholesterol Serum or plasma cholesterol in VLDL measurement (mass/volume)on 12-06-2021 Cholesterol in VLDL [Mass/Vol] 36 mg/dL 5-40 [facility] Work Phone: Serum or plasma creatinine m easurement (mass/volume)on 12-06-2021 Creatinine [Mass/Vol] 1.00 mg/dL 0.55-1.02 [facility] Work Phone: Comment on above: The validity of the calculated GFR & GFRAA in patients over 70 years has not been determined. Clinical correlation is essential. Serum or plasma low density lipoprotein (LDL) cholesterol measurement (mass/volume)on 12-06-2021 Cholesterol in LDL [Mass/Vol] 83 mg/dL 0-130 [facility] Work Phone: Serum or plasma urea nitroge n measurement (mass/volume)on 12-06-2021 Urea nitrogen [Mass/Vol] 22 mg/dL 7-18 [facility] Work Phone: Thin prep Papanicolaou smear with manual screeningon 12-06-2021 Thin prep Papanicolaou smear with manual screening 6 5-15 [facility] Work Phone: CBCMDOrdered By: Tia jorgensen on 03-08-2012 Eosinophils/100 WBC (Bld) 2 % Normal 0-5 [facility]; [facility] Work Phone: Erythrocyte distribution width (RBC) [Ratio] 13.6 % Normal 11.6-14.6 [facility]; [facility] Work Phone: Hematocrit (Bld) [Volume fraction] 37.4 % Normal 37-47 [facility]; [facility] Work Phone: Hemoglobin (Bld) [Mass/Vol] 12.8 g.dL Normal 12.0-15.0 [facility]; [facility] Work Phone: Lymphocytes/100 WBC (Bld) 53 % Abnormal 19-41 [facility]; [facility] Work Phone: MCH (RBC) [Entitic mass] 32.0 pg Normal 27.0-32.0 [facility]; [facility] Work Phone: MCHC (RBC) [Mass/Vol] 34.2 g/dL Normal 32-36 [facility] pre[facility]ive [facility]; [facility] Work [...] (Bld) [#/Vol] 4.01 {M/mm3} Abnormal 4.2-5.4 [facility]; [facility] Work Phone: WBC (Bld) [#/Vol] 2.5 10*3/uL Abnormal 4.4-11.0 Compre [facility]; [facility] Work Phone: CBCMD 2 % Normal 0-10 [facility]; [facility] Work Phone: CBCMD 100 1 Normal [facility]; [facility] Work Phone: CBCMD 43 % Abnormal 47-70 [facility]; [facility] Work Phone: CBCMD ADEQUATE Normal [facility]; [facility] Work Phone: CMPOrdered By: System Manage r on 03-08-2012 Albumin [Mass/Vol] 3.7 g/dL Normal 3.4-5.0 [facility]; [facility] Work Phone: Albumin/Globulin [Mass ratio] 0.9 {RATIO} Normal 0.9-2.4 [facility]; [facility] Work Phone: ALP [Catalytic activity/Vol] 51 U/L Normal 50-136 [facility]; [facility] Work Phone: ALT [Catalytic activity/Vol] 45 U/L Normal 12-78 [facility]; [facility] Work Phone: Anion gap [Moles/Vol] 8 mmol/L Normal 5-15 [facility]; [facility] Work Phone: AST [Catalytic activity/Vol] 25 U/L Normal 15-37 [facility]; [facility] Work Phone: Bilirubin [Mass/Vol] 0.40 mg/dL Normal 0.00-1.00 [facility] rehensive Internal Medicine; [facility] Work Phone: Calcium [Mass/Vol] 9.4 mg/dL Normal 8.5-10.1 [facility]; [facility] Work Phone: Chloride [Moles/Vol] 104 mmol/L Normal 98-[address] [facility]; [facility] Work Phone: CO2 [Moles/Vol] 27.0 mmol/L Normal 21.0-32.0 [facility]; [facility] Work Phone: Creatinine [Mass/Vol] 1.1 mg/dL Abnormal 0.6-1.0 [facility]; [facility] Work Phone: GFR/1.73 sq M predicted among blacks MDRD (S/P/Bld) [Vol rate/Area] 67 mL/min/{1.73_m2} Normal [facility]; [facility] Work Phone: GFR/1.73 sq M.predicted MDRD (S/P/Bld) [Vol rate/Area] 55 mL/min/{1.73_m2} Abnormal [facility]; [facility] Work Phone: Globulin (S) [Mass/Vol] 4.3 g/dL Abnormal 2.7-4.2 C [facility]; [facility] Work Phone: Glucose [Mass/Vol] 79 mg/dL Normal 70-110 [facility]; [facility] Work Phone: Potassium [Moles/Vol] 4.0 mmol/L Normal 3.5-5.1 [facility]; [facility] Work Phone: Protein [Mass/Vol] 8.0 g/dL Normal 6.4-8.2 [facility]; [facility] Work Phone: Sodium [Moles/Vol] 139 mmol/L Normal 136-145 [facility]; [facility] Work Phone: Urea nitrogen [Mass/Vol] 23 mg/dL Abnormal 7-18 [facility]; [facility] Work Phone: Urea nitrogen/Creatinine [Mass ratio] 20.9 {RATIO} Abnormal 10-20 [facility]; [facility] Work Phone: LIPIDOrdered By: Tia jorgensen on 03-08-2012 Cholesterol [Mass/Vol] 193 mg/dL Normal [facility]; [facility] Work Phone: Comment on above: <200 mg/dL Desirable 200-240 mg/dL Borderline >240 mg/dL High Risk Cholesterol in HDL [Mass/Vol] 45 mg/dL Normal [facility]; [facility] Work [...] 08-19-2011 Albumin [Mass/Vol] 4.3 g/dL Normal 3.4-5.0 [facility]; [facility] Work [...] Anion gap [Moles/Vol] 9 mmol/L Normal 5-15 [facility] pre[facility]; [facility] Work Phone: Comment on above: has f/u on 08/23/11 AST [Catalytic activity/Vol] 27 U/L Normal 15-37 [facility]; [facility] Work Phone: Comment on above: has f/u on 08/23/11 Bilirubin [Mass/Vol] 0.50 mg/dL Normal 0.00-1.00 [facility] rehensive Internal Medicine; [facility] Work Phone: Comment on above: has f/u on 08/23/11 Calcium [Mass/Vol] 9.4 mg/dL Normal 8.5-10.1 [facility]; [facility] Work Phone: Comment on above: has f/u on 08/23/11 Chloride [Moles/Vol] 103 mmol/L Normal 98-107 [facility] rehensive Internal Medicine; [facility] Work Phone: Comment on above: has f/u on 08/23/11 CO2 [Moles/Vol] 29.0 mmol/L Normal 21.0-32.0 [facility]; [facility] Work Phone: Comment on above: has f/u on 08/23/11 Creatinine [Mass/Vol] 1.2 mg/dL Abnormal 0.6-1.0 [facility] prehensive [facility]; [facility] Work [...] 08/23/11 Glucose [Mass/Vol] 90 mg/dL Normal 70-110 [facility]; [facility] Work Phone: Comment on above: has f/u on 08/23/11 Potassium [Moles/Vol] 4.8 mmol/L Normal 3.5-5.1 [facility]; [facility] Work Phone: Comment on above: has f/u on 08/23/11 Protein [Mass/Vol] 8.3 g/dL Abnormal 6.4-8.2 [facility]; [facility] Work Phone: Comment on above: has f/u on 08/23/11 Sodium [Moles/Vol] 141 mmol/L Normal 136-145 [facility]; [facility] Work [...] 500 mg/dL CULTURE, URINEOrdered By: Vinny stem [employer] Associate on 07-22-2011 Bacteria identified Cx Nom (U) [...] S TRIMETHOPRIM/SULFAMETHOXAZO $ >=320 R Urinalysis, Office ([phone])Or dered By: Annita Kovacs on 07-22-2011 Bilirubin [...] Medicine Work Phone: Rapid Strep Test, Office ([phone])Ordered By: Mary Contreras on 06-28-2011 S. pyogenes Ag IA Ql (Unsp spec) Negative Normal [facility]; [facility] Work Phone: Rapid Strep Test, Office ([phone])Ordered By: Leanne Moon on 08-18-2010 S. pyogenes Ag IA Ql (Unsp spec) Negative Normal [facility]; [facility] Work Phone: Rapid Strep Test, Office ([phone])Ordered By: Annita Kovacs on 03-20-2008 S. pyogenes Ag IA Ql (Unsp spec) Negative Normal [facility]; [facility] Work Phone: Comment on above: done km Rapid Strep Test, Office ([phone])Ordered By: Bernice Rabago on 01-09-2008 S. pyogenes Ag IA Ql (Unsp spec) Negative Normal [facility]; [facility] Work Phone: Laboratory - Microbiology an d Antimicrobial susceptibility Bacteria identified Cx Nom (Bld) No growth in 5 days. [facility] Work Phone: No Panel Information SARS-CoV-2 & FLU Antigen (Rapid) [facility] Work Phone: Vital Signs Date Time Vital Sign Value Performing Clinician Facility 02-15-2022 10:27-0400 Body height 167.[address] Michael Calderón Work Phone: [facility] Work Phone: 02-04-2022 11:00-0400 Body height 167.6 cm Deric Cortez MD Work Phone: [facility] 02-04-2022 11:00-0400 Body weight 81.65 kg Deric Cortez MD Work Phone: [facility] 02-04-2022 11:00-0400 Respiratory rate 20 /min Deric Cortez MD Work Phone: [facility] 01-28-2022 10:49-0400 Body height 167.6 cm Deric Cortez MD Work Phone: [facility] 01-28-2022 10:49-0400 Body weight 82.56 kg Deric Cortez MD Work Phone: [facility] 01-28-2022 10:49-0400 Respiratory rate 20 /min Deric Cortez MD Work Phone: [facility] 01-22-2022 06:00-0400 Body temperature 98.6 [degF] Dr. Michael Calderón Work Phone: [facility] Work Phone: 01-22-2022 06:00-0400 Diastolic blood pressure 60 mm[Hg] Dr. Michael Calderón Work Phone: [facility] Work Phone: 01-22-2022 06:00-0400 Heart rate 76 /min Dr. Michael Calderón Work Phone: [facility] Work Phone: 01-22-2022 06:00-0400 Respiratory rate 18 /min Dr. Michael Calderón Work Phone: [facility] Work Phone: 01-22-2022 06:00-0400 SaO2% (BldA) [Mass fraction] 96 % Dr. Michael Calderón Work Phone: [facility] Work Phone: 01-22-2022 06:00-0400 Systolic blood pressure 130 mm[Hg] Dr. Michael Calderón Work Phone: [facility] Work Phone: 01-21-2022 22:56-0400 Body mass index (BMI) [Ratio] 29.3 kg/m2 Dr. Michael Calderón Work Phone: [facility] Work Phone: 01-21-2022 22:56-0400 Body weight 82.[address] Michael Calderón Work Phone: [facility] Work Phone: 05-07-2015 10:58-0500 BMI (Body Mass Index) 27.41 kg/m2 [facility] Work Phone: [...] 05-07-2015 10:58-0500 BP Systolic 120 mm[Hg] [facility] Work Phone: Comment on above: Patient Position: Sitting; Cuff Location : Left Arm; Cuff Size: Standard 05-07-2015 10:58-0500 BSA (Body Surface Area) 1.91 m2 [facility]; [facility] Work Phone: 05-07-2015 10:58-0500 Height 170.18 cm Naheed Munroe [facility]; [facility] Work Phone: 05-07-2015 10:58-0500 Pulse (Heart Rate) 62 /min [facility]; [facility] Work Phone: Comment on above: Pattern: Regular 05-07-2015 10:58-0500 Pulse Oximetry 99 % Naheed Alejandrokhalidaale [facility] Medicine; [facility] Work Phone: Comment on above: Room air 05-07-2015 10:58-0500 Respiratory Rate 18 /min Naheed Munroe [facility]; [facility] Work Phone: Comment on above: Pattern: Unlabored 01-15-2015 13:10-0400 BMI (Body Mass Index) 29.76 kg/m2 [facility]; [facility] Work Phone: 01-15-2015 13:10-0400 Body Temperature 97.7 [degF] [facility]; [facility] Work Phone: Comment on above: Method: Temporal 01-15-2015 13:10-0400 Body weight 86.18 kg [facility]; [facility] Work Phone: 01-15-2015 13:10-0400 BP Diastolic 78 mm[Hg] [facility]; [facility] Work Phone: Comment on above: Patient Position: Sitting; Cuff Location : Left Arm; Cuff Size: Large 01-15-2015 13:10-0400 BP Systolic 124 mm[Hg] Naheed Munroeale [facility] Medicine; [facility] Work Phone: Comment on above: Patient Position: Sitting; Cuff Location : Left Arm; Cuff Size: Large 01-15-2015 13:10-0400 BSA (Body Surface Area) 1.98 m2 [facility]; [facility] Work Phone: 01-15-2015 13:10-0400 Height 170.18 cm Naheed Munroe [facility]; [facility] Work Phone: 01-15-2015 13:10-0400 Pulse (Heart Rate) 68 /min [facility]; [facility] Work Phone: Comment on above: Pattern: Regular 01-15-2015 13:10-0400 Pulse Oximetry 97 % Naheed Etelvina [facility] Internal Medicine; [facility] Work Phone: Comment on above: Room air 01-15-2015 13:10-0400 Respiratory Rate 18 /min [facility]; [facility] Work Phone: Comment on above: Pattern: Unlabored 12-18-2014 10:33-0400 BMI (Body Mass Index) 30.54 kg/m2 Naheed Munroeale [facility] Medicine; [facility] Work Phone: 12-18-2014 10:33-0400 Body Temperature 97.9 [degF] Naheed Main [facility] Medicine; [facility] Work Phone: Comment on above: Method: Temporal 12-18-2014 10:33-0400 Body weight 88.45 kg [facility]; [facility] Work Phone: 12-18-2014 10:33-0400 BP Diastolic 84 mm[Hg] [facility]; [facility] Work Phone: Comment on above: Patient Position: Sitting; Cuff Location : Left Arm; Cuff Size: Large 12-18-2014 10:33-0400 BP Systolic 140 mm[Hg] Naheed Munroei [facility]; [facility] Work Phone: Comment on above: Patient Position: Sitting; Cuff Location : Left Arm; Cuff Size: Large 12-18-2014 10:33-0400 BSA (Body Surface Area) 2 m2 Naheed Main [facility] Internal Medicine; [facility] Work Phone: 12-18-2014 10:33-0400 Height 170.18 cm Naheedernie Munroeale [facility] Medicine; [facility] Work Phone: 12-18-2014 10:33-0400 Pulse (Heart Rate) 70 /min Naheed Main [facility]; [facility] Work Phone: Comment on above: Pattern: Regular 12-18-2014 10:33-0400 Pulse Oximetry 99 % Naheed Main [facility] Medicine; [facility] Work Phone: Comment on above: Room air 12-18-2014 10:33-0400 Respiratory Rate 18 /min Naheed Main [facility]; [facility] Work Phone: Comment on above: Pattern: Unlabored 11-04-2014 13:26-0400 BMI (Body Mass Index) 30.38 kg/m2 Naheed Main [facility] Medicine; [facility] Work Phone: 11-04-2014 13:26-040 Body Temperature 98.3 [degF] Naheed Main [facility] Medicine; [facility] Work Phone: Comment on above: Method: Oral 11-04-2014 13:0400 Body weight 88 kg Naheed Munroeale [facility]; [facility] Work Phone: 11-04-2014 13:26-0400 BP Diastolic 82 mm[Hg] Naheed Main [facility] Medicine; [facility] Work Phone: Comment on above: Patient Position: Supine 11-04-2014 13:26-0400 BP Systolic 152 mm[Hg] Naheed Allenkhalidaale [facility]; [facility] Work Phone: Comment on above: Patient Position: Supine 11-04-2014 13:26-0400 BSA (Body Surface Area) 2 m2 [facility]; [facility] Work Phone: 11-04-2014 13:040 Height 170.18 cm [facility]; [facility] Work Phone: 11-04-2014 13:040 Pulse (Heart Rate) 83 /min [facility]; [facility] Work Phone: Comment on above: Pattern: Regular 11-04-2014 13:0400 Pulse Oximetry 98 % [facility]; [facility] Work Phone: Comment on above: Room air 11-04-2014 13:040 Respiratory Rate 17 /min [facility]; [facility] Work Phone: 10-20-2014 11:14-0400 BMI (Body Mass Index) 29.84 kg/m2 Naheed Main [facility]; [facility] Work Phone: 10-20-2014 11:14-0400 Body Temperature 97.9 [degF] [facility]; [facility] Work Phone: 10-20-2014 11:14-0400 Body weight 86.41 kg [facility]; [facility] Work Phone: 10-20-2014 11:14-0400 BP Diastolic 78 mm[Hg] [facility]; [facility] Work Phone: Comment on above: Patient Position: Sitting; Cuff Location : Left Arm; Cuff Size: Standard 10-20-2014 11:14-0400 BP Systolic 118 mm[Hg] [facility]; [facility] Work Phone: Comment on above: Patient Position: Sitting; Cuff Location : Left Arm; Cuff Size: Standard 10-20-2014 11:14-0400 BSA (Body Surface Area) 1.98 m2 [facility]; [facility] Work Phone: 10-20-2014 11:14-0400 Height 170.18 cm [facility]; [facility] Work Phone: 10-20-2014 11:14-0400 Pulse (Heart Rate) 81 /min Naheed Munroeale [facility]; [facility] Work Phone: Comment on above: Pattern: Regular 10-20-2014 11:14-0400 Pulse Oximetry 98 % Naheed Alejandrokhalidaale [facility]; [facility] Work Phone: Comment on above: Room air 10-20-2014 11:14-0400 Respiratory Rate 16 /min Nahede Alejandrokhalidaale [facility]; [facility] Work Phone: Comment on above: Pattern: Unlabored 05-08-2014 10:49-0500 BMI (Body Mass Index) 29.13 kg/m2 Naheedernie Main [facility]; [facility] Work Phone: 05-08-2014 10:49-0500 Body Temperature 97.6 [degF] [facility]; [facility] Work Phone: Comment on above: Method: Temporal 05-08-2014 10:49-0500 Body weight 84.37 kg [facility]; [facility] Work Phone: 05-08-2014 10:49-0500 BP Diastolic 78 mm[Hg] [facility]; [facility] Work Phone: Comment on above: Patient Position: Sitting; Cuff Location : Left Arm; Cuff Size: Standard 05-08-2014 10:49-0500 BP Systolic 122 mm[Hg] [facility]; [facility] Work Phone: Comment on above: Patient Position: Sitting; Cuff Location : Left Arm; Cuff Size: Standard 05-08-2014 10:49-0500 BSA (Body Surface Area) 1.96 m2 [facility]; [facility] Work Phone: 05-08-2014 10:49-0500 Height 170.18 cm [facility]; [facility] Work Phone: 05-08-2014 10:49-0500 Pulse (Heart Rate) 74 /min [facility]; [facility] Work Phone: Comment on above: Pattern: Regular 05-08-2014 10:49-0500 Respiratory Rate 20 /min [facility]; [facility] Work Phone: Comment on above: Pattern: Unlabored 11-01-2013 11:40-0400 BMI (Body Mass Index) 28.5 kg/m2 [facility]; [facility] Work Phone: 11-01-2013 11:40-0400 Body Temperature 97.6 [degF] [facility]; [facility] Work Phone: Comment on above: Method: Oral 11-01-2013 11:40-0400 Body weight 82.56 kg [facility]; [facility] Work Phone: 11-01-2013 11:40-0400 BP Diastolic 80 mm[Hg] [facility]; [facility] Work Phone: Comment on above: Patient Position: Sitting; Cuff Location : Left Arm; Cuff Size: Large 11-01-2013 11:40-0400 BP Systolic 120 mm[Hg] [facility]; [facility] Work Phone: Comment on above: Patient Position: Sitting; Cuff Location : Left Arm; Cuff Size: Large 11-01-2013 11:40-0400 BSA (Body Surface Area) 1.94 m2 [facility]; [facility] Work Phone: 11-01-2013 11:40-0400 Height 170.18 cm [facility]; [facility] Work Phone: 11-01-2013 11:40-0400 Pulse (Heart Rate) 74 /min [facility]; [facility] Work Phone: Comment on above: Pattern: Regular 11-01-2013 11:40-0400 Respiratory Rate 18 /min Naheed Main [facility]; [facility] Work Phone: Comment on above: Pattern: Unlabored 04-22-2013 10:25-0400 BMI (Body Mass Index) 28.82 kg/m2 Naheed Main [facility]; [facility] [...] 04-22-2013 10:25-0400 BP Systolic 128 mm[Hg] [facility]; [facility] [...] (Body Mass Index) 28.44 kg/m2 Naheed Main [facility]; [facility] Work Phone: 10-23-2012 10:05-0400 Body Temperature 98.7 [degF] Naheed Main [facility]; [facility] Work Phone: Comment on above: Method: Temporal 10-23-2012 10:05-0400 Body weight 82.37 kg Naheed Main [facility]; [facility] Work Phone: 10-23-2012 10:05-0400 BP Diastolic 78 mm[Hg] Naheed Main [facility]; [facility] Work Phone: Comment on above: Patient Position: Sitting; Cuff Location : Left Arm; Cuff Size: Standard 10-23-2012 10:05-0400 BP Systolic 136 mm[Hg] Naheed Main [facility]; [facility] Work Phone: Comment on above: Patient Position: Sitting; Cuff Location : Left Arm; Cuff Size: Standard 10-23-2012 10:05-0400 BSA (Body Surface Area) 1.94 m2 Naheed Main [facility]; [facility] Work Phone: 10-23-2012 10:05-0400 Height 170.18 cm Naheed Main [facility]; [facility] Work Phone: 10-23-2012 10:05-0400 Pulse (Heart Rate) 72 /min Naheed Main [facility]; [facility] Work Phone: Comment on above: Pattern: Regular 10-23-2012 10:05-0400 Pulse Oximetry 97 % Naheed Main [facility]; [facility] Work Phone: Comment on above: Room air 10-23-2012 10:05-0400 Respiratory Rate 16 /min Naheed Main [facility]; [facility] Work [...] (Body Mass Index) 28.66 kg/m2 [facility]heed [facility]; [facility] Work [...] (Body Surface Area) 1.95 m2 Naheed Main [facility]; [facility] Work [...] (Body Mass Index) 28.66 kg/m2 Naheed Main [facility]; [facility] Work Phone: 08-21-2012 14:55-0500 Body Temperature 98.2 [degF] Naheedernie Main [facility]; [facility] Work Phone: Comment on above: Method: Oral 08-21-2012 14:55-0500 Body weight 83.01 kg Naheed Munroeale [facility]; [facility] Work Phone: 08-21-2012 14:55-0500 BP Diastolic 86 mm[Hg] [facility]; [facility] Work Phone: Comment on above: Patient Position: Sitting; Cuff Location : Left Arm; Cuff Size: Standard 08-21-2012 14:55-0500 BP Systolic 148 mm[Hg] [facility]; [facility] Work Phone: Comment on above: Patient Position: Sitting; Cuff Location : Left Arm; Cuff Size: Standard 08-21-2012 14:55-0500 BSA (Body Surface Area) 1.95 m2 [facility]; [facility] Work Phone: 08-21-2012 14:55-0500 Height 170.18 cm [facility]; [facility] Work Phone: 08-21-2012 14:55-0500 Pulse (Heart Rate) 72 /min [facility]; [facility] Work Phone: Comment on above: Pattern: Regular 08-21-2012 14:55-0500 Respiratory Rate 16 /min Naheed Main [facility]; [facility] Work Phone: Comment on above: Pattern: Unlabored 07-24-2012 10:46-0500 BMI (Body Mass Index) 28.66 kg/m2 Naheed Main [facility]; [facility] Work Phone: 07-24-2012 10:46-0500 Body Temperature 97.8 [degF] [facility]; [facility] Work Phone: Comment on above: Method: Oral 07-24-2012 10:46-0500 Body weight 83.01 kg [facility]; [facility] Work Phone: 07-24-2012 10:46-0500 BP Diastolic 84 mm[Hg] [facility]; [facility] Work Phone: Comment on above: Patient Position: Sitting; Cuff Location : Left Arm; Cuff Size: Standard 07-24-2012 10:46-0500 BP Systolic 160 mm[Hg] [facility]; [facility] Work Phone: Comment on above: Patient Position: Sitting; Cuff Location : Left Arm; Cuff Size: Standard 07-24-2012 10:46-0500 BSA (Body Surface Area) 1.95 m2 [facility]; [facility] Work Phone: 07-24-2012 10:46-0500 Height 170.18 cm [facility]; [facility] Work Phone: 07-24-2012 10:46-0500 Pulse (Heart Rate) 76 /min [facility]; [facility] Work Phone: Comment on above: Pattern: Regular 07-24-2012 10:46-0500 Respiratory Rate 18 /min [facility]; [facility] Work Phone: Comment on above: Pattern: Unlabored 07-16-2012 13:27-0500 BMI (Body Mass Index) 29.14 kg/m2 Naheed Main [facility]; [facility] Work Phone: 07-16-2012 13:27-0500 Body Temperature 98.6 [degF] [facility]; [facility] Work Phone: Comment on above: Method: Oral 07-16-2012 13:27-0500 Body weight 84.4 kg [facility]; [facility] Work Phone: 07-16-2012 13:27-0500 BP Diastolic 82 mm[Hg] [facility]; [facility] Work Phone: Comment on above: Patient Position: Sitting; Cuff Location : Left Arm; Cuff Size: Standard 07-16-2012 13:27-0500 BP Systolic 138 mm[Hg] [facility]; [facility] Work Phone: Comment on above: Patient Position: Sitting; Cuff Location : Left Arm; Cuff Size: Standard 07-16-2012 13:27-0500 BSA (Body Surface Area) 1.96 m2 Naheed Main [facility]; [facility] Work Phone: 07-16-2012 13:27-0500 Height 170.18 cm Naheed Main [facility]; [facility] Work Phone: 07-16-2012 13:27-0500 Pulse (Heart Rate) 88 /min [facility]; [facility] Work Phone: Comment on above: Pattern: Regular 07-16-2012 13:27-0500 Pulse Oximetry 97 % Naheed Main [facility]; [facility] Work Phone: Comment on above: Room air 07-16-2012 13:27-0500 Respiratory Rate 17 /min Naheed Main [facility]; [facility] Work Phone: 04-23-2012 11:11-0400 BMI (Body Mass Index) 29.14 kg/m2 Naheed Main [facility]; [facility] Work Phone: 04-23-2012 11:11-0400 Body Temperature 98.2 [degF] [facility]; [facility] Work Phone: Comment on above: Method: Oral 04-23-2012 11:11-0400 Body weight 84.4 kg Naheed Main [facility]; [facility] Work Phone: 04-23-2012 11:11-0400 BP Diastolic 78 mm[Hg] [facility]; [facility] Work Phone: Comment on above: Patient Position: Sitting; Cuff Location : Left Arm; Cuff Size: Standard 04-23-2012 11:11-0400 BP Systolic 120 mm[Hg] [facility]; [facility] Work Phone: Comment on above: Patient Position: Sitting; Cuff Location : Left Arm; Cuff Size: Standard 04-23-2012 11:11-0400 BSA (Body Surface Area) 1.96 m2 [facility]; [facility] Work Phone: 04-23-2012 [id number]:[id number] Height 170.18 cm Naheed Munroeale [facility]; [facility] Work Phone: 04-23-2012 [id number]:110400 Pulse (Heart Rate) 68 /min Naheedernie Munroeale [facility]; [facility] Work Phone: Comment on above: Pattern: Regular 04-23-2012 11:11-0400 Respiratory Rate 17 /min Naheed Etelvina [facility]; [facility] Work Phone: Comment on above: Pattern: Unlabored 03-12-2012 10:11-0400 BMI (Body Mass Index) 29.69 kg/m2 Naheed Main [facility]; [facility] Work Phone: 03-12-2012 10:11-0400 Body Temperature 98 [degF] Naheed Main [facility]; [facility] Work Phone: Comment on above: Method: Oral 03-12-2012 10:110400 Body weight 86.64 kg Naheed Munroeale [facility]; [facility] Work Phone: 03-12-2012 10:11-0400 BP Diastolic 80 mm[Hg] Naheed Main [facility]; [facility] Work Phone: Comment on above: Patient Position: Sitting; Cuff Location : Left Arm; Cuff Size: Standard 03-12-2012 10:11-0400 BP Systolic 124 mm[Hg] Naheed Main [facility]; [facility] Work Phone: Comment on above: Patient Position: Sitting; Cuff Location : Left Arm; Cuff Size: Standard 03-12-2012 10:11-0400 BSA (Body Surface Area) 1.99 m2 Naheed Main [facility]; [facility] Work Phone: 03-12-2012 10:11-0400 Height 170.81 cm Naheed Main [facility]; [facility] Work Phone: 03-12-2012 10:11-0400 Pulse (Heart Rate) 62 /min Naheed Main [facility]; [facility] Work Phone: Comment on above: Pattern: Regular 03-12-2012 10:11-0400 Respiratory Rate 20 /min Naheed Main [facility]; [facility] Work Phone: Comment on above: Pattern: Unlabored 08-23-2011 09:33-0500 BMI (Body Mass Index) 29.38 kg/m2 Naheed Main [facility]; [facility] Work Phone: 08-23-2011 09:33-0500 Body Temperature 98.5 [degF] Naheed Main [facility]; [facility] Work Phone: Comment on above: Method: Oral 08-23-2011 09:33-0500 Body weight 85.73 kg Naheed Main [facility]; [facility] Work Phone: 08-23-2011 09:33-0500 BP Diastolic 80 mm[Hg] [facility]; [facility] Work Phone: Comment on above: Patient Position: Sitting; Cuff Location : Left Arm; Cuff Size: Standard 08-23-2011 09:33-0500 BP Systolic 134 mm[Hg] Naheed Main [facility]; [facility] Work Phone: Comment on above: Patient Position: Sitting; Cuff Location : Left Arm; Cuff Size: Standard 08-23-2011 09:33-0500 BSA (Body Surface Area) 1.98 m2 Naheed Main [facility]; [facility] Work Phone: 08-23-2011 09:33-0500 Height 170.81 cm [facility]; [facility] Work Phone: 08-23-2011 09:33-0500 Pulse (Heart Rate) 68 /min [facility]; [facility] Work Phone: Comment on above: Pattern: Regular 08-23-2011 09:33-0500 Respiratory Rate 16 /min Naheed Munroeale [facility]; [facility] Work Phone: Comment on above: Pattern: Unlabored 07-22-2011 09:23-0500 BMI (Body Mass Index) 29.54 kg/m2 [facility] Work Phone: [...] (Body Mass Index) 29.23 kg/m2 [facility]; [facility] Work Phone: 02-17-2011 08:17-0400 Body Temperature 97.9 [degF] Naheed Etelvina [facility]; [facility] Work Phone: Comment on above: Method: Oral 02-17-2011 08:17-0400 Body weight 85.28 kg [facility]; [facility] Work Phone: 02-17-2011 08:17-0400 BP Diastolic 80 mm[Hg] Naheed Main [facility]; [facility] Work Phone: Comment on above: Patient Position: Sitting; Cuff Location : Left Arm; Cuff Size: Standard 02-17-2011 08:17-0400 BP Systolic 120 mm[Hg] Naheed Ale[facility]androunm [facility]; [facility] Work Phone: Comment on above: Patient Position: Sitting; Cuff Location : Left Arm; Cuff Size: Standard 02-17-2011 08:17-0400 BSA (Body Surface Area) 1.98 m2 [facility]; [facility] Work Phone: 02-17-2011 08:17-0400 Height 170.81 cm [facility]; [facility] Work Phone: 02-17-2011 08:17-0400 Pulse (Heart Rate) 68 /min [facility]; [facility] Work Phone: Comment on above: Pattern: Regular 02-17-2011 08:17-0400 Respiratory Rate 18 /min [facility]; [facility] Work Phone: Comment on above: Pattern: Unlabored 12-28-2010 10:01-0400 BMI (Body Mass Index) 29.25 kg/m2 Naheed Main [facility] Internal Medicine; [facility] Work Phone: 12-28-2010 10:01-0400 Body weight 85.33 kg [facility]ernie [facility]; [facility] Work Phone: 12-28-2010 10:01-0400 BP Diastolic 80 mm[Hg] Naheed Munroe [facility]; [facility] Work Phone: Comment on above: Patient Position: Sitting; Cuff Location : Left Arm; Cuff Size: Large 12-28-2010 10:01-0400 BP Systolic 122 mm[Hg] [facility]; [facility] Work Phone: Comment on above: Patient Position: Sitting; Cuff Location : Left Arm; Cuff Size: Large 12-28-2010 10:01-0400 BSA (Body Surface Area) 1.98 m2 [facility]; [facility] Work Phone: 12-28-2010 10:010400 Height 170.81 cm [facility]; [facility] Work Phone: 12-28-2010 10:010400 Pulse (Heart Rate) 80 /min [facility]; [facility] Work Phone: Comment on above: Pattern: Regular 12-28-2010 10:01-0400 Respiratory Rate 20 /min [facility]; [facility] Work Phone: Comment on above: Pattern: Unlabored 08-18-2010 10:30-0500 BMI (Body Mass Index) 27.05 kg/m2 Naheed Main [facility] Internal Medicine; [facility] Work Phone: 08-18-2010 10:30-0500 Body Temperature 98.2 [degF] [facility]; [facility] Work Phone: Comment on above: Method: Oral 08-18-2010 10:30-0500 Body weight 78.93 kg [facility]; [facility] Work Phone: 08-18-2010 10:30-0500 BP Diastolic 78 mm[Hg] [facility]; [facility] Work Phone: Comment on above: Patient Position: Sitting; Cuff Location : Left Arm; Cuff Size: Large 08-18-2010 10:30-0500 BP Systolic 122 mm[Hg] [facility]; [facility] Work Phone: Comment on above: Patient Position: Sitting; Cuff Location : Left Arm; Cuff Size: Large 08-18-2010 10:30-0500 BSA (Body Surface Area) 1.91 m2 Naheed [facility] Internal Medicine; [facility] Work Phone: 08-18-2010 10:30-0500 Height 170.81 cm Naheed Munroe [facility]; [facility] Work Phone: 08-18-2010 10:30-0500 Pulse (Heart Rate) 74 /min [facility]; [facility] Work Phone: Comment on above: Pattern: Regular 08-18-2010 10:30-0500 Respiratory Rate 20 /min [facility]; [facility] Work Phone: Comment on above: Pattern: Unlabored 07-23-2010 10:28-0500 BMI (Body Mass Index) 27.05 kg/m2 Naheed Main [facility] Internal Medicine; [facility] Work Phone: 07-23-2010 10:28-0500 Body weight 78.93 kg [facility]; [facility] Work Phone: 07-23-2010 10:28-0500 BP Diastolic 82 mm[Hg] [facility]; [facility] Work Phone: Comment on above: Patient Position: Sitting; Cuff Location : Left Arm; Cuff Size: Standard 07-23-2010 10:28-0500 BP Systolic 124 mm[Hg] [facility]; [facility] Work Phone: Comment on above: Patient Position: Sitting; Cuff Location : Left Arm; Cuff Size: Standard 07-23-2010 10:28-0500 BSA (Body Surface Area) 1.91 m2 [facility] Internal Medicine; [facility] Work Phone: 07-23-2010 10:28-0500 Height 170.81 cm [facility]; [facility] Work Phone: 07-23-2010 10:28-0500 Pulse (Heart Rate) 68 /min Naheed Allenzzi [facility]; [facility] Work Phone: Comment on above: Pattern: Regular 07-23-2010 10:28-0500 Respiratory Rate 20 /min Naheed Main [facility] Internal Medicine; [facility] Work Phone: Comment on above: Pattern: Unlabored 06-10-2010 09:58-0500 BMI (Body Mass Index) 27.05 kg/m2 [facility]heed [facility]; [facility] Work Phone: 06-10-2010 09:58-0500 Body Temperature 97.5 [degF] Naheed Main [facility] Internal Medicine; [facility] Work Phone: Comment on above: Method: Oral 06-10-2010 09:58-0500 Body weight 78.93 kg Naheed Main [facility] Internal Medicine; [facility] Work Phone: 06-10-2010 09:58-0500 BP Diastolic 80 mm[Hg] Naheed Munroeale [facility] Internal Medicine; [facility] Work Phone: Comment on above: Patient Position: Sitting; Cuff Location : Left Arm; Cuff Size: Standard 06-10-2010 09:58-0500 BP Systolic 120 mm[Hg] Naheed Main [facility] Internal Medicine; [facility] Work Phone: Comment on above: Patient Position: Sitting; Cuff Location : Left Arm; Cuff Size: Standard 06-10-2010 09:58-0500 BSA (Body Surface Area) 1.91 m2 Naheed Munroeale [facility] Internal Medicine; [facility] Work Phone: 06-10-2010 09:58-0500 Height 170.81 cm Naheed Munroeale [facility] Internal Medicine; [facility] Work Phone: 06-10-2010 09:58-0500 Pulse (Heart Rate) 70 /min Naheed Munroeale [facility] Internal Medicine; [facility] Work Phone: Comment on above: Pattern: Regular 06-10-2010 09:58-0500 Respiratory Rate 18 /min Naheed Munroeale [facility] Internal Medicine; [facility] Work Phone: Comment on above: Pattern: Unlabored 12-03-2009 09:59-0400 Body weight 79.38 kg Naheed [facility]un[facility]; [facility] Work Phone: 12-03-2009 09:59-0400 BP Diastolic 78 mm[Hg] Naheed Bonei [facility]; [facility] Work Phone: Comment on above: Patient Position: Sitting; Cuff Location : Left Arm; Cuff Size: Standard 12-03-2009 09:59-0400 BP Systolic 118 mm[Hg] Naheed Boneun[facility]; [facility] Work Phone: Comment on above: Patient Position: Sitting; Cuff Location : Left Arm; Cuff Size: Standard 12-03-2009 09:59-0400 Pulse (Heart Rate) 68 /min Naheed [facility] Internal Medicine; [facility] Work Phone: Comment on above: Pattern: Regular 12-03-2009 09:59-0400 Respiratory Rate 18 /min Naheed [facility]; [facility] Work Phone: Comment on above: Pattern: Unlabored 06-02-2009 10:27-0500 Body weight 83.46 kg Naheed [facility]; [facility] Work Phone: 06-02-2009 10:27-0500 BP Diastolic 80 mm[Hg] Naheed Bonei [facility]; [facility] Work Phone: Comment on above: Patient Position: Sitting; Cuff Location : Left Arm; Cuff Size: Standard 06-02-2009 10:27-0500 BP Systolic 122 mm[Hg] Naheed Boneunm [facility]; [facility] Work Phone: Comment on above: Patient Position: Sitting; Cuff Location : Left Arm; Cuff Size: Standard 06-02-2009 10:27-0500 Head Circumference 0 cm [facility] Internal Medicine; [facility] Work Phone: 06-02-2009 10:27-0500 Height 0 cm [facility] Internal Medicine; [facility] Work [...] 04-07-2009 09:40-0400 Head Circumference 0 cm Naheed Allenunm [facility]; [facility] [...] Standard 02-19-2009 10:17-0400 BP Systolic 120 mm[Hg] [facility]; [facility] Work Phone: Comment on above: Patient Position: Sitting; Cuff Location : Left Arm; Cuff Size: Standard 02-19-2009 10:17-0400 Head Circumference 0 cm [facility] Internal Medicine; [facility] Work Phone: 02-19-2009 10:17-0400 Height 0 cm [facility]; [facility] Work Phone: 02-19-2009 10:17-0400 Pulse (Heart Rate) 74 /min [facility] Internal Medicine; [facility] Work Phone: Comment on above: Pattern: Regular 02-19-2009 10:17-0400 Respiratory Rate 16 /min [facility] Internal Medicine; [facility] Work Phone: Comment on above: Pattern: Unlabored 12-01-2008 09:57-0400 Body weight 83.46 kg [facility] Internal Medicine; [facility] Work Phone: 12-01-2008 09:57-0400 BP Diastolic 78 mm[Hg] [facility] Internal Medicine; [facility] Work Phone: Comment on above: Patient Position: Sitting; Cuff Location : Left Arm; Cuff Size: Large 12-01-2008 09:57-0400 BP Systolic 118 mm[Hg] [facility] Internal Medicine; [facility] Work Phone: Comment on above: Patient Position: Sitting; Cuff Location : Left Arm; Cuff Size: Large 12-01-2008 09:57-0400 Head Circumference 0 cm [facility] Internal Medicine; [facility] Work Phone: 12-01-2008 09:57-0400 Height 0 cm [facility] Internal Medicine; [facility] Work [...] 06-23-2008 10:16-0500 BP Diastolic 80 mm[Hg] Naheed [facility]; [facility] Work Phone: Comment on above: Patient Position: Sitting; Cuff Location : Left Arm; Cuff Size: Large 06-23-2008 10:16-0500 BP Systolic 124 mm[Hg] Naheed Allenun[facility]; [facility] Work Phone: Comment on above: Patient Position: Sitting; Cuff Location : Left Arm; Cuff Size: Large 06-23-2008 10:16-0500 Head Circumference 0 cm Naheed Allenunm [facility]; [facility] Work Phone: 06-23-2008 10:16-0500 Height 0 cm Naheed [facility]un[facility]; [facility] Work Phone: 06-23-2008 10:16-0500 Pulse (Heart Rate) 70 /min Naheed Munroe [facility]; [facility] Work Phone: Comment on above: Pattern: Regular 06-23-2008 10:16-0500 Respiratory Rate 16 /min Naheed [facility]; [facility] Work Phone: Comment on above: Pattern: Unlabored 03-20-2008 14:14-0400 BMI (Body Mass Index) 29.7 kg/m2 Naheed Main [facility]; [facility] Work Phone: 03-20-2008 14:14-0400 Body Temperature 98.5 [degF] [facility]; [facility] Work Phone: Comment on above: Method: Oral 03-20-2008 14:14-0400 Body weight 86.66 kg Naheed Main [facility] Internal Medicine; [facility] Work Phone: 03-20-2008 14:14-0400 BP Diastolic 76 mm[Hg] [facility]; [facility] Work Phone: Comment on above: Patient Position: Sitting; Cuff Location : Left Arm; Cuff Size: Standard 03-20-2008 14:14-0400 BP Systolic 120 mm[Hg] [facility] Internal Medicine; [facility] Work Phone: Comment on above: Patient Position: Sitting; Cuff Location : Left Arm; Cuff Size: Standard 03-20-2008 14:14-0400 BSA (Body Surface Area) 1.99 m2 [facility] Internal Medicine; [facility] Work Phone: 03-20-2008 14:14-0400 Head Circumference 0 cm [facility] Internal Medicine; [facility] Work Phone: 03-20-2008 14:14-0400 Height 170.81 cm [facility] Internal Medicine; [facility] Work Phone: 03-20-2008 14:14-0400 Pulse (Heart Rate) 88 /min [facility] Internal Medicine; [facility] Work Phone: Comment on above: Pattern: Regular 03-20-2008 14:14-0400 Respiratory Rate 20 /min [facility] Internal Medicine; [facility] Work Phone: Comment on above: Pattern: Unlabored 01-09-2008 16:17-0400 Body Temperature 98.3 [degF] [facility] Internal Medicine; [facility] Work Phone: Comment on above: Method: Undefined 01-09-2008 16:17-0400 Body weight 0 kg [facility] Internal Medicine; [facility] Work Phone: 01-09-2008 16:17-0400 BP Diastolic 82 mm[Hg] [facility] Internal Medicine; [facility] Work Phone: Comment on above: Patient Position: Sitting; Cuff Location : Left Arm; Cuff Size: Standard 01-09-2008 16:17-0400 BP Systolic 130 mm[Hg] [facility] Internal Medicine; [facility] Work Phone: Comment on above: Patient Position: Sitting; Cuff Location : Left Arm; Cuff Size: Standard 01-09-2008 16:17-0400 Head Circumference 0 cm [facility] Internal Medicine; [facility] Work Phone: 01-09-2008 16:17-0400 Height 0 [facility]; [facility] Work Phone: 01-09-2008 16:17-0400 Pulse (Heart Rate) 88 /min [facility]; [facility] Work Phone: Comment on above: Pattern: Regular 01-09-2008 16:17-0400 Respiratory Rate 16 /min [facility]; [facility] Work Phone: Comment on above: Pattern: Undefined 10-18-2007 08:34-0400 BMI (Body Mass Index) 29.7 kg/m2 Naheed Allenkhalidaale [facility] Internal Medicine; [facility] Work Phone: 10-18-2007 08:34-0400 Body Temperature 98.2 [degF] [facility]; [facility] Work Phone: Comment on above: Method: Oral 10-18-2007 08:34-0400 Body weight 86.66 kg [facility]heed [facility] Internal Medicine; [facility] Work Phone: 10-18-2007 08:34-0400 BP Diastolic 78 mm[Hg] [facility]; [facility] Work Phone: Comment on above: Patient Position: Sitting; Cuff Location : Left Arm; Cuff Size: Standard 10-18-2007 08:34-0400 BP Systolic 120 mm[Hg] [facility]; [facility] Work Phone: Comment on above: Patient Position: Sitting; Cuff Location : Left Arm; Cuff Size: Standard 10-18-2007 08:34-0400 BSA (Body Surface Area) 1.99 m2 [facility]; [facility] Work Phone: 10-18-2007 08:34-0400 Head Circumference 0 cm [facility]; [facility] Work Phone: 10-18-2007 08:34-0400 Height 170.81 cm Naheed Munroe [facility]; [facility] Work Phone: 10-18-2007 08:34-0400 Pulse (Heart Rate) 70 /min Naheed [facility]; [facility] Work Phone: Comment on above: Pattern: Regular 10-18-2007 08:34-0400 Respiratory Rate 18 /min [facility]; [facility] Work Phone: Comment on above: Pattern: Unlabored 08-20-2007 15:09-0500 Body Temperature 98.1 [degF] [facility] Work Phone: Comment on above: Method: Oral 08-20-2007 15:09-0500 Body weight 0 kg [facility]; [facility] Work Phone: 08-20-2007 15:09-0500 BP Diastolic 80 mm[Hg] [facility] Internal Medicine; [facility] Work Phone: Comment on above: Patient Position: Sitting; Cuff Location : Left Arm; Cuff Size: Standard 08-20-2007 15:09-0500 BP Systolic 124 mm[Hg] [facility]; [facility] Work Phone: Comment on above: Patient Position: Sitting; Cuff Location : Left Arm; Cuff Size: Standard 08-20-2007 15:09-0500 Head Circumference 0 cm [facility]; [facility] Work Phone: 08-20-2007 15:09-0500 Height 0 cm [facility]; [facility] Work Phone: 08-20-2007 15:09-0500 Pulse (Heart Rate) 64 /min [facility] Medicine; [facility] Work Phone: Comment on above: Pattern: Regular 08-20-2007 15:09-0500 Respiratory Rate 18 /min [facility]; [facility] Work Phone: Comment on above: Pattern: Unlabored 11-17-2006 10:24-0400 Body Temperature 97.6 [degF] Naheed [facility]un[facility]; [facility] Work Phone: Comment on above: Method: Oral 11-17-2006 10:24-0400 Body weight 85.73 kg Naheed Munroe [facility]; [facility] Work Phone: 11-17-2006 10:24-0400 BP Diastolic 80 mm[Hg] Naheed Boneun[facility]; [facility] Work Phone: Comment on above: Patient Position: Sitting; Cuff Location : Left Arm; Cuff Size: Standard 11-17-2006 10:24-0400 BP Systolic 124 mm[Hg] Naheed Boneunm [facility]; [facility] Work Phone: Comment on above: Patient Position: Sitting; Cuff Location : Left Arm; Cuff Size: Standard 11-17-2006 10:24-0400 Head Circumference 0 cm Naheed Alejandrounm [facility]; [facility] Work Phone: 11-17-2006 10:24-0400 Height 0 cm Naheed [facility]; [facility] Work Phone: 11-17-2006 10:24-0400 Pulse (Heart Rate) 74 /min Naheed Allenunm [facility]; [facility] Work Phone: Comment on above: Pattern: Regular 11-17-2006 10:24-0400 Respiratory Rate 20 /min Naheedernie Allenunm [facility]; [facility] Work Phone: Comment on above: Pattern: Unlabored 08-30-2006 11:30-0500 Body Temperature 97.2 [degF] Naheed Boneunm [facility]; [facility] [...] Standard 08-30-2006 11:30-0500 [facility]; [facility] Work [...] 05-24-2006 10:14-0500 Body Temperature 99.1 [degF] Naheed [facility]androunm [facility]; [facility] [...] 05-24-2006 10:14-0500 Head Circumference 0 cm Naheed Allenunm [facility]; [facility] Work Phone: 05-24-2006 10:14-0500 Height 0 cm Naheed [facility]un[facility]; [facility] [...] Phone: 05-15-2006 14:24-0500 Height 0 cm Naheed Allenunm [facility]; [facility] Work Phone: 05-15-2006 14:24-0500 Pulse (Heart Rate) 96 /min Naheed Munroe [facility]; [facility] Work Phone: Comment on above: Pattern: Regular Encounters Encounter Date Encounter Type Care Provider Facility Start: 09-16-2024 Encounter for genera l adult medical examination without abnormal findings Michael Calderón [facility] Start: 09-04-2024 End: 09-04-[address] Michael Calderón MD Work Phone: [facility] Work Phone: Start: 09-04-2024 End: 09-04-[address] Michael Calderón MD -Outpatient Bone Densitometry Work Phone: Start: 09-04-2024 End: 09-04-2024 ambulatory Michael Aguirre:[facility] Start: 08-07-2024 End: 08-07-[address] [facility] Start: 08-07-2024 End: 08-07-2024 ambulatory Michael Calderón Facility:[facility] Start: 02-26-2024 End: 02-26-2024 ambulatory Michael Calderón Facility:[facility] Start: 11-10-2023 End: 11-10-2023 ambulatory Michael Calderón Facility:[facility] Start: 06-28-2023 End: 06-28-2023 ambulatory [facility] Work Phone: Start: 06-28-2023 End: 06-28-2023 Patient encounter [facility] Start: 05-24-2023 End: 05-24-2023 ambulatory [facility] Work Phone: Start: 05-24-2023 End: 05-24-2023 [facility]: Start: 02-23-2023 End: 02-23-2023 Patient encounter procedure [facility]-Outpatient Breast Imaging Work Phone: Start: 08-15-2022 End: 08-15-2022 ambulatory [facility] Work Phone: Start: 08-15-2022 End: 08-15-2022 Patient encounter procedure [facility] [facility] Start: 04-04-2022 End: 04-04-2022 ambulatory DERIC CORTEZ Facility:[facility] Start: 03-25-2022 End: 03-25-2022 ambulatory BOUCHRA MENJIVAR Facility:[facility] Start: 03-25-2022 End: 03-25-2022 ambulatory Gabi Cabrera OT/L Work Phone: [facility] Comment on above: Pain in finger of ri ght hand (Primary Dx) Start: 03-21-2022 ambulatory Bouchra Menjivar PA-C Work Phone: [facility] Comment on above: Finger PT Start: 02-28-2022 End: 02-28-2022 ambulatory DERIC CORTEZ [facility] Start: 02-15-2022 End: 02-15-[address] Michael Calderón Work Phone: [facility] Start: 02-04-2022 End: 02-04-2022 ambulatory DERIC CORTEZ Facility[facility] Start: 02-04-2022 End: 02-04-2022 Patient encounter procedure Deric Cortez MD Work Phone: [facility] Comment on above: Infection of index f frederic (Primary Dx); Cat bite of finger, subsequent encounter Start: 01-28-2022 End: 01-28-2022 ambulatory DERIC CORTEZ [facility] Start: 01-28-2022 End: 01-28-2022 Patient encounter procedure Deric Cortez MD Work Phone: [facility] Comment on above: Infection of index f frederic (Primary Dx); Cat bite of finger, subsequent encounter Start: 01-26-2022 Telephone encounter Ag Orth Work Phone: [facility] Comment on above: Hospital Follow Up ( scheduled ) PostOp Follow-up Start: 01-22-2022 End: 01-25-2022 Evaluation and management of inpatient RIKKI GREENDANIELLE Facility:[facility] Start: 01-22-2022 Non-patient / Non-visit Dr. Robert Calderón Work Phone: [facility] Start: 01-21-2022 End: 01-22-2022 Emergency department patient visit Dr. Michael Calderón Work Phone: [facility] Start: 12-06-2021 End: 12-06-2021 Patient encounter procedure [facility] Start: 06-13-2017 Patient encounter Edgar Vásquez Fa cility:[id number] Start: 05-07-2015 End: 05-07-2015 Office outpatient visit 40 minutes Naheed Main [facility] Start: 04-07-2015 End: 04-07-2015 Phone Encounter Naheed Main [facility] Start: 01-15-2015 End: 01-16-2015 Office [...] Medicine Start: 05-28-2013 End: 05-28-2013 Phone Encounter Nhaeed Main [facility] Start: 05-21-2013 End: 05-21-2013 Patient [...] 07-16-2012 End: 07-16-2012 Annotation/Addendum Naheed Main [facility] Start: 07-16-2012 End: 07-16-2012 Office outpatient visit 15 minutes Naheed Main [facility] Start: 04-23-2012 End: 04-23-2012 Office outpatient visit 15 minutes Naheed Main [facility] Start: 03-12-2012 End: 03-12-2012 Patient encounter procedure Naheed Main [facility] Start: 03-06-2012 End: 03-06-2012 Phone Encounter Naheed Main [facility] Start: 08-23-2011 End: 08-23-2011 Patient [...] 06-22-2010 End: 06-22-2010 Annotation/Addendum Naheed Main [facility] Start: 06-10-2010 End: 06-10-2010 Patient [...] End: 06-23-2008 Patient encounter procedure Naheed Main [facility] Start: 03-20-2008 End: 03-20-2008 Patient encounter procedure Naheed Main [facility] Start: 01-09-2008 End: 01-10-2008 Patient encounter procedure Naheed Main [facility] Start: 10-18-2007 End: 10-18-2007 Patient encounter procedure Naheed Ludwigale [facility] Start: 10-03-2007 End: 10-03-2007 Error Encounter Naheedernie Main [facility] Start: 08-20-2007 End: 08-20-2007 Patient encounter procedure Naheed Alejandroprince [facility] Start: 05-10-2007 End: 05-10-2007 Nursing evaluation of patient and report Naheed Main [facility] Start: 04-05-2007 End: 04-12-2007 Patient encounter procedure Naheed Main [facility] Start: 11-17-2006 End: 11-17-2006 Patient encounter procedure Naheed Main [facility] Start: 08-30-2006 End: 08-30-2006 Patient encounter procedure Naheedernie Munroeale [facility] Start: 06-22-2006 End: 06-22-2006 Historical Summary Naheed Main [facility] Start: 06-19-2006 End: 06-19-2006 Office outpatient visit 5 minutes Naheed Main [facility] Start: 06-05-2006 End: 06-05-2006 Patient encounter procedure Naheed Alejandroprince [facility] Start: 05-29-2006 End: 05-29-2006 Phone Encounter Naheed Main [facility] Start: 05-24-2006 End: 05-24-2006 Office outpatient visit 15 minutes Naheed Main [facility] Start: 05-23-2006 End: 05-23-2006 Historical Summary Naheed Main [facility] Start: 05-15-2006 End: 05-15-2006 Office outpatient visit 25 minutes Naheed Main [facility] Start: 05-09-2006 End: 05-09-2006 Nursing evaluation of patient and report Naheed Main [facility] Start: 03-27-2006 End: 03-27-2006 Historical Summary Naheed Main [facility] Procedures Date Procedure Procedure Detail [...] Density Study (HP) Comments: See Note; NOTES: [facility] Imaging Services [address] [place] [id number] Verdana 4d Dexa Bone Density Study (HP) MR#: [id number] Acct: [id number] Name: SITA MITTAL Rep #: [id number] : 1955 F 60 From: Korey Wong MD PCP: Naheed Main MD Status: REG CLI Study: Dexa Bone Density Study (HP) Date of Exam: 07/07/15 Exam# [id number] Ordering Dr: Naheed Main MD STUDY: DUAL [...] Korey Wong MD at 11:33 EST Tel [phone], Service support [phone], CC: Naheed Main MD Barrel Raiser: Signed Naheed Main Work Phone: Start: 12-02-2014 End: 12-02-2014 Hip min 2 Views Comments: See Note; NOTES: [facility] Imaging Services [address] [place] [address] Radiology Report MR#: [id number] Acct: [id number] Name: SITA MITTAL Rep #: [id number] : 1955 F 59 From: Franklin Nunez MD PCP: Naheed Main MD Status: REG CLI Study: Hip min 2 Views Date of Exam: 12/02/14 Exam# [id number] Ordering Dr: PAMELA HEBERT STUDY: X-RAY - [...] MD at 16:53 EDT , Service support [phone], RAD/Hip min 2 Views IMPRESSION: Normal x-ray examination of the hip. Electronically Signed: Pradip Nunez MD at 16:53 EDT , Service support [phone], CC: PAMELA HEBERT; Naheed Main MD Barrel Raiser: Signed Naheed Main Work Phone: Start: 10-30-2014 End: 10-30-2014 Bilat Scrn Digital AND CAD Comments: See Note; NOTES: [facility] Imaging Services [address] [place] [address] Breast Imaging Report MR#: [id number] Acct: [id number] Name: SITA MITTAL Rep #: [id number] : 1955 F 59 From: Korey Wong MD PCP: Naheed Main MD Status: REG CLI Study: Bilat Scrn Digital AND CAD Date of Exam: 10/30/14 Exam# [id number] Ordering Dr: Elizabeth Strong MD MAMMOGRAPHY - [...] Korey Wong MD at 12:25 EDT Tel [phone], Service support [phone], CC: Naheed Main MD; Elizabeth Strong MD Barrel Raiser: Signed Naheed Main Start: 10-29-2013 End: 10-29-2013 Kitty Fontanez Digital & CAD Comments: See Note; NOTES: [facility] Imaging Services [address] [place] [address] Breast Imaging Report MR#: [id number] Acct: [id number] Name: SITA MITTAL Rep #: [id number] : 1955 F 58 From: Korey Wong MD PCP: Naheed Main MD Status: REG CLI Exam# [id number] Ordering Dr: Elizabeth Strong MD MAMMOGRAPHY - [...] Korey Wong MD at 13:06 EDT Tel [phone], Service support [phone], CC: Naheed Main MD; Elizabeth Strong MD Barrel Raiser: Signed Naheed Main Work Phone: Bacteria identified in Blood by Culture Dr. Michael Calderón Work Phone: Cholecystectomy [facility] Emma bautista Comment on above: March 2009 SARS-CoV-2 & FLU Ant igen (Rapid) Dr. Michael Calderón Work Phone: Screening colonoscopy JOVI Britton Comment on above: 03-24-15 Dr. Funes repeat 10 years Plan of Treatment Date Care Activity Detail Author Start: 01-25-2025 DIABETES SCREEN DIABETES SCREEN [facility] Start: 03-03-2022 Influenza vaccination INFLUENZA (#1) [facility] Start: 02-03-2022 COVID-19 VACCINE (5 - Booster for Pfizer series) COVID-19 VACCINE (5 - Booster for Pfizer series) [facility] Start: 07-03-2021 ADVANCE DIRECTIVE DISCUSSION ADVANCE DIRECTIVE DISCUSSION [facility] Start: 2020 BONE DENSITY BONE DENSITY [facility] Start: 05-07-2015 Lipid panel LIPID PANEL (87937) [facility] Work Phone: Start: 01-15-2015 Patient Education Obesity *: l osing weight [facility]; [facility] Work Phone: Start: 11-04-2014 Procedure Education Eprescribe d prescriptions (G8553) [facility]; [facility] Work Phone: Start: 11-04-2014 Lipid panel Lipid Panel (76372) [facility] Work Phone: Start: 10-20-2014 Provider Instruction s for Treatment [facility]; [facility] Work Phone: Start: 10-20-2014 Ova&parasites direct smears concentration & id OVA & PARASITE DIR SMEAR (18676) [facility]; [facility] Work Phone: Start: 10-20-2014 Blood occult peroxid ase actv qual feces 1 deter OCCULT BLOOD FECES SCREEN (72964) [facility]; [facility] Work Phone: Start: 10-20-2014 Leukocyte assmt feca l qual/semiquantitative LEUKOCYTE COUNT, FECAL (50563) [facility]; [facility] Work Phone: Start: 10-20-2014 Culture bacterial an y source anaerobic iso&id C-DIFFICILE, STOOL (74764) [facility]; [facility] Work Phone: Start: 10-20-2014 Cul bact stool aerob ic isol salmonella&shigell ROSEANNE CULTURE-STOOL (55291) [facility]; [facility] Work Phone: Start: 05-08-2014 Patient Education Flu (Influenza) *: flu [facility]; [facility] Work Phone: Start: 05-08-2014 Procedure Education Eprescribe d prescriptions (G8580) [facility]; [facility] Work Phone: Start: 05-08-2014 Urnls dip stick/tabl et reagent auto microscopy URINALYSIS, W/ MICRO (24142) [facility]; [facility] Work Phone: Start: 05-08-2014 Comprehensive metabo lic panel METABOLIC PANEL, COMPREHENSIVE (03477) [facility]; [facility] Work Phone: Start: 05-08-2014 Lipid panel LIPID PANEL (22934) [facility]; [facility] Work Phone: Start: 05-08-2014 Blood count complete auto&auto difrntl wbc CBC W/AUTO DIFF WBC (32041) [facility]; [facility] Work Phone: Start: 11-01-2013 Comprehensive metabo lic panel METABOLIC PANEL, COMPREHENSIVE (94016) [facility]; [facility] Work Phone: Start: 11-01-2013 Lipid panel LIPID PANEL (52372) [facility]; [facility] Work Phone: Start: 11-01-2013 Blood count manual c ell count each CBC WITH MANUAL DIFF (64432) [facility]; [facility] Work Phone: Start: 04-22-2013 Lipid panel LIPID PANEL (66050) [facility]; [facility] Work Phone: Start: 04-22-2013 Hepatic function panel HEPATIC FUNCTION PANEL (62056) [facility]; [facility] Work Phone: Start: 10-23-2012 Lipid panel LIPID PANEL (14898) [facility]; [facility] Work Phone: Start: 10-23-2012 25 hydroxy includes fractions if performed CALCIFEDIOL (48413) [facility]; [facility] Work [...] difrntl wbc CBC, Platelets & Auto Diff (35483) [facility]; [facility] Work Phone: Start: 08-21-2012 Comprehensive metabo lic panel Metabolic Panel, Comprehensive (88450) [facility]; [facility] Work Phone: Start: 08-21-2012 TSH Qn TSH (96334) [facility]; [facility] Work Phone: Start: 08-21-2012 Provider Instruction s for Treatment Follow up in 3 weeks [facility]; [facility] Work Phone: Start: 07-24-2012 Patient Education Insomnia *: sleep disorder [facility]; [facility] Work Phone: Start: 07-24-2012 Comprehensive metabo lic panel METABOLIC PANEL, COMPREHENSIVE (29792) [facility]; [facility] Work Phone: Start: 07-24-2012 Blood count manual c ell count each CBC WITH MANUAL DIFF (23790) [facility]; [facility] Work Phone: Start: 07-24-2012 Lipid panel LIPID PANEL (46942) [facility] [...] 25 hydroxy includes fractions if performed CALCIFIDIOL (87405) VIT D 25 [facility]; [facility] Work Phone: Start: 03-12-2012 Lipid panel LIPID PANEL (24136) [facility]; [facility] Work Phone: Start: 03-06-2012 Comprehensive metabo lic panel METABOLIC PANEL, COMPREHENSIVE (89987) [facility]; [facility] Work Phone: Start: 03-06-2012 Blood count manual c ell count each CBC WITH MANUAL DIFF (82833) [facility]; [facility] Work Phone: Start: 07-22-2011 Patient Education Water in t, brief version [facility]; [facility] Work Phone: Start: 07-22-2011 Provider Instruction s for Treatment [facility]; [facility] Work Phone: Start: 07-22-2011 Culture bct isol&prsmptv id isolate ea urine URINE ROSEANNE CULTURE-IDENTIFICATN (12393) [facility]; [facility] Work Phone: Start: 02-17-2011 Blood count manual c ell count each CBC WITH MANUAL DIFF (53538) [facility]; [facility] Work Phone: Start: 02-17-2011 Comprehensive metabo lic panel METABOLIC PANEL, COMPREHENSIVE (86517) [facility]; [facility] Work Phone: Start: 02-17-2011 Lipid panel LIPID PANEL (85551) [facility]; [facility] Work Phone: Start: 08-18-2010 Patient Education Sore throat: diagnosis and treatment [facility]; [facility] Work Phone: Start: 08-18-2010 Provider Instruction s for Treatment [facility]; [facility] Work Phone: Start: 08-18-2010 Cul bact xcpt urine blood/stool aerobic isol ROSEANNE CULTURE-OTHER (31562) [facility]; [facility] Work Phone: Start: 07-23-2010 Provider Instruction s for Treatment Continue Current Prescription(s) relafen bid-tid with food [facility]; [facility] Work Phone: Start: 12-03-2009 Comprehensive metabo lic panel METABOLIC PANEL, COMPREHENSIVE (84236) [facility]; [facility] Work Phone: Start: 12-03-2009 Lipid panel LIPID PANEL (68723) [facility]; [facility] Work Phone: Start: 12-03-2009 Blood count manual c ell count each CBC WITH MANUAL DIFF (94917) [facility]; [facility] Work Phone: Start: 06-02-2009 Blood count complete automated CBC (Auto) (13307) [facility]; [facility] Work Phone: Start: 06-02-2009 Comprehensive metabo lic panel Metabolic Panel, Comprehensive (08509) [facility]; [facility] Work Phone: Start: 06-02-2009 Lipid panel Lipid Panel (50490) [facility]; [facility] Work Phone: Start: 02-19-2009 Provider Instruction s for Treatment Cholesterol - Medication Side Effects [facility]; [facility] Work Phone: Start: 12-01-2008 Provider Instruction s for Treatment FOLLOW UP IN 6 MONTHS [facility]; [facility] Work Phone: Start: 12-01-2008 Comprehensive metabo lic panel Metabolic Panel, Comprehensive (56445) [facility]; [facility] Work Phone: Start: 12-01-2008 Lipid panel Lipid Panel (75412) [facility] Work Phone: Comment on above: in six months (appro ximately) Start: 03-20-2008 Cul bact xcpt urine blood/stool aerobic isol ROSEANNE CULTURE-OTHER (13633) [facility]; [facility] Work [...] Phone: Start: 10-18-2007 Lipid panel Lipid Panel (86979) [facility] [...] Start: 2000 COLOGUARD (FIT-DNA) COLOGUARD (FIT-D NA) [facility] Start: 2000 Colonoscopy COLONOSCOPY [facility] Start: 2000 COLORECTAL CANCER SCREENING COLORECTAL CANCER SCREENING [facility] Start: [address] COLONOGRAPHY [facility] Start: 2000 FECAL OCCULT BLOOD FECAL OCCULT BLOO D [facility] Start: 2000 LIPID SCREEN LIPID SCREEN [facility] Start: 2000 SIGMOIDOSCOPY SIGMOIDOSCOPY [facility] Start: 1995 Mammography MAMMOGRAM [facility] Start: 1974 SHINGRIX VACCINE (1 of 2) SHINGRIX VACCINE (1 of 2) [facility] Start: 1974 Urine microalbumin profile DTAP,TDAP,TD (1 - Tdap) [facility] Start: 1973 ANNUAL PCP TEAM RESERVATION AGENT FLAVIO DISEASE VISIT ANNUAL PCP TEAM CHRONIC DISEASE VISIT [facility] Start: 1973 BP CONTROLLED (<130/80) BP CONTROLLE D (<130/80) [facility] Start: 1973 HEPATITIS C SCREENING HEPATITIS C SC REENING [facility] Start: 1967 Adult depression screening assessment DEPRESSION SCREENING [facility] Start: 1961 PNEUMOCOCCAL: 65+ (1 - PCV) PNEUMOCOCCAL: 65+ (1 - PCV) [facility] Start: 1960 COVID-19 VACCINE (#1) COVID-19 VACCI NE (#1) [facility] OT PLAN OF CARE CERTIFICATION OT PLAN OF CARE CERTIFICATION Procedures Routine Pain in finger of right hand Ordered: 03/25/2022 [facility] Work Phone: Comment on above: Ordered: 03/25/2022 Patient referral [facility] Work Phone: [facility]; [...] nternal Medicine; [facility] Work Phone: [facility] Immunizations Immunization Date Immunization Notes Care Provider [facility] 01-22-2022 tetanus toxoid, reduced diphtheria toxoid, and acellular pertussis vaccine, adsorbed Dr. Michael Calderón Work Phone: [facility] 12-20-2017 tetanus toxoid, reduced diphtheria toxoid, and acellular pertussis vaccine, adsorbed [facility] 04-07-2009 influenza, seasonal, injectable Naheed Bonezzi [facility]; [facility] Work Phone: 06-23-2008 influenza, seasonal, injectable Naheed Bonezzi [facility]; [facility] Work Phone: Comment on above: Lot #[id number] 9Site-left deltoidDose0.5mlgiven by Dat Valerio LPN 05-10-2007 influenza, seasonal, injectable Naheed Bonezzi [facility]; [facility] Work Phone: 05-09-2006 influenza, seasonal, injectable Naheed Bonezzi [facility]; [facility] Work Phone: Payers Date Payer Category Payer Self-pay [id number] 2023 Medicare [id number] 2021 Medicare [id number] 2021 Medicare [employer] [place] [place] [id number] 2021-Present [phone] [address] [place] [address] HMO [id number] 2021 Medicare [employer] [place] [id number] 2021-Present [phone] [address] [place] [address] HMO [id number] 2006 Private Health Insurance [id number] Unknown Unknown [id number] Unknown [id number] Unknown [id number] Unknown 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 JOB TITLES Tobacco use: Tobacco use: [facility] Work Phone: Start: 12-19-2017 End: 01-22-2022 Tobacco smoking status NHIS Unknown if ever smoked [facility] Start: 1955 Sex Assigned At Female [facility] Start: 01-22-2022 End: 01-28-2022 Tobacco smoking status NHIS Never smoked tobacco [facility] Start: 07-07-2010 End: 02-28-2022 Alcohol intake Current non-drinker of alcohol (finding) [facility] Start: 1955 Sex Assigned At Not on file [facility] Start: 01-12-2022 End: 02-28-2022 Exposure to SARS-CoV-2 (event) Not sure [facility] Start: 01-28-2022 Tobacco use and exposure Smokeless tobacco non-user [facility] Start: 09-16-2024 Sex Female (finding) [facility] Clinical Notes 01-23-2022 to 04-04-2022 Gabi Cabrera, OT/L - 03/25/2022 3:23 PM Steve Cortez MD - 02/07/2022 11:08 AM Steve Cortez MD - 01/28/2022 10:55 AM EDTTelephone Encounter - [facility] - 01/26/2022 8:29 PM EDT Note Date & Type Note Facility 04-04-2022 Note HNO ID: [id number] Author: Rahel Frias OTR/Mago Service: ? Author [...] to 04/05/2022 and treatment included: Therapeutic exercise, Self-group home management, and Patient/Family/Caregiver Education. 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 Author Type: Occupational Therapist Type: Progress Notes Filed: 03/31/2022 4:36 PM Note Text: Episode Visit Count: 1 Therapist That Will Accept/Oversee The Plan Of Care: Gabi Cabrera Start of Care Date: 03/25/22 Onset Date: 01/20/22 Plan of Care Certification Date: 03/25/22 Next Certification Due Date: 06/23/22 Patient Identified by Name and Date of : Yes 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 [facility] 03-25-2022 History of Present illness Narrative Episode Visit Count: 1 Therapist That Will Accept/Oversee The Plan Of Care: Gabi Cabrera Start of Care Date: 03/25/22 Onset Date: 01/20/22 Patient Identified by Name and Date of : Yes [facility] OCCUPATIONAL THERAPY EVALUATION [...] Finger Left Hand AROM: Index Finger Strength: Director Integrated Position 2 Sensation: (reports increased sensativtiy with R finger) Hand Strength R Director Integrated Position 2 (lbs): 50 lbs L Director Integrated Position 2 (lbs): 50 lbs UE AROM [...] was provided in selection of appropriate interventions. Self-Senior Care Management: 1: reviewed edema managment techniques; recommending [...] compliance. JULI Campuzano documented in this encounter [facility] 02-28-2022 Note HNO ID: [id number] Author: Bouchra Menjivar PA-C Service: ? Author Type: Physician Raise Miner Type: Progress Notes Filed: 02/28/2022 11:25 AM [...] or concerns. This note was generated via [employer] voice dictation and may contain errors related to that system such as spelling, grammar, punctuation, gender, words, and phrases that may be inappropriate. All reasonable efforts were made to correct dictation errors, however, they still may occur given the software used. NAJMA Vanegas, PAGeeC [facility] 02-07-2022 Note HNO ID: [id number] Author: Deric Cortez MD Service: ? Author [...] call the office with questions or concerns. [facility] 02-07-2022 History of Present illness Narrative Patient [...] questions or concerns. documented in this encounter [facility] 01-28-2022 Note HNO ID: [id number] Author: Deric Cortez MD Service: ? Author [...] call the office with questions or concerns. [facility] 01-28-2022 History of Present illness Narrative Patient [...] questions or concerns. documented in this encounter [facility] 01-26-2022 Miscellaneous Notes Record ID: [id number] Patient name: Sita Mittal Date: January 26, [...] likely is it that you would recommend [facility] to a friend or family member? -> likely Please tell me what you liked best about your hospital experience: -> Friendly and competent staff who were available when needed documented in this encounter [facility] 01-26-[address] Cortez consulted this patient in the Hospital. David Mckeon [facility] January 26, 2022 11:09 AM ----- Message [...] other than patient: n/a Best contact number: [phone] Thank you, Nilsa Byers January 26, 2022 10:41 AM documented in this encounter [facility] 01-25-2022 Note HNO ID: [id number] Author: Yo Montoya MD Service: Hospital Medicine [...] (HCC); Unspecified diffuse connective tissue disease (HCC) Buxvu-8-NXX-EPA-Fish Oil (OMEGA-3 FISH OIL) 1,000 (120-180) mg [...] Montoya MD PATIENT (more content not included)... [facility] 01-25-2022 Note HNO ID: [id number] Author: Nikos Metzger MD Service: Orthopaedic Surgery [...] Metzger MD Orthopaedic Surgery 01/25/2022 6:21 AM [facility] 01-24-2022 Note HNO ID: [id number] Author: Yo Montoya MD Service: Hospital Medicine [...] elemental, ORAL Tab Take one(1) tablet daily. Azfjn-3-NYV-EPA-Fish Oil (OMEGA-3 FISH OIL) 1,000 (120-180) mg [...] OTHER As Dire (more content not included)... [facility] 01-24-2022 Note HNO ID: [id number] Author: Nikos Metzger MD Service: Orthopaedic Surgery [...] Metzger MD Orthopaedic Surgery 01/24/2022 5:57 AM [facility] 01-23-2022 Note HNO ID: [id number] Author: Yo Montoya MD Service: Hospital Medicine [...] elemental, ORAL Tab Take one(1) tablet daily. Jrrui-4-PPJ-EPA-Fish Oil (OMEGA-3 FISH OIL) 1,000 (120-180) mg [...] Labs 01/23/22 0 (more content not included)... [facility] Evaluation note No assessment inform ation available [facility] Work Phone: Evaluation note Diagnosis Infection of index finger- Primary Unspecified local infection of skin and subcutaneous tissue Cat bite of finger, subsequent [facility] Infection of index finger- Primary Unspecified local infection of skin and subcutaneous tissue Cat bite of finger, subsequent encounter [facility] Cat bite of finger, subsequent encounter- Primary Infection of index finger Unspecified local infection of skin and subcutaneous tissue 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 Advance Directive(s) 01/22/2022 10:07 PM Latest Code Status on File Code Status Date Activated Date Inactivated Comments Full Code 01/22/2022 9:34 AM 01/25/2022 7:38 PM Full Code Order Discussed With: Patient Advance Directive Response Recorded Date/ Time Name of Medical Power of Urinalysis Technician , January 22, 2022 12:45am Living Will Yes January 22, 2022 12:45am Power of Urinalysis Technician Yes January 22 12:45am Advance Directive Response Recorded Date/ Time Living Will Yes January 21, 2022 11:45pm Power of Urinalysis Technician Yes January 21 11:45pm Instructions Name Dates [...] section and content) DATE CREATED AUTHOR 01/21/2018 [facility] DATE CREATED AUTHOR AUTHOR'S ORGANIZ ATION 04/06/2022 [facility] DATE CREATED AUTHOR AUTHOR'S ORGANIZ ATION 09/19/2024 [facility] Goals (unrecognized section and content) [...] or prosecute any alcohol or drug abuse patient.[facility] the event this information is protected by the Federal Confidentiality of Alcohol and Drug Abuse Patient Records regulations: The Federal rules restrict any use of the information to criminally investigate or prosecute any alcohol or drug abuse patient.[facility] the event this information is protected by the Federal Confidentiality of Alcohol and Drug Abuse Patient Records regulations: The Federal rules restrict any use of the information to criminally investigate or prosecute any alcohol or drug abuse patient.[facility] the event this information is protected by the Federal Confidentiality of Alcohol and Drug Abuse Patient Records regulations: The Federal rules restrict any use of the information to criminally investigate or prosecute any alcohol or drug abuse patient.[facility] the event this information is protected by the Federal Confidentiality of Alcohol and Drug Abuse Patient Records regulations: The Federal rules restrict any use of the information to criminally investigate or prosecute any alcohol or drug abuse patient.[facility] the event this information is protected by the Federal Confidentiality of Alcohol and Drug Abuse Patient Records regulations: The Federal rules restrict any use of the information to criminally investigate or prosecute any alcohol or drug abuse patient.[facility] Reason for Visit (unrecogniz ed section [...] Menjivar PA-C [address] [place] [address] Gabi Cabrera, OT/L [address] [place] [address] Referral ID Status Reason Start Date Expiration Date V isits Requested Visits Authorized [id number] Pending Review 03/25/2022 06/23/2022 1 1 Care Teams (unrecognized sec tion and content) Accounts Receivable Assistant Relationship Specialty Start Date End Date Micheal Calderón MD [address] [place] [address] PCP - General Family Practice 01/22/22 Accounts Receivable Assistant Relationship Specialty Start Date End Date Michael Calderón MD [address] [place] [address] PCP - General Family Practice 01/22/22 Accounts Receivable Assistant Relationship Specialty Start Date End Date Michael Calderón MD [address] [place] [address] PCP - General Family Practice 01/22/22 Accounts Receivable Assistant Relationship Specialty Start Date End Date Michael Calderón MD [address] [place] [address] PCP - General Family Practice 01/22/22 Accounts Receivable Assistant Relationship Specialty Start Date End Date Michael Calderón MD [address] [place] [address] PCP - General Family Medicine 01/22/22 Accounts Receivable Assistant Relationship Specialty Start Date End Date Michael Calderón MD [address] [place] [address] PCP - General Family Medicine 01/22/22 Team [...] BE BASED ON THE PRIMARY CLINICAL RECORDS. [facility]. provides no warranty or guarantee of the accuracy or completeness of information in this document.
== END | disposition home or self-care (01) ==
LOC: MTLAB 10:38
PROVIDERS: PCP Family Medicine; Referring Provider Family Medicine; Visit Provider Family Medicine
DX: I10 Essential (primary) hypertension (principal); E78.1 Pure hyperglyceridemia
CPT/HCPCS: 36415; 80053; 80061; 82043; 82570

== ENCOUNTER → 2025-02-26 | Outpatient (CLI) | payer MEDICARE, SELFPAY ==
--- NOTE | 2025-02-26 11:59 | BI_ITS ---
EXAM: SCRN MAMM (CAD)W/CAYLA BILAT DATE: 02/26/2025 CLINICAL HISTORY: F, Age 69 y/o , SCREENING FO BREAST CANCER Mother with breast cancer. TECHNIQUE: SCRN MAMM (CAD)W/CAYLA BILAT COMPARISON: Prior exam(s) dated February 26, 2024.. FINDINGS: TISSUE DENSITY: There are scattered areas of fibroglandular density. Bilateral Breast Mammographic Findings: No significant masses, calcifications or other abnormalities are identified. Stable small benign-appearing bilateral axillary lymph nodes. No suspicious masses, areas of developing architectural distortion, or suspicious calcifications. There has been no significant interval change. BI/SCRN MAMM (CAD)W/CAYLA BILAT IMPRESSION: Stable examination. OVERALL FINAL ASSESSMENT BI-RADS 2: BENIGN RECOMMENDATION: Routine annual follow-up in 1 Year A letter with findings and recommendations will be mailed to the patient. Reading Location: [facility]
== END | disposition home or self-care (01) ==
LOC: OPBI 11:58
PROVIDERS: PCP Family Medicine; Referring Provider Family Medicine; Visit Provider Family Medicine
DX: Z12.31 Encounter for screening mammogram for malignant neoplasm of breast (principal)
CPT/HCPCS: 77063; 77067